=== PATIENT | male | born 1950 | race Caucasian/White ===

== ENCOUNTER 2020-02-01 11:32 | Outpatient (REF) | payer MEDICARE, MEDICAID, SELFPAY | END 2020-02-01 11:33 | disposition home or self-care (01) | LOC: HO.LAB 11:32 | PROVIDERS: PCP Internal Medicine; Visit Provider Internal Medicine | DX: Z20.828 Contact with and (suspected) exposure to other viral communicable diseases (principal) | CPT/HCPCS: C9803; U0003 ==

== ENCOUNTER 2020-02-27 11:07 | Outpatient (REF) | payer MEDICARE, MEDICAID, SELFPAY ==
--- NOTE | 2020-02-27 | XR_ITS ---
EXAMINATION: XR CERVICAL SPINE CLINICAL INFORMATION: Cervical pain. No known injury. COMPARISON: None TECHNIQUE: 3 views of the cervical spine were obtained. FINDINGS: There is normal cervical lordosis. Mild rightward tilting spine is present on the AP view. The odontoid appears intact. The vertebral bodies are normal in height. There is no vertebral compression, destructive process, or prevertebral soft tissue swelling. There are degenerative disc changes with disc narrowing, mild endplate sclerosis, and vertebral spurring at C3-C4 and C5-C6. There is multilevel mild facet degeneration. Borderline retrolisthesis is present at C3-C4 and at C4-C5. XR/XR cervical spine 3V IMPRESSION: 1. Degenerative disc changes C3-C4 and C5-C6. Mild multilevel facet degeneration. 2. Borderline retrolisthesis C3-C4 and at C4-C5.
== END 2020-02-27 11:08 | disposition home or self-care (01) ==
LOC: HO.HMGCX 11:07
PROVIDERS: PCP Internal Medicine; Visit Provider Internal Medicine
DX: M54.2 Cervicalgia (principal)
CPT/HCPCS: 72040

== ENCOUNTER 2020-05-05 12:08 | Outpatient (REF) | payer MEDICARE, MEDICAID, SELFPAY ==
--- NOTE | ~2020-05-05 | XR_ITS ---
EXAMINATION: XR BILATERAL KNEE CLINICAL INFORMATION: Bilateral knee pain. COMPARISON: None. TECHNIQUE: 4 views each knee. FINDINGS: RIGHT KNEE: There are mild degenerative changes medial and patellofemoral compartment with intercondylar eminence spurring. No loose bodies, joint effusion or bony erosive changes seen. The soft tissues unremarkable. LEFT KNEE: There are mild degenerative changes medial and patellofemoral compartment left knee with intercondylar and superior patellar spurring. The soft tissues are normal. XR/XR knee RT 4V IMPRESSION: Mild degenerative changes medial and lateral compartments both knees with spurring but no loose bodies or fracture seen. No abnormal joint effusion noted.
--- NOTE | ~2020-05-05 | XR_ITS ---
EXAMINATION: XR BILATERAL KNEE CLINICAL INFORMATION: Bilateral knee pain. COMPARISON: None. TECHNIQUE: 4 views each knee. FINDINGS: RIGHT KNEE: There are mild degenerative changes medial and patellofemoral compartment with intercondylar eminence spurring. No loose bodies, joint effusion or bony erosive changes seen. The soft tissues unremarkable. LEFT KNEE: There are mild degenerative changes medial and patellofemoral compartment left knee with intercondylar and superior patellar spurring. The soft tissues are normal. XR/XR knee LT 4V IMPRESSION: Mild degenerative changes medial and lateral compartments both knees with spurring but no loose bodies or fracture seen. No abnormal joint effusion noted.
== END 2020-05-05 12:09 | disposition home or self-care (01) ==
LOC: HO.HMGCX 12:08
PROVIDERS: PCP Internal Medicine; Visit Provider Internal Medicine
DX: M25.561 Pain in right knee (principal); M25.562 Pain in left knee
CPT/HCPCS: 73564

== ENCOUNTER 2020-09-14 19:40 | Emergency (ER) | payer MEDICARE, MEDICAID, SELFPAY ==
--- NOTE | ~2020-09-14 | CT_ITS ---
EXAMINATION: CT HEAD WITHOUT CONTRAST CT FACIAL BONES WITHOUT CONTRAST CT CERVICAL SPINE WITHOUT CONTRAST CLINICAL INFORMATION: Trauma. Fall. COMPARISON: None. TECHNIQUE: Imaging was performed from the skull base to vertex without intravenous administration of contrast. In addition, helical noncontrast CT imaging was acquired through the cervical spine and facial bones and source images were reviewed along with axial reconstructions and sagittal and coronal MPRs. [This CT examination was performed using dose optimization techniques as appropriate, variously including the following: *Automated exposure control *Adjustment of mA and/or kV according to patient size (this includes techniques or standardized protocols for targeted exams where dose is matched to indication/reason for exam; i.e. extremities or head) *Use of iterative reconstruction technique] DLP: 4 mGy-cm FINDINGS: HEAD: No intracranial mass, hemorrhage, or midline shift is visualized. There is generalized global volume loss. There is moderate prominence of the ventricles and the sulci . There is mild hypodensity of the periventricular white matter due to chronic small vessel ischemic disease. There are vascular calcifications of the internal carotid arteries bilaterally. No extra-axial collections are identified. FACIAL BONES: There is no evidence of an acute facial bone fracture. The paranasal sinuses are well aerated. The orbits are unremarkable in appearance. CERVICAL SPINE: There is no evidence of acute cervical spine fracture. Vertebral bodies remain normal in height, intervertebral disc spaces are preserved, and alignment is anatomic. Vascular calcification of the carotid arteries bilaterally.. Emphysematous change of the lung apices. CT/CT cervical spine wo con IMPRESSION: 1. No acute intracranial process or discrete facial bone fracture. 2. No acute cervical spine fracture or traumatic subluxation.
--- NOTE | 2020-09-14 19:48 | ECG_ITS ---
Test Reason : FALL Blood Pressure : / mmHG Vent. Rate : 055 BPM Atrial Rate : 055 BPM P-R Int : 178 ms QRS Dur : 098 ms QT Int : 420 ms P-R-T Axes : 043 030 047 degrees QTc Int : 401 ms Sinus bradycardia Otherwise normal ECG When compared with ECG of 31-AUG-2014 09:59, Premature atrial complexes are no longer Present Referred By: Indira Armendariz Electronically Signed By:Ramsey Aponte
[2020-09-14 19:57] VITALS: BP 111/76; PULSE 64; RESP 18; TEMP 36.6; O2SAT 98; BMI 29.4
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
[2020-09-14] MEDS: Diphth,Pertus(ACell),Tet Adult 0.5 ML SYRINGE IM (20:57)
[2020-09-14 20:58] LABS: MANUAL DIFF FLAG NO
[2020-09-14] MEDS: Lidocaine HCl 2 % MPF 5 ML VIAL INFILTRATI (21:01)
[2020-09-14 21:03] LABS: Basophils Absolute Auto 0.1 X10*3/uL (0.0-0.2); Basophils Percent Auto 0.5 % (0-2); Eosinophils Absolute Auto 0.5 X10*3/uL (0.0-0.4); Eosinophils Percent Auto 4.1 % (0-4); Hematocrit 43.8 % (42-52); Hemoglobin 14.8 g/dl (14.0-18.0); Imm Gran Abs Auto 0.04 X10*3/uL (0.00-0.03); Imm Gran Pct Auto 0.4 % (0.0-0.4); Lymphocytes Percent Auto 18.3 % (20-40); Mean Corpuscular HGB Conc 33.8 g/dl (31.0-36.0); Mean Corpuscular Hemoglobin 32.4 pg (27.0-33.0); Mean Corpuscular Volume 95.8 fL (80-98); Mean Platelet Volume 8.7 fL (9.4-12.4); Monocytes Absolute Auto 0.8 X10*3/uL (0.1-1.2); Monocytes Percent Auto 7.1 % (2-11); Neutrophils Absolute Auto 7.7 X10*3/uL (2.0-8.3); Neutrophils Percent Auto 69.6 % (45-73); Platelet Count 277 X10*3/uL (160-400); Red Blood Count 4.57 X10*6/uL (4.60-5.80); Red Cell Distribution Width 12.4 % (11.0-16.0)
[2020-09-14 21:24] LABS: Alanine Aminotransferase 49 U/L (0-40); Albumin Level 4.1 g/dL (3.5-5.0); Alkaline Phosphatase 71 U/L (39-117); Anion Gap 18 (12-20); Aspartate Amino Transferase 46 U/L (5-37); Bilirubin Direct 0.3 mg/dL (0.0-0.5); Bilirubin Total 0.6 mg/dL (0.0-1.0); Blood Urea Nitrogen 11 mg/dL (9-16); Carbon Dioxide 20 mmol/L (22-29); Chloride 100 mmol/L (96-108); Creatinine Clr Calc Pharmacy 88.7; Estimated Glomerular Filt Rate > 60; Glucose Random 133 mg/dL (60-115); Magnesium 2.3 mg/dL (1.6-2.6); Potassium 4.1 mmol/L (3.3-5.1); Sodium 134 mmol/L (135-145); Total Protein 6.7 g/dL (6.5-8.0)
--- NOTE | 2020-09-14 21:34 | PC.NURSE ---
Labs drawn and sent for analysis. EKG obtained and reviewed by provider. Face & arms cleansed with normal saline without issue. Abrasions noted to bilateral forearms, no active bleeding from these sites. Laceration to left side of forehead, sutures to be placed by DYLAN Armendariz. Pt continues to answer questions appropriately, speaking in clear full sentences. Vitals stable. Friend at bedside will provide sober ride home when discharge is ready. Imaging unremarkable.
== END 2020-09-14 22:33 | disposition home or self-care (01) ==
PROVIDERS: Physician Assistant; Emergency Provider Emergency Medicine; PCP Internal Medicine
DX: S01.112A Laceration without foreign body of left eyelid and periocular area, initial encounter (principal); F10.920 Alcohol use, unspecified with intoxication, uncomplicated; E11.9 Type 2 diabetes mellitus without complications; I10 Essential (primary) hypertension; G89.29 Other chronic pain; W01.0XXA Fall on same level from slipping, tripping and stumbling without subsequent striking against object, initial encounter; Y93.01 Activity, walking, marching and hiking; Y92.480 Sidewalk as the place of occurrence of the external cause; Y99.9 Unspecified external cause status; Z79.82 Long term (current) use of aspirin; Z79.891 Long term (current) use of opiate analgesic
CPT/HCPCS: 12013; 36415; 70450; 70486; 72125; 80048; 80076; 83735; 85025; 90471; 90715; 93005; 99284

== ENCOUNTER 2020-10-09 13:33 | Outpatient (REF) | payer MEDICARE, MEDICAID, SELFPAY ==
--- NOTE | ~2020-10-09 | XR_ITS ---
EXAMINATION: XR CHEST CLINICAL INFORMATION: Cough with hemoptysis. COMPARISON: Multiple priors, most recent CT chest dated 05/31/2018. TECHNIQUE: 2 views of the chest were obtained. FINDINGS: The lungs are clear. The cardiomediastinal silhouette is normal in size. There is no pleural effusion or pneumothorax. No acute osseous abnormality. XR/XR chest 2V IMPRESSION: No acute cardiopulmonary findings.
== END 2020-10-09 13:34 | disposition home or self-care (01) ==
LOC: HO.HMGCX 13:33
PROVIDERS: PCP Internal Medicine; Visit Provider Internal Medicine
DX: R04.2 Hemoptysis (principal)
CPT/HCPCS: 71046

== ENCOUNTER 2020-12-17 10:45 | Outpatient (REF) | payer MEDICARE, MEDICAID, SELFPAY ==
--- NOTE | ~2020-12-17 | XR_ITS ---
EXAMINATION: XR CERVICAL SPINE CLINICAL INFORMATION: Neck pain. COMPARISON: None TECHNIQUE: 3 views of the cervical spine were obtained. FINDINGS: There is maintained cervical lordosis. There is loss of the C5-C6 disc height with moderate ventral and mild posterior spondylosis. Minimal loss of C3-C4 disc height with ventral spondylosis noted. The rest of the disc heights are normal. The vertebral heights and alignment are maintained normal. The craniovertebral junction and the C1-C2 alignment is normal. Mild bilateral narrowing at the C3-C4 and C5-C6 neural foramina slightly worse on the left at C5-C6 and on the right at C3-C4 disc levels is noted secondary to uncovertebral hypertrophic changes. There is moderate bilateral slightly greater on the right C2-C3, C4-C5 facet joint arthropathy and hypertrophy. The prevertebral soft tissues are normal. XR/XR cervical spine 4V IMPRESSION: Degenerative disc changes and facet joint arthropathy, as described above. There is bilateral narrowing of the neural foramina. No acute fracture or dislocation seen.
== END 2020-12-17 10:46 | disposition home or self-care (01) ==
LOC: HO.HMGCX 10:45
PROVIDERS: PCP Internal Medicine; Visit Provider Physical Medicine & Rehabilitation
DX: Z13.89 Encounter for screening for other disorder (principal)
CPT/HCPCS: 72050

== ENCOUNTER → 2020-12-18 10:35 | Outpatient (REF) | payer MEDICARE, MEDICAID, SELFPAY ==
--- NOTE | 2020-12-18 10:30 | CA_ITS ---
Transthoracic Echocardiogram Patient (Last, First, Middle): Chas Jack S Gender: Male Date of : 1950 Age: 70 Procedure Date: 12/18/2020 Procedure Type: Transthoracic Echocardiogram Location: OP Height: 180.34 cm Weight: 90.72 kg BSA: 2.11 m2 Heart Rate: bpm BP: 135 / 70 mmHg Merchandise Clerk: YR/FAREED Referring MD: Doug Hummel MD Printing Worker Supervisor: Dany Morfin MD Symptoms: [place] AORTIC AREA, R/O Study Quality: Good ECG Rhythm: Sinus Conclusions: - 1. Normal LV systolic function with impaired relaxation filling pattern 2. Mildly dilated left atrium 3. Fibrocalcific aortic valve changes noted with increased gradient which may suggest early aortic stenosis. Valve area within normal limits 4. Normal RV systolic pressure 5. No pericardial effusion Findings Left Ventricle Normal left ventricular size, thickness, and systolic function. The visually estimated ejection fraction is between 55-60%. Spectral Doppler is indicative of an impaired relaxation filling pattern. E/E prime ratio is between 8 and 15 consistent with indeterminate filling pressures. Right Ventricle Normal right ventricular cavity size and systolic function. Atria The left atrium is mildly dilated. There is no evidence of interatrial shunt. The right atrium is normal in size. Aortic Valve There is mild calcification of the aortic valve. The mean gradient is 12 mmHg. There is no aortic valve regurgitation. Mitral Valve There is mild anterior and posterior mitral leaflet thickening. There is mild mitral annular calcification. There is mild mitral valve regurgitation. There is no mitral valve stenosis. Pulmonic Valve The pulmonic valve was not well visualized. Tricuspid Valve Likely normal tricuspid valve structure and function. There is mild tricuspid valve regurgitation. The right ventricular systolic pressure is normal. The right ventricular systolic pressure is 30 mmHg. Normal right atrial pressure. There is no evidence of pulmonary hypertension. Great Vessels All visible segments of the aorta are normal in size. The pulmonary artery was not well visualized. Venous The inferior vena cava is normal in size and collapses greater than 50% with inspiration. Pericardium/Pleural There is no evidence of pericardial effusion. Prior Study Comparison Changes noted compared to prior study dated: 07/06/2017. Mildly increased gradient across aortic valve, suggestive of possible early aortic stenosis Measurements 2D Linear Measurements IVSd: 1.18 0.6-0.9/0.6-1.0 cm LVIDd: 5.27 3.9-5.3/4.2-5.9 cm LVIDd Index: 2.50 2.4-3.2/2.2-3.1 cm/m2 LVIDs: 3.70 2.0-3.6 cm LVPWd: 1.05 0.7-1.1 cm Ao Root: 3.70 2.1-3.5 cm LA Diam: 4.00 2.7-3.8/3.0-4.0 cm LAIDs Index: 1.90 1.5-2.3 cm/m2 LV Mass: 286.53 67-162/88-224 g LV Mass Index: 135.80 43-95/49-115 g/m2 LVOT Diam: 2.20 3.0+(-)1.3 cm 2D Systolic Function EF 4C: 56.40 >55% EF 2C: 60.00 >55% EF BiP: 57.50 >55% Mitral Valve MV Pk E: 0.96 MV PK A: 1.07 MV Decel Time: 247.00 E/A: 0.90 E'Lateral: 10.10 E'Medial: 6.85 E/E' Med: 14.00 E/E' Lat: 9.50 PHT: 72.00 MVA PHT: 3.06 Decel [place]: 3.89 Aortic Valve AoV Pk Isaak: 2.36 AoV Mn Isaak: 1.64 AoV VTI: 0.52 AoV Pk Grad: 22.00 Aov Mn Grad: 12.00 VERNON Cont.VTI: 3.09 LVOT LVOT Pk Isaak: 2.02 LVOT Mn Isaak: 1.28 LVOT VTI: 0.43 LVOT Pk Grad: 16.00 LVOT Mn Grad: 8.00 LVOT Diam: 2.20 LVOT Area: 3.80 Diastolic Function MV Pk E: 0.96 MV Pk A: 1.07 E/A: 0.90 E'Medial: 6.85 E/E' Med: 14.00 E' Laterial: 10.10 E/E' Lat: 9.50 Right Ventricle TAPSE (mm): 3.15 TVS' Isaak: 17.60 Tricuspid Valve TR Pk Isaak: 2.62 TR Pk Grad: 27.00 RA Press: 3.00 RVSP: 30.00 Great Vessels Aorta Ao Root-2D: 3.70 2.0-3.7 cm Ao Asc: 3.70 2.1-3.4 cm Updated in Other Vendor System with Status of Final Dany Morfin MD electronically signed on 12/18/2020 1:17:02 PM with status of Final
== END ==
LOC: HO.CARD 10:35
PROVIDERS: Visit Provider Internal Medicine
DX: R00.1 Bradycardia, unspecified (principal)
CPT/HCPCS: 93306

== ENCOUNTER → 2021-03-04 15:29 | Outpatient (BNVA) | payer MEDICARE, MEDICAID, SELFPAY | PROVIDERS: PCP Internal Medicine; Referring Provider Internal Medicine; Visit Provider Internal Medicine Cardiovascular Disease | DX: I48.91 Unspecified atrial fibrillation (principal); I10 Essential (primary) hypertension | CPT/HCPCS: 93005; 99202 ==

== ENCOUNTER 2021-03-25 09:45 | Day surgery (SDC) | payer MEDICARE, MEDICAID, SELFPAY ==
--- NOTE | 2021-03-25 | ECG_ITS ---
Test Reason : post cardioversion Blood Pressure : / mmHG Vent. Rate : 065 BPM Atrial Rate : 065 BPM P-R Int : 190 ms QRS Dur : 088 ms QT Int : 400 ms P-R-T Axes : 034 005 021 degrees QTc Int : 416 ms Normal sinus rhythm Normal ECG When compared with ECG of 14-SEP-2020 21:13, No significant change was found Referred By: Ramsey Aponte Electronically Signed By:Ramsey Aponte
--- NOTE | 2021-03-25 10:00 | MHC.SHP ---
Pre-Procedural Eval Section A Date of Service: 03/25/21 The patient is an INPATIENT: No The History & Physical has been completed within 30 days and I have reviewed it.: Yes Section B Chief Complaint: Persistent A-fib Allergies: Allergies Allergy/AdvReac Type Severity Reaction Status Date / Time sulfamethoxazole Allergy Intermediate RASH,N/V Verified 03/04/21 15:44 [From BACTRIM] trimethoprim [From BACTRIM] Allergy Intermediate RASH,N/V Verified 03/04/21 15:44 Sulfa (Sulfonamide Allergy Unknown Unknown Verified 03/04/21 15:44 Antibiotics) fentanyl [From Duragesic] AdvReac Mild TOPICAL Verified 03/04/21 15:44 RASH FROM ADHESIVE methadone [Methadone] AdvReac Mild NAUSEA & Verified 03/04/21 15:44 VOMITING Plan Diagnosis/Plan: Unchanged I have reviewed the history and physical and performed a pertinent physical examination on my patient. No changes have occurred unless specified.
[2021-03-25 10:26] VITALS: BMI 29.7
[2021-03-25 10:28] VITALS: BP 155/93; PULSE 113; RESP 16; TEMP 37.2; O2SAT 95
[2021-03-25 10:43] LABS: Glucose, Whole Blood 205 mg/dL (60-115)
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
[2021-03-25] MEDS: Lactated Ringers 500 ML 20 ML IVCONT (12:00)
--- NOTE | 2021-03-25 12:10 | HO.CARDIVERS ---
Cardioversion Procedure Note Cardioversion Date of Procedure: 03/25/21 Ordering Provider: Dany Morfin Performing Provider: Ramsey Aponte Indication for Procedure: Afib Pre-Op Diagnosis: Afib Performed with Transesophageal Echo: No Consent: Verbal and Written consent was obtained from the patient before starting. The patient was made aware of the risk of stroke, aspiration and failure. Procedure: After consent obtained, defib pads were attached and the patient was sedated by the anesthesia team. Once adequate sedation achieved, we tried cardioversion with 200 J shock but it was unsuccessful. He was given a 2nd shock of 200 J which converted him to sinus rhythm. He was left with anesthesia for recovery. Recommendations: c/w Apixaban and Multaq as before. f/u with Dr Morfin
[2021-03-25 12:16] VITALS: BP 131/71; PULSE 66; RESP 14; TEMP 36.8; O2SAT 95
[2021-03-25 12:21] VITALS: BP 138/65; PULSE 70; RESP 19; O2SAT 94
[2021-03-25 12:26] VITALS: BP 130/65; PULSE 71; RESP 17; O2SAT 95
[2021-03-25 12:31] VITALS: BP 133/76; PULSE 69; RESP 18; O2SAT 94
[2021-03-25 12:46] VITALS: BP 139/75; PULSE 70; RESP 17; TEMP 36.8; O2SAT 96
== END 2021-03-25 13:20 | disposition home or self-care (01) ==
PROVIDERS: PCP Internal Medicine; Visit Provider Internal Medicine Cardiovascular Disease
PROC: 5A2204Z Restoration of Cardiac Rhythm, Single (ICD-10-PCS; principal; 2021-03-25 11:20)
DX: I48.19 Other persistent atrial fibrillation (principal); J44.9 Chronic obstructive pulmonary disease, unspecified; I10 Essential (primary) hypertension; E11.9 Type 2 diabetes mellitus without complications; Z79.01 Long term (current) use of anticoagulants; Z79.51 Long term (current) use of inhaled steroids; Z79.899 Other long term (current) drug therapy; Z88.2 Allergy status to sulfonamides; Z88.8 Allergy status to other drugs, medicaments and biological substances; Z87.891 Personal history of nicotine dependence
CPT/HCPCS: 82947; 92960; 93005

== ENCOUNTER → 2021-04-08 13:10 | Outpatient (REF) | payer MEDICARE, MEDICAID, SELFPAY ==
--- NOTE | 2021-04-08 13:14 | HM_ITS ---
Conclusion: 1. Patient was monitored for total period of 3 days and 13 hours 2. Baseline rhythm is atrial fibrillation with average heart of 81 beats per minute, rate appears to be adequately controlled 3. No significant pauses noted 4. Total of 3248 PVCs accounting for 0.79% of total burden, occasional PVCs 5. No patient reported events MTDD
== END ==
LOC: HO.CARD 13:10
PROVIDERS: PCP Internal Medicine; Visit Provider Internal Medicine Cardiovascular Disease
DX: I48.91 Unspecified atrial fibrillation (principal)
CPT/HCPCS: 93242

== ENCOUNTER → 2021-05-05 09:14 | Outpatient (BNVA) | payer MEDICARE, MEDICAID, SELFPAY | PROVIDERS: PCP Internal Medicine; Referring Provider Internal Medicine; Visit Provider Internal Medicine Cardiovascular Disease | DX: I48.19 Other persistent atrial fibrillation (principal); I10 Essential (primary) hypertension; Z79.01 Long term (current) use of anticoagulants; Z79.899 Other long term (current) drug therapy | CPT/HCPCS: 93005; 99212 ==

== ENCOUNTER 2021-05-12 10:34 | Outpatient (REF) | payer MEDICARE, MEDICAID, SELFPAY ==
--- NOTE | ~2021-05-12 | XR_ITS ---
EXAMINATION: XR CHEST CLINICAL INFORMATION: Cough. Rule out pneumonia. COMPARISON: Previous chest x-ray September 2020 TECHNIQUE: 2 views of the chest were obtained. FINDINGS: The cardiac and mediastinal contours are stable. There is subsegmental atelectasis at the lung bases, right greater than left. No pneumonia is seen. There is no pleural effusion or pneumothorax. There are degenerative changes of the spine. XR/XR chest 2V IMPRESSION: Subsegmental atelectasis at the lung bases. No evidence of pneumonia.
== END 2021-05-12 10:35 | disposition home or self-care (01) ==
LOC: HO.HMGCLDS 10:34
PROVIDERS: Visit Provider Internal Medicine
DX: J18.9 Pneumonia, unspecified organism (principal)
CPT/HCPCS: 71046

== ENCOUNTER → 2021-06-12 11:07 | Outpatient (REF) | payer MEDICARE, MEDICAID, SELFPAY ==
--- NOTE | 2021-06-12 11:10 | HM_ITS ---
* Total monitoring time 3 days. * Underlying rhythm is atrial fibrillation. Average 98/Min. Range 61 to 154/Min. About 21% of the time, rate >100/min. * Rare ventricular ectopy. Minimal burden. 2 morphologies and 21 couplets. Longest run 4 beats. Aberrant conduction not excluded. * No patient events. * Overall, atrial fibrillation with inadequate rate control. MTDD
== END ==
LOC: HO.CARD 11:07
PROVIDERS: PCP Internal Medicine; Visit Provider Internal Medicine Cardiovascular Disease
DX: I48.91 Unspecified atrial fibrillation (principal)
CPT/HCPCS: 93242

== ENCOUNTER → 2021-07-01 10:44 | Outpatient (BNVA) | payer MEDICARE, MEDICAID, SELFPAY | PROVIDERS: PCP Internal Medicine; Visit Provider Internal Medicine Pulmonary Disease | DX: J84.9 Interstitial pulmonary disease, unspecified (principal); J44.9 Chronic obstructive pulmonary disease, unspecified | CPT/HCPCS: 99202 ==

== ENCOUNTER 2021-07-15 07:33 | Outpatient (REF) | payer MEDICARE, MEDICAID, SELFPAY ==
--- NOTE | ~2021-07-15 | CT_ITS ---
EXAMINATION: CT CHEST WITHOUT CONTRAST CLINICAL INFORMATION: Interstitial lung disease, unspecified. COMPARISON: CT of the chest done on 05/31/2018. TECHNIQUE: Multidetector volumetric CT imaging of the chest was done. Axial MIP volume rendering provided. Sagittal and coronal reformatted images were obtained. This CT examination was performed using dose optimization techniques as appropriate, variously including the following: *Automated exposure control *Adjustment of mA and/or kV according to patient size (this includes techniques or standardized protocols for targeted exams where dose is matched to indication/reason for exam; i.e. 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 LUNGS: Linear pleuroparenchymal opacities are noted at right middle lobe and lingular segment of the left upper lobe, consistent with pleuroparenchymal scar, atelectasis and less likely to be infiltrate. Remainder of the lung gallardo are clear. The tracheobronchial tree is patent. Specifically, no evidence of any reticular, nodular or high or low-attenuation interstitial lung parenchymal abnormalities identified. MEDIASTINUM: There are no pathologically enlarged mediastinal lymphadenopathy present. Hilar evaluation is technically limited due to lack of intravenous contrast however, grossly appear unremarkable, unchanged. The heart size is within normal limits. There is no evidence of any aortic aneurysm present. Atherosclerotic disease of the arch of the aorta and extensive atherosclerotic coronary arterial calcifications are present, similar to prior study. PLEURA: There is no pleural effusion. No pleural mass or thickening. AXILLA: No lymphadenopathy. UPPER ABDOMEN: Remarkable for diffuse hepatic hypodensity consistent with hepatic steatosis. There is no adrenal mass present. OSSEOUS STRUCTURES: Moderate diffuse osteopenia and multilevel moderate degenerative spondylosis related changes are present. CT/CT chest wo con IMPRESSION: 1. No CT evidence of any interstitial lung disease identified, unchanged since prior study dated 05/31/2018. 2. Interval development of linear pleuroparenchymal opacities are however present at right middle lobe and lingular segment of the left upper lobe, consistent with pleural parenchymal scar, atelectasis and less likely to be infiltrate. 3. Persistent stable extensive atherosclerotic coronary arterial disease. 4. Persistent stable diffuse hepatic steatosis. Fleischner guidelines were followed.
== END 2021-07-15 07:34 | disposition home or self-care (01) ==
LOC: HO.CT 07:33
PROVIDERS: Visit Provider Internal Medicine Pulmonary Disease
DX: J84.9 Interstitial pulmonary disease, unspecified (principal)
CPT/HCPCS: 71250

== ENCOUNTER → 2021-07-30 09:04 | Outpatient (BNVA) | payer MEDICARE, MEDICAID, SELFPAY | PROVIDERS: PCP Internal Medicine; Referring Provider Internal Medicine; Visit Provider Internal Medicine Cardiovascular Disease | DX: I48.19 Other persistent atrial fibrillation (principal); R07.89 Other chest pain | CPT/HCPCS: 99212 ==

== ENCOUNTER 2021-08-03 09:58 | Outpatient (REF) | payer MEDICARE, MEDICAID, SELFPAY ==
--- NOTE | 2021-08-03 15:32 | PFT_ITS ---
Forced vital capacity 80%, FEV1 74%, FEV1/FVC ratio is 68, FEF 25-75 57%, and MVV 58%. Post bronchodilator therapy, there is no significant change. Total lung capacity 96%. Residual volume 124%. Diffusion capacity 76%. CONCLUSION: Mild obstructive airway disorder. No response to bronchodilator therapy. Clinical correlation recommended. MD KALEB Oliveros/LILLIAN / [phone]
== END 2021-08-03 09:59 | disposition home or self-care (01) ==
LOC: HO.RESP 09:58
PROVIDERS: PCP Internal Medicine; Visit Provider Internal Medicine Pulmonary Disease
DX: J84.9 Interstitial pulmonary disease, unspecified (principal); R06.00 Dyspnea, unspecified
CPT/HCPCS: 94060; 94727; 94729

== ENCOUNTER → 2021-08-06 08:16 | Outpatient (REF) | payer MEDICARE, MEDICAID, SELFPAY ==
--- NOTE | ~2021-08-06 | NM_ITS ---
Myocardial perfusion study Indication: Atrial fibrillation and shortness of breath evaluate for myocardial ischemia Technique: The patient was brought in for a Lexiscan perfusion study on 08/06/2021. Patient performed low-level exercise and was injected 0.4 mg of Lexiscan intravenously. Within a minute of injection, 35 mCi of sestamibi was given intravenously. Images were obtained using the SPECT gamma camera interlaced with the gating device. Images were obtained in supine position. Resting perfusion study was performed on 08/07/2021. Patient was administered 35 mCi of sestamibi intravenously at rest. Images were then obtained in supine position. Images obtained with and without CT attenuation. Total DLP 99 mGy-cm. Images were processed with the software and compared side to side in short axis, horizontal long axis and vertical long axis views. Findings: The stress perfusion study showed non attenuated images show mildly reduced uptake in the basal septum as well as inferior wall of the LV myocardium. Remainder of the LV myocardium normally perfused. Attenuation corrected images show normal uptake of radiotracer in all segments of LV myocardium.. The gated study shows normal LV systolic function with calculated LVEF of 41%. LV cavity is mildly dilated size. The gated study shows diffusely reduced wall thickening and contraction of segments. Resting study shows no change in perfusion pattern compared to stress perfusion study. Gating at rest reveals diffusely reduced wall motion with ejection fraction at 41%. The findings are consistent with no evidence of ischemia. Normal myocardial perfusion. NM/NM lanie perf SPECT rest & str Impression: 1. Myocardial perfusion imaging study shows normal myocardial perfusion 2. Gated LVEF is 41% 3. Transient ischemic dilatation not present but LV cavity is dilated EKG is nondiagnostic for ischemia
--- NOTE | 2021-08-06 08:42 | HM_ITS ---
Conclusion: 1. Patient was monitor for total period of 22 hours and 36 minutes 2. Baseline with atrial fibrillation with average heart rate of 94 beats per minute, 20% of time heart rate greater than 100 beats per minute 3. No significant pauses or bradycardia noted 4. Two episodes of wide complex runs consistent with nonsustained VT, longest 4 beats 5. Occasional PVCs 6. No patient reported symptoms MTDD
--- NOTE | 2021-08-06 08:42 | CA_ITS ---
Acquisition Time: 2021-08-06 09:44:30 Total Exercise Time: 00:02:00 Test Indications: Dyspnea Medications: ALBUTEROL ELIQUIS FLONASE TRELOGY ELLIPTA GABAPENTIN METFORMIN METOPROL Protocol: LEXISCAN Max HR: 136 BPM 90% of Pred: 150 BPM Max BP: 170/092 mmHG Max Work Load: 1.0 METS Pharmacological stress test with Lexiscan injection, while sitting, without anginal symptoms, with isolated PVC, with normotensive response to injection, with nondiagnostic EKG for ischemia. In recovery he was treated with Aminophylline 75mg IVP to reverse Lexiscan. Nuclear images pending. Test reviewed with Dr Morfin Referred By: Dany Morfin Overread By: ZOLTAN LEMA
[2021-08-06 09:12] LABS: Digoxin < 0.3 ng/mL (0.8-2.0)
== END ==
LOC: HO.CARD 08:16
PROVIDERS: PCP Internal Medicine; Visit Provider Internal Medicine Cardiovascular Disease
DX: I10 Essential (primary) hypertension (principal); I48.19 Other persistent atrial fibrillation; R07.89 Other chest pain
CPT/HCPCS: 36415; 78452; 80162; 93017; 93242; A9500; J0280; J2785

== ENCOUNTER 2021-08-07 | Outpatient (REF) | payer MEDICARE, MEDICAID, SELFPAY | END 2021-08-07 00:01 | LOC: CF | PROVIDERS: PCP Internal Medicine; Visit Provider Internal Medicine Pulmonary Disease | DX: J44.9 Chronic obstructive pulmonary disease, unspecified (principal); R91.8 Other nonspecific abnormal finding of lung field; I48.19 Other persistent atrial fibrillation; I10 Essential (primary) hypertension; E11.9 Type 2 diabetes mellitus without complications; Z87.891 Personal history of nicotine dependence | CPT/HCPCS: 99212 ==

== ENCOUNTER → 2021-09-07 14:29 | Outpatient (BNVA) | payer MEDICARE, MEDICAID, SELFPAY | PROVIDERS: PCP Internal Medicine; Referring Provider Internal Medicine; Visit Provider Internal Medicine Cardiovascular Disease | DX: R07.89 Other chest pain (principal); I48.19 Other persistent atrial fibrillation; Z79.01 Long term (current) use of anticoagulants; Z79.899 Other long term (current) drug therapy | CPT/HCPCS: 99212 ==

== ENCOUNTER → 2021-10-06 08:27 | Outpatient (REF) | payer MEDICARE, MEDICAID, SELFPAY ==
--- NOTE | 2021-10-06 08:30 | CA_ITS ---
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 The visually estimated ejection fraction is between 55-60%. Diastolic function is indeterminate on the basis of available data. Pericardium/Pleural There is no evidence of pericardial effusion. Prior Study Comparison No significant change compared to prior study dated: 12/18/2020. Measurements 2D Linear Measurements IVSd: 1.12 0.6-0.9/0.6-1.0 cm LVIDd: 5.12 3.9-5.3/4.2-5.9 cm LVIDd Index: 2.43 2.4-3.2/2.2-3.1 cm/m2 LVIDs: 3.56 2.0-3.6 cm LVPWd: 1.15 0.7-1.1 cm LA Diam: 4.90 2.7-3.8/3.0-4.0 cm LAIDs Index: 2.32 1.5-2.3 cm/m2 LV Mass: 280.14 67-162/88-224 g LV Mass Index: 132.77 43-95/49-115 g/m2 Mitral Valve MV Pk E: 0.89 MV Decel Time: 200.00 E'Lateral: 8.49 E'Medial: 5.44 E/E' Med: 16.40 E/E' Lat: 10.50 PHT: 59.00 MVA PHT: 3.73 Decel Ross: 4.46 Diastolic Function MV Pk E: 0.89 E'Medial: 5.44 E/E' Med: 16.40 E' Laterial: 8.49 E/E' Lat: 10.50 Tricuspid Valve TR Pk Isaak: 2.48 TR Pk Grad: 25.00 RA Press: 3.00 RVSP: 28.00 Updated in Other Vendor System with Status of Final Dany Morfin MD electronically signed on 10/07/2021 1:23:59 PM with status of Final
== END ==
LOC: HO.CARD 08:27
PROVIDERS: Visit Provider Internal Medicine Cardiovascular Disease
DX: I48.19 Other persistent atrial fibrillation (principal)
CPT/HCPCS: 93308

== ENCOUNTER 2021-10-23 12:20 | Outpatient (REF) | payer MEDICARE, MEDICAID, SELFPAY ==
--- NOTE | ~2021-10-23 | XR_ITS ---
EXAMINATION: XR ANKLE, LEFT CLINICAL INFORMATION: Left ankle pain. COMPARISON: No similar priors. TECHNIQUE: AP, lateral, and mortise views of the left ankle. FINDINGS: No acute fracture or malalignment. Ankle mortise is maintained. Nonspecific superficial soft tissue calcifications along the anterior aspect of the distal calf. Small dorsal calcaneus spurs. Nonspecific soft tissue swelling, more notable along the medial compartment and plantar surface of the heel. Scattered vascular calcifications. XR/XR ankle LT min 3V IMPRESSION: No acute fracture or malalignment. Small calcaneus spurs. Nonspecific soft tissue swelling.
== END 2021-10-23 12:21 | disposition home or self-care (01) ==
LOC: HO.HMGCX 12:20
PROVIDERS: PCP Internal Medicine; Visit Provider Internal Medicine
DX: M25.572 Pain in left ankle and joints of left foot (principal)
CPT/HCPCS: 73610

== ENCOUNTER → 2021-11-26 09:16 | Outpatient (BNVA) | payer MEDICARE, MEDICAID, SELFPAY | PROVIDERS: PCP Internal Medicine; Visit Provider Internal Medicine Pulmonary Disease | DX: J44.9 Chronic obstructive pulmonary disease, unspecified (principal); J84.9 Interstitial pulmonary disease, unspecified; R91.8 Other nonspecific abnormal finding of lung field; Z79.899 Other long term (current) drug therapy; Z87.891 Personal history of nicotine dependence | CPT/HCPCS: 99212 ==

== ENCOUNTER → 2022-03-09 11:38 | Outpatient (BNVA) | payer MEDICARE, MEDICAID, SELFPAY | PROVIDERS: PCP Internal Medicine; Referring Provider Internal Medicine; Visit Provider Internal Medicine Cardiovascular Disease | DX: R07.89 Other chest pain (principal); I48.19 Other persistent atrial fibrillation | CPT/HCPCS: 93005; 99212 ==

== ENCOUNTER 2022-03-18 10:15 | Outpatient (REF) | payer MEDICARE, MEDICAID, SELFPAY ==
[2022-03-18 11:32] LABS: Anion Gap 12 (12-20); Blood Urea Nitrogen 15 mg/dL (9-16); Calcium 9.8 mg/dL (8.4-10.2); Carbon Dioxide 31 mmol/L (22-29); Chloride 98 mmol/L (96-108); Estimated Glomerular Filt Rate 50; Glucose Random 217 mg/dL (60-115); Potassium 5.7 mmol/L (3.3-5.1); Sodium 135 mmol/L (135-145)
== END 2022-03-18 10:16 | disposition home or self-care (01) ==
LOC: HO.LAB 10:15
PROVIDERS: PCP Internal Medicine; Visit Provider Internal Medicine Cardiovascular Disease
DX: I10 Essential (primary) hypertension (principal); I48.19 Other persistent atrial fibrillation
CPT/HCPCS: 36415; 80048

== ENCOUNTER → 2022-04-02 09:06 | Outpatient (BNVA) | payer MEDICARE, MEDICAID, SELFPAY | PROVIDERS: PCP Internal Medicine; Visit Provider Internal Medicine Pulmonary Disease | DX: J44.9 Chronic obstructive pulmonary disease, unspecified (principal); R91.8 Other nonspecific abnormal finding of lung field | CPT/HCPCS: 99212 ==

== ENCOUNTER 2022-04-28 11:44 | Outpatient (REF) | payer MEDICARE, MEDICAID, SELFPAY ==
--- NOTE | ~2022-04-28 | XR_ITS ---
EXAMINATION: XR LUMBAR SPINE XR PELVIS CLINICAL INFORMATION: Leg pain. COMPARISON: None. TECHNIQUE: 3 views lumbar spine, 1 view pelvis. FINDINGS: There is normal lumbar lordosis. The vertebral heights and alignment is normal. There are disc prosthesis at L5-S1 and L4-L5 disc level stabilized with bilateral pedicular screws at L4 and S1 vertebra with interconnecting rods. There is loss of L1-L2 and L2-L3 disc heights with moderate ventral spondylosis and bridging osteophytes.. No aggressive lytic or sclerotic process seen. The SI joints are symmetrical and normal. The paravertebral soft tissues are normal. XR/XR pelvis 1-2V IMPRESSION: 1. Disc prosthesis at L4-L5 and L5-S1 disc levels stabilized with bilateral pedicular screws and interconnecting rods. 2. There are degenerative disc changes L1-L2 and L2-L3 disc levels with moderate ventral spondylosis.
--- NOTE | ~2022-04-28 | XR_ITS ---
EXAMINATION: XR LUMBAR SPINE XR PELVIS CLINICAL INFORMATION: Leg pain. COMPARISON: None. TECHNIQUE: 3 views lumbar spine, 1 view pelvis. FINDINGS: There is normal lumbar lordosis. The vertebral heights and alignment is normal. There are disc prosthesis at L5-S1 and L4-L5 disc level stabilized with bilateral pedicular screws at L4 and S1 vertebra with interconnecting rods. There is loss of L1-L2 and L2-L3 disc heights with moderate ventral spondylosis and bridging osteophytes.. No aggressive lytic or sclerotic process seen. The SI joints are symmetrical and normal. The paravertebral soft tissues are normal. XR/XR lumbar spine 2-3V IMPRESSION: 1. Disc prosthesis at L4-L5 and L5-S1 disc levels stabilized with bilateral pedicular screws and interconnecting rods. 2. There are degenerative disc changes L1-L2 and L2-L3 disc levels with moderate ventral spondylosis.
== END 2022-04-28 11:45 | disposition home or self-care (01) ==
LOC: HO.HMGCX 11:44
PROVIDERS: PCP Internal Medicine; Visit Provider Internal Medicine
DX: R10.30 Lower abdominal pain, unspecified (principal); M54.9 Dorsalgia, unspecified; M79.606 Pain in leg, unspecified
CPT/HCPCS: 72100; 72170

== ENCOUNTER 2022-05-25 14:12 | Outpatient (REF) | payer MEDICARE, BC, MEDICAID, SELFPAY ==
--- NOTE | ~2022-05-25 | XR_ITS ---
EXAMINATION: XR HIP, LEFT CLINICAL INFORMATION: Left hip pain. COMPARISON: None TECHNIQUE: Two views of the left hip. FINDINGS: There is a left hip nail and plate stabilizing old healed femoral neck fracture. There is mild reduction of left hip joint space especially along the superolateral aspect of periarticular spurring. No acute fracture or lytic process seen. XR/XR hip LT min 2V IMPRESSION: 1. 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 2. There is a left hip nail and plate stabilizing old healed femoral neck fracture. The fracture has resolved and not visualized. There is mild hypertrophic spurring along the greater trochanter.
== END 2022-05-25 14:13 | disposition home or self-care (01) ==
LOC: HO.XRAY 14:12
PROVIDERS: PCP Internal Medicine; Visit Provider Internal Medicine
DX: M25.552 Pain in left hip (principal)
CPT/HCPCS: 73502

== ENCOUNTER 2022-06-05 13:57 | Inpatient (IN) | payer MEDICARE, SELFPAY ==
[2022-06-05] VITALS (10 sets, daily range): BP systolic 151–193; BP diastolic 77–107; PULSE 98–124; RESP 16–25; TEMP 36.4–37.8; O2SAT 93–98; BMI 27.8
--- NOTE | ~2022-06-05 | MR_ITS ---
EXAMINATION: MR CERVICAL SPINE WITHOUT AND WITH CONTRAST CLINICAL INFORMATION: Rule out cord lesion. COMPARISON: None available. TECHNIQUE: MRI of the cervical spine was performed with routine sequences without and with intravenous contrast. A total of 10 ml of Gadavist was intravenously administered. FINDINGS: The cervical vertebral bodies maintain normal heights. There is mild retrolisthesis of C4 on C5. There is severe disc height loss at C5-C6. Mild endplate edema is noted at the inferior aspect of C3. No definite cord signal abnormality is seen along for motion artifact. There is no abnormal enhancement within the cervical spinal canal. The extraspinal soft tissues are within normal limits. No intracranial abnormality is seen. SPINAL LEVELS: C2-C3: Severe right facet arthropathy with uncovertebral hypertrophy resulting in severe right neural foraminal stenosis. No spinal canal stenosis. C3-C4: Disc osteophyte complex with uncovertebral hypertrophy and moderate to severe right facet arthropathy resulting in severe bilateral right more than left neural foraminal stenosis and mild spinal canal stenosis. C4-C5: Mild disc bulging and right uncovertebral hypertrophy. No spinal canal stenosis. Moderate right neural foraminal stenosis. C5-C6: Disc osteophyte complex with uncovertebral hypertrophy resulting in moderate to severe spinal canal stenosis with ventral cord flattening and severe left more than right neural foraminal stenosis. C6-C7: Mild disc bulging with uncovertebral hypertrophy resulting in moderate to severe right and moderate left neural foraminal stenosis but no spinal canal stenosis. C7-T1: No posterior disc abnormality. Moderate left facet arthropathy. No spinal canal or neural foraminal stenosis. MR/MR cervical spine wo/w con IMPRESSION: No definite cord signal abnormality is seen along for motion artifact. No abnormal enhancement within the cervical spinal canal. Multilevel degenerative spondylosis most advanced at C5-C6 where there is moderate to severe spinal canal stenosis with ventral cord flattening and severe left more than right neural foraminal stenosis. Neural foraminal stenosis appears severe on the right at C2-C3, severe bilaterally at C3-C4, moderate on the right at C4-C5, and moderate to severe on the right and moderate on the left at C6-C7.
--- NOTE | ~2022-06-05 | CT_ITS ---
EXAMINATION: CT BRAIN, CT CERVICAL SPINE WITHOUT CONTRAST. CHEST X-RAY. CLINICAL INFORMATION: SOB and weakness. COMPARISON: CT brain 09/14/2020 TECHNIQUE: 5 mm thin axial and reformatted 2 mm thin sagittal coronal images of brain were obtained. Subsequently axial 3 mm thin and reformatted 2 mm thin sagittal and coronal images of cervical spine were obtained. DLP [id number]. This CT examination was performed using dose optimization technique as appropriate, variously including the following: Automated exposure control Adjustment of MA and/or KV according to patient size(this includes techniques or standardized protocols for targeted exams where dose is matched to indication/reason for exam; extremities or head. Use of iterative reconstruction techniques. Chest x-ray 2 views. FINDINGS: Brain: There is no acute intra-axial, extra-axial bleed, masses or midline shift. There is no acute infarction in evolution. There is no edema. [place] to white matter differentiation is maintained normal. The lateral ventricles are symmetrical in size and configuration with mild enlargement. Bone windows reveal no calvarial abnormality. Bilateral paranasal sinuses and mastoid air cells are well-aerated. No scalp soft tissue abnormality seen. Cervical spine: There is mild straightening of cervical lordosis. And the vertebral heights are normal. There is grade 1 anterolisthesis C3 over C4. Rest of the alignment is normal. There is loss of C3-C4, C5-C6 disc heights with ventral spondylosis. The craniovertebral junction and the C1-C2 alignment is normal. No visible acute fracture, dislocation or subluxation seen. There is moderate right C2-C3, mild C3-C4 facet joint arthropathy. No visible acute fracture, dislocation or subluxation seen. The lung apices are clear. The paravertebral soft tissues are normal. Chest x-ray: The lungs are hyperinflated but clear. The heart size and pulmonary vascularity is normal. No gross bony abnormality seen. CT/CT cervical spine wo IV con IMPRESSION: No acute intracranial process process seen. Straightening of cervical lordosis with degenerative disc changes and grade 1 anterolisthesis C3 over C4. No visible acute fracture or dislocation seen. Unremarkable chest exam.
--- NOTE | ~2022-06-05 | CT_ITS ---
EXAMINATION: CT ABDOMEN AND PELVIS WITHOUT CONTRAST CLINICAL INFORMATION: Multiple falls COMPARISON: CT chest dated 07/15/2021 TECHNIQUE: Multidetector volumetric imaging was performed from the superior aspect of the liver through the pubic symphysis. Sagittal and coronal reformatted images were obtained on the technologist's workstation. This CT examination was performed using dose optimization techniques as appropriate, variously including the following: *Automated exposure control *Adjustment of mA and/or kV according to patient size (this includes techniques or standardized protocols for targeted exams where dose is matched to indication/reason for exam; i.e. extremities or head) *Use of iterative reconstruction technique DLP: 771 mGy-cm FINDINGS: LUNG BASES: Pleural parenchymal scarring in the middle lobe and lingula, similar in appearance to the prior. Coronary calcifications. LIVER, GALLBLADDER, AND BILIARY TREE: Liver is normal in size, contour and morphology. Diffuse hepatic steatosis. No focal liver lesions. No intra or extrahepatic biliary dilatation. Gallbladder unremarkable. PANCREAS: Fatty atrophy. No pancreatic mass or inflammation. SPLEEN: Unremarkable. ADRENAL GLANDS: Unremarkable. KIDNEYS AND URETERS: The kidneys are normal in size, shape, and attenuation. No hydronephrosis, hydroureter, or calculi seen. No perinephric stranding. BLADDER: Unremarkable. GASTROINTESTINAL TRACT: Sigmoid colonic diverticulosis. No evidence of diverticulitis. Normal appendix. Stomach and small bowel unremarkable. ABDOMINAL WALL: No significant hernia is appreciated. LYMPH NODES: Normal. VASCULAR: Aorta is atherosclerotic but normal caliber. PELVIC VISCERA: Mild prostatomegaly. Seminal vesicles unremarkable. OSSEOUS STRUCTURES: No fractures. Posterior spinal fusion from L4-S1 with interbody cages at L4-L5 and L5-S1, and bilateral transpedicular screws at S1. CT/CT abdomen pelvis wo IV con IMPRESSION: * No acute findings within the abdomen or pelvis. * Hepatic steatosis. * Sigmoid colonic diverticulosis without evidence of diverticulitis.
--- NOTE | 2022-06-05 14:00 | ED.GENADULT ---
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 (6.5-8.0) g/dL Albumin (3.5-5.0) g/dL Urine Color Yellow Urine Appearance Clear Urine pH 6.5 (5.0-9.0) Ur Specific [place] 1.015 (1.005-1.025) Urine Protein Negative (Neg-Trace) mg/dL Urine Glucose (UA) Negative (Negative) mg/dL Urine Ketones 15 (Negative) mg/dL Urine Blood Negative (Negative) Urine Nitrite Negative (Negative) Ur Leukocyte Esterase Negative (Negative) Digoxin (0.8-2.0) ng/mL Urine Opiates Screen POSITIVE H (Not Detect) Urine Fentanyl Screen Not Detected (Not Detect) Ur Barbiturates Screen Not Detected (Not Detect) Ur Phencyclidine Scrn Not Detected (Not Detect) Ur Amphetamines Screen Not Detected (Not Detect) U Benzodiazepines Scrn Not Detected (Not Detect) Urine Cocaine Screen Not Detected (Not Detect) U Marijuana (THC) Screen Not Detected (Not Detect) Ethyl Alcohol mg/dL Influenza Type A (PCR) (Negative) Influenza Type B (PCR) (Negative) RSV RNA Qual (PCR) (Negative) SARS-CoV-2 RNA (RT-PCR) (Negative) <DYLAN Marino - Last Filed: 06/05/22 17:59> Independent Interpretation I performed an independent interpretation of an: EKG and CT Scan <YDLAN Marino - Last Filed: 06/05/22 17:59> Interpretation: EKG with atrial fibrillation with rapid ventricular response, ventricular rate 1 did 18 beats per minute, there is ST depression in V4 and V5. No ST segment elevations. CXR reviewed - no PNA or infiltrate, agree with radiologist read CT head reviewed - no ICH, agree w/ radiologist read <DYLAN Marino - Last Filed: 06/05/22 17:59> Radiology Impression Discussion of test interpretation with radiology: I have reviewed the radiologist's reading. <DYLAN Marino - Last Filed: 06/05/22 17:59> Radiologist Impression: EXAMINATION: CT BRAIN, CT CERVICAL SPINE WITHOUT CONTRAST. CHEST X-RAY. CLINICAL INFORMATION: SOB and weakness.? COMPARISON: CT brain 09/14/2020? TECHNIQUE: 5 mm thin axial and reformatted 2 mm thin sagittal coronal images of brain were obtained. Subsequently axial 3 mm thin and reformatted 2 mm thin sagittal and coronal images of cervical spine were obtained. DLP [id number]. This CT examination was performed using dose optimization technique as appropriate, variously including the following: Automated exposure control Adjustment of MA and/or KV according to patient size(this includes techniques or standardized protocols for targeted exams where dose is matched to indication/reason for exam;? extremities or head. Use of iterative reconstruction techniques. Chest x-ray 2 views. FINDINGS: Brain: There is no acute intra-axial, extra-axial bleed, masses or midline shift. There is no acute infarction in evolution. There is no edema. [place] to white matter differentiation is maintained normal. The lateral ventricles are symmetrical in size and configuration with mild enlargement. Bone windows reveal no calvarial abnormality. Bilateral paranasal sinuses and mastoid air cells are well-aerated. No scalp soft tissue abnormality seen. Cervical spine: There is mild straightening of cervical lordosis. And the vertebral heights are normal. There is grade 1 anterolisthesis C3 over C4. Rest of the alignment is normal. There is loss of C3-C4, C5-C6 disc heights with ventral spondylosis. The craniovertebral junction and the C1-C2 alignment is normal. No visible acute fracture, dislocation or subluxation seen. There is moderate right C2-C3, mild C3-C4 facet joint arthropathy. No visible acute fracture, dislocation or subluxation seen. The lung apices are clear. The paravertebral soft tissues are normal. Chest x-ray: The lungs are hyperinflated but clear. The heart size and pulmonary vascularity is normal. No gross bony abnormality seen. CT/CT cervical spine wo IV con IMPRESSION: No acute intracranial process process seen. ? Straightening of cervical lordosis with degenerative disc changes and grade 1 anterolisthesis C3 over C4. No visible acute fracture or dislocation seen. ? Unremarkable chest exam. <DYLAN Marino - Last Filed: 06/05/22 17:59> Independent Historian Clinical information obtained from an independent historian. History obtained from or confirmed by: Spouse <DYLAN Marino - Last Filed: 06/05/22 17:59> External Record Review External record reviewed: Outpatient record, Prior outpatient labs and Prior outpatient radiology <DYLAN Marino - Last Filed: 06/05/22 17:59> Prescription Management I considered prescription management with: Pain Medication and Other ( Rate-controlling medications ) <DYLAN Marino - Last Filed: 06/05/22 17:59> Chronic Conditions Patient?s care impacted by: Other ( COPD and AFib) <DYLAN Marino - Last Filed: 06/05/22 17:59> Critical Care Time Critical Care Time Critical Care Time: Yes <DYLAN Marino - Last Filed: 06/05/22 17:59> Total Critical Care Time: 48 <DYLAN Marino - Last Filed: 06/05/22 17:59> Attestation: I have personally provided critical care time exclusive of time spent on separately billable procedures. Time includes review of lab data, radiology results, discussion with consultants, and monitoring for potential decompensation. Intervention performed as documented. <DYLAN Marino - Last Filed: 06/05/22 17:59> Discharge Plan Discharge Clinical Impression: Atrial fibrillation with RVR, Weakness, Recurrent falls, Chest pain, Elevated troponin <DYLAN Cruz - Last Filed: 06/05/22 14:01> Patient Disposition: Admitted As Inpatient <DYLAN Cruz - Last Filed: 06/05/22 14:01>
--- NOTE | 2022-06-05 14:01 | ECG_ITS ---
Test Reason : CP/FALL Blood Pressure : / mmHG Vent. Rate : 118 BPM Atrial Rate : 000 BPM P-R Int : 000 ms QRS Dur : 078 ms QT Int : 320 ms P-R-T Axes : 000 -03 -27 degrees QTc Int : 448 ms Atrial fibrillation with rapid ventricular response Nonspecific ST abnormality Abnormal ECG When compared with ECG of 25-MAR-2021 12:29, Atrial fibrillation has replaced Sinus rhythm Vent. rate has increased BY [address] now depressed in Anterolateral leads Referred By: Rylie Bartlett Electronically Signed By:ERIN COOL
[2022-06-05 15:08] LABS: MANUAL DIFF FLAG NO
[2022-06-05 15:10] LABS: Basophils Percent Auto 0.3 % (0-2); Eosinophils Percent Auto 0.1 % (0-4); Hemoglobin 14.2 g/dl (14.0-18.0); Imm Gran Abs Auto 0.07 X10*3/uL (0.00-0.03); Imm Gran Pct Auto 0.5 % (0.0-0.4); Lymphocytes Absolute Auto 1.4 X10*3/uL (1.2-4.9); Lymphocytes Percent Auto 10.2 % (20-40); Mean Corpuscular Volume 96.8 fL (80.0-98.0); Mean Platelet Volume 8.4 fL (9.4-12.4); Monocytes Absolute Auto 1.1 X10*3/uL (0.1-1.2); Neutrophils Absolute Auto 11.2 x10*3/uL (2.0-8.3); Neutrophils Percent Auto 80.9 % (45-73); Platelet Count 563 X10*3/uL (160-400); Red Blood Count 4.44 X10*6/uL (4.60-5.80); White Blood Count 13.9 X10*3/uL (4.8-10.8)
--- NOTE | 2022-06-05 15:11 | PC.NURSE ---
Spoke with lab digoxin anf CPK can be added. Patient AOx 4 weakness noted all 4 ext. No facial droop no slurring of words PRIETO with purpose no word finding issues. LS clear patietn is in afib on the monitor touching 150 HR provider aware IV access obtained labs collected and sent will CTM
--- NOTE | 2022-06-05 15:14 | PC.NURSE ---
Patient to x ray
[2022-06-05] MEDS: Metoprolol Tartrate 5 MG/5 ML VIAL IVPUSH ×3 (15:31→20:06)
[2022-06-05 15:39] LABS: Alanine Aminotransferase 32 U/L (0-40); Albumin Level 3.6 g/dL (3.5-5.0); Alkaline Phosphatase 58 U/L (39-117); Anion Gap 17 (12-20); Aspartate Amino Transferase 29 U/L (5-37); Bilirubin Total 0.6 mg/dL (0.0-1.0); Blood Urea Nitrogen 11 mg/dL (9-16); C Reactive Protein 8.12 mg/dL (< or = 0.50); Calcium 9.3 mg/dL (8.4-10.2); Carbon Dioxide 25 mmol/L (22-29); Chloride 101 mmol/L (96-108); Creatinine Clr Calc Pharmacy 88.7; Estimated Glomerular Filt Rate > 60; Ethanol < 10 mg/dL; Glucose Random 175 mg/dL (60-115); Magnesium 1.4 mg/dL (1.6-2.6); Potassium 3.9 mmol/L (3.3-5.1); Sodium 139 mmol/L (135-145); Total Protein 6.4 g/dL (6.5-8.0)
[2022-06-05 15:44] LABS: Digoxin 0.3 ng/mL (0.8-2.0)
[2022-06-05 15:50] LABS: Erythrocyte Sedimentation Rate 44 MM/HR (0-15)
[2022-06-05 15:54] LABS: Troponin-I High Sensitivity 179.8 ng/L (<3.5-35.0)
--- NOTE | 2022-06-05 15:54 | PC.NURSE ---
Verified with provider will admin magnesium over shorter period of time than 2 hours will CTM
[2022-06-05 16:03] LABS: Influenza A PCR NEGATIVE (Negative); Influenza B PCR NEGATIVE (Negative); Resp Syncy Virus RNA Qual PCR NEGATIVE (Negative); SARS COV2 PCR INHOUSE NEGATIVE (Negative)
[2022-06-05] MEDS: Magnesium Sulfate/H2O 2 GM/50 ML PIGGYBACK IV (16:33)
[2022-06-05] MEDS: Digoxin 0.5 MG/2 ML AMPUL 0.25 MG IVPUSH (16:33)
--- NOTE | 2022-06-05 17:19 | PC.NURSE ---
Patient complaint of left arm pain provider aware awaiting orders
[2022-06-05 17:30] LABS: Appearance Urine Clear; Color Urine Yellow; Glucose Urine UA Negative (Negative); Leukocyte Esterase Urine Negative (Negative); Nitrite Urine Negative (Negative); PH 6.5 (5.0-9.0); Specific Gravity - Urine 1.015 (1.005-1.025); Urine Blood Negative (Negative); Urine Ketones 15 mg/dL (Negative); Urine Protein Negative (Neg-Trace)
[2022-06-05 17:40] LABS: Amphetamine Screen Urine Not Detected (Not Detect); Barbiturates, Urine Not Detected (Not Detect); Benzodiazepines Screen Urine Not Detected (Not Detect); Cannabinoid Screen Urine Not Detected (Not Detect); Cocaine Screen Urine Not Detected (Not Detect); Fentanyl, urine Not Detected (Not Detect); Opiate Screen Urine POSITIVE (Not Detect); Phencyclidine Screen Urine Not Detected (Not Detect)
[2022-06-05] MEDS: oxyCODONE HCl Immed Release 5 MG TABLET PO (17:40)
[2022-06-05 17:49] LABS: Troponin-I High Sensitivity 182.6 ng/L (<3.5-35.0)
--- NOTE | 2022-06-05 17:59 | PC.NURSE ---
Patient sitting on edge of bed needs some redirection for safety will CTM
--- NOTE | 2022-06-05 18:45 | PHA.MEDREC ---
Pharmacy Consult ? Medication Reconciliation Pharmacy has completed the medication reconciliation Spoke to patient with spouse at bedside to confirm meds. Patient states they take morning meds at midnight and night time meds at noon time.
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
[2022-06-05 19:32] LABS: Glucose, Whole Blood 187 mg/dL (60-115)
--- NOTE | 2022-06-05 20:08 | PC.NURSE ---
this rn made courtney villalta aware on bp 194/109, dr jacobson also made aware. orders placed. this rn reassessed VS bp 151/97 courtney villalta at bedside instructed this rn to hold labetalol at this time. iv push lopressor given as HR 124 per order from pawan
[2022-06-05] MEDS: Gabapentin 100 MG CAPSULE PO (21:01)
[2022-06-05] MEDS: oxyCODONE HCl Immed Release 15 MG TABLET 30 MG PO (21:01)
[2022-06-05] MEDS: Morphine Sulfate ER 30 MG TABLET.ER 60 MG PO (21:01)
--- NOTE | 2022-06-05 22:19 | PC.NURSE ---
nurse to nurse report called to floor nurse marge rn, pt brought to ct, reshma bazzi to bring pt up to floor
[2022-06-05 23:09] LABS: Magnesium 1.6 mg/dL (1.6-2.6)
[2022-06-05 23:38] LABS: Folate 13.7 ng/mL (> or = 4.0); TSH reflex Free T4 (Prenatal) 0.85 uIU/mL; Vitamin B12 675 pg/mL (200-900); Vitamin D 25-OH Total 17.4 ng/mL (>30)
[2022-06-06] MEDS: Losartan Potassium 50 MG TABLET PO (01:27)
[2022-06-06] MEDS: Isosorbide Mononitrate 30 MG TAB.ER.24H PO (01:27)
[2022-06-06] MEDS: Losartan Potassium 25 MG TABLET PO (01:27)
[2022-06-06] MEDS: Metoprolol Succinate ER 100 MG TAB.ER.24H PO ×2 (01:27→11:22)
[2022-06-06] MEDS: Apixaban 5 MG TABLET PO ×2 (01:27→11:22)
[2022-06-06] MEDS: Digoxin 0.125 MG TABLET PO (01:28)
[2022-06-06] MEDS: Lactated Ringers 1,000 ML 50 ML IVCONT ×2 (01:34→18:09)
[2022-06-06 01:57] VITALS: BP 146/86; PULSE 106; RESP 20; TEMP 37.7; O2SAT 93
[2022-06-06 08:00] VITALS: BP 122/75; PULSE 95; RESP 14; TEMP 37.6; O2SAT 94
[2022-06-06 08:06] LABS: Hematocrit 38.3 % (42.0-52.0); Hemoglobin 12.7 g/dl (14.0-18.0); Mean Corpuscular HGB Conc 33.2 g/dl (31.0-36.0); Mean Corpuscular Hemoglobin 31.9 pg (27.0-33.0); Mean Corpuscular Volume 96.2 fL (80.0-98.0); Mean Platelet Volume 8.4 fL (9.4-12.4); Platelet Count 507 X10*3/uL (160-400); Red Blood Count 3.98 X10*6/uL (4.60-5.80); White Blood Count 17.8 X10*3/uL (4.8-10.8)
[2022-06-06 08:40] LABS: Glucose, Whole Blood 195 mg/dL (60-115)
[2022-06-06] MEDS: Gabapentin 100 MG CAPSULE PO ×3 (09:07→21:23)
[2022-06-06] MEDS: Multivitamin TABLET 1 TAB PO (09:07)
[2022-06-06] MEDS: oxyCODONE HCl Immed Release 15 MG TABLET 30 MG PO ×3 (09:12→21:22)
[2022-06-06] MEDS: Morphine Sulfate ER 30 MG TABLET.ER 60 MG PO ×3 (09:12→21:23)
--- NOTE | 2022-06-06 09:15 | MHC.CM.PN ---
IMM DELIVERED PT LIVES IN A H WITH S/O. USES [facility] FOR MOST MOBILITY BUT HAS A WALKER AND W/C IN HOME. NO PRIOR SERVICES. + COVID VAX X5 + HCP AT HOME (COPY REQUESTED) PCP DR. REY. DP: HOME, NO SERVICES ANTICIPATED. FAMILY WILL TRANSPORT. CM WILL CONTINUE TO FOLLOW.
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
[2022-06-06 11:14] VITALS: BP 121/68; PULSE 88; RESP 14; TEMP 37.6; O2SAT 94
[2022-06-06] MEDS: metFORMIN HCl 1,000 MG TABLET 1000 MG PO ×2 (11:21→21:23)
[2022-06-06] MEDS: glipiZIDE XL 2.5 MG TAB.ER.24 PO ×2 (11:21→21:22)
[2022-06-06] MEDS: dilTIAZem HCL CD 240 MG CAP.ER.DEG PO (11:22)
[2022-06-06 11:36] LABS: Glucose, Whole Blood 156 mg/dL (60-115)
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
[2022-06-06 13:34] LABS: Procalcitonin 0.22 ng/mL
[2022-06-06 15:07] LABS: Adenovirus PCR Not Detected (Not Detect.); Bordetella parapertussis PCR Not Detected (Not Detect.); Bordetella pertussis PCR Not Detected (Not Detect.); Chlamydia pneumoniae PCR Not Detected (Not Detect.); Coronavirus 229E PCR Not Detected (Not Detect.); Coronavirus HKU1 PCR Not Detected (Not Detect.); Coronavirus NL63 PCR Not Detected (Not Detect.); Coronavirus OC43 PCR Not Detected (Not Detect.); Human metapneumovirus PCR Not Detected (Not Detect.); Influenza A PCR Not Detected (Not Detect.); Influenza B PCR Not Detected (Not Detect.); Mycoplasma pneumoniae PCR Not Detected (Not Detect.); Parainfluenza 1 PCR Not Detected (Not Detect.); Parainfluenza 2 PCR Not Detected (Not Detect.); Parainfluenza 3 PCR Not Detected (Not Detect.); Parainfluenza 4 PCR Not Detected (Not Detect.); RSV PCR Not Detected (Not Detect.); Rhino/Enterovirus PCR Not Detected (Not Detect.); SARS-CoV-2 PCR Not Detected (Not Detect.)
[2022-06-06 15:11] VITALS: BP 119/58; PULSE 66; RESP 20; TEMP 37.3; O2SAT 96
[2022-06-06 16:28] LABS: Glucose, Whole Blood 146 mg/dL (60-115)
[2022-06-06 19:49] VITALS: BP 115/62; PULSE 86; RESP 20; TEMP 36.8; O2SAT 95
[2022-06-06 19:49] LABS: Glucose, Whole Blood 139 mg/dL (60-115)
[2022-06-06 23:21] VITALS: BP 112/59; PULSE 73; RESP 18; TEMP 37.4; O2SAT 94
[2022-06-07] VITALS (7 sets, daily range): BP systolic 111–136; BP diastolic 60–78; PULSE 66–91; RESP 16–18; TEMP 36.6–37.4; O2SAT 91–95
[2022-06-07] MEDS: Isosorbide Mononitrate 30 MG TAB.ER.24H PO (00:30)
[2022-06-07] MEDS: Metoprolol Succinate ER 100 MG TAB.ER.24H PO ×2 (00:30→11:45)
[2022-06-07] MEDS: Apixaban 5 MG TABLET PO ×2 (00:30→11:45)
[2022-06-07] MEDS: Digoxin 0.125 MG TABLET PO (00:30)
[2022-06-07 04:37] LABS: Syphilis Screen Reactive (Nonreactive)
[2022-06-07] MEDS: traMADoL HCL 50 MG TABLET 25 MG PO (05:29)
[2022-06-07 06:13] LABS: Mean Corpuscular HGB Conc 32.4 g/dl (31.0-36.0); Mean Corpuscular Hemoglobin 31.9 pg (27.0-33.0); Mean Corpuscular Volume 98.4 fL (80.0-98.0); Platelet Count 467 X10*3/uL (160-400); Red Blood Count 3.76 X10*6/uL (4.60-5.80); Red Cell Distribution Width 12.1 % (11.0-16.0); White Blood Count 14.5 X10*3/uL (4.8-10.8)
[2022-06-07 06:44] LABS: Anion Gap 12 (12-20); Blood Urea Nitrogen 11 mg/dL (9-16); Calcium 8.3 mg/dL (8.4-10.2); Carbon Dioxide 27 mmol/L (22-29); Chloride 103 mmol/L (96-108); Creatinine Clr Calc Pharmacy 113.1; Estimated Glomerular Filt Rate > 60; Glucose Random 113 mg/dL (60-115); Magnesium 1.7 mg/dL (1.6-2.6); Potassium 4.2 mmol/L (3.3-5.1); Sodium 138 mmol/L (135-145)
[2022-06-07 06:50] LABS: HIV AB/AG Nonreactive (Nonreactive); HIV Num 1 0.05 S/CO (0.00-0.99)
[2022-06-07 08:05] LABS: Glucose, Whole Blood 116 mg/dL (60-115)
[2022-06-07] MEDS: Gabapentin 100 MG CAPSULE PO ×3 (08:22→20:38)
[2022-06-07] MEDS: metFORMIN HCl 1,000 MG TABLET 1000 MG PO ×2 (08:22→20:38)
[2022-06-07] MEDS: Morphine Sulfate ER 30 MG TABLET.ER 60 MG PO ×3 (08:22→18:29)
[2022-06-07] MEDS: oxyCODONE HCl Immed Release 15 MG TABLET 30 MG PO ×3 (08:23→20:38)
[2022-06-07] MEDS: glipiZIDE XL 2.5 MG TAB.ER.24 PO ×2 (08:24→20:38)
[2022-06-07] MEDS: dilTIAZem HCL CD 240 MG CAP.ER.DEG PO (08:24)
[2022-06-07] MEDS: Multivitamin TABLET 1 TAB PO (08:24)
[2022-06-07 08:41] LABS: TSH reflex Free T4 0.75 uIU/mL (0.32-4.0)
--- NOTE | 2022-06-07 09:15 | PM.NEUROPN ---
Subjective Subjective Date of Service: 06/07/22 Interval History: AF, HR 90s-100s c/o weakness, diffuse myalgias chronic chest pain, Critical Care Time (minutes): 0 Physical Exam Vital Signs: Vital Signs: Last Vital Signs Temp 98.9 F 06/07/22 07:43 Pulse 91 06/07/22 07:43 Resp 18 06/07/22 07:43 BP 124/66 06/07/22 07:43 Pulse Ox 95 06/07/22 07:43 O2 Del Method 06/07/22 07:43 BMI result Body Mass Index 27.8 Const: General: comfortable and no acute distress Orientation/consciousness: patient oriented x3 HEENT: Other: Unremarkable Head: Yes normal to inspection Neck: Neck: Yes normal visual inspection Chest: Chest palpation & inspection: normal inspection of the chest Resp: Auscultation: clear to auscultation bilaterally Cardio: Palpation: normal PMI Heart sounds: S1 normal heart sound present, S2 normal heart sound present, no gallops, no murmurs and no rubs GI: Palpation (GI): Soft to palpation Back/Spine/Pelvis: Other: unremarkable Skin: General skin exam: no rashes or lesions noted Neuro: Other: Strength is much better except left shoulder abduction weakness from rotator cuff problem. walking in hallway with cane. No weakness excepat as above. DTRs are 2-3 + and plantars are frlexor. General: patient oriented x3 Extrem: General: Yes normal to inspection Psych: Mental Status: mental status grossly normal Objective Data Labs 06/07/22 05:49 06/07/22 05:49 Labs: Laboratory Results - last 24 hr 06/05/22 06/06/22 06/06/22 22:36 07:49 11:13 WBC RBC Hgb Hct MCV MCH MCHC RDW Plt Count MPV Absolute Nucleated RBC Nucleated RBC % (auto) Sodium Potassium Chloride Carbon Dioxide Anion Gap BUN Creatinine Estim Creat Clear Calc Estimated GFR POC Glucose 156 H Random Glucose Calcium Magnesium Total Creatine Kinase Procalcitonin 0.22 TSH Respiratory Panel Alex T.pallidum Ab (EIA) Reactive A Adenovirus (Rapid PCR) B.pert (TEM-PCR) B.parapertussis DNA PCR C. pneumoniae DNA (PCR) Coronavirus OC43 (PCR) Coronavirus HKU1 (PCR) Coronavirus 229E (PCR) Coronavirus NL63 (PCR) HIV 1&2 Ab/P24 Ag 4thGn Human Metapneumovir PCR Influenza A (RT-PCR) Influenza B (RT-PCR) M. pneumoniae (PCR) Parainfluenza 1 (PCR) Parainfluenza 2 (PCR) Parainfluenza 3 (PCR) Parainfluenza 4 (PCR) RSV (PCR) Entero/Rhino (PCR) SARS-CoV-2 RNA (RT-PCR) 06/06/22 06/06/22 06/06/22 13:38 16:15 19:35 WBC RBC Hgb Hct MCV MCH MCHC RDW Plt Count MPV Absolute Nucleated RBC Nucleated RBC % (auto) Sodium Potassium Chloride Carbon Dioxide Anion Gap BUN Creatinine Estim Creat Clear Calc Estimated GFR POC Glucose 146 H 139 H Random Glucose Calcium Magnesium Total Creatine Kinase Procalcitonin TSH Respiratory Panel Alex See Note T.pallidum Ab (EIA) Adenovirus (Rapid PCR) Not Detected B.pert (TEM-PCR) Not Detected B.parapertussis DNA PCR Not Detected C. pneumoniae DNA (PCR) Not Detected Coronavirus OC43 (PCR) Not Detected Coronavirus HKU1 (PCR) Not Detected Coronavirus 229E (PCR) Not Detected Coronavirus NL63 (PCR) Not Detected HIV 1&2 Ab/P24 Ag 4thGn Human Metapneumovir PCR Not Detected Influenza A (RT-PCR) Not Detected Influenza B (RT-PCR) Not Detected M. pneumoniae (PCR) Not Detected Parainfluenza 1 (PCR) Not Detected Parainfluenza 2 (PCR) Not Detected Parainfluenza 3 (PCR) Not Detected Parainfluenza 4 (PCR) Not Detected RSV (PCR) Not Detected Entero/Rhino (PCR) Not Detected SARS-CoV-2 RNA (RT-PCR) Not Detected 06/07/22 06/07/22 06/07/22 05:49 05:49 05:49 WBC 14.5 H RBC 3.76 L Hgb 12.0 L Hct 37.0 L MCV 98.4 H MCH 31.9 MCHC 32.4 RDW 12.1 Plt Count 467 H MPV 9.0 L Absolute Nucleated RBC 0.000 Nucleated RBC % (auto) 0.0 Sodium 138 Potassium 4.2 Chloride 103 Carbon Dioxide 27 Anion Gap 12 BUN 11 Creatinine 0.69 Estim Creat Clear Calc 113.1 Estimated GFR > 60 POC Glucose Random Glucose 113 Calcium 8.3 L D Magnesium 1.7 Total Creatine Kinase 33 L Procalcitonin TSH 0.75 Respiratory Panel Alex T.pallidum Ab (EIA) Adenovirus (Rapid PCR) B.pert (TEM-PCR) B.parapertussis DNA PCR C. pneumoniae DNA (PCR) Coronavirus OC43 (PCR) Coronavirus HKU1 (PCR) Coronavirus 229E (PCR) Coronavirus NL63 (PCR) HIV 1&2 Ab/P24 Ag 4thGn Nonreactive Human Metapneumovir PCR Influenza A (RT-PCR) Influenza B (RT-PCR) M. pneumoniae (PCR) Parainfluenza 1 (PCR) Parainfluenza 2 (PCR) Parainfluenza 3 (PCR) Parainfluenza 4 (PCR) RSV (PCR) Entero/Rhino (PCR) SARS-CoV-2 RNA (RT-PCR) 06/07/22 07:41 WBC RBC Hgb Hct MCV MCH MCHC RDW Plt Count MPV Absolute Nucleated RBC Nucleated RBC % (auto) Sodium Potassium Chloride Carbon Dioxide Anion Gap BUN Creatinine Estim Creat Clear Calc Estimated GFR POC Glucose 116 H Random Glucose Calcium Magnesium Total Creatine Kinase Procalcitonin TSH Respiratory Panel Alex T.pallidum Ab (EIA) Adenovirus (Rapid PCR) B.pert (TEM-PCR) B.parapertussis DNA PCR C. pneumoniae DNA (PCR) Coronavirus OC43 (PCR) Coronavirus HKU1 (PCR) Coronavirus 229E (PCR) Coronavirus NL63 (PCR) HIV 1&2 Ab/P24 Ag 4thGn Human Metapneumovir PCR Influenza A (RT-PCR) Influenza B (RT-PCR) M. pneumoniae (PCR) Parainfluenza 1 (PCR) Parainfluenza 2 (PCR) Parainfluenza 3 (PCR) Parainfluenza 4 (PCR) RSV (PCR) Entero/Rhino (PCR) SARS-CoV-2 RNA (RT-PCR) Progress Note: A&P Assessment and plan (1) Weakness: Status: Acute Assessment and Plan: It appears to be jusr deconditioning. No sugnif weakness now and is walking the hallways. Needs home exercise program. Cancel MRI and EMG study (2) Atrial fibrillation with RVR: Status: Acute Time Spent With Patient Time: Total time managing care of this patient today ____ minutes. Procedures Date of Service Date of Service: 06/07/22 Quality Stroke Does the patient have a stroke diagnosis?: No VTE Prior VTE?: No VTE Risk Level:: Medical - moderate - high VTE Device Contraindication: Treatment Not Indicated VTE Drug Contraindication: N/A - Med Ordered
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
[2022-06-07] MEDS: guaiFENesin LA 600 MG TAB.ER.12H 1200 MG PO ×2 (11:45→20:38)
[2022-06-07] MEDS: LORazepam 1 MG TABLET PO (11:46)
[2022-06-07 11:52] LABS: Glucose, Whole Blood 145 mg/dL (60-115)
--- NOTE | 2022-06-07 14:22 | P.PNCA_ITS ---
Subjective Subjective Date of Service: 06/07/22 Interval history: Seen and examined at bedside. Saying he feels more energetic now. He has been experiencing atypical chest pains for long time. He had a coronary CTA in February 2022 heavy calcification in the coronary arteries with [id number]-ptblquff disease. Overall is feeling better today. Heart rates are better controlled too. Physical Exam Vital Signs: Last Vital Signs Temp 99.4 F 06/07/22 11:32 Pulse 76 06/07/22 11:32 Resp 18 06/07/22 11:32 BP 116/63 06/07/22 11:32 Pulse Ox 93 06/07/22 11:32 O2 Del Method 06/07/22 11:32 BMI result Body Mass Index 27.8 GENERAL APPEARANCE: in no acute distress, pleasant. NECK: no carotid bruit, no jugular venous distention. SKIN: no suspicious lesions, warm and dry. HEART: no murmurs, irregular rate and rhythm. LUNGS: clear to auscultation bilaterally. ABDOMEN: soft, nontender. EXTREMITIES: no edema. PERIPHERAL PULSES: equal. NEUROLOGIC: No gross deficits, AAO X 3 Objective Labs and Meds 06/07/22 05:49 06/07/22 05:49 Lab results: Laboratory Results - last 24 hr 06/05/22 06/06/22 06/06/22 22:36 13:38 16:15 WBC RBC Hgb Hct MCV MCH MCHC RDW Plt Count MPV Absolute Nucleated RBC Nucleated RBC % (auto) Sodium Potassium Chloride Carbon Dioxide Anion Gap BUN Creatinine Estim Creat Clear Calc Estimated GFR POC Glucose 146 H Random Glucose Calcium Magnesium Total Creatine Kinase TSH Respiratory Panel Alex See Note T.pallidum Ab (EIA) Reactive A Adenovirus (Rapid PCR) Not Detected B.pert (TEM-PCR) Not Detected B.parapertussis DNA PCR Not Detected C. pneumoniae DNA (PCR) Not Detected Coronavirus OC43 (PCR) Not Detected Coronavirus HKU1 (PCR) Not Detected Coronavirus 229E (PCR) Not Detected Coronavirus NL63 (PCR) Not Detected HIV 1&2 Ab/P24 Ag 4thGn Human Metapneumovir PCR Not Detected Influenza A (RT-PCR) Not Detected Influenza B (RT-PCR) Not Detected M. pneumoniae (PCR) Not Detected Parainfluenza 1 (PCR) Not Detected Parainfluenza 2 (PCR) Not Detected Parainfluenza 3 (PCR) Not Detected Parainfluenza 4 (PCR) Not Detected RSV (PCR) Not Detected Entero/Rhino (PCR) Not Detected SARS-CoV-2 RNA (RT-PCR) Not Detected 06/06/22 06/07/22 06/07/22 19:35 05:49 05:49 WBC 14.5 H RBC 3.76 L Hgb 12.0 L Hct 37.0 L MCV 98.4 H MCH 31.9 MCHC 32.4 RDW 12.1 Plt Count 467 H MPV 9.0 L Absolute Nucleated RBC 0.000 Nucleated RBC % (auto) 0.0 Sodium 138 Potassium 4.2 Chloride 103 Carbon Dioxide 27 Anion Gap 12 BUN 11 Creatinine 0.69 Estim Creat Clear Calc 113.1 Estimated GFR > 60 POC Glucose 139 H Random Glucose 113 Calcium 8.3 L D Magnesium 1.7 Total Creatine Kinase 33 L TSH 0.75 Respiratory Panel Alex T.pallidum Ab (EIA) Adenovirus (Rapid PCR) B.pert (TEM-PCR) B.parapertussis DNA PCR C. pneumoniae DNA (PCR) Coronavirus OC43 (PCR) Coronavirus HKU1 (PCR) Coronavirus 229E (PCR) Coronavirus NL63 (PCR) HIV 1&2 Ab/P24 Ag 4thGn Human Metapneumovir PCR Influenza A (RT-PCR) Influenza B (RT-PCR) M. pneumoniae (PCR) Parainfluenza 1 (PCR) Parainfluenza 2 (PCR) Parainfluenza 3 (PCR) Parainfluenza 4 (PCR) RSV (PCR) Entero/Rhino (PCR) SARS-CoV-2 RNA (RT-PCR) 06/07/22 06/07/22 06/07/22 05:49 07:41 11:31 WBC RBC Hgb Hct MCV MCH MCHC RDW Plt Count MPV Absolute Nucleated RBC Nucleated RBC % (auto) Sodium Potassium Chloride Carbon Dioxide Anion Gap BUN Creatinine Estim Creat Clear Calc Estimated GFR POC Glucose 116 H 145 H Random Glucose Calcium Magnesium Total Creatine Kinase TSH Respiratory Panel Alex T.pallidum Ab (EIA) Adenovirus (Rapid PCR) B.pert (TEM-PCR) B.parapertussis DNA PCR C. pneumoniae DNA (PCR) Coronavirus OC43 (PCR) Coronavirus HKU1 (PCR) Coronavirus 229E (PCR) Coronavirus NL63 (PCR) HIV 1&2 Ab/P24 Ag 4thGn Nonreactive Human Metapneumovir PCR Influenza A (RT-PCR) Influenza B (RT-PCR) M. pneumoniae (PCR) Parainfluenza 1 (PCR) Parainfluenza 2 (PCR) Parainfluenza 3 (PCR) Parainfluenza 4 (PCR) RSV (PCR) Entero/Rhino (PCR) SARS-CoV-2 RNA (RT-PCR) Progress Note: A&P Assessment and plan (1) CAD (coronary artery disease): Status: Acute (2) Atrial fibrillation with RVR: Status: Acute (3) Weakness: Status: Acute Plan 72-year-old gentleman with chronic atrial fibrillation and atypical chest pains presenting with generalized weakness and AFib with RVR. He was started on Cardizem with improvement in heart rate. Overall feeling better. He has been experiencing atypical chest pains for long time. He had coronary CTA which showed ahiz-pf-muzyoqrt disease in the past. Heart rate is well controlled at this point. I think digoxin should be discontinued and should be treated only with metoprolol succinate and diltiazem. Signing off for now and can be discharged home and follow up with Dr. Morfin. Thank you for allowing me to participate in the care of your patient. Please fe el free to contact me if you have any questions. Time Spent With Patient Time: Total time managing care of this patient today ____ minutes. Progress Note: Quality Stroke Does the patient have a stroke diagnosis?: No Procedures Date of Service Date of Service: 06/07/22
[2022-06-07 16:52] LABS: Glucose, Whole Blood 151 mg/dL (60-115)
[2022-06-07 17:23] LABS: A. Phagocytphilium DNA,RT-PCR NOT DETECTED (NOT DETECTED); Babesia Microti DNA, RT-PCR NOT DETECTED (NOT DETECTED); Borrelia Miyamotoi,DNA RT-PCR NOT DETECTED (NOT DETECTED); E.Chaffeensis DNA RT-PCR NOT DETECTED (NOT DETECTED); Lyme(Borrelia ssp)DNA RT-PCR NOT DETECTED (NOT DETECTED)
[2022-06-07] MEDS: Lactated Ringers 1,000 ML 50 ML IVCONT (18:28)
[2022-06-07 20:45] LABS: Glucose, Whole Blood 124 mg/dL (60-115)
[2022-06-08] MEDS: Metoprolol Succinate ER 100 MG TAB.ER.24H PO ×2 (00:13→11:45)
[2022-06-08] MEDS: 0.9 % Sodium Chloride Flush 3 ML SYRINGE IVFLUSH ×2 (00:14→08:37)
[2022-06-08] MEDS: Isosorbide Mononitrate 30 MG TAB.ER.24H PO (00:14)
[2022-06-08] MEDS: Apixaban 5 MG TABLET PO ×2 (00:14→11:45)
[2022-06-08] MEDS: Morphine Sulfate ER 30 MG TABLET.ER 60 MG PO ×2 (03:07→11:45)
[2022-06-08 04:00] VITALS: BP 175/91; PULSE 80; RESP 17; TEMP 36.7; O2SAT 94
--- NOTE | 2022-06-08 07:00 | CA_ITS ---
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 There is moderately increased left ventricular wall thickness. The visually estimated ejection fraction is between 55-60%. - The basal inferior, mid inferoseptal, and mid anteroseptal segments are akinetic. - The left atrium is severely dilated. Interatrial shunt cannot be excluded by color Doppler. - Significantly elevated right atrial pressure. - There is mild dilatation of the ascending aorta measuring 3.50 cm. Findings Left Ventricle Normal left ventricular size and systolic function. There is moderately increased left ventricular wall thickness. The visually estimated ejection fraction is between 55-60%. There is evidence of regional wall motion abnormalities. Diastolic function is indeterminate on the basis of available data. Wall Motion Rest Echo Findings The basal inferior, mid inferoseptal, and mid anteroseptal segments are akinetic. Right Ventricle Normal right ventricular cavity size and systolic function. Atria The left atrium is severely dilated. Interatrial shunt cannot be excluded by color Doppler. Aortic Valve Normal aortic valve structure and function. There is no aortic valve stenosis. There is no aortic valve regurgitation. Mitral Valve Normal mitral valve structure and function. There is no mitral valve regurgitation. There is no mitral valve stenosis. Pulmonic Valve The pulmonic valve is likely normal. Tricuspid Valve Normal tricuspid valve structure and function. There is trace tricuspid valve regurgitation. Significantly elevated right atrial pressure. There is no evidence of pulmonary hypertension. Great Vessels There is mild dilatation of the ascending aorta measuring 3.50 cm. The visualized portions of the pulmonary artery and branches are normal. Venous The inferior vena cava is dilated and collapses less than 50% with inspiration. Pericardium/Pleural Prominent epicardial adipose tissue noted. There is no evidence of pericardial effusion. Prior Study Comparison Changes noted compared to prior study dated: 12/18/2020. RWMA during to underlying CAD. Measurements 2D Linear Measurements IVSd: 1.36 0.6-0.9/0.6-1.0 cm LVIDd: 5.29 3.9-5.3/4.2-5.9 cm LVIDd Index: 2.51 2.4-3.2/2.2-3.1 cm/m2 LVIDs: 3.07 2.0-3.6 cm LVPWd: 1.31 0.7-1.1 cm LA Diam: 4.60 2.7-3.8/3.0-4.0 cm LAIDs Index: 2.18 1.5-2.3 cm/m2 LV Mass: 370.58 67-162/88-224 g LV Mass Index: 175.63 43-95/49-115 g/m2 LVOT Diam: 2.10 3.0+(-)1.3 cm Mitral Valve MV Pk E: 1.06 MV Decel Time: 186.00 E'Lateral: 13.80 E'Medial: 9.03 E/E' Med: 11.70 E/E' Lat: 7.70 PHT: 54.00 MVA PHT: 4.07 Decel Garrard: 5.70 Aortic Valve AoV Pk Isaak: 1.75 AoV Mn Isaak: 1.19 AoV VTI: 0.30 AoV Pk Grad: 12.00 Aov Mn Grad: 6.00 VERNON Cont.VTI: 2.43 LVOT LVOT Pk Isaak: 1.26 LVOT Mn Isaak: 0.82 LVOT VTI: 0.21 LVOT Pk Grad: 6.00 LVOT Mn Grad: 3.00 LVOT Diam: 2.10 LVOT Area: 3.46 Diastolic Function MV Pk E: 1.06 E'Medial: 9.03 E/E' Med: 11.70 E' Laterial: 13.80 E/E' Lat: 7.70 Right Ventricle TAPSE (mm): 24.40 Tricuspid Valve TR Pk Isaak: 2.57 TR Pk Grad: 26.00 RA Press: 8.00 RVSP: 34.00 Great Vessels Aorta Sinus of Valsalva: 3.50 2.0-3.5 cm Ao Asc: 3.50 2.1-3.4 cm Pulmonary Valve PV Pk Isaak: 1.30 Peak PV Grad: 7.00 Updated in Other Vendor System with Status of Final Ramsey Aponte MD electronically signed on 06/08/2022 5:03:48 PM with status of Final
[2022-06-08 07:24] LABS: Glucose, Whole Blood 141 mg/dL (60-115)
[2022-06-08 07:33] VITALS: BP 132/79; PULSE 87; RESP 20; TEMP 37.2; O2SAT 92
[2022-06-08 08:34] VITALS: BP 132/79; PULSE 87; O2SAT 92
[2022-06-08] MEDS: oxyCODONE HCl Immed Release 15 MG TABLET 30 MG PO ×2 (08:36→14:11)
[2022-06-08] MEDS: metFORMIN HCl 1,000 MG TABLET 1000 MG PO (08:36)
[2022-06-08] MEDS: Gabapentin 100 MG CAPSULE PO ×2 (08:37→14:11)
[2022-06-08] MEDS: dilTIAZem HCL CD 240 MG CAP.ER.DEG PO (08:37)
[2022-06-08] MEDS: guaiFENesin LA 600 MG TAB.ER.12H 1200 MG PO (08:37)
[2022-06-08] MEDS: Multivitamin TABLET 1 TAB PO (08:37)
[2022-06-08] MEDS: glipiZIDE XL 2.5 MG TAB.ER.24 PO (08:37)
[2022-06-08 11:05] LABS: Glucose, Whole Blood 162 mg/dL (60-115)
--- NOTE | 2022-06-08 11:52 | MHC.CM.PN ---
Per ROUNDS discussion, Patient will be medically cleared for dc to home today, with services. A referral was made to [facility], who has been made aware of today's dc. Last IMM was addressed on 06/06/2022. Patient's will provide transport to home at 1PM.
--- NOTE | 2022-06-08 14:16 | W.MHC.F2F ---
Service Date Service Date: 06/08/22 Encounter Date of encounter: 06/08/22 Encounter: Gross Deconditioning, Impaired Gait Pattern, Impaired Joint ROM,Impaired Standing Balance,Muscle Weakness,Pain, Recurrent Falls Reasons for Services Signs and symptoms assessed: Gross Deconditioning, Impaired Gait Pattern, Impaired Joint ROM,Impaired Standing Balance,Muscle Weakness,Pain, Recurrent Falls Reason for senior care: medication management Reason for physical therapy: home safety and mobility, therapeutic exercises, restore joint function, gait/transfer training, assess need for DME, ADL training and energy conservation MD Overseeing Care: Doug Hummel Homebound: Leaving the home is medically contraindicated at this time without the asist of a device and/or another person due th the listed conditions above and below. Reason homebound: pain with ambulation and weakness related to hospital stay Homebound supporting statement: Transfer Training,Gait Training, Therapeutic Activities, Therapeutic Exercise, Patient Education, Safety,Balance Certification: Based on the above findings, I certify that this patient is confined to the home and needs intermittent senior care care, physical therapy and/or speech therapy, or continues to need occupational therapy. The patient is under my care, and I have initiated the establishment of the plan of care. The patient will be followed by a physician who will periodically review the plan of care. Time Spent With Patient Time: Total time managing care of this patient today ____ minutes.
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
[2022-06-11 06:38] LABS: Aldolase 4.6 U/L (<=8.1)
[2022-06-12 12:05] LABS: RPR Quantitative Non-Reactive (Nonreactive); T.Pallidum Particle Agg Test Reactive (Nonreactive)
== END 2022-06-08 14:45 | disposition home health service (06) | DRG 309 ==
LOC: HO.ED 17:46 → HO.EDOVER 20:38 → HO.IMC 20:55
PROVIDERS: Hospitalist; Physician Assistant; Physician Assistant Medical; Admitting Provider Student in an Organized Health Care Education/Training Program; Emergency Provider Emergency Medicine; PCP Internal Medicine; Visit Provider Family Medicine
DX: I48.21 Permanent atrial fibrillation (principal); I24.8 Other forms of acute ischemic heart disease; G89.21 Chronic pain due to trauma; E11.40 Type 2 diabetes mellitus with diabetic neuropathy, unspecified; I10 Essential (primary) hypertension; J44.9 Chronic obstructive pulmonary disease, unspecified; E83.42 Hypomagnesemia; R29.6 Repeated falls; I25.10 Atherosclerotic heart disease of native coronary artery without angina pectoris; Z91.81 History of falling; Z87.891 Personal history of nicotine dependence; Z88.2 Allergy status to sulfonamides; Z88.8 Allergy status to other drugs, medicaments and biological substances; Z79.01 Long term (current) use of anticoagulants; Z79.51 Long term (current) use of inhaled steroids; Z79.84 Long term (current) use of oral hypoglycemic drugs; Z79.891 Long term (current) use of opiate analgesic; Z79.899 Other long term (current) drug therapy
CPT/HCPCS: 0241U; 36415; 70450; 71046; 72125; 72156; 74176; 80048; 80053; 80162; 80307; 81003; 82077; 82085; 82306; 82550; 82607; 82746; 82947; 83735; 84145; 84443; 84484; 85025; 85027; 85652; 86140; 86592; 86780; 87040; 87389; 87633; 87798; 87801; 93005; 93306; 97110; 97116; 97161; 99285; A9585; J1160; J3475; Q9957

== ENCOUNTER 2022-06-23 15:05 | Outpatient (REF) | payer MEDICARE, SELFPAY ==
[2022-06-23 17:23] LABS: Anion Gap 15 (12-20); Blood Urea Nitrogen 34 mg/dL (9-16); Calcium 9.1 mg/dL (8.4-10.2); Carbon Dioxide 26 mmol/L (22-29); Chloride 97 mmol/L (96-108); Estimated Glomerular Filt Rate 29; Glucose Random 125 mg/dL (60-115); Potassium 5.4 mmol/L (3.3-5.1); Sodium 133 mmol/L (135-145)
== END 2022-06-23 15:06 | disposition home or self-care (01) ==
LOC: HO.HMGCLDS 15:05
PROVIDERS: Visit Provider Internal Medicine Cardiovascular Disease
DX: I10 Essential (primary) hypertension (principal); I48.19 Other persistent atrial fibrillation
CPT/HCPCS: 36415; 80048

== ENCOUNTER 2022-06-24 09:24 | Outpatient (REF) | payer MEDICARE, SELFPAY ==
[2022-06-24 11:12] LABS: MANUAL DIFF FLAG NO
[2022-06-24 11:20] LABS: Basophils Absolute Auto 0.1 X10*3/uL (0.0-0.2); Basophils Percent Auto 0.4 % (0-2); Eosinophils Absolute Auto 0.4 X10*3/uL (0.0-0.4); Eosinophils Percent Auto 2.4 % (0-4); Hematocrit 38.8 % (42.0-52.0); Hemoglobin 12.5 g/dl (14.0-18.0); Imm Gran Abs Auto 0.12 X10*3/uL (0.00-0.03); Imm Gran Pct Auto 0.8 % (0.0-0.4); Lymphocytes Absolute Auto 1.5 X10*3/uL (1.2-4.9); Mean Corpuscular HGB Conc 32.2 g/dl (31.0-36.0); Mean Corpuscular Hemoglobin 30.8 pg (27.0-33.0); Mean Corpuscular Volume 95.6 fL (80.0-98.0); Mean Platelet Volume 8.8 fL (9.4-12.4); Monocytes Absolute Auto 1.2 X10*3/uL (0.1-1.2); Monocytes Percent Auto 8.4 % (2-11); Neutrophils Absolute Auto 11.3 x10*3/uL (2.0-8.3); Platelet Count 626 X10*3/uL (160-400); Red Blood Count 4.06 X10*6/uL (4.60-5.80); Red Cell Distribution Width 13.2 % (11.0-16.0); White Blood Count 14.6 X10*3/uL (4.8-10.8)
== END 2022-06-24 09:25 | disposition home or self-care (01) ==
LOC: HO.HMGCLDS 09:24
PROVIDERS: PCP Internal Medicine; Visit Provider Internal Medicine
DX: R53.83 Other fatigue (principal)
CPT/HCPCS: 36415; 85025

== ENCOUNTER 2022-06-28 10:03 | Outpatient (REF) | payer MEDICARE, BC, SELFPAY ==
--- NOTE | ~2022-06-28 | XR_ITS ---
EXAMINATION: XR SHOULDER, RIGHT CLINICAL INFORMATION: Pain. COMPARISON: 12/21/2016. TECHNIQUE: 3 views of the right shoulder. FINDINGS: There is no evidence of acute fracture or dislocation of the right shoulder. Calcific tendinitis is present. There is minor degenerative spurring of the glenohumeral joint without significant joint space narrowing. There is degenerative spurring involving the right acromioclavicular joint. No widening of the coracoclavicular space is seen. XR/XR shoulder RT min 2V IMPRESSION: Calcific tendinitis of the right shoulder.
--- NOTE | ~2022-06-28 | XR_ITS ---
EXAMINATION: XR SHOULDER, LEFT CLINICAL INFORMATION: Left shoulder pain. COMPARISON: None available. TECHNIQUE: Three views of the left shoulder. FINDINGS: There is no evidence of acute fracture or dislocation of the left shoulder. There is some degenerative spurring of the glenohumeral joint. There is some spurring about the acromioclavicular joint. No widening of the coracoclavicular space is seen. No definite calcific tendinitis identified. XR/XR shoulder LT min 2V IMPRESSION: Mild degenerative change of the glenohumeral joint and acromioclavicular joint of the left shoulder.
[2022-06-28 12:14] LABS: Anion Gap 14 (12-20); Blood Urea Nitrogen 11 mg/dL (9-16); Calcium 9.2 mg/dL (8.4-10.2); Carbon Dioxide 28 mmol/L (22-29); Chloride 99 mmol/L (96-108); Estimated Glomerular Filt Rate > 60; Glucose Random 194 mg/dL (60-115); Potassium 4.7 mmol/L (3.3-5.1); Sodium 136 mmol/L (135-145)
== END 2022-06-28 10:04 | disposition home or self-care (01) ==
LOC: HO.HOSX 10:03
PROVIDERS: Absent Provider Internal Medicine Cardiovascular Disease; PCP Internal Medicine; Visit Provider Physician Assistant
DX: M19.011 Primary osteoarthritis, right shoulder (principal); M19.012 Primary osteoarthritis, left shoulder; M75.102 Unspecified rotator cuff tear or rupture of left shoulder, not specified as traumatic; M75.101 Unspecified rotator cuff tear or rupture of right shoulder, not specified as traumatic; M54.2 Cervicalgia; I48.19 Other persistent atrial fibrillation; I10 Essential (primary) hypertension; I25.10 Atherosclerotic heart disease of native coronary artery without angina pectoris
CPT/HCPCS: 20610; 36415; 73030; 80048; 99212; J1020

== ENCOUNTER 2022-06-30 07:28 | Outpatient (REF) | payer MEDICARE, SELFPAY ==
[2022-06-30 07:43] LABS: MANUAL DIFF FLAG NO
[2022-06-30 08:32] LABS: Basophils Percent Auto 0.2 % (0-2); Eosinophils Absolute Auto 0.1 X10*3/uL (0.0-0.4); Eosinophils Percent Auto 0.3 % (0-4); Hematocrit 39.1 % (42.0-52.0); Hemoglobin 12.8 g/dl (14.0-18.0); Imm Gran Abs Auto 0.15 X10*3/uL (0.00-0.03); Imm Gran Pct Auto 0.9 % (0.0-0.4); Lymphocytes Absolute Auto 1.7 X10*3/uL (1.2-4.9); Lymphocytes Percent Auto 9.6 % (20-40); Mean Corpuscular HGB Conc 32.7 g/dl (31.0-36.0); Mean Corpuscular Hemoglobin 31.5 pg (27.0-33.0); Mean Corpuscular Volume 96.3 fL (80.0-98.0); Mean Platelet Volume 8.9 fL (9.4-12.4); Monocytes Absolute Auto 1.1 X10*3/uL (0.1-1.2); Monocytes Percent Auto 6.3 % (2-11); Neutrophils Absolute Auto 14.3 x10*3/uL (2.0-8.3); Neutrophils Percent Auto 82.7 % (45-73); Platelet Count 496 X10*3/uL (160-400); Red Blood Count 4.06 X10*6/uL (4.60-5.80); Red Cell Distribution Width 13.3 % (11.0-16.0); White Blood Count 17.3 X10*3/uL (4.8-10.8)
[2022-06-30 09:08] LABS: Anion Gap 16 (12-20); Blood Urea Nitrogen 12 mg/dL (9-16); C Reactive Protein 3.91 mg/dL (< or = 0.50); Calcium 8.6 mg/dL (8.4-10.2); Carbon Dioxide 26 mmol/L (22-29); Chloride 101 mmol/L (96-108); Estimated Glomerular Filt Rate > 60; Glucose Random 309 mg/dL (60-115); Potassium 4.3 mmol/L (3.3-5.1); Sodium 139 mmol/L (135-145)
[2022-06-30 09:22] LABS: Erythrocyte Sedimentation Rate 34 MM/HR (0-15)
== END 2022-06-30 07:29 | disposition home or self-care (01) ==
LOC: HO.LAB 07:28
PROVIDERS: PCP Internal Medicine; Visit Provider Internal Medicine
DX: N18.9 Chronic kidney disease, unspecified (principal); R53.83 Other fatigue
CPT/HCPCS: 36415; 80048; 85025; 85652; 86140

== ENCOUNTER → 2022-07-08 10:03 | Outpatient (BNVA) | payer MEDICARE, SELFPAY | PROVIDERS: PCP Internal Medicine; Visit Provider Physician Assistant | DX: M19.011 Primary osteoarthritis, right shoulder (principal); M19.012 Primary osteoarthritis, left shoulder; M75.101 Unspecified rotator cuff tear or rupture of right shoulder, not specified as traumatic; M75.102 Unspecified rotator cuff tear or rupture of left shoulder, not specified as traumatic; E11.9 Type 2 diabetes mellitus without complications | CPT/HCPCS: 20610; 99212; J1020 ==

== ENCOUNTER 2022-07-13 09:49 | Outpatient (REF) | payer MEDICARE, SELFPAY ==
--- NOTE | ~2022-07-13 | CT_ITS ---
EXAMINATION: CT CHEST WITHOUT CONTRAST CLINICAL INFORMATION: Other nonspecific abnormal finding of lung field. Interstitial lung disease. COMPARISON: Previous chest CT June 2021 and chest x-ray May 2022 TECHNIQUE: Multidetector volumetric CT imaging of the chest was done. Axial MIP volume rendering provided. Sagittal and coronal reformatted images were obtained. This CT examination was performed using dose optimization techniques as appropriate, variously including the following: *Automated exposure control *Adjustment of mA and/or kV according to patient size (this includes techniques or standardized protocols for targeted exams where dose is matched to indication/reason for exam; i.e. extremities or head) *Use of iterative reconstruction technique DLP: 187 mGy-cm FINDINGS: M[employer] DEPOSITOR: Unremarkable LUNGS: There is mild biapical pleural and parenchymal scarring. There is an irregularly-shaped parenchymal density, medial posterior basal segment of the right lower lobe. This is a new finding from June 2021. This is difficult to measure. This measures 2.7 x 1 cm in sagittal and AP dimension sagittal reconstructed image 72 and 1 cm in transverse dimension coronal reconstructed image 77 series 6. Scarring or chronic subsegmental atelectasis at the right middle lobe minimal similar changes in the inferior segment of the lingula. No evidence of interstitial lung disease. No evidence of emphysema or bronchiectasis. No endobronchial or endotracheal lesion. MEDIASTINUM: Upper normal heart size. No pericardial effusion. No enlarged hilar or mediastinal lymph nodes. Upper normal-size ascending thoracic aorta. CORONARY ARTERY CALCIFICATION: [id number] PLEURA: There is no pleural effusion. No pleural mass or thickening. AXILLA: Shotty bilateral axillary lymphadenopathy. No enlarged axillary lymph nodes or chest wall mass UPPER ABDOMEN: Unremarkable. OSSEOUS STRUCTURES: Degenerative changes of the spine. CT/CT chest wo IV con IMPRESSION: New abnormal parenchymal density in the medial posterior basal segment of the right lower lobe. Short-term chest CT follow-up recommended. No evidence of interstitial lung. Moderate to severe coronary artery calcification. Fleischner guidelines were followed.
== END 2022-07-13 09:50 | disposition home or self-care (01) ==
LOC: HO.CT 09:49
PROVIDERS: PCP Internal Medicine; Visit Provider Internal Medicine Pulmonary Disease
DX: R91.8 Other nonspecific abnormal finding of lung field (principal)
CPT/HCPCS: 71250

== ENCOUNTER → 2022-07-14 11:22 | Outpatient (BNVA) | payer MEDICARE, SELFPAY | PROVIDERS: PCP Internal Medicine; Visit Provider Internal Medicine | DX: D72.829 Elevated white blood cell count, unspecified (principal) | CPT/HCPCS: 99212 ==

== ENCOUNTER 2022-07-19 | Outpatient (REF) | payer MEDICARE, SELFPAY | END 2022-07-19 00:01 | LOC: CF | PROVIDERS: PCP Internal Medicine; Visit Provider Physician Assistant | DX: M16.12 Unilateral primary osteoarthritis, left hip (principal); Z97.8 Presence of other specified devices | CPT/HCPCS: 99212 ==

== ENCOUNTER → 2022-07-26 14:10 | Outpatient (BNVA) | payer MEDICARE, SELFPAY | PROVIDERS: PCP Internal Medicine; Referring Provider Internal Medicine; Visit Provider Internal Medicine Cardiovascular Disease | DX: I48.91 Unspecified atrial fibrillation (principal); I25.10 Atherosclerotic heart disease of native coronary artery without angina pectoris; I10 Essential (primary) hypertension; Z98.890 Other specified postprocedural states | CPT/HCPCS: 93005; 99212 ==

== ENCOUNTER 2022-07-27 15:22 | Outpatient (REF) | payer MEDICARE, SELFPAY ==
--- NOTE | ~2022-07-27 | XR_ITS ---
EXAMINATION: XR HAND WRIST, LEFT CLINICAL INFORMATION: Pain left hand and wrist. Tenderness. COMPARISON: Radiographs left hand 07/01/2016. TECHNIQUE: The left hand and wrist are imaged together in 3 large [id number] images for a total of 3 views. FINDINGS: There is no acute or healing fracture, dislocation, or destructive process. The ulnar variance is neutral. There is no periarticular demineralization. The pronator quadratus fat pad appears normal. The carpus shows mild narrowing first carpometacarpal joint and borderline narrowing triscaphe joint. No erosive change. Similar findings noted previously in 2017. The MCP and interphalangeal joints are unremarkable. No focal joint narrowing or erosive change. XR/XR hand wrist LT IMPRESSION: - No fracture, dislocation, destructive process. - Mild narrowing first carpometacarpal joint and borderline narrowing triscaphe joint. No erosive changes.
== END 2022-07-27 15:23 | disposition home or self-care (01) ==
LOC: HO.HMGCX 15:22
PROVIDERS: PCP Internal Medicine; Visit Provider Internal Medicine
DX: R60.0 Localized edema (principal); M79.642 Pain in left hand; M25.532 Pain in left wrist
CPT/HCPCS: 73110; 73130

== ENCOUNTER 2022-08-04 13:43 | Outpatient (REF) | payer MEDICARE, SELFPAY ==
--- NOTE | ~2022-08-04 | FL_ITS ---
PROCEDURE: XR ARTHROGRAM HIP, LEFT CLINICAL INFORMATION: Severe left hip pain from osteoarthritis. COMPARISON: None available. TECHNIQUE: Following explaining left hip steroid injection procedure, benefits and risk, a written consent was obtained. Patient was placed supine on fluoroscopy table and anterior aspect of left hip was cleaned and draped in usual sterile manner. 1% lidocaine was injected at puncture site. A 22-gauge needle was then inserted from the skin to the junction of femoral head and neck and 2 mL of nonionic contrast was injected. A single image was obtained. Subsequently a combination of 8 mL of 1% lidocaine and 80 mg of Depo-Medrol was injected and needle withdrawn. Complete hemostasis achieved at puncture site. Sterile Band-Aid applied postprocedure. Patient tolerate procedure extremely well. FINDINGS: There are no fractures or dislocations. No joint effusion is identified. There is left hip plate and screw for an old healed fracture. Steroid injection performed in left hip. FLUOROSCOPY TIME: 1.2 minutes DOSE AREA PRODUCT: 5.605 uGy-m2 (microgray-meter squared) FL/FL arthrogram hip LT IMPRESSION: Successful fluoroscopic-guided left hip steroid injection performed with steroid injection.
== END 2022-08-04 13:44 | disposition home or self-care (01) ==
LOC: HO.XRAY 13:43
PROVIDERS: PCP Internal Medicine; Visit Provider Physician Assistant
DX: M16.12 Unilateral primary osteoarthritis, left hip (principal); Z97.8 Presence of other specified devices
CPT/HCPCS: 27093; 73525

== ENCOUNTER → 2022-08-31 08:13 | Outpatient (BNVA) | payer MEDICARE, SELFPAY | PROVIDERS: PCP Internal Medicine; Visit Provider Physician Assistant | DX: M16.12 Unilateral primary osteoarthritis, left hip (principal); G56.02 Carpal tunnel syndrome, left upper limb; Z97.8 Presence of other specified devices | CPT/HCPCS: 99212 ==

== ENCOUNTER 2022-09-08 13:58 | Outpatient (REF) | payer MEDICARE, SELFPAY ==
[2022-09-08 14:12] LABS: MANUAL DIFF FLAG NO
[2022-09-08 14:53] LABS: Basophils Absolute Auto 0.1 X10*3/uL (0.0-0.2); Basophils Percent Auto 0.4 % (0-2); Eosinophils Absolute Auto 0.2 X10*3/uL (0.0-0.4); Eosinophils Percent Auto 1.2 % (0-4); Hematocrit 46.6 % (42.0-52.0); Hemoglobin 14.9 g/dl (14.0-18.0); Imm Gran Pct Auto 0.8 % (0.0-0.4); Lymphocytes Absolute Auto 1.6 X10*3/uL (1.2-4.9); Lymphocytes Percent Auto 12.9 % (20-40); Mean Corpuscular Hemoglobin 31.6 pg (27.0-33.0); Mean Corpuscular Volume 98.9 fL (80.0-98.0); Mean Platelet Volume 9.5 fL (9.4-12.4); Monocytes Absolute Auto 1.2 X10*3/uL (0.1-1.2); Monocytes Percent Auto 9.4 % (2-11); Neutrophils Absolute Auto 9.4 x10*3/uL (2.0-8.3); Neutrophils Percent Auto 75.3 % (45-73); Platelet Count 277 X10*3/uL (160-400); Red Blood Count 4.71 X10*6/uL (4.60-5.80); Red Cell Distribution Width 16.5 % (11.0-16.0); White Blood Count 12.5 X10*3/uL (4.8-10.8)
[2022-09-08 15:31] LABS: Anion Gap 11 (12-20); Blood Urea Nitrogen 11 mg/dL (9-16); Calcium 9.3 mg/dL (8.4-10.2); Carbon Dioxide 29 mmol/L (22-29); Chloride 101 mmol/L (96-108); Estimated Glomerular Filt Rate 53; Glucose Random 107 mg/dL (60-115); Potassium 4.2 mmol/L (3.3-5.1); Sodium 137 mmol/L (135-145)
== END 2022-09-08 13:59 | disposition home or self-care (01) ==
LOC: HO.LAB 13:58
PROVIDERS: Visit Provider Internal Medicine
DX: D72.829 Elevated white blood cell count, unspecified (principal)
CPT/HCPCS: 36415; 80048; 85025

== ENCOUNTER 2022-09-20 11:36 | Outpatient (REF) | payer MEDICARE, SELFPAY ==
[2022-09-20 12:13] LABS: Ammonia 29 umol/L (13-55)
[2022-09-20 13:29] LABS: Thyroid Stimulating Hormone 1.03 uIU/mL (0.32-4.0)
[2022-09-20 14:23] LABS: T4 Thyroxine 4.6 ug/dL (4.5-12.0)
[2022-09-22 02:19] LABS: Lyme Abs Screen <0.90 index
[2022-09-24 12:27] LABS: Aldolase 5.8 U/L (<=8.1)
== END 2022-09-20 11:37 | disposition home or self-care (01) ==
LOC: HO.LAB 11:36
PROVIDERS: PCP Internal Medicine; Visit Provider Psychiatry & Neurology Neurology
DX: R25.1 Tremor, unspecified (principal)
CPT/HCPCS: 36415; 82085; 82140; 82550; 84436; 84443; 86617; 86618

== ENCOUNTER 2022-09-21 10:56 | Outpatient (REF) | payer MEDICARE, SELFPAY ==
[2022-09-21 12:52] LABS: Digoxin 0.3 ng/mL (0.8-2.0)
== END 2022-09-21 10:57 | disposition home or self-care (01) ==
LOC: HO.LAB 10:56
PROVIDERS: PCP Internal Medicine; Visit Provider Internal Medicine Cardiovascular Disease
DX: Z51.81 Encounter for therapeutic drug level monitoring (principal); Z79.899 Other long term (current) drug therapy
CPT/HCPCS: 36415; 80162

== ENCOUNTER → 2022-09-22 13:25 | Outpatient (BNVA) | payer MEDICARE, SELFPAY | PROVIDERS: PCP Internal Medicine; Visit Provider Orthopaedic Surgery | DX: M79.89 Other specified soft tissue disorders (principal); M18.12 Unilateral primary osteoarthritis of first carpometacarpal joint, left hand; R20.0 Anesthesia of skin; R20.2 Paresthesia of skin | CPT/HCPCS: 99212 ==

== ENCOUNTER → 2022-10-13 14:07 | Outpatient (REF) | payer MEDICARE, SELFPAY ==
--- NOTE | 2022-10-13 14:10 | CA_ITS ---
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 Study Quality: Fair ECG Rhythm: Atrial Fibrillation Conclusions: - The left ventricular systolic function is normal. The calculated ejection fraction is 64% by biplane method. - The left atrium is moderately dilated. - There is mild calcification of the aortic valve. - There is mild mitral annular calcification. - Mild pulmonary hypertension is present. Findings Left Ventricle Normal left ventricular cavity size. There is mildly increased left ventricular wall thickness. The left ventricular systolic function is normal. The calculated ejection fraction is 64% by biplane method. There is no evidence of regional wall motion abnormalities. Diastolic function is indeterminate on the basis of available data. Right Ventricle Normal right ventricular cavity size and systolic function. Atria The left atrium is moderately dilated. The right atrium is mildly dilated. Aortic Valve There is a normal trileaflet aortic valve. There is mild calcification of the aortic valve. There is no aortic valve stenosis. There is no aortic valve regurgitation. Mitral Valve The mitral valve appears normal. There is mild mitral annular calcification. There is no mitral valve regurgitation. There is no mitral valve stenosis. Pulmonic Valve The pulmonic valve is likely normal. Tricuspid Valve Normal tricuspid valve structure. There is mild tricuspid valve regurgitation. Mild pulmonary hypertension is present. Great Vessels The asc aorta is normal in size. Venous The inferior vena cava is dilated and collapses less than 50% with inspiration. Pericardium/Pleural There is no evidence of pericardial effusion. Prior Study Comparison Changes noted compared to prior study dated: 06/08/2022. Wall motion abnormalities not identified. Measurements 2D Linear Measurements IVSd: 1.20 0.6-0.9/0.6-1.0 cm LVIDd: 5.20 3.9-5.3/4.2-5.9 cm LVIDd Index: 2.46 2.4-3.2/2.2-3.1 cm/m2 LVIDs: 3.30 2.0-3.6 cm LVPWd: 1.10 0.7-1.1 cm LA Diam: 4.50 2.7-3.8/3.0-4.0 cm LAIDs Index: 2.13 1.5-2.3 cm/m2 LV Mass: 292.52 67-162/88-224 g LV Mass Index: 138.63 43-95/49-115 g/m2 LVOT Diam: 2.00 3.0+(-)1.3 cm 2D Systolic Function EF 4C: 61.30 >55% EF 2C: 66.30 >55% EF BiP: 64.20 >55% Mitral Valve MV Pk E: 0.90 MV Decel Time: 214.00 E'Lateral: 8.81 E'Medial: 5.66 E/E' Med: 15.80 E/E' Lat: 10.20 PHT: 63.00 MVA PHT: 3.49 Decel [place]: 4.18 Aortic Valve AoV Pk Isaak: 1.80 AoV Pk Grad: 13.00 LVOT LVOT Pk Isaak: 1.42 LVOT Mn Isaak: 0.94 LVOT VTI: 0.27 LVOT Pk Grad: 8.00 LVOT Mn Grad: 4.00 LVOT Diam: 2.00 LVOT Area: 3.14 Diastolic Function MV Pk E: 0.90 E'Medial: 5.66 E/E' Med: 15.80 E' Laterial: 8.81 E/E' Lat: 10.20 Right Ventricle TAPSE (mm): 18.20 TVS' Isaak: 12.10 Tricuspid Valve TR Pk Isaak: 2.75 TR Pk Grad: 30.00 RA Press: 15.00 RVSP: 45.00 Great Vessels Aorta Sinus of Valsalva: 3.50 2.0-3.[address] [place]: 2.40 1.7-3.4 cm Ao Asc: 3.80 2.1-3.4 cm Updated in Other Vendor System with Status of Final Contreras Castle MD electronically signed on 10/14/2022 2:25:44 PM with status of Final
== END ==
LOC: HO.CARD 14:07
PROVIDERS: PCP Internal Medicine; Visit Provider Internal Medicine Cardiovascular Disease
DX: I25.10 Atherosclerotic heart disease of native coronary artery without angina pectoris (principal); I48.19 Other persistent atrial fibrillation; R06.02 Shortness of breath; R53.83 Other fatigue
CPT/HCPCS: 93306

== ENCOUNTER → 2022-10-13 14:10 | Outpatient (BNV) | payer MEDICARE, SELFPAY | PROVIDERS: PCP Internal Medicine; Visit Provider Internal Medicine | DX: I25.10 Atherosclerotic heart disease of native coronary artery without angina pectoris (principal); I36.1 Nonrheumatic tricuspid (valve) insufficiency | CPT/HCPCS: 93306 ==

== ENCOUNTER 2022-10-18 08:49 | Outpatient (REF) | payer MEDICARE, SELFPAY ==
[2022-10-18 09:58] LABS: Anion Gap 11 (12-20); Blood Urea Nitrogen 11 mg/dL (9-16); Calcium 9.4 mg/dL (8.4-10.2); Carbon Dioxide 31 mmol/L (22-29); Chloride 98 mmol/L (96-108); Estimated Glomerular Filt Rate > 60; Glucose Random 249 mg/dL (60-115); Potassium 4.4 mmol/L (3.3-5.1); Sodium 136 mmol/L (135-145)
[2022-10-18 09:59] LABS: B Type Natriuretic Peptide 204 pg/mL (<100)
== END 2022-10-18 08:50 | disposition home or self-care (01) ==
LOC: HO.LAB 08:49
PROVIDERS: PCP Internal Medicine; Visit Provider Internal Medicine Cardiovascular Disease
DX: I25.10 Atherosclerotic heart disease of native coronary artery without angina pectoris (principal); I48.19 Other persistent atrial fibrillation; M79.89 Other specified soft tissue disorders; R06.02 Shortness of breath; R53.83 Other fatigue
CPT/HCPCS: 36415; 80048; 83880

== ENCOUNTER 2022-10-25 14:17 | Outpatient (REF) | payer MEDICARE, SELFPAY ==
[2022-10-25 16:53] LABS: Anion Gap 18 (12-20); Blood Urea Nitrogen 12 mg/dL (9-16); Calcium 9.2 mg/dL (8.4-10.2); Carbon Dioxide 24 mmol/L (22-29); Chloride 100 mmol/L (96-108); Estimated Glomerular Filt Rate > 60; Glucose Random 283 mg/dL (60-115); Potassium 4.1 mmol/L (3.3-5.1); Sodium 138 mmol/L (135-145)
== END 2022-10-25 14:18 | disposition home or self-care (01) ==
LOC: HO.LAB 14:17
PROVIDERS: PCP Internal Medicine; Visit Provider Internal Medicine Cardiovascular Disease
DX: I25.10 Atherosclerotic heart disease of native coronary artery without angina pectoris (principal); I11.0 Hypertensive heart disease with heart failure; I50.9 Heart failure, unspecified; I48.19 Other persistent atrial fibrillation
CPT/HCPCS: 36415; 80048

== ENCOUNTER 2022-10-28 09:32 | Outpatient (AMB) | payer MEDICARE, SELFPAY ==
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
[2022-10-28 09:37] VITALS: BP 146/84; PULSE 84; BMI 28.9
== END 2022-10-28 10:33 | disposition home or self-care (01) ==
PROVIDERS: PCP Internal Medicine; Referring Provider Internal Medicine; Visit Provider Internal Medicine Cardiovascular Disease
DX: I50.30 Unspecified diastolic (congestive) heart failure (principal); I48.19 Other persistent atrial fibrillation
CPT/HCPCS: 99214

== ENCOUNTER 2022-10-28 09:32 | Outpatient (REF) | payer MEDICARE, SELFPAY ==
[2022-10-28 17:09] LABS: B Type Natriuretic Peptide 170 pg/mL (<100)
[2022-11-01 14:08] LABS: Prot Elec - Albumin 3.9 g/dL (3.8-4.8); Prot Elec - Alpha1 0.4 g/dL (0.2-0.3); Prot Elec - Alpha2 0.7 g/dL (0.5-0.9); Prot Elec - Beta 1 0.5 g/dL (0.4-0.6); Prot Elec - Beta 2 0.4 g/dL (0.2-0.5); Prot Elec - Gamma 0.8 g/dL (0.8-1.7); Prot Elec - Total Protein 6.7 g/dL (6.1-8.1)
[2022-11-01 15:39] LABS: Kappa, Serum 219 mg/dL (176-443); Kappa/Lambda Ratio, Serum 1.49 (1.29-2.55); Lambda, Serum 147 mg/dL (91-240)
[2022-11-05 11:29] LABS: PEU-Protein Creat Ratio Rand NOTE (0.025-0.148); PEU-Rand. Prot/Creat Ratio NOTE mg/g creat (25-148); PEU-Random Ur. Gamma Globulin 0 %; PEU-Random Urine A1 Globulin 0 %; PEU-Random Urine A2 Globulin 0 %; PEU-Random Urine Albumin 0 %; PEU-Random Urine Beta Globulin 0 %; PEU-Random Urine Creatinine 18 mg/dL (20-320); PEU-Random Urine Protein <4 mg/dL (5-25)
== END 2022-10-28 09:33 | disposition home or self-care (01) ==
LOC: HO.LAB 09:32
PROVIDERS: PCP Internal Medicine; Referring Provider Internal Medicine; Visit Provider Internal Medicine Cardiovascular Disease
DX: I50.30 Unspecified diastolic (congestive) heart failure (principal); I48.19 Other persistent atrial fibrillation; Z79.899 Other long term (current) drug therapy; Z79.891 Long term (current) use of opiate analgesic
CPT/HCPCS: 82570; 83880; 83883; 84156; 84165; 84166; 99212

== ENCOUNTER → 2022-11-01 10:03 | Outpatient (REF) | payer MEDICARE, SELFPAY | LOC: HO.NUCMED 10:03 | PROVIDERS: PCP Internal Medicine; Visit Provider Internal Medicine Cardiovascular Disease | DX: Z13.89 Encounter for screening for other disorder (principal) ==

== ENCOUNTER → 2022-11-05 10:25 | Outpatient (REF) | payer MEDICARE, SELFPAY ==
--- NOTE | ~2022-11-05 | NM_ITS ---
EXAMINATION: TC-PYP CARDIAC STUDY CLINICAL INFORMATION: Evaluation for cardiac amyloidosis. 72 years old Male with diastolic heart failure and persistent and persistent atrial fibrillation COMPARISON None available. TECHNIQUE: 25 mCi of Tc-99m pyrophosphate was injected intravenously. Planar images of the chest were obtained in the anterior and left lateral views at 3 [address] SPECT-CT images of the chest were also obtained. FINDINGS: 1. Image Quality: Adequate 2. Semi-quantitative visual scoring of the cardiac uptake is performed as follows: There appears to be focal uptake especially in the septal and the lateral wall of the LV myocardium, somewhat the uptake appears less intense than the bony uptake in some equal to the bony uptake 3. H-CL Ratio if Applicable: 4. Ancillary Finds: NM/NM TC PYP cardiac amyloidosis IMPRESSION: 1. 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 Further testing is indicated 2. Please note that the Tc-99m PYP is more sensitive in detecting transthyretin-related cardiac amyloidosis than that of light-chain cardiac amyloidosis.
== END ==
LOC: HO.NUCMED 10:25
PROVIDERS: PCP Internal Medicine; Visit Provider Internal Medicine Cardiovascular Disease
DX: I50.30 Unspecified diastolic (congestive) heart failure (principal)
CPT/HCPCS: 78803; A9538

== ENCOUNTER 2022-11-16 09:43 | Outpatient (AMB) | payer MEDICARE, SELFPAY ==
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
[2022-11-16 09:45] VITALS: BP 146/80; PULSE 96; O2SAT 68; BMI 29.4
== END 2022-11-16 10:05 | disposition home or self-care (01) ==
PROVIDERS: PCP Internal Medicine; Visit Provider Internal Medicine Pulmonary Disease
DX: J44.9 Chronic obstructive pulmonary disease, unspecified (principal); R91.8 Other nonspecific abnormal finding of lung field
CPT/HCPCS: 99214

== ENCOUNTER → 2022-11-16 09:43 | Outpatient (BNVA) | payer MEDICARE, SELFPAY | PROVIDERS: PCP Internal Medicine; Visit Provider Internal Medicine Pulmonary Disease | DX: J44.9 Chronic obstructive pulmonary disease, unspecified (principal); R91.8 Other nonspecific abnormal finding of lung field | CPT/HCPCS: 99212 ==

== ENCOUNTER 2022-12-21 15:07 | Outpatient (REF) | payer MEDICARE, SELFPAY ==
[2022-12-21 15:45] LABS: Estimated Average Glucose 189 mg/dL; Hemoglobin A1c % 8.2 % (<6.0)
[2022-12-21 16:14] LABS: Anion Gap 12 (12-20); Blood Urea Nitrogen 14 mg/dL (9-16); Calcium 9.2 mg/dL (8.4-10.2); Carbon Dioxide 25 mmol/L (22-29); Chloride 105 mmol/L (96-108); Estimated Glomerular Filt Rate 59; Glucose Random 209 mg/dL (60-115); Potassium 3.9 mmol/L (3.3-5.1); Sodium 138 mmol/L (135-145)
== END 2022-12-21 15:08 | disposition home or self-care (01) ==
LOC: HO.LAB 15:07
PROVIDERS: Internal Medicine Cardiovascular Disease; PCP Internal Medicine; Visit Provider Internal Medicine
DX: E11.9 Type 2 diabetes mellitus without complications (principal); I50.30 Unspecified diastolic (congestive) heart failure
CPT/HCPCS: 36415; 80048; 83036

== ENCOUNTER 2023-01-04 10:26 | Outpatient (AMB) | payer MEDICARE, SELFPAY ==
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
[2023-01-04 11:16] VITALS: BMI 29.3
== END 2023-01-04 11:53 | disposition home or self-care (01) ==
PROVIDERS: PCP Internal Medicine; Visit Provider Orthopaedic Surgery
DX: M18.12 Unilateral primary osteoarthritis of first carpometacarpal joint, left hand (principal); M79.89 Other specified soft tissue disorders; G56.03 Carpal tunnel syndrome, bilateral upper limbs
CPT/HCPCS: 99214

== ENCOUNTER → 2023-01-04 10:26 | Outpatient (BNVA) | payer MEDICARE, SELFPAY | PROVIDERS: PCP Internal Medicine; Visit Provider Orthopaedic Surgery | DX: M18.12 Unilateral primary osteoarthritis of first carpometacarpal joint, left hand (principal); M79.89 Other specified soft tissue disorders; G56.03 Carpal tunnel syndrome, bilateral upper limbs; E11.9 Type 2 diabetes mellitus without complications; I25.10 Atherosclerotic heart disease of native coronary artery without angina pectoris | CPT/HCPCS: 99212 ==

== ENCOUNTER 2023-01-13 11:25 | Outpatient (REF) | payer MEDICARE, SELFPAY ==
[2023-01-13 14:20] LABS: B Type Natriuretic Peptide 234 pg/mL (<100)
[2023-01-13 14:47] LABS: Anion Gap 15 (12-20); Blood Urea Nitrogen 16 mg/dL (9-16); Calcium 10.5 mg/dL (8.4-10.2); Carbon Dioxide 29 mmol/L (22-29); Chloride 99 mmol/L (96-108); Estimated Glomerular Filt Rate > 60; Glucose Random 170 mg/dL (60-115); Potassium 3.7 mmol/L (3.3-5.1); Sodium 139 mmol/L (135-145)
== END 2023-01-13 11:26 | disposition home or self-care (01) ==
LOC: HO.LAB 11:25
PROVIDERS: PCP Internal Medicine; Visit Provider Internal Medicine Advanced Heart Failure and Transplant Cardiology
DX: I50.9 Heart failure, unspecified (principal)
CPT/HCPCS: 36415; 80048; 83880

== ENCOUNTER 2023-02-01 14:25 | Outpatient (AMB) | payer MEDICARE, SELFPAY ==
[2023-02-01 14:27] VITALS: BP 128/64; PULSE 72; O2SAT 98; BMI 29.2
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
== END 2023-02-01 14:43 | disposition home or self-care (01) ==
PROVIDERS: PCP Internal Medicine; Visit Provider Internal Medicine Pulmonary Disease
DX: J44.9 Chronic obstructive pulmonary disease, unspecified (principal); R91.8 Other nonspecific abnormal finding of lung field
CPT/HCPCS: 99214

== ENCOUNTER → 2023-02-01 14:25 | Outpatient (BNVA) | payer MEDICARE, SELFPAY | PROVIDERS: PCP Internal Medicine; Visit Provider Internal Medicine Pulmonary Disease | DX: J44.9 Chronic obstructive pulmonary disease, unspecified (principal); R91.8 Other nonspecific abnormal finding of lung field | CPT/HCPCS: 99212 ==

== ENCOUNTER 2023-02-03 13:36 | Outpatient (REF) | payer MEDICARE, SELFPAY ==
--- NOTE | ~2023-02-03 | CT_ITS ---
EXAMINATION: CT CHEST WITHOUT CONTRAST CLINICAL INFORMATION: Abnormal findings lung field COMPARISON: Previous CTs, most recent, 07/14/2022. TECHNIQUE: Multidetector volumetric CT imaging of the chest was done. Axial MIP volume rendering provided. Sagittal and coronal reformatted images were obtained. This CT examination was performed using dose optimization techniques as appropriate, variously including the following: *Automated exposure control *Adjustment of mA and/or kV according to patient size (this includes techniques or standardized protocols for targeted exams where dose is matched to indication/reason for exam; i.e. extremities or head) *Use of iterative reconstruction technique DLP: 106 mGy-cm FINDINGS: THERAPIST OCCUPATIONAL: Elevated right hemidiaphragm with atelectasis. LUNGS: Trachea and bronchi are patent. Hyperinflation with mild centrilobular emphysema. Medial basal segment right lower lobe subpleural irregular parenchymal density/atelectasis has progressed in craniocaudad dimension now measuring 3.7 cm, coronal 77/102. Previous bulbous appearance inferiorly has decreased in size. Increasing lingular, right upper, right middle and left lower lobe atelectasis. Right lower lobe dependent atelectasis. No consolidations or groundglass opacities. No pulmonary nodules. MEDIASTINUM: Unremarkable thyroid. No pathologic distention lymphadenopathy. Nonenlarged heart. No pericardial effusion. Nonaneurysmal aorta with mild atherosclerotic calcifications. Nonenlarged pulmonary arteries. CORONARY ARTERY CALCIFICATION: Moderate. PLEURA: Mild biapical pleural thickening. There is no pleural effusion. No pleural mass or thickening. AXILLA: No lymphadenopathy. UPPER ABDOMEN: Enlarged hypodense liver OSSEOUS STRUCTURES: Degenerative type changes. No suspicious osseous lesions. CT/CT chest wo IV con IMPRESSION: Hyperinflation, centrilobular emphysema and increasing atelectasis. No consolidations or suspicious pulmonary nodules. Enlarged fatty liver. Fleischner guidelines were followed.
== END 2023-02-03 13:37 | disposition home or self-care (01) ==
LOC: HO.CT 13:36
PROVIDERS: PCP Internal Medicine; Visit Provider Internal Medicine Pulmonary Disease
DX: R91.8 Other nonspecific abnormal finding of lung field (principal)
CPT/HCPCS: 71250

== ENCOUNTER 2023-02-07 09:13 | Outpatient (AMB) | payer MEDICARE, SELFPAY ==
[2023-02-07 09:18] VITALS: BP 118/70; PULSE 66; BMI 29.5
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
== END 2023-02-07 09:44 | disposition home or self-care (01) ==
PROVIDERS: PCP Internal Medicine; Visit Provider Internal Medicine Cardiovascular Disease
DX: I50.30 Unspecified diastolic (congestive) heart failure (principal); I25.10 Atherosclerotic heart disease of native coronary artery without angina pectoris; I48.19 Other persistent atrial fibrillation
CPT/HCPCS: 99214

== ENCOUNTER → 2023-02-07 09:13 | Outpatient (BNVA) | payer MEDICARE, SELFPAY | PROVIDERS: PCP Internal Medicine; Visit Provider Internal Medicine Cardiovascular Disease | DX: I48.19 Other persistent atrial fibrillation (principal); I11.0 Hypertensive heart disease with heart failure; I50.30 Unspecified diastolic (congestive) heart failure; I25.10 Atherosclerotic heart disease of native coronary artery without angina pectoris | CPT/HCPCS: 99212 ==

== ENCOUNTER 2023-02-25 11:02 | Outpatient (REF) | payer MEDICARE, SELFPAY ==
[2023-02-25 12:06] LABS: B Type Natriuretic Peptide 242 pg/mL (<100)
[2023-02-25 12:21] LABS: Digoxin 0.6 ng/mL (0.8-2.0)
[2023-02-25 12:23] LABS: Anion Gap 12 (12-20); Blood Urea Nitrogen 21 mg/dL (9-16); Carbon Dioxide 32 mmol/L (22-29); Chloride 100 mmol/L (96-108); Estimated Glomerular Filt Rate > 60; Glucose Random 204 mg/dL (60-115); Potassium 4.4 mmol/L (3.3-5.1); Sodium 140 mmol/L (135-145)
== END 2023-02-25 11:03 | disposition home or self-care (01) ==
LOC: HO.LAB 11:02
PROVIDERS: PCP Internal Medicine; Visit Provider Internal Medicine Cardiovascular Disease
DX: I50.30 Unspecified diastolic (congestive) heart failure (principal); I48.20 Chronic atrial fibrillation, unspecified; Z79.899 Other long term (current) drug therapy
CPT/HCPCS: 36415; 80048; 80162; 83880

== ENCOUNTER 2023-05-10 13:40 | Emergency (ER) | payer MEDICARE, SELFPAY ==
--- NOTE | ~2023-05-10 | CT_ITS ---
EXAMINATION: CT head/brain wo IV con CLINICAL INFORMATION: Reason for Exam resolved numbness of left side, on eliquis COMPARISON: CT head without contrast 06/05/2022 TECHNIQUE: Contiguous axial imaging was performed from the skull base to vertex without intravenous contrast. Sagittal and coronal reformatted images were obtained. This CT examination was performed using dose optimization techniques as appropriate, variously including the following: * Automated exposure control * Adjustment of mA and/or kV according to patient size (this includes techniques or standardized protocols for targeted exams where dose is matched to indication/reason for exam; i.e. extremities or head) Use of iterative reconstruction technique DLP: 763 mGy-cm FINDINGS: No acute osseous or soft tissue abnormality. The mastoid air cells and visualized portions of the paranasal sinuses are well aerated. There is no evidence of acute intracranial hemorrhage or territorial infarction. No abnormal mass effect or midline shift is seen. Musa to white matter differentiation is well preserved. No extra-axial fluid collections are identified. No hydrocephalus. No significant volume loss. Patchy periventricular and deep white matter hypoattenuation is consistent with mild small vessel ischemic changes. CT/CT head/brain wo IV con IMPRESSION: No acute intracranial abnormality including hemorrhage, mass effect, hydrocephalus, or acute territorial edematous infarction.
[2023-05-10 13:42] VITALS: BP 137/71; PULSE 70; RESP 20; TEMP 37.2; O2SAT 93; BMI 30.8
--- NOTE | 2023-05-10 13:45 | ECG_ITS ---
Test Reason : cp Blood Pressure : / mmHG Vent. Rate : 064 BPM Atrial Rate : 000 BPM P-R Int : 000 ms QRS Dur : 092 ms QT Int : 410 ms P-R-T Axes : 000 010 013 degrees QTc Int : 422 ms Atrial fibrillation Abnormal ECG When compared with ECG of 05-JUN-2022 14:47, Vent. rate has decreased BY 54 BPM Referred By: Doug Villegas Electronically Signed By:Ramsey Aponte
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
[2023-05-10 14:03] LABS: MANUAL DIFF FLAG NO
[2023-05-10 14:19] LABS: Anion Gap 16 (12-20); Basophils Percent Auto 0.2 % (0-2); Blood Urea Nitrogen 15 mg/dL (9-16); Calcium 9.3 mg/dL (8.4-10.2); Carbon Dioxide 25 mmol/L (22-29); Chloride 102 mmol/L (96-108); Creatinine Clr Calc Pharmacy 72.3; Eosinophils Absolute Auto 0.1 X10*3/uL (0.0-0.4); Eosinophils Percent Auto 0.4 % (0-4); Estimated Glomerular Filt Rate > 60; Glucose Random 286 mg/dL (60-115); Hematocrit 50.4 % (42.0-52.0); Hemoglobin 16.7 g/dl (14.0-18.0); Imm Gran Abs Auto 0.07 X10*3/uL (0.00-0.03); Imm Gran Pct Auto 0.5 % (0.0-0.4); Lymphocytes Absolute Auto 0.9 X10*3/uL (1.2-4.9); Lymphocytes Percent Auto 6.1 % (20-40); Mean Corpuscular HGB Conc 33.1 g/dl (31.0-36.0); Mean Corpuscular Volume 93.5 fL (80.0-98.0); Monocytes Absolute Auto 0.7 X10*3/uL (0.1-1.2); Monocytes Percent Auto 5.1 % (2-11); Neutrophils Absolute Auto 12.2 x10*3/uL (2.0-8.3); Neutrophils Percent Auto 87.7 % (45-73); Platelet Count 295 X10*3/uL (160-400); Potassium 4.4 mmol/L (3.3-5.1); Red Blood Count 5.39 X10*6/uL (4.60-5.80); Red Cell Distribution Width 13.3 % (11.0-16.0); Sodium 139 mmol/L (135-145); White Blood Count 13.9 X10*3/uL (4.8-10.8)
[2023-05-10 14:27] LABS: Troponin-I High Sensitivity 5.3 ng/L (<3.5-35.0)
[2023-05-10 18:31] VITALS: BP 168/86; PULSE 67; RESP 20; TEMP 36.7; O2SAT 93
--- NOTE | 2023-05-10 19:17 | MHC.EDTECH ---
Patient trop drawn and sent to lab .
[2023-05-10 19:41] LABS: Troponin-I High Sensitivity 4.2 ng/L (<3.5-35.0)
[2023-05-10 21:13] VITALS: BP 120/103; PULSE 66; RESP 18; TEMP 36.6; O2SAT 97
== END 2023-05-11 00:32 | disposition home or self-care (01) ==
PROVIDERS: Physician Assistant Medical; Emergency Provider Student in an Organized Health Care Education/Training Program; PCP Internal Medicine
DX: R07.89 Other chest pain (principal); R06.02 Shortness of breath; R20.0 Anesthesia of skin; R29.700 NIHSS score 0; Z79.899 Other long term (current) drug therapy; Z79.01 Long term (current) use of anticoagulants; Z87.891 Personal history of nicotine dependence
CPT/HCPCS: 36415; 70450; 80048; 84484; 85025; 93005; 99284

== ENCOUNTER → 2023-05-10 13:45 | Outpatient (BNV) | payer MEDICARE, SELFPAY | PROVIDERS: PCP Internal Medicine; Visit Provider Internal Medicine Cardiovascular Disease | DX: I48.91 Unspecified atrial fibrillation (principal); R94.31 Abnormal electrocardiogram [ECG] [EKG] | CPT/HCPCS: 93010 ==

== ENCOUNTER 2023-05-16 12:49 | Outpatient (REF) | payer MEDICARE, SELFPAY ==
--- NOTE | ~2023-05-16 | XR_ITS ---
EXAMINATION: XR CHEST CLINICAL INFORMATION: Cough, rule out pneumonia. COMPARISON: Chest CT 02/03/2023, chest radiograph 06/05/2022. TECHNIQUE: 2 views of the chest were obtained. FINDINGS: There is no gross pneumothorax. Cardiac silhouette borderline enlarged. Bibasilar opacities may represent atelectasis and/or pneumonia. Degenerative changes in the thoracic spine. No gross pleural effusion. XR/XR chest 2V IMPRESSION: Bibasilar opacities may represent atelectasis and/or pneumonia. Recommend follow-up imaging in 4-6 weeks to confirm resolution and exclude underlying pathology. This study was presented 05/17/2023 for interpretation. PSA staff will provide results to referring provider at this time.
== END 2023-05-16 12:50 | disposition home or self-care (01) ==
LOC: HO.XRAY 12:49
PROVIDERS: PCP Internal Medicine; Visit Provider Internal Medicine
DX: R05.9 Cough, unspecified (principal); J18.9 Pneumonia, unspecified organism
CPT/HCPCS: 71046

== ENCOUNTER 2023-05-20 10:21 | Outpatient (AMB) | payer MEDICARE, SELFPAY ==
[2023-05-20 10:22] VITALS: BP 148/77; PULSE 72; O2SAT 96; BMI 30.6
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
== END 2023-05-20 10:47 | disposition home or self-care (01) ==
PROVIDERS: PCP Internal Medicine; Visit Provider Internal Medicine Pulmonary Disease
DX: J44.9 Chronic obstructive pulmonary disease, unspecified (principal); R91.8 Other nonspecific abnormal finding of lung field
CPT/HCPCS: 99214

== ENCOUNTER → 2023-05-20 10:21 | Outpatient (BNVA) | payer MEDICARE, SELFPAY | PROVIDERS: PCP Internal Medicine; Visit Provider Internal Medicine Pulmonary Disease | DX: J44.9 Chronic obstructive pulmonary disease, unspecified (principal); R91.8 Other nonspecific abnormal finding of lung field | CPT/HCPCS: 99212 ==

== ENCOUNTER 2023-07-27 08:33 | Outpatient (AMB) | payer MEDICARE, SELFPAY ==
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
[2023-07-27 08:57] VITALS: BMI 30.6
== END 2023-07-27 09:47 | disposition home or self-care (01) ==
PROVIDERS: PCP Internal Medicine; Visit Provider Orthopaedic Surgery
DX: G56.03 Carpal tunnel syndrome, bilateral upper limbs (principal); M18.12 Unilateral primary osteoarthritis of first carpometacarpal joint, left hand; E11.9 Type 2 diabetes mellitus without complications; I25.10 Atherosclerotic heart disease of native coronary artery without angina pectoris
CPT/HCPCS: 20526; 99213

== ENCOUNTER → 2023-07-27 08:33 | Outpatient (BNVA) | payer MEDICARE, SELFPAY | PROVIDERS: PCP Internal Medicine; Visit Provider Orthopaedic Surgery | DX: G56.03 Carpal tunnel syndrome, bilateral upper limbs (principal); M18.12 Unilateral primary osteoarthritis of first carpometacarpal joint, left hand; E11.9 Type 2 diabetes mellitus without complications; I25.10 Atherosclerotic heart disease of native coronary artery without angina pectoris; I10 Essential (primary) hypertension | CPT/HCPCS: 20526; 99212; J1100 ==

== ENCOUNTER 2023-07-29 10:29 | Outpatient (AMB) | payer MEDICARE, SELFPAY ==
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
[2023-07-29 10:40] VITALS: BP 132/77; PULSE 72; O2SAT 93; BMI 28.7
== END 2023-07-29 11:06 | disposition home or self-care (01) ==
PROVIDERS: PCP Internal Medicine; Visit Provider Internal Medicine Pulmonary Disease
DX: J44.9 Chronic obstructive pulmonary disease, unspecified (principal); R91.8 Other nonspecific abnormal finding of lung field
CPT/HCPCS: 99214

== ENCOUNTER → 2023-07-29 10:29 | Outpatient (BNVA) | payer MEDICARE, SELFPAY | PROVIDERS: PCP Internal Medicine; Visit Provider Internal Medicine Pulmonary Disease | DX: J44.9 Chronic obstructive pulmonary disease, unspecified (principal); R91.8 Other nonspecific abnormal finding of lung field; Z79.899 Other long term (current) drug therapy | CPT/HCPCS: 99212 ==

== ENCOUNTER 2023-08-02 08:27 | Outpatient (AMB) | payer MEDICARE, SELFPAY ==
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
[2023-08-02 08:29] VITALS: BP 134/82; PULSE 82; BMI 28.8
== END 2023-08-02 08:58 | disposition home or self-care (01) ==
PROVIDERS: Visit Provider Internal Medicine Cardiovascular Disease
DX: I50.30 Unspecified diastolic (congestive) heart failure (principal); I25.10 Atherosclerotic heart disease of native coronary artery without angina pectoris; I48.19 Other persistent atrial fibrillation
CPT/HCPCS: 99214

== ENCOUNTER → 2023-08-02 08:27 | Outpatient (BNVA) | payer MEDICARE, SELFPAY | PROVIDERS: Visit Provider Internal Medicine Cardiovascular Disease | DX: I50.30 Unspecified diastolic (congestive) heart failure (principal); I25.10 Atherosclerotic heart disease of native coronary artery without angina pectoris; I48.19 Other persistent atrial fibrillation; Z79.01 Long term (current) use of anticoagulants; Z79.899 Other long term (current) drug therapy | CPT/HCPCS: 99212 ==

== ENCOUNTER 2023-08-03 11:59 | Outpatient (REF) | payer MEDICARE, SELFPAY ==
[2023-08-03 12:51] LABS: Digoxin 0.7 ng/mL (0.8-2.0)
[2023-08-03 13:02] LABS: Anion Gap 16 (12-20); Blood Urea Nitrogen 17 mg/dL (9-16); Calcium 9.9 mg/dL (8.4-10.2); Carbon Dioxide 29 mmol/L (22-29); Chloride 100 mmol/L (96-108); Estimated Glomerular Filt Rate > 60; Glucose Random 173 mg/dL (60-115); Potassium 3.9 mmol/L (3.3-5.1); Sodium 141 mmol/L (135-145)
== END 2023-08-03 12:00 | disposition home or self-care (01) ==
LOC: HO.LAB 11:59
PROVIDERS: PCP Internal Medicine; Visit Provider Internal Medicine Cardiovascular Disease
DX: I48.20 Chronic atrial fibrillation, unspecified (principal); I50.30 Unspecified diastolic (congestive) heart failure; Z79.899 Other long term (current) drug therapy
CPT/HCPCS: 36415; 80048; 80162

== ENCOUNTER 2023-09-22 10:54 | Day surgery (SDC) | payer MEDICARE, SELFPAY ==
[2023-09-22 11:06] VITALS: BMI 28.7
--- NOTE | 2023-09-22 13:16 | P.OP_ITS ---
Operative Note Operative Note Date of Service: 09/22/23 Narrative: Preop diagnosis: 1. Left Carpal tunnel syndrome Postop diagnosis: same Procedure: 1. Left Carpal tunnel release Surgeon: Isa Peters MD Physical Damage Appraiser: Ayan Cole Anesthesia: local block using 1% lidocaine with epinephrine Findings: Thickened transverse carpal ligament. EBL: Less than 5 mL Specimens: None Complications: None Disposition: Brought to recovery room in stable condition Plan: Follow-up for 10-14 days for wound check and suture removal Indications: The patient is 73 years old, with left carpal tunnel syndrome that has been unresponsive to nonoperative management. The risks and benefits of operative treatment including but not limited to risk of damage to blood vessels, nerves, tendons, infection, persistent pain, persistent symptoms, or possible need for additional surgery were discussed with the patient and the patient wishes to proceed with surgery. Procedure: Once consent was obtained a local block was performed using a combination of 1% lidocaine with epinephrine. The patient was then brought back to the operating suite and placed on the operative table in supine position. The left upper extremity was prepped and draped in a standard surgical fashion. Once assured that we had a good block, a 2.0 cm longitudinal incision was made centered over the carpal tunnel. The incision was made through the skin to the subcutaneous tissues using a #15 blade. Dissection was made down to the level of the transverse carpal ligament with care being taken to protect the palmar cutaneous nerve. Once the transverse carpal ligament was clearly visualized, a longitudinal incision was made in the transverse carpal ligament 1st using a #15 blade, then using tenotomy scissors under direct visualization. Care was taken to look for and protect the motor branch of the median nerve when seen in this area. Once satisfied with our carpal tunnel release the wound was copiously irrigated with normal saline and hemostasis was obtained with a brief period of local pressure. The skin edges were reapproximated with some 5.0 nylon suture material and a sterile dressing was applied. The patient appears to have tolerated the procedure well and with no co mplications. All digits were well vascularized at the conclusion of the case.
--- NOTE | 2023-09-22 13:42 | PC.NURSE ---
2 cans regular small austen yudith given.
--- NOTE | 2023-09-22 14:10 | P.HPSUR_ITS ---
Pre-Procedural Eval Section A - 24 Hr Update-Section A only Date of Service: 09/22/23 The patient is an INPATIENT: No Changes since office visit: No Cold of Flu in the past 2 weeks, No New Medical Problems, No Changes in Medication and No Patient answered all questions The patient has been examined within 24 hours of the surgical procedure. The History & Physical has been completed within 30 days and I have reviewed it.: Yes Section B - Complete if H&P > 30 days Chief Complaint: Carpal tunnel syndrome, left upper limb Allergies: Allergies Allergy/AdvReac Type Severity Reaction Status Date / Time sulfamethoxazole Allergy Intermediate RASH,N/V Verified 07/29/23 10:42 [From BACTRIM] trimethoprim [From BACTRIM] Allergy Intermediate RASH,N/V Verified 07/29/23 10:42 Sulfa (Sulfonamide Allergy Unknown Unknown Verified 07/29/23 10:42 Antibiotics) fentanyl [From Duragesic] AdvReac Mild TOPICAL Verified 07/29/23 10:42 RASH FROM ADHESIVE methadone [Methadone] AdvReac Mild NAUSEA & Verified 07/29/23 10:42 VOMITING losartan AdvReac hyperkalemi Verified 07/29/23 10:42 c Exam Exam Comment: Carpal tunnel syndrome Plan Diagnosis/Plan: Unchanged I have reviewed the history and physical and performed a pertinent physical examination on my patient. No changes have occurred unless specified. The risks and benefits of operative treatment were discussed with the patient and the patient wishes to proceed with surgery. These risks include, but are not limited to risk of damage to blood vessels, nerves, tendons, infection, recurrence, incomplete relief of preoperative symptoms, persistent pain, possible need for further surgery and the risks associated with regional blocks and anesthesia. The plan is to take the patient to the operating room today for the following procedures: 1. Left carpal tunnel release 2. [ ] All of the preoperative paperwork including the consent was filled out today. All the patient's questions were answered. The patient understands that they will be contacted by our efficiency engineer soon to schedule this procedure His new hemoglobin A1c was below 8.0 Time Spent With Patient Time: Total time managing care of this patient today ____ minutes.
[2023-09-22 14:14] LABS: Glucose, Whole Blood 119 mg/dL (60-115)
--- NOTE | 2023-09-22 14:15 | PC.NURSE ---
checked patients blood sugar per his request. asymptomatic. within normal limits.
[2023-09-22 14:58] VITALS: BP 131/83; PULSE 71; RESP 18; O2SAT 92
== END 2023-09-22 15:00 | disposition home or self-care (01) ==
PROVIDERS: PCP Internal Medicine; Visit Provider Orthopaedic Surgery
PROC: (CPT 64721; principal; 2023-09-22 12:10)
DX: G56.02 Carpal tunnel syndrome, left upper limb (principal); R20.0 Anesthesia of skin; M18.12 Unilateral primary osteoarthritis of first carpometacarpal joint, left hand; I48.19 Other persistent atrial fibrillation; I25.10 Atherosclerotic heart disease of native coronary artery without angina pectoris; I11.0 Hypertensive heart disease with heart failure; I50.9 Heart failure, unspecified; E11.9 Type 2 diabetes mellitus without complications; J44.9 Chronic obstructive pulmonary disease, unspecified; D72.829 Elevated white blood cell count, unspecified; Z79.01 Long term (current) use of anticoagulants; Z79.899 Other long term (current) drug therapy; Z79.51 Long term (current) use of inhaled steroids; Z88.2 Allergy status to sulfonamides; Z88.8 Allergy status to other drugs, medicaments and biological substances; Z91.81 History of falling; Z87.891 Personal history of nicotine dependence; Z98.890 Other specified postprocedural states
CPT/HCPCS: 64721; 82947; J0171

== ENCOUNTER → 2023-09-22 10:54 | Outpatient (BNV) | payer MEDICARE, SELFPAY | PROVIDERS: PCP Internal Medicine; Visit Provider Orthopaedic Surgery | DX: G56.02 Carpal tunnel syndrome, left upper limb (principal) | CPT/HCPCS: 64721 ==

== ENCOUNTER 2023-10-05 12:23 | Outpatient (AMB) | payer MEDICARE, SELFPAY ==
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
[2023-10-05 12:33] VITALS: BMI 28.7
== END 2023-10-05 15:30 | disposition home or self-care (01) ==
PROVIDERS: PCP Internal Medicine; Visit Provider Orthopaedic Surgery
DX: G56.03 Carpal tunnel syndrome, bilateral upper limbs (principal); M18.12 Unilateral primary osteoarthritis of first carpometacarpal joint, left hand; E11.9 Type 2 diabetes mellitus without complications; I25.10 Atherosclerotic heart disease of native coronary artery without angina pectoris
CPT/HCPCS: 99024

== ENCOUNTER → 2023-10-05 12:23 | Outpatient (BNVA) | payer MEDICARE, SELFPAY | PROVIDERS: PCP Internal Medicine; Visit Provider Orthopaedic Surgery ==

== ENCOUNTER 2023-10-05 12:49 | Outpatient (REF) | payer MEDICARE, SELFPAY ==
[2023-10-05 14:40] LABS: Anion Gap 15 (12-20); Blood Urea Nitrogen 15 mg/dL (9-16); Calcium 9.7 mg/dL (8.4-10.2); Carbon Dioxide 28 mmol/L (22-29); Chloride 102 mmol/L (96-108); Estimated Glomerular Filt Rate 47; Glucose Random 154 mg/dL (60-115); Potassium 4.1 mmol/L (3.3-5.1); Sodium 141 mmol/L (135-145)
== END 2023-10-05 12:50 | disposition home or self-care (01) ==
LOC: HO.LAB 12:49
PROVIDERS: PCP Internal Medicine; Visit Provider Internal Medicine Cardiovascular Disease
DX: Z48.811 Encounter for surgical aftercare following surgery on the nervous system (principal); M18.12 Unilateral primary osteoarthritis of first carpometacarpal joint, left hand; E11.9 Type 2 diabetes mellitus without complications; G56.01 Carpal tunnel syndrome, right upper limb; I25.10 Atherosclerotic heart disease of native coronary artery without angina pectoris; I50.30 Unspecified diastolic (congestive) heart failure
CPT/HCPCS: 36415; 80048; 99212

== ENCOUNTER 2023-10-27 09:35 | Outpatient (AMB) | payer MEDICARE, SELFPAY ==
[2023-10-27 09:38] VITALS: BP 122/64; PULSE 75; BMI 28.5
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
== END 2023-10-27 09:59 | disposition home or self-care (01) ==
PROVIDERS: PCP Internal Medicine; Visit Provider Internal Medicine Cardiovascular Disease
DX: I25.10 Atherosclerotic heart disease of native coronary artery without angina pectoris (principal); I48.19 Other persistent atrial fibrillation; I50.30 Unspecified diastolic (congestive) heart failure
CPT/HCPCS: 99214

== ENCOUNTER → 2023-10-27 09:35 | Outpatient (BNVA) | payer MEDICARE, SELFPAY | PROVIDERS: PCP Internal Medicine; Visit Provider Internal Medicine Cardiovascular Disease | DX: I25.10 Atherosclerotic heart disease of native coronary artery without angina pectoris (principal); I48.19 Other persistent atrial fibrillation; I50.30 Unspecified diastolic (congestive) heart failure | CPT/HCPCS: 99212 ==

== ENCOUNTER 2023-10-31 08:13 | Outpatient (REF) | payer MEDICARE, SELFPAY ==
--- NOTE | ~2023-10-31 | CT_ITS ---
EXAMINATION: CT CHEST WITHOUT CONTRAST CLINICAL INFORMATION: Other nonspecific abnormal finding of lung field. COMPARISON: Prior chest CT examinations, most recently 02/03/2023. TECHNIQUE: Multidetector volumetric CT imaging of the chest was done. Axial MIP volume rendering provided. Sagittal and coronal reformatted images were obtained. This CT examination was performed using dose optimization techniques as appropriate, variously including the following: *Automated exposure control *Adjustment of mA and/or kV according to patient size (this includes techniques or standardized protocols for targeted exams where dose is matched to indication/reason for exam; i.e. 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 There is linear scar/subsegmental atelectasis at the lateral bases. LUNGS: Within the anterior segment of the right upper lobe (5:203 and 270), 4 mm and 3 mm noncalcified nodules are seen. Within the posterior segment of the right upper lobe (5:221 and 234), there are 2 mm and 3 mm noncalcified nodules. These nodules are new or increased from 02/03/2023. There is no mass, infiltrate or groundglass opacity. There is mild biapical pleural and parenchymal scarring. There are persistent foci of bibasilar linear scar/subsegmental atelectasis, most pronounced anteriorly, without associated focal airway obstruction. There is very mild increase in bibasilar peripheral interlobular septal markings, without honeycomb formation. No generalized small airway thickening is seen. The central airways appear patent. MEDIASTINUM: The thyroid is unremarkable. There is no thoracic aortic aneurysm. There are mild atherosclerotic calcifications of the great vessel origins and thoracic aorta. No mediastinal or hilar lymphadenopathy is seen. CORONARY ARTERY CALCIFICATION: Marked. PLEURA: There is no pleural effusion. No pleural mass or thickening. AXILLA: No lymphadenopathy. UPPER ABDOMEN: There is diffuse hepatic steatosis. The adrenal glands are unremarkable. OSSEOUS STRUCTURES: There is multi-level marked thoracic and upper lumbar spondylosis. No acute or aggressive osseous finding is noted. CT/CT chest wo IV con IMPRESSION: 1. There is increase in size and number of right upper lobe noncalcified, nonspecific nodules, the largest measuring 4 mm. According to the UPDATED 2017 Fleischner Society recommendations, the advised follow-up imaging for solid nodules < 6 mm is: LOW RISK PATIENT: No routine follow-up. HIGH RISK PATIENT: Optional CT at 12 months. 2. There is persistent bibasilar linear scar/subsegmental atelectasis, without associated focal airway obstruction. 3. No mass, infiltrate or groundglass opacity is seen. 4. There is mild bibasilar increase in peripheral interlobular septal markings, without honeycombing. The findings suggest possible early usual interstitial pneumonia (UIP). 5. No thoracic lymphadenopathy or pleural effusion is seen. 6. There are multi-level marked degenerative changes of the spine. 7. There is diffuse hepatic steatosis. Fleischner guidelines were followed. Electronically signed by: Wolf Clark MD 11/22/2023 12:08 PM EDT
== END 2023-10-31 08:14 | disposition home or self-care (01) ==
LOC: HO.CT 08:13
PROVIDERS: PCP Internal Medicine; Visit Provider Internal Medicine Pulmonary Disease
DX: R91.8 Other nonspecific abnormal finding of lung field (principal)
CPT/HCPCS: 71250

== ENCOUNTER 2023-11-25 14:18 | Outpatient (AMB) | payer MEDICARE, SELFPAY ==
[2023-11-25 14:27] VITALS: BP 124/82; PULSE 50; O2SAT 95; BMI 29.3
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
== END 2023-11-25 15:09 | disposition home or self-care (01) ==
PROVIDERS: PCP Internal Medicine; Visit Provider Internal Medicine Pulmonary Disease
DX: J44.9 Chronic obstructive pulmonary disease, unspecified (principal); R91.8 Other nonspecific abnormal finding of lung field
CPT/HCPCS: 99214

== ENCOUNTER → 2023-11-25 14:18 | Outpatient (BNVA) | payer MEDICARE, SELFPAY | PROVIDERS: PCP Internal Medicine; Visit Provider Internal Medicine Pulmonary Disease | DX: J44.9 Chronic obstructive pulmonary disease, unspecified (principal); R91.8 Other nonspecific abnormal finding of lung field; Z87.891 Personal history of nicotine dependence | CPT/HCPCS: 99212 ==

== ENCOUNTER 2023-12-06 15:00 | Outpatient (AMB) | payer MEDICARE, SELFPAY ==
[2023-12-06 15:16] VITALS: BMI 29.1
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
== END 2023-12-06 16:10 | disposition home or self-care (01) ==
PROVIDERS: PCP Internal Medicine; Visit Provider Orthopaedic Surgery
DX: G56.02 Carpal tunnel syndrome, left upper limb (principal); E11.9 Type 2 diabetes mellitus without complications; M79.89 Other specified soft tissue disorders; I50.30 Unspecified diastolic (congestive) heart failure
CPT/HCPCS: 99024

== ENCOUNTER → 2023-12-06 15:00 | Outpatient (BNVA) | payer MEDICARE, SELFPAY | PROVIDERS: PCP Internal Medicine; Visit Provider Orthopaedic Surgery | DX: G56.02 Carpal tunnel syndrome, left upper limb (principal); M25.642 Stiffness of left hand, not elsewhere classified; M79.89 Other specified soft tissue disorders; E11.9 Type 2 diabetes mellitus without complications; I11.0 Hypertensive heart disease with heart failure; I50.30 Unspecified diastolic (congestive) heart failure | CPT/HCPCS: 99212 ==

== ENCOUNTER 2024-02-06 08:59 | Outpatient (REF) | payer MEDICARE, SELFPAY ==
[2024-02-06 11:44] LABS: Anion Gap 13 (12-20); Blood Urea Nitrogen 15 mg/dL (9-16); Calcium 9.9 mg/dL (8.4-10.2); Carbon Dioxide 32 mmol/L (22-29); Chloride 99 mmol/L (96-108); Cholesterol 84 mg/dL (<200); Estimated Glomerular Filt Rate 60; Glucose Random 156 mg/dL (60-115); HDL Cholesterol 28 mg/dL (>40); LDL Cholesterol Calculated 35 mg/dL (<100); Potassium 4.4 mmol/L (3.3-5.1); Sodium 140 mmol/L (135-145); Triglycerides 107 mg/dL (<150)
[2024-02-06 12:04] LABS: Digoxin 0.5 ng/mL (0.8-2.0)
== END 2024-02-06 09:00 | disposition home or self-care (01) ==
LOC: HO.LAB 08:59
PROVIDERS: PCP Internal Medicine; Visit Provider Internal Medicine Cardiovascular Disease
DX: I50.30 Unspecified diastolic (congestive) heart failure (principal); I48.20 Chronic atrial fibrillation, unspecified; I25.10 Atherosclerotic heart disease of native coronary artery without angina pectoris
CPT/HCPCS: 36415; 80048; 80061; 80162; 93005; 99212

== ENCOUNTER 2024-02-06 08:59 | Outpatient (AMB) | payer MEDICARE, SELFPAY ==
[2024-02-06 09:00] VITALS: BP 120/64; PULSE 46; BMI 28.1
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
== END 2024-02-06 09:21 | disposition home or self-care (01) ==
PROVIDERS: PCP Internal Medicine; Visit Provider Internal Medicine Cardiovascular Disease
DX: I50.30 Unspecified diastolic (congestive) heart failure (principal); I48.19 Other persistent atrial fibrillation; I25.10 Atherosclerotic heart disease of native coronary artery without angina pectoris
CPT/HCPCS: 93010; 99214; G2211

== ENCOUNTER → 2024-02-22 10:43 | Outpatient (REF) | payer MEDICARE, SELFPAY ==
--- NOTE | 2024-02-22 10:46 | CA_ITS ---
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 The calculated ejection fraction is 65% by biplane method. - The mid inferoseptal segment is akinetic. - There is mild to moderate tricuspid valve regurgitation. - Mild pulmonary hypertension is present. Findings Left Ventricle Normal left ventricular cavity size. There is mildly increased left ventricular wall thickness. The left ventricular systolic function is normal. The calculated ejection fraction is 65% by biplane method. There is no evidence of regional wall motion abnormalities. Diastolic function is indeterminate on the basis of available data. Wall Motion Rest Echo Findings The mid inferoseptal segment is akinetic. Right Ventricle Mildly increased right ventricular cavity size. Atria The left atrium is moderately dilated. The right atrium is mildly dilated. Aortic Valve There is a normal trileaflet aortic valve. There is mild calcification of the aortic valve. There is no aortic valve stenosis. There is no aortic valve regurgitation. Mitral Valve The mitral valve appears normal. There is trace mitral valve regurgitation. There is no mitral valve stenosis. Pulmonic Valve The pulmonic valve is likely normal. Tricuspid Valve There is mild to moderate tricuspid valve regurgitation. Mild pulmonary hypertension is present. Great Vessels The asc aorta is normal in size. Venous The inferior vena cava was not well visualized. The inferior vena cava is mildly dilated. Pericardium/Pleural There is no evidence of pericardial effusion. Prior Study Comparison No significant change compared to prior study dated: 10/13/2022. (wall motion abnormalities previously reported and more obvious in some studies than others). Measurements 2D Linear Measurements IVSd: 1.10 0.6-0.9/0.6-1.0 cm LVIDd: 5.18 3.9-5.3/4.2-5.9 cm LVIDd Index: 2.51 2.4-3.2/2.2-3.1 cm/m2 LVIDs: 3.39 2.0-3.6 cm LVPWd: 1.15 0.7-1.1 cm Ao Root: 3.50 2.1-3.5 cm LA Diam: 4.60 2.7-3.8/3.0-4.0 cm LAIDs Index: 2.23 1.5-2.3 cm/m2 LV Mass: 282.03 67-162/88-224 g LV Mass Index: 136.91 43-95/49-115 g/m2 LVOT Diam: 2.00 3.0+(-)1.3 cm 2D Systolic Function EF 4C: 64.10 >55% EF 2C: 63.10 >55% EF BiP: 64.70 >55% Aortic Valve AoV Pk Isaak: 2.12 AoV Mn Isaak: 1.53 AoV VTI: 0.46 AoV Pk Grad: 18.00 Aov Mn Grad: 10.00 VERNON Cont.VTI: 2.01 LVOT LVOT Pk Isaak: 1.40 LVOT Mn Isaak: 0.96 LVOT VTI: 0.30 LVOT Pk Grad: 8.00 LVOT Mn Grad: 4.00 LVOT Diam: 2.00 LVOT Area: 3.14 Right Ventricle TAPSE (mm): 18.00 TVS' Isaak: 12.00 Tricuspid Valve TR Pk Isaak: 3.22 TR Pk Grad: 41.00 RA Press: 8.00 RVSP: 49.00 Great Vessels Aorta Ao Root-2D: 3.50 2.0-3.7 cm Ao Asc: 3.80 2.1-3.4 cm Updated in Other Vendor System with Status of Final Contreras Castle MD electronically signed on 02/24/2024 1:04:04 PM with status of Final
== END ==
LOC: HO.CARD 10:43
PROVIDERS: PCP Internal Medicine; Visit Provider Internal Medicine Cardiovascular Disease
DX: I50.30 Unspecified diastolic (congestive) heart failure (principal)
CPT/HCPCS: 93306

== ENCOUNTER → 2024-02-22 10:46 | Outpatient (BNV) | payer MEDICARE, SELFPAY | PROVIDERS: PCP Internal Medicine; Visit Provider Internal Medicine | DX: I35.8 Other nonrheumatic aortic valve disorders (principal); I36.1 Nonrheumatic tricuspid (valve) insufficiency; I27.20 Pulmonary hypertension, unspecified | CPT/HCPCS: 93306 ==

== ENCOUNTER 2024-04-04 10:13 | Outpatient (REF) | payer MEDICARE, SELFPAY ==
--- NOTE | ~2024-04-04 | MR_ITS ---
EXAMINATION: MR CERVICAL SPINE WITHOUT IV CONTRAST History: CERVICAL RADICULOPATHY @C6 Technique: Sagittal T1, T2 and STIR, and axial T2 weighted and gradient echo images of the cervical spine were obtained per departmental protocol. Comparison: Comparison is made with the prior examination dated 06/07/2022. Findings: The vertebral bodies maintain normal height and alignment. There is moderate degenerative disc disease at the C5-6 level with disc desiccation, loss of disc height, osteophyte formation, and endplate changes. Milder findings are noted at the remaining levels. At C2-3, there is right neural foraminal narrowing secondary to facet osteoarthritis and uncovertebral joint hypertrophy. The left neural foramen is patent. There is no disc herniation or central spinal stenosis. At C3-4, there is a posterior disc/osteophyte complex which is asymmetric to the right. Associated uncovertebral joint hypertrophy causes right neural foraminal stenosis. There is mild narrowing of the left neural foramen. There is no central spinal stenosis. At C4-5, there is a mild disc bulge. There is facet and ligamentum flavum hypertrophy causing right neural foraminal stenosis. The left neural foramen is patent. There is no central spinal stenosis. At C5-6, there is a posterior disc/osteophyte complex causing moderate to severe central spinal stenosis, similar to the prior study. There is bilateral neural foraminal stenosis secondary to facet and ligamentum flavum hypertrophy. At C6-7, there is a diffuse disc bulge. This results in moderate central spinal stenosis. This is new from the prior study. Facet and ligamentum flavum hypertrophy causes bilateral neural foraminal stenosis. At C7-T1, there is no evidence of disc herniation, central spinal stenosis, or neural foraminal narrowing. The spinal cord demonstrates normal signal intensity. The visualized paraspinal soft tissues MR/MR cervical spine wo con Impression: Degenerative changes of the cervical spine causing moderate to severe central spinal stenosis at C5-6, similar to the prior study. There is moderate central spinal stenosis at C6-7 which is new. There is multilevel bilateral neural foraminal stenosis as discussed above. Electronically signed by: Reece Mccarthy MD 04/09/2024 07:55 AM EST
== END 2024-04-04 10:14 | disposition home or self-care (01) ==
LOC: HO.MRI 10:13
PROVIDERS: PCP Internal Medicine; Visit Provider Psychiatry & Neurology Neurology
DX: M54.12 Radiculopathy, cervical region (principal)
CPT/HCPCS: 72141

== ENCOUNTER → 2024-04-04 10:40 | Outpatient (BNV) | payer MEDICARE, SELFPAY | PROVIDERS: PCP Internal Medicine; Visit Provider Radiology Diagnostic Radiology | DX: M54.12 Radiculopathy, cervical region (principal) | CPT/HCPCS: 72141 ==

== ENCOUNTER 2024-05-24 10:57 | Outpatient (AMB) | payer MEDICARE, SELFPAY ==
[2024-05-24 11:01] VITALS: BP 138/82; PULSE 51; O2SAT 96; BMI 26.5
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
--- OUTSIDE RECORDS SUMMARY | 2024-05-24 13:03 | XMS_ITS | Encounter Summary ---
Author Organization [facility] Address [address] [place] [address] Care Team Providers Care Survey Interviewer Name Role Phone Doug Hummel MD Primary Care Provider Encounter Details Date Type Department Care Team (Late st Contact Info) Description 05/09/[address] [facility] Lab [address] [facility] [place] [address] Loco Andres, DYL[address] [place] [id number] Testicular hypofunction Social History Tobacco Use Types Packs/Day Years Used Date Smoking Tobacco: Never Assessed Sex and Gender Information Value Date Recorded Sex Assigned at Not on file Legal Sex Male 8:31 AM EST Gender Identity Not on file Sexual Orientation Not on file documented as of this encounter Plan of Treatment Not on file documented as of this encounter Procedures Procedure Name Priority Date/Time Associated Diagnosis Comments COMPLETE BLOOD COUNT Routine 05/09/2024 10:17 AM EST Testicular hypofunction documented in this encounter Results * (ABNORMAL) Complete blood count (05/09/2024 10:17 AM EST) WBC 11.6(H) 4.8 - 10.8 K/mcL LAB HEMETOLOGY METHOD 05/09/2024 1:10 PM EST [facility] RBC 5.50 4.50 - 5.50 M/mcL LAB HEMETOLOGY METHOD 05/09/2024 1:10 PM EST [facility] Hemoglobin 17.2 13.5 - 17.5 g/dL LAB HEMETOLOGY METHOD 05/09/2024 1:10 PM EST [facility] Hematocrit 53.2 42.0 - 54.0 % LAB HEMETOLOGY METHOD 05/09/2024 1:10 PM EST [facility] MCV 97.4 79.0 - 98.0 FL LAB HEMETOLOGY METHOD 05/09/2024 1:10 PM EST [facility] MCH 31.5 27.0 - 32.0 pcg LAB HEMETOLOGY METHOD 05/09/2024 1:10 PM EST [facility] MCHC 32.3 32.0 - 37.0 g/dL LAB HEMETOLOGY METHOD 05/09/2024 1:10 PM EST [facility] RDW 12.8 11.0 - 15.0 % LAB HEMETOLOGY METHOD 05/09/2024 1:10 PM [facility] LAB Platelets 357 130 - 400 K/mcL LAB HEMETOLOGY METHOD 05/09/2024 1:10 PM EST [facility] MPV 9.6 7.0 - 11.0 FL LAB HEMETOLOGY METHOD 05/09/2024 1:10 PM EST [facility] NRBC 0.0 <1.0 % LAB HEMETOLOGY METHOD 05/09/2024 1:10 PM EST [facility] NRBC Absolute 0.00 <0.10 K/mcL LAB HEMETOLOGY METHOD 05/09/2024 1:10 PM EST [facility] Blood Venous blood specimen / Unknown 05/09/2024 10:17 AM EST 05/09/2024 12:43 PM EST us Loco RICHARDSON LAB BLOOD ORDERABLES Final Res ult [facility] [address] [place] [address], documented in this encounter Visit Diagnoses Diagnosis Testicular hypofunction Other testicular hypofunction documented in this encounter Care Teams Survey Interviewer Relationship Specialty Start Date End Date Doug Hummel MD [address] [place] PCP - General Internal Medicine 11/18/16 documented as of this encounter
--- OUTSIDE RECORDS SUMMARY | 2024-05-24 13:03 | XMS_ITS | Clinical Summary ---
Author Organization [address] [facility] Address [address] [place] [address] Phone Care Team Providers Care Osteology Teacher Name Role Phone Doug Hummel MD Primary Care Provider [phone] Allergies Active Allergy Reactions Criticality Noted Date Comments Losartan 03/20/2024 Methadone 03/20/2024 Other Reaction(s): vomiting and sweating Sulfamethoxazole-Trimethopr im 03/20/2024 Medications Eliquis 5 mg tablet Take 1 tablet (5 mg total) by mouth 2 (two) times a day. Active atorvastatin (LIPITOR) 40 mg tablet Take 1 tablet (40 mg total) by mouth 1 (one) time each day. 4 Active digoxin (LANOXIN) 125 mcg (0.125 mg) tablet TAKE 1 TABLET BY MOUTH DAILY AT 12 AM 4 Active dilTIAZem CD (CARDIZEM CD) 240 mg 24 hr capsule Take 1 capsule (240 mg total) by mouth 1 (one) time each day. 4 Active Jardiance 10 mg tablet Take 1 tablet (10 mg total) by mouth 1 (one) time each day. 4 Active fluticasone propionate (FLONASE) 50 mcg/actuation nasal spray 4 Active Trelegy Ellipta 200-62.5-25 mcg inhaler Inhale 1 puff (200 mcg total) by mouth 1 (one) time each day. 4 Active furosemide (LASIX) 20 mg tablet Take 1 tablet (20 mg total) by mouth 1 (one) time each day. 4 Active gabapentin (NEURONTIN) 400 mg capsule 1 capsule (400 mg total). 4 Active gabapentin (NEURONTIN) 100 mg capsule 1 capsule (100 mg total). Active glipiZIDE (GLUCOTROL XL) 5 mg 24 hr tablet Take 1 tablet (5 mg total) by mouth 2 (two) times a day. 4 Active isosorbide mononitrate (IMDUR) 30 mg 24 hr tablet Take 1 tablet (30 mg total) by mouth 1 (one) time each day. Active ketoconazole (NIZORAL) 2 % cream APPLY EVERY THIN LAYER TO AFFECTED AND SURROUNDING SKIN EVERY DAY UNTIL RESOLVED 4 Active meloxicam (MOBIC) 15 mg tablet 1 tablet (15 mg total). 4 Active metFORMIN (GLUCOPHAGE) 1,000 mg tablet 0.5 tablets (500 mg total) 2 (two) times a day. 4 Active metoprolol succinate (TOPROL-XL) 100 mg 24 hr tablet Take 1 tablet (100 mg total) by mouth 2 (two) times a day. 4 Active metroNIDAZOLE (METROGEL) 1 % gel APPLY THIN LAYER TOPICALLY TO FACE TWICE DAILY 4 Active morphine (MS CONTIN) 60 mg 12 hr tablet Take 1 tablet (60 mg total) by mouth. 4 Active nitroglycerin (NITROSTAT) 0.4 mg SL tablet 1 tablet (0.4 mg total). 4 Active oxyCODONE (ROXICODONE) 30 mg immediate release tablet Take 1 tablet (30 mg total) by mouth. 4 Active predniSONE (DELTASONE) 5 mg tablet 1 tablet (5 mg total). 4 Active TestopeL 75 mg pellet subcutaneous implant pellet 4 Active Active Problems Problem Noted Date Diagnosed Date Carpal tunnel syndrome of left wrist 03/23/2024 Arthritis of carpometacarpal (CMC) joint of left thumb 03/23/2024 CHF (congestive heart failure) 03/20/2024 Diabetes mellitus, type 2 03/20/2024 Rhinitis 03/20/2024 Hyperlipidemia 03/20/2024 Chest pain 03/20/2024 COPD (chronic obstructive pulmonary disease) Encounters Date Type Department Care Team Description 05/09/2024 Lab Requisition [facility] Lab [address] [place] [address] Loco Andres PA Testicular hypofunction 03/20/2024 10:30 AM EST Consult Orthopedic Surgery - [place] [address] [facility] [address] [place] [address] Yumiko Jones MD Arthritis of carpometacarpal (CMC) joint of left thumb (Primary Dx); Carpal tunnel syndrome of left wrist from Last 3 Months Surgical History Surgery Date Site/Laterality Comments CARPAL TUNNEL RELEASE left done about year ago, right 5-10 yrs ago Social History Tobacco Use Types Packs/Day Years Used Date Smoking Tobacco: Never Assessed Sex and Gender Information Value Date Recorded Sex Assigned at Not on file Legal Sex Male 8:31 AM EST Gender Identity Not on file Sexual Orientation Not on file Obstetrics History Last Filed Vital Signs Vital Sign Reading Time Taken Comments Blood Pressure - - Pulse - - Temperature - - Respiratory Rate - - Oxygen Saturation - - Inhaled Oxygen Concentration - - Weight 88.5 kg (195 lb) 03/20/2024 10:44 AM EST Height 180.3 cm (5' 11 ) 03/20/2024 10:44 AM EST Body Mass Index 27.2 03/20/2024 10:44 AM EST Plan of Treatment Health Maintenance Due Date Last Done Comments Diabetes: Annual GFR (Glomerular Filtration Rate) 1951 Diabetes: Annual Foot Exam 1961 Diabetes: Annual Retina Eye Exam 1961 Zoster Vaccines (1 of 2) 2001 Pneumococcal Vaccine: 50+ Years (2 of 2 - PPSV23) 01/08/2015 11/13/2014 Abdominal Aortic Aneurysm (AAA) Screen 01/03/2024 Cholesterol Screening (Lipid Panel) 01/03/2024 Colorectal Cancer Screening: Colonoscopy 01/03/2024 Depression Screening 01/03/2024 Falls Risk Assessment 01/03/2024 Hepatitis C Screening 01/03/2024 Medicare Annual Wellness Visit 01/03/2024 Social Influencers of Health Screening 01/03/2024 Diabetes: Annual Urine Albumin-Creatinine Ratio (uACR) 03/20/2024 Diabetes: Blood Sugar Control Test (HGBA1C) 03/20/2024 Hypertension/CHF/CAD Annual BMP Blood Test 03/20/2024 DTaP,Tdap,and Td Vaccines (3 - Td or Tdap) 09/14/2030 09/14/2020, 09/03/2015 RSV Immunization Patients 60+ Years Old Completed 02/21/2023 Influenza Vaccine Completed 11/30/2023, , 12/04/2021, Additional history exists COVID-19 Vaccine Completed 12/01/2023, , 09/04/2021, Additional history exists HIB Vaccines Aged Out No longer eligi ble based on patient's age to complete this topic HPV Vaccines Aged Out No longer eligi ble based on patient's age to complete this topic Hepatitis A Vaccines Aged Out No long er eligible based on patient's age to complete this topic Hepatitis B Vaccines Aged Out No long er eligible based on patient's age to complete this topic IPV Vaccines Aged Out No longer eligi ble based on patient's age to complete this topic MMR Vaccines Aged Out No longer eligi ble based on patient's age to complete this topic Meningococcal ACWY Vaccine Aged Out N o longer eligible based on patient's age to complete this topic Meningococcal B Vacine Aged Out No lo nger eligible based on patient's age to complete this topic RSV Immunization Patients Under 20 months Aged Out No longer eligible based on patient's age to complete this topic Varicella Vaccines Aged Out No longer eligible based on patient's age to complete this topic Procedures Procedure Name Priority Date/Time Associated Diagnosis Comments COMPLETE BLOOD COUNT Routine 05/09/2024 10:17 AM EST Testicular hypofunction XR WRIST 3+ VIEWS BILAT Routine 03/20/2024 11:32 AM EST Pain from Last 3 Months Results * (ABNORMAL) Complete blood count (05/09/2024 10:17 AM EST) WBC 11.6(H) 4.8 - 10.8 K/mcL LAB HEMETOLOGY METHOD 05/09/2024 1:10 PM EST [facility] RBC 5.50 4.50 - 5.50 M/[facility] LAB HEMETOLOGY METHOD 05/09/2024 1:10 PM EST [facility] Hemoglobin 17.2 13.5 - 17.5 g/dL LAB HEMETOLOGY METHOD 05/09/2024 1:10 PM EST [facility] Hematocrit 53.2 42.0 - 54.0 % LAB HEMETOLOGY METHOD 05/09/2024 1:10 PM [facility] MCV 97.4 79.0 - 98.0 FL LAB HEMETOLOGY METHOD 05/09/2024 1:10 PM EST [facility] MCH 31.5 27.0 - 32.0 pcg LAB HEMETOLOGY METHOD 05/09/2024 1:10 PM EST [facility] MCHC 32.3 32.0 - 37.0 g/dL LAB HEMETOLOGY METHOD 05/09/2024 1:10 PM [facility] RDW 12.8 11.0 - 15.0 % LAB HEMETOLOGY METHOD 05/09/2024 1:10 PM EST [facility] Platelets 357 130 - 400 K/mcL LAB HEMETOLOGY METHOD 05/09/2024 1:10 PM [facility] MPV 9.6 7.0 - 11.0 FL LAB HEMETOLOGY METHOD 05/09/2024 1:10 PM [facility] NRBC 0.0 <1.0 % LAB HEMETOLOGY METHOD 05/09/2024 1:10 PM EST [facility] NRBC Absolute 0.00 <0.10 K/mcL LAB HEMETOLOGY METHOD 05/09/2024 1:10 PM [facility] Blood Venous blood specimen / Unknown 05/09/2024 10:17 AM EST 05/09/2024 12:43 PM EST us Locojuan RICHARDSON LAB BLOOD ORDERABLES Final Res ult [facility] [address] [place] [address], * XR Wrist 3+ Views bilat (03/20/2024 11:32 AM EST) Anatomical Region Laterality Modality Upper Extremities, Wrist Bilateral Compute d Radiography Narrative 03/23/2024 4:11 PM EST AP lateral oblique of both wrist were obtained on 03/20/2024. ??No prior images available for comparison. ??On the right wrist there is evidence of prior fracture. ??It looks like there was hardware placed in the distal radius. ??There is loss of joint space at the radiocarpal joint with sclerosis and narrowing. ??On the lateral view it looks like the radiocarpal alignment is in slight dorsal position. ??There is no compensatory collapse of the carpus. ??There is narrowing and sclerosis at the DRUJ and the patient is ulnar positive variance on the right. On the patient's left side there is narrowing sclerosis at both the basal joint as well as the STT joint. ??There is some squaring off at the STT joint. ??Radiocarpal joint is maintained. ??There is calcification of the radial artery. Impression: Posttraumatic changes of the right radiocarpal joint and pantrapezial arthritis of the left wrist. Yumiko Jones MD IMG XR PROCEDURES Final Resul t from Last 3 Months Insurance MEDICARE [facility] Care Teams Osteology Teacher Relationship Specialty Start Date End Date Doug Hummel MD [address] [employer] [place] PCP - General Internal Medicine 11/18/16
== END 2024-05-24 11:50 | disposition home or self-care (01) ==
PROVIDERS: PCP Internal Medicine; Visit Provider Internal Medicine Pulmonary Disease
DX: J44.9 Chronic obstructive pulmonary disease, unspecified (principal); R91.8 Other nonspecific abnormal finding of lung field
CPT/HCPCS: 99214

== ENCOUNTER → 2024-05-24 10:57 | Outpatient (BNVA) | payer MEDICARE, SELFPAY | PROVIDERS: PCP Internal Medicine; Visit Provider Internal Medicine Pulmonary Disease | DX: J44.9 Chronic obstructive pulmonary disease, unspecified (principal); R91.8 Other nonspecific abnormal finding of lung field | CPT/HCPCS: 99212 ==

== ENCOUNTER 2024-05-27 09:22 | Outpatient (REF) | payer MEDICARE, SELFPAY ==
--- NOTE | ~2024-05-27 | MR_ITS ---
EXAMINATION: MR LUMBAR SPINE WITHOUT CONTRAST CLINICAL INFORMATION: Pain, sciatica. COMPARISON: None available. TECHNIQUE: MRI of the lumbar spine was obtained using routine sequences without contrast. FINDINGS: Last rib-bearing vertebra labeled T12. Paramagnetic field distortion secondary to metallic hardware/stress pedicle screws at L4 and S1 and intervertebral disc spacer L4-5 and L5-S1. No bone marrow STIR signal abnormality. Grade 1 retrolisthesis L2-3. Marginal osteophyte formation and disc desiccation from T12-L1 to L2-3. Conus medullaris ends at pedicle of L1 with normal signal. T12-L1: No disc herniation. No neuroforamina stenosis. L1-2: Broad-based disc bulging. Facet joint hypertrophy. Reduced AP diameter of the thecal sac and neuroforamina without compressing the neural elements. L2-3: Broad-based disc bulging. Grade 1 retrolisthesis. Facet joint and ligamentum flavum hypertrophy. Reduced AP diameter of the thecal sac and the neural foramina likely encroaching the neural elements. L3-4: Broad-based disc bulging. Facet joint and ligamentum flavum hypertrophy. Reduced AP diameter of the thecal sac and the neural foramina likely encroaching the neural elements. L4-5: Postsurgical changes. No gross central spinal canal stenosis or neuroforamina stenosis. L5-S1: Postsurgical changes. No central spinal canal stenosis. Bilateral neuroforamina narrowing more conspicuous in the left side. No prevertebral compartment hematoma, mass or fluid collection. Slight asymmetric volume loss right psoas muscle. Fatty atrophy of the lower lumbar muscles at L5-S1. 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 Electronically signed by: Luis Alfredo Anand MD 05/28/2024 08:20 AM [facility]
== END 2024-05-27 09:23 | disposition home or self-care (01) ==
LOC: HO.MRI 09:22
PROVIDERS: PCP Internal Medicine; Visit Provider Internal Medicine
DX: M54.30 Sciatica, unspecified side (principal)
CPT/HCPCS: 72148

== ENCOUNTER → 2024-05-27 09:41 | Outpatient (BNV) | payer MEDICARE, SELFPAY | PROVIDERS: PCP Internal Medicine; Visit Provider Radiology Diagnostic Radiology | DX: M47.816 Spondylosis without myelopathy or radiculopathy, lumbar region (principal) | CPT/HCPCS: 72148 ==

== ENCOUNTER 2024-07-13 07:04 | Outpatient (REF) | payer MEDICARE, SELFPAY ==
--- OUTSIDE RECORDS SUMMARY | 2024-07-13 07:07 | XMS_ITS | Clinical Summary ---
Author Organization [facility] Address [address] [place] [address] Phone Care Team Providers Care Food And Beverage Checker Name Role Phone Doug Hummel MD Primary Care Provider [phone] Allergies Active Allergy Reactions Criticality Noted Date [...] TestopeL 75 mg pellet subcutaneous implant pellet Active testosterone cypionate (DEPO-TESTOTERON E) 200 mg/mL injection 5 Active Active Problems Problem Noted Date Diagnosed Date Chronic left shoulder pain 06/08/2024 Carpal tunnel syndrome of left wrist 03/23/2024 Arthritis of carpometacarpal (CMC) joint of left thumb 03/23/2024 CHF (congestive heart failure) (CMS/HCC V24, CMS /HCC V28) 03/20/2024 Diabetes mellitus, type 2 (CMS/HCC V24, CMS/HCC V28) 03/20/2024 Rhinitis 03/20/2024 Hyperlipidemia 03/20/2024 Chest pain 03/20/2024 COPD (chronic obstructive pu lmonary disease) ([facility] V24, [facility] V28) 03/20/2024 Encounters Date Type Department Care Team Description 06/26/2024 Telephone Orthopedic Surgery - [place] [facility] [address] [place] [phone] Yumiko Jones MD 06/08/2024 8:30 AM EDT Office Visit Orthopedic Surgery - [place] [facility] [address] [place] [phone] Yumiko Jones MD Carpal tunnel syndrome of left wrist (Primary Dx); Chronic left shoulder pain 05/09/2024 Lab Requisition [facility] - Main Lab [address] [facility] [place] [address] Loco Andres PA Testicular hypofunction from Last 3 Months Surgical History Surgery Date Site/Laterality Comments CARPAL TUNNEL RELEASE left done about year ago(2022?), right 5-10 yrs ago(2014?) Social History Tobacco Use Types Packs/Day Years [...] - Inhaled Oxygen Concentration - - Weight 81.6 kg (180 lb) 06/08/2024 8:32 AM EDT Height 180.3 cm (5' 11 ) 06/08/2024 8:32 AM EDT Body Mass Index 25.1 06/08/2024 8:32 AM EDT Plan of Treatment Upcoming Encounters Date Type Department Care Team (Late st Contact Info) Description 07/25/2024 10:30 AM EDT Consult Neurosurgery [facility] [address] [place] [phone] Chandler Reyes PA 175 [facility] [address] [place] [address] Health Maintenance Due Date Last Done Comments [...] 03/20/2024 Hypertension/CHF/CAD Annual BMP Blood Test 03/20/2024 COVID-19 Vaccine ( season) 2024 12/01/2023, 04/19/2023, 09/04/2021, Additional history exists DTaP,Tdap,and Td Vaccines (3 - Td or Tdap) 09/14/2030 09/14/2020, 09/03/2015 RSV Immunization Adult Patients Completed 02/21/2023 Influenza Vaccine Completed 11/30/2023, , 12/04/2021, Additional history exists HIB Vaccines Aged Out [...] age to complete this topic Meningococcal B Vaccine Aged Out No l onger eligible based on patient's age to complete this topic RSV Immunization Patients Under 20 months Aged Out No longer eligible based on patient's age to complete this topic Varicella Vaccines Aged Out No longer eligible based on patient's age to complete this topic Procedures Procedure Name Priority Date/Time Associated Diagnosis Comments XR CERVICAL SPINE 4-5 VIEWS Routine 06/08/2024 9:02 AM EDT Pain XR SHOULDER 2+ VIEWS LEFT Routine 06/08/2024 9:02 AM EDT Pain MD INJECTION CARPAL TUNNEL THERAPEUTIC Routine 06/08/2024 8:30 AM EDT Carpal tunnel syndrome of left wrist COMPLETE BLOOD COUNT Routine 05/09/2024 10:17 AM EST Testicular hypofunction from Last 3 Months Results * XR Cervical Spine 4-5 Views (06/08/2024 9:02 AM EDT) Anatomical Region Laterality Modality Spine, C-spine Computed Radiogr aphy Narrative 06/08/2024 4:32 PM EDT AP the, lateral, obliques of the cervical spine were obtained on 06/08/2024. ??No prior images available for comparison. ??Patient has notable uncovertebral arthropathy on the AP view. ??There are osteophyte formation and periarticular calcifications noted at multiple levels. ??On the lateral view patient has significant peaking of the anterior aspect of the vertebral bodies with some bridging syndesmophytes. ??This is evident particularly at C3-4, 4-5, and 5-6. ??There is loss of the normal lordotic C shape of the curve of the C-spine. ??There is disc space narrowing particularly at C3 and 4 and 5 and 6. ??On the obliques there is foraminal narrowing noted at 5 6. ??There is uncovertebral arthropathy noted at just about every level. There are no obvious fractures or lytic lesions noted. Yumkio Jones MD IMG XR PROCEDURES Final Resul t * XR Shoulder 2+ Views Left (06/08/2024 9:02 AM EDT) Anatomical Region Laterality Modality Upper Extremities, Shoulder Left Comp uted Radiography Narrative 06/08/2024 4:34 PM EDT AP, true AP, axillary, and Y view of the left shoulder was obtained on 06/08/2024. ??There are no prior images available for comparison. ??There is some generalized osteopenia. ??There is enlargement of the end of the clavicle at the AC joint consistent with some arthritis. ??Glenohumeral joint appears to be smooth and congruent. ??There is some slight irregularity on the inferior margin of the glenoid noted on the true AP. ?? The view does show evidence of a slight hook on the undersurface of the acromion. ??On the axillary view humeral head appears well centered upon the glenoid. ??There are no obvious fractures, lytic lesions, or unusual calcifications of concern noted. us Yumiko Jones MD IMG XR PROCEDURES Final Resul t * MD INJECTION CARPAL TUNNEL THERAPEUTIC (06/08/2024 8:30 AM EDT) Narrative Yumiko Jones MD - 06/08/2024 8:30 AM EDT Yumiko Jones MD ? 06/08/2024 ??4:40 PM Hand / UE Inj/Asp: L carpal tunnel for carpal tunnel syndrome Indications: pain Details: 25 G needle, volar approach Medications: 40 mg triamcinolone acetonide 40 mg/mL We went ahead and prepped out the skin with Betadine and alcohol over the volar aspect of the left wrist. ??A small wheal of 1% lidocaine with epinephrine was injected under the skin a centimeter and a half back from the primary flexion crease of the wrist and ulnar of the palmaris longus tendon. ??Once that had taken effect we prepped the area again and I injected the cortisone into the carpal canal. ??He tolerated the injection without any pain or paresthesias and I could feel the flexor tendons within the tip of the needle. ??Bandage was then applied. Informed Consent: ??Procedure/treatment, purpose, treatment alternatives, risks/potential complications and benefits explained: yes ?Patient questions answered: yes ?Patient agrees, verbalizes understanding, and wants to proceed: yes ?Consent given by: ??Patient ??Informed consent discussion completed by Physician/RASHAWN with patient: ?? Verbal ??Pre-procedure timeout performed: yes ?? Yumiko Jones MD IN CLINIC/BEDSIDE ORDERABLES Final Result * (ABNORMAL) Complete blood count (05/09/2024 10:17 AM EST) WBC 11.6(H) 4.8 - 10.8 K/mcL LAB HEMETOLOGY METHOD 05/09/2024 1:10 PM [facility] RBC 5.50 4.50 - 5.50 M/mcL LAB HEMETOLOGY METHOD 05/09/2024 1:10 PM [facility] Hemoglobin 17.2 13.5 - 17.5 g/dL LAB HEMETOLOGY METHOD 05/09/2024 1:10 PM [facility] Hematocrit 53.2 42.0 - 54.0 % LAB HEMETOLOGY METHOD 05/09/2024 1:10 PM [facility] MCV 97.4 79.0 - 98.0 FL LAB HEMETOLOGY METHOD 05/09/2024 1:10 PM [facility] MCH 31.5 27.0 - 32.0 pcg LAB HEMETOLOGY METHOD 05/09/2024 1:10 PM [facility] MCHC 32.3 32.0 - 37.0 g/dL LAB HEMETOLOGY METHOD 05/09/2024 1:10 PM [facility] RDW 12.8 11.0 - 15.0 % LAB HEMETOLOGY METHOD 05/09/2024 1:10 PM [facility] Platelets 357 130 - 400 K/mcL LAB HEMETOLOGY METHOD 05/09/2024 1:10 PM [facility] MPV 9.6 7.0 - 11.0 FL LAB HEMETOLOGY METHOD 05/09/2024 1:10 PM [facility] NRBC 0.0 <1.0 % LAB HEMETOLOGY METHOD 05/09/2024 1:10 PM EST [facility] NRBC Absolute 0.00 <0.10 K/mcL LAB HEMETOLOGY METHOD 05/09/2024 1:10 PM EST [facility] Blood Venous blood specimen / Unknown 05/09/2024 10:17 AM EST 05/09/2024 12:43 PM EST us Loco RICHARDSON LAB BLOOD ORDERABLES Final Res ult [facility] [address] [place] [address], [place] [phone] from Last 3 [place] [id number] [facility] Care Teams Food And Beverage Checker Relationship Specialty Start Date End Date Doug Hummel MD [address] [place] [address] PCP - General Internal Medicine 11/18/16
--- OUTSIDE RECORDS SUMMARY | 2024-07-13 07:07 | XMS_ITS | Encounter Summary ---
Author Organization [facility] Address [address] [place] [phone] Care Team Providers Care Supervisor Tubing Name Role Phone Doug Hummel MD Primary Care Provider [phone] Encounter Details Date Type Department Care Team (Late st Contact Info) Description 05/09/2024 Lab Requisition [facility] - Main Lab [address] [place] [phone] Loco Andres PA [address] [facility] [address] [place] [phone] Testicular hypofunction Social History Tobacco Use Types Packs/Day Years Used Date Smoking Tobacco: Never Assessed Sex and Gender Information Value Date Recorded Sex Assigned at Not on file Legal Sex Male 8:31 AM EST Gender Identity Not on file Sexual Orientation Not on file documented as of this encounter Plan of Treatment Upcoming Encounters Date Type Department Care Team (Late st Contact Info) Description 07/25/2024 10:30 AM EDT Consult Neurosurgery [facility] [address] [place] [phone] Chandler Reyes PA 175 [facility] [address] [place] [address] documented as of this encounter Procedures Procedure Name Priority Date/Time Associated Diagnosis Comments COMPLETE BLOOD COUNT Routine 05/09/2024 10:17 AM EST Testicular hypofunction documented in this encounter Results * (ABNORMAL) Complete blood count (05/09/2024 10:17 AM EST) WBC 11.6(H) 4.8 - 10.8 K/[facility] LAB HEMETOLOGY METHOD 05/09/2024 1:10 PM [facility] RBC 5.50 4.50 - 5.50 M/mcL LAB HEMETOLOGY METHOD 05/09/2024 1:10 PM [facility] LAB Hemoglobin 17.2 13.5 - 17.5 g/dL LAB HEMETOLOGY METHOD 05/09/2024 1:10 PM [facility] LAB Hematocrit 53.2 42.0 - 54.0 % LAB HEMETOLOGY METHOD 05/09/2024 1:10 PM [facility] LAB MCV 97.4 79.0 - 98.0 FL LAB HEMETOLOGY METHOD 05/09/2024 1:10 PM [facility] MCH 31.5 27.0 - 32.0 pcg LAB HEMETOLOGY METHOD 05/09/2024 1:10 PM [facility] MCHC 32.3 32.0 - 37.0 g/dL LAB HEMETOLOGY METHOD 05/09/2024 1:10 PM [facility] LAB RDW 12.8 11.0 - 15.0 % LAB HEMETOLOGY METHOD 05/09/2024 1:10 PM [facility] LAB Platelets 357 130 - 400 K/mcL LAB HEMETOLOGY METHOD 05/09/2024 1:10 PM [facility] MPV 9.6 7.0 - 11.0 FL LAB HEMETOLOGY METHOD 05/09/2024 1:10 PM [facility] NRBC 0.0 <1.0 % LAB HEMETOLOGY METHOD 05/09/2024 1:10 PM [facility] NRBC Absolute 0.00 <0.10 K/mcL LAB HEMETOLOGY METHOD 05/09/2024 1:10 PM [facility] Blood Venous blood specimen / Unknown 05/09/2024 10:17 AM EST 05/09/2024 12:43 PM EST us Loco R Dmitry RICHARDSON LAB BLOOD ORDERABLES Final Res ult [facility] [address] [place] [address], documented in this encounter Visit Diagnoses Diagnosis Testicular hypofunction Other testicular hypofunction documented in this encounter Care Teams Supervisor Tubing Relationship Specialty Start Date End Date Doug Hummel MD [address] [place] [address] PCP - General Internal Medicine 11/18/16 documented as of this encounter
[2024-07-13 07:17] LABS: MANUAL DIFF FLAG NO
[2024-07-13 07:42] LABS: Basophils Absolute Auto 0.1 X10*3/uL (0.0-0.2); Basophils Percent Auto 0.4 % (0-2); Eosinophils Absolute Auto 0.1 X10*3/uL (0.0-0.4); Eosinophils Percent Auto 0.5 % (0-4); Hemoglobin 18.4 g/dl (14.0-18.0); Imm Gran Abs Auto 0.07 X10*3/uL (0.00-0.03); Imm Gran Pct Auto 0.5 % (0.0-0.4); Lymphocytes Absolute Auto 1.4 X10*3/uL (1.2-4.9); Lymphocytes Percent Auto 10.5 % (20-40); Mean Corpuscular HGB Conc 34.1 g/dl (31.0-36.0); Mean Corpuscular Hemoglobin 32.8 pg (27.0-33.0); Mean Corpuscular Volume 96.3 fL (80.0-98.0); Mean Platelet Volume 8.7 fL (9.4-12.4); Monocytes Absolute Auto 0.8 X10*3/uL (0.1-1.2); Neutrophils Absolute Auto 10.9 x10*3/uL (2.0-8.3); Neutrophils Percent Auto 82.1 % (45-73); Platelet Count 296 X10*3/uL (160-400); Red Blood Count 5.61 X10*6/uL (4.60-5.80); Red Cell Distribution Width 13.1 % (11.0-16.0); White Blood Count 13.2 X10*3/uL (4.8-10.8)
[2024-07-13 07:54] LABS: Estimated Average Glucose 120 mg/dL; Hemoglobin A1C 190.5087 umol/L; Hemoglobin A1c % 5.8 % (<6.0); Total Hemoglobin (HGBA1C) 4778.6092 umol/L
[2024-07-13 08:08] LABS: Digoxin 0.6 ng/mL (0.8-2.0)
[2024-07-13 08:09] LABS: Alanine Aminotransferase 40 U/L (0-40); Albumin Level 4.2 g/dL (3.5-5.0); Anion Gap 12 (12-20); Aspartate Amino Transferase 41 U/L (5-37); Bilirubin Total 1.4 mg/dL (0.0-1.0); Blood Urea Nitrogen 16 mg/dL (9-16); Calcium 9.3 mg/dL (8.4-10.2); Carbon Dioxide 31 mmol/L (22-29); Chloride 103 mmol/L (96-108); Cholesterol 107 mg/dL (<200); Estimated Glomerular Filt Rate > 60; Glucose Fasting 92 mg/dL (60-99); HDL Cholesterol 55 mg/dL (>40); LDL Cholesterol Calculated 45 mg/dL (<100); Potassium 4.2 mmol/L (3.3-5.1); Sodium 142 mmol/L (135-145); Total Protein 7.3 g/dL (6.5-8.0); Triglycerides 35 mg/dL (<150)
[2024-07-13 08:14] LABS: Alkaline Phosphatase 90 U/L (39-117)
[2024-07-13 08:29] LABS: Erythrocyte Sedimentation Rate 2 MM/HR (0-15)
== END 2024-07-13 07:05 | disposition home or self-care (01) ==
LOC: HO.LAB 07:04
PROVIDERS: PCP Internal Medicine; Visit Provider Internal Medicine
DX: E11.9 Type 2 diabetes mellitus without complications (principal); E78.5 Hyperlipidemia, unspecified; I48.91 Unspecified atrial fibrillation
CPT/HCPCS: 36415; 80053; 80061; 80162; 83036; 85025; 85652

== ENCOUNTER 2024-07-16 11:49 | Emergency (ER) | payer MEDICARE, SELFPAY ==
--- NOTE | ~2024-07-16 | US_ITS ---
CLINICAL HISTORY: thigh pain and swelling Venous duplex ultrasound left lower extremity Comparison: None Findings: The visualized deep veins are fully compressible with normal Doppler color flow and spectral tracings. No popliteal cyst. Soft tissue edema of the thigh. IMPRESSION: 1. Negative for left lower extremity deep vein thrombosis. This document has been electronically signed by: Rahat Lee MD on 07/16/2024 13:20:39
--- NOTE | ~2024-07-16 | CT_ITS ---
CLINICAL HISTORY: question of quadriceps abscess CT left femur with contrast Comparison: US - US VENOUS DUPLEX LE LT - 07/16/24 12:32 EDT Findings: No fractures or dislocations. Prosthesis of the proximal femur. No aggressive osseous lesion. No significant arthritic change. No radiopaque foreign body. Soft tissue edema of the anterior thigh. Impression: Soft tissue edema of the anterior thigh. No evidence of drainable abscess or soft tissue gas. This document has been electronically signed by: Rahat Lee MD on 07/16/2024 15:51:23
[2024-07-16 12:00] VITALS: BP 128/62; PULSE 83; RESP 16; TEMP 36.7; O2SAT 97; BMI 24.0
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
[2024-07-16 13:06] LABS: MANUAL DIFF FLAG NO
[2024-07-16 13:07] LABS: Basophils Percent Auto 0.2 % (0-2); Eosinophils Percent Auto 0.1 % (0-4); Hematocrit 51.4 % (42.0-52.0); Hemoglobin 17.5 g/dl (14.0-18.0); Imm Gran Abs Auto 0.11 X10*3/uL (0.00-0.03); Imm Gran Pct Auto 0.5 % (0.0-0.4); Lymphocytes Absolute Auto 1.3 X10*3/uL (1.2-4.9); Lymphocytes Percent Auto 6.1 % (20-40); Mean Corpuscular Hemoglobin 32.8 pg (27.0-33.0); Mean Corpuscular Volume 96.4 fL (80.0-98.0); Mean Platelet Volume 8.6 fL (9.4-12.4); Monocytes Absolute Auto 1.3 X10*3/uL (0.1-1.2); Monocytes Percent Auto 6.3 % (2-11); Neutrophils Absolute Auto 17.8 x10*3/uL (2.0-8.3); Neutrophils Percent Auto 86.8 % (45-73); Platelet Count 293 X10*3/uL (160-400); Red Blood Count 5.33 X10*6/uL (4.60-5.80); Red Cell Distribution Width 12.9 % (11.0-16.0); White Blood Count 20.5 X10*3/uL (4.8-10.8)
--- OUTSIDE RECORDS SUMMARY | 2024-07-16 13:10 | XMS_ITS | Clinical Summary ---
Author Organization [facility] Address [address] [place] [address] Phone Care Team Providers Care Meat Pumper Name Role Phone Doug Hummel MD Primary Care Provider [phone] Allergies Active Allergy Reactions Criticality Noted Date [...] 03/20/2024 COPD (chronic obstructive pu lmonary disease) ([facility] V24, [facility] V28) 03/20/2024 Encounters Date Type Department Care Team Description 06/26/2024 Telephone Orthopedic Surgery - [place] [address] [facility] [address] [place] [phone] Yumiko Jones MD 06/08/2024 8:30 AM EDT Office Visit Orthopedic Surgery - [place] [address] [facility] [address] [place] [phone] Yumiko Jones MD Carpal tunnel syndrome of left wrist (Primary Dx); Chronic left shoulder pain 05/09/2024 Lab Requisition [facility] - Main Lab [address] [facility] [place] [address] Loco Andres PA Testicular hypofunction [...] Description 07/25/2024 10:30 AM EDT Consult Neurosurgery [place] [facility] [address] [facility] [address] [place] [phone] Chandler Reyes PA 175 [facility] [address] [place] [address] Health Maintenance Due Date Last Done Comments [...] LEFT Routine 06/08/2024 9:02 AM EDT Pain [place] INJECTION CARPAL TUNNEL THERAPEUTIC Routine 06/08/2024 8:30 [...] no obvious fractures or lytic lesions noted. Yumiko Jones MD IMG XR PROCEDURES Final [...] IMG XR PROCEDURES Final Resul t * [place] INJECTION CARPAL TUNNEL THERAPEUTIC (06/08/2024 8:30 AM [...] K/mcL LAB HEMETOLOGY METHOD 05/09/2024 1:10 PM [facility] RBC 5.50 4.50 - 5.50 M/mcL LAB HEMETOLOGY METHOD 05/09/2024 1:10 PM [facility] Hemoglobin 17.2 13.5 - 17.5 g/dL LAB HEMETOLOGY METHOD 05/09/2024 1:10 PM [facility] Hematocrit 53.2 42.0 - 54.0 % LAB HEMETOLOGY METHOD 05/09/2024 1:10 PM [facility] MCV 97.4 79.0 - 98.0 FL LAB HEMETOLOGY METHOD 05/09/2024 1:10 PM [facility] MCH 31.5 27.0 - 32.0 pcg LAB HEMETOLOGY METHOD 05/09/2024 1:10 PM [facility] MCHC 32.3 32.0 - 37.0 g/dL LAB HEMETOLOGY METHOD 05/09/2024 1:10 PM [facility] RDW 12.8 11.0 - 15.0 % LAB HEMETOLOGY METHOD 05/09/2024 1:10 PM [facility] Platelets 357 130 - 400 K/mcL LAB HEMETOLOGY METHOD 05/09/2024 1:10 PM [facility] MPV 9.6 7.0 - 11.0 FL LAB HEMETOLOGY METHOD 05/09/2024 1:10 PM [facility] NRBC 0.0 <1.0 % LAB HEMETOLOGY METHOD 05/09/2024 1:10 PM EST [facility] LAB NRBC Absolute 0.00 <0.10 K/mcL LAB HEMETOLOGY METHOD 05/09/2024 1:10 PM EST [facility] Blood Venous blood specimen / Unknown 05/09/2024 10:17 AM EST 05/09/2024 12:43 PM EST us Loco RICHARDSON LAB BLOOD ORDERABLES Final Res ult [facility] [address] [place] [address], [place] [phone] from Last 3 [place] [id number] [facility] Care Teams Meat Pumper Relationship Specialty Start Date End Date Doug Hummel MD [address] [place] [address] PCP - General Internal Medicine 11/18/16
--- OUTSIDE RECORDS SUMMARY | 2024-07-16 13:10 | XMS_ITS | Encounter Summary ---
Author Organization [facility] Address [id number] [place] [phone] Care Team Providers Care Floorman Name Role Phone Doug Hummel MD Primary Care Provider [phone] Encounter Details Date Type Department Care Team (Late st Contact Info) Description 05/09/2024 Lab Requisition [facility] - Main Lab [address] [place] [address] Loco Anrdes PA 100 [facility] [address] [place] [phone] Testicular hypofunction Social History Tobacco Use Types [...] Description 07/25/2024 10:30 AM EDT Consult Neurosurgery [facility] 175 [facility] [address] [place] [phone] Chandler Reyes PA 175 [facility] [address] [place] [address] documented as of this encounter Procedures Procedure Name Priority Date/Time Associated Diagnosis Comments COMPLETE BLOOD COUNT Routine 05/09/2024 10:17 AM EST Testicular hypofunction documented in this encounter Results * (ABNORMAL) Complete blood count (05/09/2024 10:17 AM EST) WBC 11.6(H) 4.8 - 10.8 K/[facility] LAB HEMETOLOGY METHOD 05/09/2024 1:10 PM [facility] LAB RBC 5.50 4.50 - 5.50 M/mcL LAB HEMETOLOGY METHOD 05/09/2024 1:10 PM [facility] LAB Hemoglobin 17.2 13.5 - 17.5 g/dL LAB HEMETOLOGY METHOD 05/09/2024 1:10 PM [facility] LAB Hematocrit 53.2 42.0 - 54.0 % LAB HEMETOLOGY METHOD 05/09/2024 1:10 PM [facility] LAB MCV 97.4 79.0 - 98.0 FL LAB HEMETOLOGY METHOD 05/09/2024 1:10 PM [facility] LAB MCH 31.5 27.0 - 32.0 pcg LAB HEMETOLOGY METHOD 05/09/2024 1:10 PM [facility] LAB MCHC 32.3 32.0 - 37.0 g/dL LAB HEMETOLOGY METHOD 05/09/2024 1:10 PM [facility] LAB RDW 12.8 11.0 - 15.0 % LAB HEMETOLOGY METHOD 05/09/2024 1:10 PM [facility] LAB Platelets 357 130 - 400 K/mcL LAB HEMETOLOGY METHOD 05/09/2024 1:10 PM [facility] LAB MPV 9.6 7.0 - 11.0 FL LAB HEMETOLOGY METHOD 05/09/2024 1:10 PM [facility] LAB NRBC 0.0 <1.0 % LAB HEMETOLOGY METHOD 05/09/2024 1:10 PM [facility] LAB NRBC Absolute 0.00 <0.10 K/mcL LAB HEMETOLOGY METHOD 05/09/2024 1:10 PM [facility] LAB Blood Venous blood specimen / Unknown 05/09/2024 10:17 AM EST 05/09/2024 12:43 PM EST us Loco R Dmitry RICHARDSON LAB BLOOD ORDERABLES Final Res ult [facility]) [facility] [address] [place] [address], documented in this encounter Visit Diagnoses Diagnosis Testicular hypofunction Other testicular hypofunction documented in this encounter Care Teams Floorman Relationship Specialty Start Date End Date Doug Hummel MD [address] [place] [address] PCP - General Internal Medicine 11/18/16 documented as of this encounter
[2024-07-16 13:13] LABS: INTERNATIONAL NORM RATIO 1.5 (0.9-1.1); Prothrombin Time 17.8 SEC (10.9-12.4)
[2024-07-16 13:25] LABS: Alanine Aminotransferase 28 U/L (0-40); Albumin Level 3.8 g/dL (3.5-5.0); Alkaline Phosphatase 69 U/L (39-117); Anion Gap 16 (12-20); Aspartate Amino Transferase 39 U/L (5-37); Bilirubin Total 1.6 mg/dL (0.0-1.0); Blood Urea Nitrogen 16 mg/dL (9-16); Calcium 9.1 mg/dL (8.4-10.2); Carbon Dioxide 27 mmol/L (22-29); Chloride 98 mmol/L (96-108); Creatinine Clr Calc Pharmacy 80.8; Estimated Glomerular Filt Rate > 60; Glucose Random 156 mg/dL (60-115); Potassium 3.3 mmol/L (3.3-5.1); Sodium 138 mmol/L (135-145); Total Protein 6.8 g/dL (6.5-8.0)
[2024-07-16 13:53] LABS: C Reactive Protein 9.28 mg/dL (< or = 0.50)
[2024-07-16] MEDS: 0.9 % Sodium Chloride 1,000 ML 999 ML IV (14:06)
[2024-07-16 14:27] LABS: Lactic Acid 1.4 mmol/L (0.5-2.0)
[2024-07-16] MEDS: cefEPime HCl/D5W 2 GM/50 ML PIGGYBACK IV (14:34)
[2024-07-16 15:05] VITALS: BP 125/73; PULSE 56; RESP 16; O2SAT 93
[2024-07-16] MEDS: vancomycin/NS 2,000 MG/500 ML PLAST..BAG 250 MG IV (15:06)
[2024-07-16] MEDS: iohexoL 350 MG/ML 100 ML INFUS..BTL IV (15:07)
[2024-07-16 16:06] LABS: Glucose, Whole Blood 81 mg/dL (60-115)
[2024-07-16] MEDS: Doxycycline Hyclate 100 MG in 0.9 % Sodium Chloride 250 ML 166.67 MG IV (16:28)
[2024-07-16 18:09] VITALS: BP 125/73; PULSE 56; RESP 16; TEMP -17.7; TEMP 0; O2SAT 93
== END 2024-07-16 18:12 | disposition home or self-care (01) ==
PROVIDERS: Registered Nurse Emergency; Emergency Provider Emergency Medicine; PCP Internal Medicine
DX: L03.116 Cellulitis of left lower limb (principal); R10.2 Pelvic and perineal pain; R60.0 Localized edema; Z79.899 Other long term (current) drug therapy
CPT/HCPCS: 36415; 73701; 80053; 82550; 82947; 83605; 85025; 85610; 86140; 87040; 93971; 96361; 96374; 96375; 99284; J0692; J1271; J3370; Q9967

== ENCOUNTER → 2024-07-16 12:23 | Outpatient (BNV) | payer MEDICARE, SELFPAY | PROVIDERS: Emergency Provider Emergency Medicine; PCP Internal Medicine; Visit Provider Nuclear Medicine | DX: M79.652 Pain in left thigh (principal); R22.42 Localized swelling, mass and lump, left lower limb | CPT/HCPCS: 73701; 93971 ==

== ENCOUNTER 2024-07-23 10:53 | Outpatient (AMB) | payer MEDICARE, SELFPAY ==
[2024-07-23 10:59] VITALS: BP 120/72; PULSE 51; BMI 25.6
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
--- OUTSIDE RECORDS SUMMARY | 2024-07-23 13:04 | XMS_ITS | Clinical Summary ---
Author Organization 175 [facility] Address 175 [place] [address] Phone Care Team Providers Care Gravel Roofer Name Role Phone Doug Hummel MD Primary Care Provider [phone] Allergies Active Allergy Reactions Criticality Noted Date [...] 03/20/2024 COPD (chronic obstructive pu lmonary disease) ([facility] V24, [facility] V28) 03/20/2024 Encounters Date Type Department Care Team Description 06/26/2024 Telephone Orthopedic Surgery - [place] 175 [facility] [address] [place] [phone] Yumiko Jones MD 06/08/2024 8:30 AM EDT Office Visit Orthopedic Surgery - [place] 175 [facility] [address] [place] [phone] Yumiko Jones MD Carpal tunnel syndrome of left wrist (Primary Dx); Chronic left shoulder pain 05/09/2024 Lab Requisition [facility] - Main Lab 299 [facility] [place] [address] Loco Andres PA Testicular hypofunction [...] Description 07/25/2024 10:30 AM EDT Consult Neurosurgery [facility] 175 [facility] [address] [place] [phone] Chandler Reyes PA 175 [facility] 300 [place] [address] Health Maintenance Due Date Last Done Comments [...] LEFT Routine 06/08/2024 9:02 AM EDT Pain DE INJECTION CARPAL TUNNEL THERAPEUTIC Routine 06/08/2024 8:30 [...] IMG XR PROCEDURES Final Resul t * DE INJECTION CARPAL TUNNEL THERAPEUTIC (06/08/2024 8:30 AM [...] K/mcL LAB HEMETOLOGY METHOD 05/09/2024 1:[address] [facility] RBC 5.50 4.50 - 5.50 M/mcL LAB HEMETOLOGY METHOD 05/09/2024 1:[address] [facility] Hemoglobin 17.2 13.5 - 17.5 g/dL LAB HEMETOLOGY METHOD 05/09/2024 1:[address] [facility] Hematocrit 53.2 42.0 - 54.0 % LAB HEMETOLOGY METHOD 05/09/2024 1:[address] [facility] MCV 97.4 79.0 - 98.0 FL LAB HEMETOLOGY METHOD 05/09/2024 1:[address] [facility] MCH 31.5 27.0 - 32.0 pcg LAB HEMETOLOGY METHOD 05/09/2024 1:[address] [facility] MCHC 32.3 32.0 - 37.0 g/dL LAB HEMETOLOGY METHOD 05/09/2024 1:[address] [facility] RDW 12.8 11.0 - 15.0 % LAB HEMETOLOGY METHOD 05/09/2024 1:[address] [facility] Platelets 357 130 - 400 K/mcL LAB HEMETOLOGY METHOD 05/09/2024 1:[address] [facility] MPV 9.6 7.0 - 11.0 FL LAB HEMETOLOGY METHOD 05/09/2024 1:[address] [facility] NRBC 0.0 <1.0 % LAB HEMETOLOGY METHOD 05/09/2024 1:10 PM EST [facility] NRBC Absolute 0.00 <0.10 K/mcL LAB HEMETOLOGY METHOD 05/09/2024 1:10 PM EST [facility] Blood Venous blood specimen / Unknown 05/09/2024 10:17 AM EST 05/09/2024 12:43 PM EST us Loco RICHARDSON LAB BLOOD ORDERABLES Final Res ult [facility] ([facility]) [facility] [address] [place] [address], [place] [phone] from Last 3 [place] [id number] [facility] Care Teams Gravel Roofer Relationship Specialty Start Date End Date Doug Hummel MD [address] [place] [address] PCP - General Internal Medicine 11/18/16
--- OUTSIDE RECORDS SUMMARY | 2024-07-23 13:04 | XMS_ITS | Encounter Summary ---
Author Organization [facility] Address [id number] [place] [phone] Care Team Providers Care Functional Support Analyst Name Role Phone Doug Hummel MD Primary Care Provider Encounter Details Date Type Department Care Team (Late st Contact Info) Description 05/09/2024 Lab Requisition [facility] - Main Lab [address] [place] [address] Loco Andres PA 100 [facility] [address] [place] [phone] Testicular hypofunction Social History Tobacco Use Types [...] Description 07/25/2024 10:30 AM EDT Consult Neurosurgery [facility] 175 [facility] [address] [place] [phone] Chandler Reyes PA 175 [facility] [address] [place] [address] documented as of this encounter Procedures Procedure Name Priority Date/Time Associated Diagnosis Comments COMPLETE BLOOD COUNT Routine 05/09/2024 10:17 AM EST Testicular hypofunction documented in this encounter Results * (ABNORMAL) Complete blood count (05/09/2024 10:17 AM EST) WBC 11.6(H) 4.8 - 10.8 K/[facility] LAB HEMETOLOGY METHOD 05/09/2024 1:[address] [facility] RBC 5.50 4.50 - 5.50 M/mcL LAB HEMETOLOGY METHOD 05/09/2024 1:[address] [facility] Hemoglobin 17.2 13.5 - 17.5 g/dL LAB HEMETOLOGY METHOD 05/09/2024 1:[address] [facility] Hematocrit 53.2 42.0 - 54.0 % LAB HEMETOLOGY METHOD 05/09/2024 1:[address] [facility] MCV 97.4 79.0 - 98.0 FL LAB HEMETOLOGY METHOD 05/09/2024 1:[address] [facility] MCH 31.5 27.0 - 32.0 pcg LAB HEMETOLOGY METHOD 05/09/2024 1:[address] [facility] MCHC 32.3 32.0 - 37.0 g/dL LAB HEMETOLOGY METHOD 05/09/2024 1:[address] [facility] RDW 12.8 11.0 - 15.0 % LAB HEMETOLOGY METHOD 05/09/2024 1:[address] [facility] Platelets 357 130 - 400 K/mcL LAB HEMETOLOGY METHOD 05/09/2024 1:[address] [facility] MPV 9.6 7.0 - 11.0 FL LAB HEMETOLOGY METHOD 05/09/2024 1:[address] [facility] NRBC 0.0 <1.0 % LAB HEMETOLOGY METHOD 05/09/2024 1:[address] [facility] NRBC Absolute 0.00 <0.10 K/mcL LAB HEMETOLOGY METHOD 05/09/2024 1:[address] [facility] Blood Venous blood specimen / Unknown 05/09/2024 10:17 AM EST 05/09/2024 12:43 PM EST us Loco R Dmitry RICHARDSON LAB BLOOD ORDERABLES Final Res ult [facility] [address] [place] [address], documented in this encounter Visit Diagnoses Diagnosis Testicular hypofunction Other testicular hypofunction documented in this encounter Care Teams Functional Support Analyst Relationship Specialty Start Date End Date Doug Hummel MD [address] [place] [address] PCP - General Internal Medicine 11/18/16 documented as of this encounter
== END 2024-07-23 11:20 | disposition home or self-care (01) ==
LOC: HO.HCS 10:54
PROVIDERS: PCP Internal Medicine; Visit Provider Internal Medicine Cardiovascular Disease
DX: I50.30 Unspecified diastolic (congestive) heart failure (principal); I48.19 Other persistent atrial fibrillation; I25.10 Atherosclerotic heart disease of native coronary artery without angina pectoris
CPT/HCPCS: 99214; G2211

== ENCOUNTER → 2024-07-23 10:53 | Outpatient (BNVA) | payer MEDICARE, SELFPAY | PROVIDERS: PCP Internal Medicine; Visit Provider Internal Medicine Cardiovascular Disease | DX: J44.9 Chronic obstructive pulmonary disease, unspecified (principal); R91.8 Other nonspecific abnormal finding of lung field; J30.9 Allergic rhinitis, unspecified; I50.30 Unspecified diastolic (congestive) heart failure; I48.19 Other persistent atrial fibrillation; I25.10 Atherosclerotic heart disease of native coronary artery without angina pectoris | CPT/HCPCS: 99212 ==

== ENCOUNTER 2024-07-23 14:44 | Outpatient (AMB) | payer MEDICARE, SELFPAY ==
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
[2024-07-23 14:46] VITALS: BP 102/60; PULSE 58; O2SAT 97; BMI 25.5
--- OUTSIDE RECORDS SUMMARY | 2024-07-23 17:34 | XMS_ITS | Encounter Summary ---
Author Organization [facility] Address [address] [place] [phone] Care Team Providers Care Hybrid Corn Breeder Name Role Phone Doug Hummel MD Primary Care Provider [phone] Encounter Details Date Type Department Care Team (Late st Contact Info) Description 05/09/2024 Lab Requisition [facility] - Main Lab [address] [place] [address] Loco Andres PA 100 [facility] 120 [place] [phone] Testicular hypofunction Social History Tobacco Use Types [...] Description 07/25/2024 10:30 AM EDT Consult Neurosurgery [facility] 175 [facility] 300 [place] [phone] Chandler Reyes PA 175 [facility] 300 [place] [address] documented as of this encounter Procedures Procedure Name Priority Date/Time Associated Diagnosis Comments COMPLETE BLOOD COUNT Routine 05/09/2024 10:17 AM EST Testicular hypofunction documented in this encounter Results * (ABNORMAL) Complete blood count (05/09/2024 10:17 AM EST) WBC 11.6(H) 4.8 - 10.8 K/[facility] LAB HEMETOLOGY METHOD 05/09/2024 1:[address] [...] 1:[address] [facility] NRBC Absolute 0.00 <0.10 K/mcL LAB HEMETOLOGY METHOD 05/09/2024 1:[address] [facility] Blood Venous blood specimen / Unknown 05/09/2024 10:17 AM EST 05/09/2024 12:43 PM EST us Loco R Dmitry RICHARDSON LAB BLOOD ORDERABLES Final Res ult [facility] [address] [place] [address], documented in this encounter Visit Diagnoses Diagnosis Testicular hypofunction Other testicular hypofunction documented in this encounter Care Teams Hybrid Corn Breeder Relationship Specialty Start Date End Date Doug Hummel MD [address] [place] [address] PCP - General Internal Medicine 11/18/16 documented as of this encounter
--- OUTSIDE RECORDS SUMMARY | 2024-07-23 17:34 | XMS_ITS | Clinical Summary ---
Author Organization 175 [facility] Address 175 [place] [address] Phone Care Team Providers Care Disbursing Agent Name Role Phone Doug Hummel MD Primary Care Provider [phone] Allergies Active Allergy Reactions Criticality Noted Date [...] 03/20/2024 COPD (chronic obstructive pu lmonary disease) ([facility] V24, [facility] V28) 03/20/2024 Encounters Date Type Department Care Team Description 06/26/2024 Telephone Orthopedic Surgery - [place] 175 [facility] 140 [place] [phone] Yumiko Jones MD 06/08/2024 8:30 AM EDT Office Visit Orthopedic Surgery - [place] 175 [facility] 140 [place] [phone] Yumiko Jones MD Carpal tunnel syndrome of left wrist (Primary Dx); Chronic left shoulder pain 05/09/2024 Lab Requisition [facility] - Main Lab 299 [facility] [place] [address] Loco Andres PA Testicular hypofunction [...] Description 07/25/2024 10:30 AM EDT Consult Neurosurgery [facility] 175 [facility] 300 [place] [phone] Chandler Reyes PA 175 [facility] 300 [place] [address] Health Maintenance Due Date Last Done Comments [...] LEFT Routine 06/08/2024 9:02 AM EDT Pain [place] INJECTION CARPAL TUNNEL THERAPEUTIC Routine 06/08/2024 8:30 [...] IMG XR PROCEDURES Final Resul t * [place] INJECTION CARPAL TUNNEL THERAPEUTIC (06/08/2024 8:30 AM [...] K/mcL LAB HEMETOLOGY METHOD 05/09/2024 1:10 PM [facility] RBC 5.50 4.50 - 5.50 M/mcL LAB HEMETOLOGY METHOD 05/09/2024 1:10 PM [facility] Hemoglobin 17.2 13.5 - 17.5 g/dL LAB HEMETOLOGY METHOD 05/09/2024 1:10 PM [facility] Hematocrit 53.2 42.0 - 54.0 % LAB HEMETOLOGY METHOD 05/09/2024 1:10 PM [facility] MCV 97.4 79.0 - 98.0 FL LAB HEMETOLOGY METHOD 05/09/2024 1:10 PM [facility] MCH 31.5 27.0 - 32.0 pcg LAB HEMETOLOGY METHOD 05/09/2024 1:10 PM [facility] MCHC 32.3 32.0 - 37.0 g/dL LAB HEMETOLOGY METHOD 05/09/2024 1:10 PM [facility] RDW 12.8 11.0 - 15.0 % LAB HEMETOLOGY METHOD 05/09/2024 1:10 PM [facility] Platelets 357 130 - 400 K/mcL LAB HEMETOLOGY METHOD 05/09/2024 1:10 PM [facility] MPV 9.6 7.0 - 11.0 FL LAB HEMETOLOGY METHOD 05/09/2024 1:10 PM [facility] NRBC 0.0 <1.0 % LAB HEMETOLOGY METHOD 05/09/2024 1:10 PM EST [facility] NRBC Absolute 0.00 <0.10 K/mcL LAB HEMETOLOGY METHOD 05/09/2024 1:10 PM EST [facility] Blood Venous blood specimen / Unknown 05/09/2024 10:17 AM EST 05/09/2024 12:43 PM EST us Loco RICHARDSON LAB BLOOD ORDERABLES Final Res ult [facility] ([facility] [address] [place] [address], [place] [phone] from Last 3 [place] [id number] [facility] Care Teams Disbursing Agent Relationship Specialty Start Date End Date Doug Hummel MD [address] [place] [address] PCP - General Internal Medicine 11/18/16
== END 2024-07-23 15:06 | disposition home or self-care (01) ==
LOC: HO.HPS 14:45
PROVIDERS: PCP Internal Medicine; Visit Provider Internal Medicine Pulmonary Disease
DX: J44.9 Chronic obstructive pulmonary disease, unspecified (principal); R91.8 Other nonspecific abnormal finding of lung field; J30.9 Allergic rhinitis, unspecified
CPT/HCPCS: 99214

== ENCOUNTER 2024-08-29 10:25 | Emergency (ER) | payer MEDICARE, SELFPAY ==
--- NOTE | ~2024-08-29 | XR_ITS ---
EXAMINATION: XR HAND, LEFT CLINICAL INFORMATION: pain, injury COMPARISON: None available. TECHNIQUE: PA, lateral, and oblique views of the left hand. FINDINGS: There is soft tissue laceration and small incomplete cortical fracture distal phalanx second digit. There is moderate soft tissue swelling. No additional fractures seen. There is loss of PIP and DIP joints likely early degenerative arthritis. XR/XR hand LT min 3V IMPRESSION: Soft tissue laceration and partial incomplete fracture distal phalanx second digit. No radiopaque foreign body seen. Electronically signed by: Adrien Bah MD 08/29/2024 11:02 AM EDT
[2024-08-29 10:35] VITALS: BP 144/60; PULSE 55; RESP 16; TEMP 37.1; O2SAT 96; BMI 25.6
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
[2024-08-29] MEDS: Lidocaine HCl 1 % MPF 5 ML VIAL 10 ML SUBCUT (10:57)
[2024-08-29 11:11] VITALS: BP 131/72; PULSE 54; RESP 16; TEMP 37.1; O2SAT 92
[2024-08-29 11:23] LABS: Basophils Percent Auto 0.4 % (0-2); Eosinophils Absolute Auto 0.2 X10*3/uL (0.0-0.4); Eosinophils Percent Auto 2.1 % (0-4); Hematocrit 47.7 % (42.0-52.0); Hemoglobin 16.2 g/dl (14.0-18.0); Imm Gran Abs Auto 0.04 X10*3/uL (0.00-0.03); Imm Gran Pct Auto 0.4 % (0.0-0.4); Lymphocytes Absolute Auto 1.7 X10*3/uL (1.2-4.9); Lymphocytes Percent Auto 16.4 % (20-40); MANUAL DIFF FLAG NO; Mean Corpuscular Hemoglobin 32.1 pg (27.0-33.0); Mean Corpuscular Volume 94.6 fL (80.0-98.0); Mean Platelet Volume 8.5 fL (9.4-12.4); Monocytes Absolute Auto 0.8 X10*3/uL (0.1-1.2); Monocytes Percent Auto 7.5 % (2-11); Neutrophils Absolute Auto 7.5 x10*3/uL (2.0-8.3); Neutrophils Percent Auto 73.2 % (45-73); Platelet Count 288 X10*3/uL (160-400); Red Blood Count 5.04 X10*6/uL (4.60-5.80); Red Cell Distribution Width 12.5 % (11.0-16.0); White Blood Count 10.2 X10*3/uL (4.8-10.8)
[2024-08-29] MEDS: ceFAZolin Sodium 1 GM VIAL IVPUSH (11:24)
--- OUTSIDE RECORDS SUMMARY | 2024-08-29 11:45 | XMS_ITS | Patient Health Record ---
Author Organization [facility] Address [address] [place] [address] Care Team Providers Care Black Top Paver Operator Name Role Phone Doug Hummel MD Primary Care Provider Reece Tripp Unavailable [phone] Allergies Allergen (clinical drug ingredient) Drug/Non Drug Allergy documented on EMR Reaction Allergy Type Onset Date Status methadone Methadone HCl Unknown Drug Allergy Act margo fentanyl Fentanyl Unknown Drug Allergy Active Reason For Referral No Information Medications Medication SIG (Take, Route, Frequency, Duration) Notes Start Date End Date Status oxyCODONE HCl 15 MG 1 tablet as needed O rally every 6 hrs/prn Active metFORMIN HCl 1000 MG 1 tablet with a me al Orally twice a day Active Morphine Sulfate 30 MG 2 tablet as neede d Orally TID Active Dulcolax (colon prep) 5 MG take at 3:00 p.m and 7:00p.m. Orally two tablets twice a day for one day for 1 day 09/07/2018 Active MiraLax (colon prep) 8.3 ounce ((238) grams mixed with Gatorade or Crystal Light orally begin at 5:00 p.m. the day before the procedure for 1 day 09/07/2018 Active Advair Diskus 100-50 MCG/DOSE 1 puff Inhalation Twice a day Active Aspir-81 81 MG 1 tablet Orally Once a day Active Ibuprofen 800 MG 1 tablet with food o r milk as needed Orally Three times a day Active amLODIPine Besylate 10 MG 1 tablet Orall y Once a day Active Fluticasone Furoate 200 MCG/ACT 2 puffs Nasally Once a day Active Testopel 75 MG as directed Implant every three months Active Losartan Potassium 25 MG 1 tablet Orally Once a day Active Immunizations Vaccine Route Administration Date Status Comme nts Influenza Unknown 12/14/2017 Administered Social History Tobacco Use: Social History Observation Description Date Details (start date - stop date) Former Smoker NA - NA Tobacco Use/Smoking Question Answer Notes Patient is a former smoker How long has it been since you last smoked? > 10 years Section Notes: Nonsmoker x 7 yrs; 2-3 beers , 2-3 times/week Nonsmoker x 8 yrs; 4-5 beers at least a few times a week Nonsmoker x since 2002; 4-5 beers QD Problems Problem Type SNOMED Code ICD Code Onset Dates Problem Status W/U Status Risk Notes Problem 006435036 Encounter for screening for malignant neoplasm of colon (Z12.11) Active confirmed Problem 599133980 History of adenomatous polyp of colon (Z86.010) Active confirmed Problem 107078956 Long-term use of aspirin therapy (Z79.82) Active confirmed Plan Of Treatment Future Test Test Name Order Date COLONOSCOPY 08/31/2012 COLONOSCOPY 09/07/2018 Next Appt Details Provider Name:Reece Garzon , 10/19/2024 02:00:00 PM, [address] [place] [address], [address], [place], [address], Insurance Providers Payer Name Payer Address Payer Phone Subscriber Number Group Number Insured Name Patient Relationship to Insured Coverage Start Date Coverage End Date MEDICARE OF [place] [address] [place] [address] [id number] ABEBA TORRES Self - patient is the insured MEDICAID OF [facility] [address] [place] [address] [id number] ABEBA TORRES Self - patient is the insured Medical (General) History Medical History History ICD Code Colonoscopy 02/16/2008- 1.5cm and 8mm tu bular adenomas removed Denies [place],CVA,renal disease Asthma Back pain HTN NIDDM Sinus and respiratory problems--seeing Macey العلي and Dr. García Denies [place],CVA,or renal disease Sores/? infections on face a nd arms--seeing a cord maker and an ID specialist he had a normal MRCP in August--He had been having abdominal pain and he had had a previous CAT scan of the abdomen suggesting a dilated common bile duct, but LFTs and pancreatic enzymes were normal as well. He also had a normal upper GI series in 2009. Neg. F/U screening colonoscopy in 10/2012 Surgical History Surgery Date(Month/Year) Three back operations Surgery for left hip fracture Right Wrist surgery Right Carpal tunnel release
[2024-08-29 11:53] LABS: Alanine Aminotransferase 74 U/L (0-40); Albumin Level 4.1 g/dL (3.5-5.0); Anion Gap 15 (12-20); Aspartate Amino Transferase 80 U/L (5-37); Bilirubin Total 0.7 mg/dL (0.0-1.0); Blood Urea Nitrogen 19 mg/dL (9-16); Calcium 9.1 mg/dL (8.4-10.2); Carbon Dioxide 29 mmol/L (22-29); Chloride 102 mmol/L (96-108); Estimated Glomerular Filt Rate > 60; Glucose Random 196 mg/dL (60-115); Potassium 3.9 mmol/L (3.3-5.1); Sodium 142 mmol/L (135-145); Total Protein 6.9 g/dL (6.5-8.0)
[2024-08-29 12:58] LABS: Alkaline Phosphatase 117 U/L (39-117)
[2024-08-29 12:59] VITALS: BP 131/72; PULSE 54; RESP 16; TEMP 37.1; O2SAT 92
== END 2024-08-29 12:59 | disposition home or self-care (01) ==
PROVIDERS: Physician Assistant Medical; Emergency Provider Emergency Medicine; PCP Internal Medicine
DX: S61.211A Laceration without foreign body of left index finger without damage to nail, initial encounter (principal); W27.8XXA Contact with other nonpowered hand tool, initial encounter; Y93.9 Activity, unspecified; Y92.9 Unspecified place or not applicable; Y99.9 Unspecified external cause status; I48.91 Unspecified atrial fibrillation; E11.9 Type 2 diabetes mellitus without complications; I11.0 Hypertensive heart disease with heart failure; I50.30 Unspecified diastolic (congestive) heart failure; Z79.01 Long term (current) use of anticoagulants
CPT/HCPCS: 12001; 36415; 73130; 80053; 85025; 99284; J0690; J2003

== ENCOUNTER → 2024-08-29 10:38 | Outpatient (BNV) | payer MEDICARE, SELFPAY | PROVIDERS: PCP Internal Medicine; Visit Provider Radiology Diagnostic Radiology | DX: S62.611A Displaced fracture of proximal phalanx of left index finger, initial encounter for closed fracture (principal) | CPT/HCPCS: 73130 ==

== ENCOUNTER 2024-10-02 15:27 | Outpatient (AMB) | payer MEDICARE, SELFPAY ==
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
[2024-10-02 15:31] VITALS: BP 132/80; PULSE 68; RESP 16; TEMP 36.8; O2SAT 96; BMI 26.1
--- OUTSIDE RECORDS SUMMARY | 2024-10-02 15:55 | XMS_ITS | Patient Health Record ---
Author Organization [facility] Address [address] [place] [address] Care Team Providers Care Orthopedic Designer Name Role Phone Doug Hummel MD Primary Care Provider Reece Tripp Unavailable [phone] Allergies Allergen (clinical drug ingredient) Drug/Non Drug [...] Problem Status W/U Status Risk Notes Problem [id number] Encounter for screening for malignant neoplasm of colon (Z12.11) Active confirmed Problem 542249075 History of adenomatous polyp of colon (Z86.010) Active confirmed Problem 880602430 Long-term use of aspirin therapy (Z79.82) Active confirmed Plan Of Treatment Future Test Test Name Order Date COLONOSCOPY 08/31/2012 COLONOSCOPY 09/07/2018 Next Appt Details Provider Name:Reece Garzon , 10/19/2024 02:00:00 PM, [address] [place] [address], [address], [place], [address], Insurance Providers Payer Name Payer Address Payer Phone Subscriber Number Group Number Insured Name Patient Relationship to Insured Coverage Start Date Coverage End Date [place] [address] [place] [address] [id number] TORRES Self - patient is the insured Medical (General) History Medical History History ICD Code Colonoscopy 02/16/2008- 1.5cm and 8mm tu bular adenomas removed Denies RI,CVA,renal disease Asthma Back pain HTN NIDDM Sinus and respiratory problems--seeing Macey العلي and Dr. García Denies RI,CVA,or renal disease Sores/? infections on face a nd arms--seeing a materials scheduler and an ID specialist he had a [...]
--- OUTSIDE RECORDS SUMMARY | 2024-10-02 15:55 | XMS_ITS | Patient Health Record ---
[facility] Address [address] [place] [address] Care Team Providers Care Instruction Dean Name Role Phone Doug Hummel MD Primary Care Provider Unavailab Dianne Guzmán Unavailable [phone] Allergies Allergen (clinical drug ingredient) Drug/Non Drug Allergy documented on EMR Reaction Allergy Type Onset Date Status methadone Methadone Unknown Drug Allergy Active Penicillin Unknown Drug Allergy Active Substance with sulfonamide structure and antibacterial mechanism of action (substance) Sulfa Antibiotics Unknown Drug Allergy Active Results Component Value Reference Range Notes HEMOGLOBIN A1C (GLYCOHEMOGLO BIN) Reviewed date:08/09/2024 12:58:38 PM Interpretation: Performing Lab: Notes/Report: HEMOGLOBIN A1C % (HH) 6.5 Reason For Referral No Information Medications Medication SIG (Take, Route, Frequency, Duration) Notes Start Date End Date Status Morphine Sulfate Act margo oxyCODONE HCl 30 MG as directed Orally Active Digoxin Active Furosemide 20 MG 1 tablet Orally Once a day Active Diltiazem CD Active Isosorbide Mononitrate ER 30 MG 1 tablet in the morning Orally Once a day Active Fluticasone Furoate 50 MCG/ACT 1 puff Inhalation Once a day Active Jardiance 10 MG 1 tablet Orally Once a day Active FreeStyle Lite Test Active Trelegy Ellipta 200-62.5-25 MCG/ACT 1 puff Inhalation Once a day Active Eliquis 5 MG as directed Orally Active Gabapentin 400 MG 1 capsule Orally Onc e a day Active Gabapentin 100 MG 1 capsule at bedtime Orally Once a day Active glipiZIDE ER 5 MG 1 tablet with food O rally Once a day Active Extra Depth Orthopedic Shoes (1 Pair) with Customized Heat Molded Multidensity Innersoles (3 Pair) as directed Dx: NIDDM/Polyneuropathy (E11.42), Hammertoe Foot Deformity (M20.41,M20.42), Preulcerative Skin Lesion(s) (L85.1 08/09/2024 Active metFORMIN HCl 1000 MG 1 tablet with a me al Orally Once a day Active Metoprolol-HCTZ ER A ctive Atorvastatin Calcium 40 MG 1 tablet Orally Once a day Active Social History Tobacco Use: Social History Observation Description Date Details (start date - stop date) Never Smoker NA - NA Tobacco use other than smoking: Question Answer Notes Are you an other tobacco user? No Tobacco Control (Standard) Question Answer Notes Tobacco use: Nonsmoker Additional Findings: Tobacco non-user Current no nsmoker AUDIT-C (Standard) Question Answer Notes Did you have a drink contain ing alcohol in the past year? Yes How often did you have a dri nk containing alcohol in the past year? Monthly or less (1 point) How many drinks did you have on a typical day when you were drinking in the past year? 1 or 2 drinks (0 point) How often did you have six o r more drinks on one occasion in the past year? Never (0 point) Points 1 Interpretation Negative Problems Problem Type SNOMED Code ICD Code Onset Dates Problem Status W/U Status Risk Notes Problem Other hammer toe(s) (acquired), right foot (M20.41) Active confirmed Problem Acquired hammer toe of left foot (5902957556279262 ) Other hammer toe(s) (acquired), left foot (M20.42) Active confirmed Problem Polyneuropathy due to type 2 diabetes mellitus (957561997) Type 2 diabetes mellitus with diabetic polyneuropathy (E11.42) Active confirmed Vital Signs Blood pressure diastolic 80 mm Hg 08/09/2024 Height [id number] in 08/09/2024 Blood pressure systolic 130 mm Hg 08/09/2024 Weight 180 lbs 08/09/2024 BMI 25.1 kg/m2 08/09/2024 Procedures Procedure Date Ordered Date Performed Result Body Sit e [id number] NAIL, 6 OR MORE 08/09/2024 N/A [id number] SKIN LESIONS, 2 TO 4 08/09/2024 N/A Encounters Encounter Location Date Provider Diagnosis [facility] [address] [place] [address] 08/09/2024 Dianne Hazel Other hammer toe(s) (acquired), right foot M20.41 ; Other hammer toe(s) (acquired), left foot M20.42 ; Type 2 diabetes mellitus with diabetic polyneuropathy E11.42 and Tinea unguium B35.1 Assessments Encounter Date Diagnosis (ICD Code) Assessment Notes Treatment Notes Treatment Clinical Notes Section Notes 08/09/2024 Other hammer toe(s) (acquired), right foot (ICD-10 - M20.41) Patient Educated with: DIABETIC FOOT CARE INSTRUCTIONS. pdf (DIABETIC FOOT CARE INSTRUCTIONS. pdf) 08/09/2024 Other hammer toe(s) (acquired), left foot (ICD-10 - M20.42) 08/09/2024 Type 2 diabetes mellitus with diabetic polyneuropathy (ICD-10 - E11.42) 08/09/2024 Tinea unguium (ICD-10 - B35.1) Plan Of Treatment Pending Test Test Name Order Date [id number] NAIL, 6 OR MORE 08/09/2024 41549-FCAT SKIN LESIONS, 2 TO 4 08/10/19 Next Appt Details Provider Name:Dianne rosa, 11/21/2024 10:00:00 AM, [address] [facility], [place], [address], Insurance Providers Payer Name Payer Address Payer Phone Subscriber Number Group Number Insured Name Patient Relationship to Insured Coverage Start Date Coverage End Date Medicare National [employer] [address] [facility] [place] [address] [id number] DiegoChas hernandez Self - patient is the insured [facility] [address] [place] [address] [id number] Chas Jack Self - patient is the insured Medical (General) History Medical History History ICD Code Angina Arthritis Back,Hip,and Knee pain Broken bones covid-19 Diabetic Headaches/Migraines Heart disease High Blood Pressure Lung disease Numbness Poor circulation Sciatica Measles Mumps Chicken pox Joint implants/screws Surgical History Surgery Date(Month/Year) back surgery hip surgery Hospitalization History Reason Date(Month/Year) ER- infection 06/2024
--- OUTSIDE RECORDS SUMMARY | 2024-10-02 15:55 | XMS_ITS | Encounter Summary ---
Author Organization [facility] Address [address] [place] [address] Care Team Providers Care Maintenance Technician 3Rd Shift Name Role Phone Doug Hummel MD Primary Care Provider [phone] Encounter Details Date Type Department Care Team (Late Contact Info) Description 05/09/2024 Lab Requisition [facility] - Main Lab [address] [facility] [place] [id number] Loco Andres PA [address] [facility] [address] [place] [address] Testicular hypofunction Social History Tobacco Use Types Packs/Day Years Used Date Smoking Tobacco: Never Assessed Sex and Gender Information Value Date Recorded Sex Assigned at Not on file Legal Sex Male 8:31 AM EST Gender Identity Not on file Sexual Orientation Not on file documented as of this encounter Plan of Treatment Upcoming Encounters Date Type Department Care Team (Late Contact Info) Description 10/05/2024 10:15 AM EDT Office Visit Orthopedic Surgery - [place] [address] [facility] [address] [place] [address] Yumiko Jones MD [address] [facility] [address] [place] [address] 11/19/2024 10:30 AM EDT Evaluation [facility] [address] [facility] [address] [place] [address] Mitul Jacobs, PT [address] [place], [place] [id number] documented as of this encounter Procedures Procedure [...] [facility] BLOOD ORDERABLES Final Res ult [facility] [address] [place] [address], documented in this encounter Visit Diagnoses Diagnosis Testicular hypofunction Other testicular hypofunction documented in this encounter Care Teams Maintenance Technician 3Rd Shift Relationship Specialty Start Date End Date Doug Hummel MD [address] [place] [address] PCP - General Internal Medicine 11/18/16 documented as of this encounter
== END 2024-10-02 16:18 | disposition home or self-care (01) ==
LOC: HO.HMCSH 15:27
PROVIDERS: PCP Internal Medicine; Visit Provider Internal Medicine
DX: G89.4 Chronic pain syndrome (principal)

== ENCOUNTER → 2024-10-02 15:27 | Outpatient (BNVA) | payer MEDICARE, SELFPAY | PROVIDERS: PCP Internal Medicine; Visit Provider Internal Medicine | DX: G89.4 Chronic pain syndrome (principal) | CPT/HCPCS: 99202 ==

== ENCOUNTER 2024-10-09 13:06 | Outpatient (AMB) | payer MEDICARE, SELFPAY ==
[2024-10-09 13:08] VITALS: BP 132/74; PULSE 57; RESP 20; TEMP 36.8; O2SAT 94; BMI 26.1
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
--- OUTSIDE RECORDS SUMMARY | 2024-10-09 14:23 | XMS_ITS | Patient Health Record ---
Author Organization [facility] Address [address] [place] [address] Care Team Providers Care Clinical Project Assistant Name Role Phone Doug Hummel MD Primary Care Provider Unavailab Dianne Guzmán Unavailable [phone] Allergies Allergen (clinical drug ingredient) Drug/Non Drug [...] Problem Status W/U Status Risk Notes Problem Acquired hammer toe of right foot (0023417086087973 ) Other hammer toe(s) (acquired), right foot (M20.41) Active confirmed Problem Acquired hammer toe of left foot (9575208077216444 ) Other hammer toe(s) (acquired), left foot (M20.42) Active confirmed Problem Polyneuropathy due to type 2 diabetes mellitus (345462540) Type 2 diabetes mellitus with diabetic polyneuropathy (E11.42) Active confirmed Vital Signs Blood pressure diastolic 80 mm Hg 08/09/2024 Height 8em97cf in 08/09/2024 Blood pressure systolic 130 mm Hg 08/09/2024 Weight 180 lbs 08/09/2024 BMI 25.1 kg/m2 08/09/2024 Procedures Procedure Date Ordered Date Performed Result Body Sit e 74319-EGFN SKIN LESIONS, 2 TO 4 08/09/2024 N/A 21818-HJEFWGO NAIL, 6 OR MORE 08/09/2024 N/A Encounters Encounter Location Date Provider Diagnosis [facility] [address] [place] [address] 08/09/2024 Dianne Hazel Other hammer toe(s) (acquired), [...] Treatment Pending Test Test Name Order Date [id number] NAIL, 6 OR MORE 08/09/2024 51155-GSRO SKIN LESIONS, 2 TO 4 08/10/19 25 Next Appt Details Provider Name:Dianne rosa, 11/21/2024 10:00:00 AM, [address] [place] [address], [place], [address], Insurance Providers Payer Name Payer Address Payer Phone Subscriber Number Group Number Insured Name Patient Relationship to Insured Coverage Start Date Coverage End Date Medicare National Govt Svcs Inc [address] [place] [address] [id number] Shadiaaayush Chas Self - [facility] the [facility] [address] [place] [address] [id number] Shadiaaayush Chas Self - patient is the insured Medical (General) History Medical History History ICD Code Angina Arthritis Back,Hip,and Knee pain Broken bones covid-19 Diabetic Headaches/Migraines Heart disease High Blood Pressure Lung disease Numbness Poor circulation Sciatica Measles Mumps Chicken pox Joint implants/screws Surgical History Surgery Date(Month/Year) back surgery hip surgery Hospitalization History Reason Date(Month/Year) ER- infection 06/2024
--- OUTSIDE RECORDS SUMMARY | 2024-10-09 14:23 | XMS_ITS | Encounter Summary ---
Author Organization [facility] Address [address] [place] [address] Care Team Providers Care Employer Relations Representative Name Role Phone Doug Hummel MD Primary Care Provider [phone] Encounter Details Date Type Department Care Team (Late Contact Info) Description 05/09/2024 Lab Requisition [facility] - Main Lab [address] [facility] [place] [phone] Loco Andres PA 100 [facility] [address] [place] [phone] Testicular hypofunction Social History Tobacco Use Types Packs/Day Years Used Date Smoking Tobacco: Never Assessed Sex and Gender Information Value Date Recorded Sex Assigned at Not on file Legal Sex Male 8:31 AM EST Gender Identity Not on file Sexual Orientation Not on file documented as of this encounter Plan of Treatment Upcoming Encounters Date Type Department Care Team (Late Contact Info) Description 11/19/2024 10:[address] [facility] 175 [facility] [address] [place] [address] Mitul Jacobs, PT [address] [place] [address] documented as of this encounter Procedures Procedure Name Priority Date/Time Associated Diagnosis Comments COMPLETE BLOOD COUNT Routine 05/09/2024 10:17 AM EST Testicular hypofunction documented in this encounter Results * (ABNORMAL) Complete blood count (05/09/2024 10:17 AM EST) WBC 11.6(H) 4.8 - 10.8 K/mcL LAB HEMETOLOGY METHOD 05/09/2024 1:10 PM [facility] RBC 5.50 4.50 - 5.50 M/mcL LAB HEMETOLOGY METHOD 05/09/2024 1:10 PM [facility] Hemoglobin 17.2 13.5 - 17.5 g/dL LAB HEMETOLOGY METHOD 05/09/2024 1:10 PM [facility] Hematocrit 53.2 42.0 - 54.0 % LAB HEMETOLOGY METHOD 05/09/2024 1:10 PM [facility] MCV 97.4 79.0 - 98.0 FL LAB HEMETOLOGY METHOD 05/09/2024 1:10 PM [facility] MCH 31.5 27.0 - 32.0 pcg LAB HEMETOLOGY METHOD 05/09/2024 1:10 PM [facility] MCHC 32.3 32.0 - 37.0 g/dL LAB HEMETOLOGY METHOD 05/09/2024 1:10 PM [facility] RDW 12.8 11.0 - 15.0 % LAB HEMETOLOGY METHOD 05/09/2024 1:10 PM [facility] Platelets 357 130 - 400 K/mcL LAB HEMETOLOGY METHOD 05/09/2024 1:10 PM [facility] MPV 9.6 7.0 - 11.0 FL LAB HEMETOLOGY METHOD 05/09/2024 1:10 PM [facility] NRBC 0.0 <1.0 % LAB HEMETOLOGY METHOD 05/09/2024 1:10 PM [facility] NRBC Absolute 0.00 <0.10 K/mcL LAB HEMETOLOGY METHOD 05/09/2024 1:10 PM [facility] Blood Venous blood specimen / Unknown 05/09/2024 10:17 AM EST 05/09/2024 12:43 PM EST us Loco R Dmitry [facility] LAB BLOOD ORDERABLES Final Res ult Performing Organization Address City/State/[facility] Co de Phone Number [facility] ([facility] [address] [place] [address], documented in this encounter Visit Diagnoses Diagnosis Testicular hypofunction Other testicular hypofunction documented in this encounter Care Teams Employer Relations Representative Relationship Specialty Start Date End Date Doug Hummel MD [address] [place] [address] PCP - General Internal Medicine 11/18/16 documented as of this encounter
--- OUTSIDE RECORDS SUMMARY | 2024-10-09 14:23 | XMS_ITS | Patient Health Record ---
Author Organization [facility] Address [address] [place] [address] Care Team Providers Care Marine Fireman Name Role Phone Estephanie (RETIRED) Doug ERIC Primary Care Provider Unavailable Reece Garzon Unavailable [phone] Allergies Allergen (clinical drug ingredient) Drug/Non Drug [...] Problem Status W/U Status Risk Notes Problem [id number] Encounter for screening for malignant neoplasm of colon (Z12.11) Active confirmed Problem 079856279 History of adenomatous polyp of colon (Z86.010) Active confirmed Problem 027641010 Long-term use of aspirin therapy (Z79.82) Active confirmed Plan Of Treatment Future Test Test Name Order Date COLONOSCOPY 08/31/2012 COLONOSCOPY 09/07/2018 Next Appt Details Provider Name:Reece Garzon , 10/19/2024 02:00:00 PM, [address] [place] [address], [address], [place], [address], Insurance Providers Payer Name Payer Address Payer Phone Subscriber Number Group Number Insured Name Patient Relationship to Insured Coverage Start Date Coverage End Date [facility]IC[facility] [address] [place], [place] [id number] [id number] TORRES Self - patient is the insured Medical (General) History Medical History History ICD Code Colonoscopy 02/16/2008- 1.5cm and 8mm tu bular adenomas removed Denies NC,CVA,renal disease Asthma Back pain HTN NIDDM Sinus and respiratory problems--seeing Macey العلي and Dr. García Denies NC,CVA,or renal disease Sores/? infections on face a nd arms--seeing a tour guide and an ID specialist he had a [...]
== END 2024-10-09 13:54 | disposition home or self-care (01) ==
LOC: HO.HMCSH 13:06
PROVIDERS: PCP Internal Medicine; Visit Provider Internal Medicine
DX: M79.2 Neuralgia and neuritis, unspecified (principal); I10 Essential (primary) hypertension

== ENCOUNTER → 2024-10-09 13:06 | Outpatient (BNVA) | payer MEDICARE, SELFPAY | PROVIDERS: PCP Internal Medicine; Visit Provider Internal Medicine | DX: M79.2 Neuralgia and neuritis, unspecified (principal); I10 Essential (primary) hypertension; Z87.891 Personal history of nicotine dependence | CPT/HCPCS: 99212 ==

== ENCOUNTER 2024-10-15 08:29 | Outpatient (REF) | payer MEDICARE, SELFPAY ==
--- OUTSIDE RECORDS SUMMARY | 2024-10-15 08:39 | XMS_ITS | Encounter Summary ---
Author Organization [facility] Address [address] [place] [address] Care Team Providers Care Fabrics And Material Cutter Name Role Phone Doug Hummel MD Primary Care Provider [phone] Encounter Details Date Type Department Care Team (Late Contact Info) Description 05/09/2024 Lab Requisition [facility] - Main Lab 299 [facility] [place] [phone] Loco Andres PA 100 [facility] [address] [place] [phone] Testicular hypofunction Social History Tobacco Use Types [...] Info) Description 11/19/2024 10:30 AM EDT Evaluation [facility] 175 [facility] [address] [place] [address] Mitul Jacobs, PT [address] [place] [address] documented as of this encounter Procedures Procedure [...] ORDERABLES Final Res ult Performing Organization Address City/State/[facility] Co de Phone Number [facility] ([facility]) [facility] [address] [place] [address], documented in this encounter Visit Diagnoses Diagnosis Testicular hypofunction Other testicular hypofunction documented in this encounter Care Teams Fabrics And Material Cutter Relationship Specialty Start Date End Date Doug Hummel MD [address] [place] [address] PCP - General Internal Medicine 11/18/16 documented as of this encounter
--- OUTSIDE RECORDS SUMMARY | 2024-10-15 08:39 | XMS_ITS | Patient Health Record ---
Author Organization [facility] Address [address] [place] [address] Care Team Providers Care Data Center Project Manager Name Role Phone Estephanie (RETIRED) Doug ERIC Primary Care Provider Unavailable Reece Garzon Unavailable [phone] Allergies Allergen (clinical drug ingredient) Drug/Non Drug [...] Problem Status W/U Status Risk Notes Problem [id number] Encounter for screening for malignant neoplasm of colon (Z12.11) Active confirmed Problem 090613095 History of adenomatous polyp of colon (Z86.010) Active confirmed Problem 591263720 Long-term use of aspirin therapy (Z79.82) Active confirmed Plan Of Treatment Future Test Test Name Order Date COLONOSCOPY 08/31/2012 COLONOSCOPY 09/07/2018 Next Appt Details Provider Name:Reece Garzon , 10/19/2024 02:00:00 PM, [address] [place] [address], [address], [place], [address], Insurance Providers Payer Name Payer Address Payer Phone Subscriber Number Group Number Insured Name Patient Relationship to Insured Coverage Start Date Coverage End Date MEDICARE OF [facility] [address] [place], [place] [id number] [id number] TORRES Self - patient is the insured Medical (General) History Medical History History ICD Code Colonoscopy 02/16/2008- 1.5cm and 8mm tu bular adenomas removed Denies ID,CVA,renal disease Asthma Back pain HTN NIDDM Sinus and respiratory problems--seeing Macey العلي and Dr. García Denies ID,CVA,or renal disease Sores/? infections on face a nd arms--seeing a leaf sorter and an ID specialist he had a [...]
--- OUTSIDE RECORDS SUMMARY | 2024-10-15 08:40 | XMS_ITS | Patient Health Record ---
Author Organization [facility] Address [address] [place] [address] Care Team Providers Care Qa Developer Name Role Phone Doug Hummel MD Primary Care Provider Unavailab Dianne Guzmán Unavailable [phone] Allergies Allergen (clinical drug ingredient) Drug/Non Drug [...] Problem Acquired hammer toe of right foot ([id number] ) Other hammer toe(s) (acquired), right foot (M20.41) Active confirmed Problem Acquired hammer toe of left foot (1333174011629288 ) Other hammer toe(s) (acquired), left foot (M20.42) Active confirmed Problem Polyneuropathy due to type 2 diabetes mellitus (320517500) Type 2 diabetes mellitus with diabetic polyneuropathy (E11.42) Active confirmed Vital Signs Blood pressure diastolic 80 mm Hg 08/09/2024 Height 2wo03wp in 08/09/2024 Blood pressure systolic 130 mm Hg 08/09/2024 Weight 180 lbs 08/09/2024 BMI 25.1 kg/m2 08/09/2024 Procedures Procedure Date Ordered Date Performed Result Body Sit e 29085-KTHHZZT NAIL, 6 OR MORE 08/09/2024 N/A 43146-GSIQ SKIN LESIONS, 2 TO 4 08/09/2024 N/A Encounters Encounter Location Date Provider Diagnosis [facility] [address] [place] [address] 08/09/2024 Dianne Hazel Other hammer toe(s) (acquired), [...] Treatment Pending Test Test Name Order Date 05701-HZSQSAR NAIL, 6 OR MORE 08/09/2024 71698-BEGT SKIN LESIONS, 2 TO 4 08/10/19 25 Next Appt Details Provider Name:Dianne rosa, 11/21/2024 10:00:00 AM, [address] [place] [address], [place], [address], Insurance Providers Payer Name Payer Address Payer Phone Subscriber Number Group Number Insured Name Patient Relationship to Insured Coverage Start Date Coverage End Date Medicare National Govt Svcs Inc [address] [place] [address] [id number] Shadiaaayush Chas Self - patient [facility] the [facility] [address] [place] [address] [phone] [id number] Shadiaaayush Chas Self - patient is the [...]
[2024-10-15 09:10] LABS: Hematocrit 49.0 % (42.0-52.0); Hemoglobin 16.6 g/dl (14.0-18.0); Mean Corpuscular HGB Conc 33.9 g/dl (31.0-36.0); Mean Corpuscular Hemoglobin 32.4 pg (27.0-33.0); Mean Corpuscular Volume 95.5 fL (80.0-98.0); NRBC Abs Auto 0.000 X10*3/uL (0.0-0.012); NRBC Pct Auto 0.0 /100WBC (0.0-0.2); Platelet Count 319 X10*3/uL (160-400); Red Blood Count 5.13 X10*6/uL (4.60-5.80); White Blood Count 10.7 X10*3/uL (4.8-10.8)
[2024-10-15 09:17] LABS: Hemoglobin A1C 196.2739 umol/L; Total Hemoglobin (HGBA1C) 4281.9905 umol/L
[2024-10-15 09:54] LABS: Alanine Aminotransferase 51 U/L (0-40); Albumin Level 4.7 g/dL (3.5-5.0); Alkaline Phosphatase 93 U/L (39-117); Anion Gap 14 (12-20); Aspartate Amino Transferase 39 U/L (5-37); Blood Urea Nitrogen 15 mg/dL (9-16); Calcium 9.5 mg/dL (8.4-10.2); Carbon Dioxide 31 mmol/L (22-29); Chloride 102 mmol/L (96-108); Cholesterol 122 mg/dL (<200); Estimated Glomerular Filt Rate > 60; HDL Cholesterol 53 mg/dL (>40); Potassium 3.8 mmol/L (3.3-5.1); Sodium 143 mmol/L (135-145); Total Protein 7.7 g/dL (6.5-8.0); Triglycerides 97 mg/dL (<150)
[2024-10-15 10:12] LABS: Thyroid Stimulating Hormone 1.39 uIU/mL (0.32-4.0)
[2024-10-15 10:16] LABS: Appearance Urine Clear; Glucose Urine UA >=1000 mg/dL (Negative); PH 7.5 (5.0-9.0); Specific Gravity - Urine 1.010 (1.005-1.025); UMIC TRIGGER UA YES
== END 2024-10-15 08:30 | disposition home or self-care (01) ==
LOC: HO.LAB 08:29
PROVIDERS: PCP Internal Medicine; Visit Provider Internal Medicine
DX: I10 Essential (primary) hypertension (principal)
CPT/HCPCS: 36415; 80048; 80061; 80076; 81001; 81003; 83036; 84443; 85027

== ENCOUNTER 2024-10-30 15:09 | Outpatient (AMB) | payer MEDICARE, SELFPAY ==
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
[2024-10-30 15:15] VITALS: BP 116/59; PULSE 70; RESP 16; TEMP 36.7; O2SAT 98; BMI 25.3
--- OUTSIDE RECORDS SUMMARY | 2024-10-30 15:41 | XMS_ITS | Patient Health Record ---
Author Organization [facility] Address [address] [place] [address] Care Team Providers Care Broadband Technician Name Role Phone RICO HILLMAN Primary Care Provider Reece Garner Unavailable [phone] Allergies Allergen (clinical drug ingredient) Drug/Non Drug Allergy documented on EMR Reaction Allergy Type Onset Date Status losartan Losartan Unknown Drug Allergy Active sulfamethoxazole Sulfamethoxazole Unknown Drug Allergy Active Substance with sulfonamide structure and antibacterial mechanism of action (substance) Sulfa Antibiotics Unknown Drug Allergy Active methadone Methadone HCl Unknown Drug Allergy Act margo fentanyl Fentanyl Unknown Drug Allergy Active trimethoprim Trimethoprim Unknown Drug Allergy A ctive Reason For Referral No Information Medications Medication SIG (Take, Route, Frequency, Duration) Notes Start Date End Date Status oxyCODONE HCl 15 MG TAKE 2 TABLETS BY MOUTH THREE TIMES DAILY Oral for 30 Days Active Fluticasone Propionate 50 MCG/ACT Nasal for 30 Days Active Aspir-81 81 MG 1 tablet Orally Once a day Active Jardiance 10 MG Oral for 90 Days Active Advair Diskus 100-50 MCG/DOSE 1 puff Inhalation Twice a day Not-Taking Digoxin 125 MCG TAKE 1 TABLET BY MOUTH DAILY AT 12 AM Oral for 90 Days Active predniSONE 5 MG Oral for 30 Days Not-Taking Ketoconazole 2 % APPLY EVERY THIN LAYER TO AFFECTED AND SURROUNDING SKIN EVERY DAY UNTIL RESOLVED External for 30 Days Active oxyCODONE HCl 15 MG 1 tablet as needed Orally every 6 hrs/prn Active Ipratropium Plain 0.06 % USE 2 SPRAYS IN EACH NOSTRIL 3 TO 4 TIMES A DAY NEEDED FOR RHINITIS Nasal for 10 Days Active Morphine Sulfate 30 MG 2 tablet as needed Orally TID Active Gabapentin 100 MG TAKE 1 CAPSULE BY MOUTH THREE TIMES DAILY WITH 400 MG TO EQUAL 500 MG THREE TIMES DAILY Oral for 30 Days Active metFORMIN HCl 1000 MG 1 tablet with a meal Orally twice a day Caused diarrhea Not-Taking Metoprolol Succinate ER 100 MG TAKE 1 TABLET BY MOUTH TWICE DAILY Oral for 90 Days Active Fluticasone Furoate 200 MCG/ACT 2 puffs Nasally Once a day Active Morphine Sulfate ER 60 MG TAKE 1 TABLET BY MOUTH THREE TIMES DAILY Oral for 30 Days Active amLODIPine Besylate 10 MG 1 tablet Orally Once a day Active dilTIAZem HCl ER Coated Beads 240 MG TAKE 1 CAPSULE BY MOUTH DAILY Oral for 90 Days Active Losartan Potassium 25 MG 1 tablet Orally Once a day Active Testopel 75 MG as directed Implant every three months Not-Taking Atorvastatin Calcium 40 MG Oral for 90 Days Active Ipratropium Plain 0.06 % Nasal for 30 Days Active Meloxicam 15 MG Oral for 30 Days Active Ibuprofen 800 MG 1 tablet with food or milk as needed Orally Three times a day PRN Not-Taking Furosemide 20 MG TAKE 1 TABLET BY MOUTH DAILY Oral for 90 Days Active MiraLax (colon prep) 8.3 ounce ((238) grams mixed with Gatorade or Crystal Light orally begin at 5:00 p.m. the day before the procedure for 1 day 09/07/2018 Not-Taking Testosterone Cypionate 200 MG/ML INJECT 2 ML EVERY 3 WEEKS Intramuscular for 21 Days Active Dulcolax (colon prep) 5 MG take at 3:00 p.m and 7:00p.m. Orally two tablets twice a day for one day for 1 day 09/07/2018 Not-Taking Atorvastatin Calcium 40 MG TAKE 1 TABLET BY MOUTH DAILY Oral for 90 Days Active glipiZIDE ER 5 MG Oral for 90 Days Active Gabapentin 100 MG Oral for 90 Days Active Nitroglycerin 0.4 MG Sublingual for 30 Days Active Trelegy Ellipta 200-62.5-25 MCG/ACT Inhalation for 30 Days Active Eliquis 5 MG Oral for 90 Days Active Immunizations Vaccine Route Administration Date Status Comme nts Influenza Unknown 12/14/2017 Administered Influenza Unknown 01/17/2024 Administered Social History Tobacco Use: Social History Observation Description Date Details (start date - stop date) Former Smoker NA - NA Tobacco Use/Smoking Question Answer Notes Patient is a former smoker How long has it been since you last smoked? > 10 years AUDIT-C (Standard) Question Answer Notes Did you have a drink contain ing alcohol in the past year? Yes How often did you have a dri nk containing alcohol in the past year? 2 to 4 times a month (2 points) How many drinks did you have on a typical day when you were drinking in the past year? 1 or 2 drinks (0 point) How often did you have six o r more drinks on one occasion in the past year? Never (0 point) Points 2 Interpretation Negative Section Notes: Nonsmoker x 7 yrs; 2-3 beers , 2-3 times/week Nonsmoker x 8 yrs; 4-5 beers at least a few times a week Nonsmoker x since 2002; 4-5 beers QD Nonsmoker x since 2002; a c ouple of beers once a week Problems Problem Type SNOMED Code ICD Code Onset Dates Problem Status W/U Status Risk Notes Problem 842690879 Encounter for screening for malignant neoplasm of colon (Z12.11) Active confirmed Problem 202256956 History of adenomatous polyp of colon (Z86.010) Active confirmed Problem 188222386 Long-term use of aspirin therapy (Z79.82) Active confirmed Vital Signs Temperature 98.4 degrees Fahrenheit 10/19/2024 Blood pressure diastolic 01 mm Hg 10/19/2024 Height 70 in 10/19/2024 Blood pressure systolic 001 mm Hg 10/19/2024 Weight 175 lbs 10/19/2024 BMI 25.11 kg/m2 10/19/2024 Encounters Encounter Location Date Provider Diagnosis [facility] [address] [place] [address] 10/19/2024 Reece Garzon Colon cancer screeni ng Z12.11 ; Diarrhea R19.7 and Preprocedural examination Z01.818 Assessments Encounter Date Diagnosis (ICD Code) Assessment Notes Treatment Notes Treatment Clinical Notes Section Notes 10/19/2024 Colon cancer screening (ICD-10 - Z12.11) Obtain a Cologuard test from Dr. Hillman and let me know the results. If it is positive we would then need to do a colonoscopy Overall, Chas is not having any new or worrisome GI complaints. We did review his previous history of diarrhea seems to have certainly been related to the metformin, and has now resolved completely and remained stable since the metformin was stopped. Based on that I do not think any particular workup is required in regard to the previous diarrhea. I did advise him to certainly let me know if that recurs and becomes problematic again. In regard to potential screening for colorectal cancer we did discuss colonoscopy as being the gold standard in regard to screening and prevention of colorectal cancer. He is familiar with the colonoscopy as he has had 2 in the past. However, at this point he is hesitant to schedule that as he feels that the procedure, particularly the night before with the bowel prep and frequent trips to the bathroom, may be difficult for him due to his ongoing issues with back pain and trouble with his balance. He does have his other comorbidities including COPD, atrial fibrillation, and reported CHF. Therefore, he would like to hold off on the colonoscopy. I did advise him that I think that is not unreasonable but did advise him that I would like him to obtain a Cologuard test through your office. Since he has not had a colonoscopy since 2012 I think would be important that he do that for at least some type of screening procedure. I did advise him to let me know the results either way, but certainly if it is positive he would then need a colonoscopy on that basis. If the Cologuard test is negative I advised him that he could then just see me on a prn basis. However, I did advise him that he should call me in the future if he ever develops any particular change in bowel habits or signs of bleeding. Angel was comfortable with this plan. Thank you again for allowing me to participate in Chas's care. I shall continue to keep you advised of his progress. 10/19/2024 Diarrhea (ICD-10 - R19.7) Overall, Chas is not having any new or worrisome GI complaints. We did review his previous history of diarrhea seems to have certainly been related to the metformin, and has now resolved completely and remained stable since the metformin was stopped. Based on that I do not think any particular workup is required in regard to the previous diarrhea. I did advise him to certainly let me know if that recurs and becomes problematic again. In regard to potential screening for colorectal cancer we did discuss colonoscopy as being the gold standard in regard to screening and prevention of colorectal cancer. He is familiar with the colonoscopy as he has had 2 in the past. However, at this point he is hesitant to schedule that as he feels that the procedure, particularly the night before with the bowel prep and frequent trips to the bathroom, may be difficult for him due to his ongoing issues with back pain and trouble with his balance. He does have his other comorbidities including COPD, atrial fibrillation, and reported CHF. Therefore, he would like to hold off on the colonoscopy. I did advise him that I think that is not unreasonable but did advise him that I would like him to obtain a Cologuard test through your office. Since he has not had a colonoscopy since 2012 I think would be important that he do that for at least some type of screening procedure. I did advise him to let me know the results either way, but certainly if it is positive he would then need a colonoscopy on that basis. If the Cologuard test is negative I advised him that he could then just see me on a prn basis. However, I did advise him that he should call me in the future if he ever develops any particular change in bowel habits or signs of bleeding. Angel was comfortable with this plan. Thank you again for allowing me to participate in Chas's care. I shall continue to keep you advised of his progress. 10/19/2024 Preprocedural examination (ICD-10 - Z01.818) Overall, Chas is not having any new or worrisome GI complaints. We did review his previous history of diarrhea seems to have certainly been related to the metformin, and has now resolved completely and remained stable since the metformin was stopped. Based on that I do not think any particular workup is required in regard to the previous diarrhea. I did advise him to certainly let me know if that recurs and becomes problematic again. In regard to potential screening for colorectal cancer we did discuss colonoscopy as being the gold standard in regard to screening and prevention of colorectal cancer. He is familiar with the colonoscopy as he has had 2 in the past. However, at this point he is hesitant to schedule that as he feels that the procedure, particularly the night before with the bowel prep and frequent trips to the bathroom, may be difficult for him due to his ongoing issues with back pain and trouble with his balance. He does have his other comorbidities including COPD, atrial fibrillation, and reported CHF. Therefore, he would like to hold off on the colonoscopy. I did advise him that I think that is not unreasonable but did advise him that I would like him to obtain a Cologuard test through your office. Since he has not had a colonoscopy since 2012 I think would be important that he do that for at least some type of screening procedure. I did advise him to let me know the results either way, but certainly if it is positive he would then need a colonoscopy on that basis. If the Cologuard test is negative I advised him that he could then just see me on a prn basis. However, I did advise him that he should call me in the future if he ever develops any particular change in bowel habits or signs of bleeding. Angel was comfortable with this plan. Thank you again for allowing me to participate in Chas's care. I shall continue to keep you advised of his progress. Plan Of Treatment Future Test Test Name Order Date COLONOSCOPY 08/31/2012 COLONOSCOPY 09/07/2018 Insurance Providers Payer Name Payer Address Payer Phone Subscriber Number Group Number Insured Name Patient Relationship to Insured Coverage Start Date Coverage End Date MEDICARE OF [place] [address] [place] [address] [id number] CHAS TORRES Self - patient is the insured [employer] CLAIMS [address] [place] [address] [id number] CHAS TORRES Self - patient is the insured Medical (General) History Medical History History ICD Code Colonoscopy 02/16/2008- 1.5cm and 8mm tu bular adenomas removed Denies [place],CVA,renal disease Asthma/COPD- Dr. Escobar Back pain- disc disease HTN NIDDM Sinus and respiratory problems- Denies [place],CVA,or renal disease Normal MRCP in August,- H e had been having abdominal pain and he had had a previous CAT scan of the abdomen suggesting a dilated common bile duct, but LFTs and pancreatic enzymes were normal as well. He also had a normal upper GI series in 2009. Neg. F/U screening colonoscopy in 10/2012 NIDDM Atrial fibrillation- Dr. Morfin CHF Surgical History Surgery Date(Month/Year) Right Carpal tunnel release Right Wrist surgery Surgery for left hip fracture Three back operations
--- OUTSIDE RECORDS SUMMARY | 2024-10-30 15:41 | XMS_ITS | Encounter Summary ---
Author Organization [facility] Address [address] [place] [address] Care Team Providers Care Dumping Machine Operator Name Role Phone Doug Hummel MD Primary Care Provider [phone] Encounter Details Date Type Department Care Team (Late Contact Info) Description 05/09/2024 Lab Requisition [facility] - Main Lab [address] [place] [id number] Loco Andres PA [address] [facility] [address] [place] [phone] Testicular hypofunction Social History Tobacco Use Types [...] Info) Description 11/19/2024 10:30 AM EDT Evaluation [facility] [address] [facility] [address] [place] [address] Mitul Jacobs, PT [address] [place] [address] documented as of this encounter Procedures Procedure [...] 1:10 PM [facility] NRBC Absolute 0.00 <0.10 K/mcL LAB HEMETOLOGY METHOD 05/09/2024 1:10 PM [facility] Blood Venous blood specimen / Unknown 05/09/2024 10:17 AM EST 05/09/2024 12:43 PM EST us Loco R Dmitry [facility] BLOOD ORDERABLES Final Res ult Performing Organization Address City/State/[facility] Co de Phone Number [facility] [address] [place] [address], documented in this encounter Visit Diagnoses Diagnosis Testicular hypofunction Other testicular hypofunction documented in this encounter Care Teams Dumping Machine Operator Relationship Specialty Start Date End Date Doug Hummel MD [address] [place] [address] PCP - General Internal Medicine 11/18/16 documented as of this encounter
--- OUTSIDE RECORDS SUMMARY | 2024-10-30 15:42 | XMS_ITS | Patient Health Record ---
[facility] Address [address] [place] [address] Care Team Providers Care Personal Computer Network Engineer Name Role Phone Doug Hummel MD Primary Care Provider Unavailab Dianne Guzmán Unavailable [phone] Allergies Allergen (clinical drug ingredient) Drug/Non Drug [...] Problem Acquired hammer toe of right foot (1197026709321461 ) Other hammer toe(s) (acquired), right foot (M20.41) Active confirmed Problem Acquired hammer toe of left foot (4201081754352538 ) Other hammer toe(s) (acquired), left foot (M20.42) Active confirmed Problem Polyneuropathy due to type 2 diabetes mellitus (092594783) Type 2 diabetes mellitus with diabetic polyneuropathy (E11.42) Active confirmed Vital Signs Blood pressure diastolic 80 mm Hg 08/09/2024 Height 2es21iu in 08/09/2024 Blood pressure systolic 130 mm Hg 08/09/2024 Weight 180 lbs 08/09/2024 BMI 25.1 kg/m2 08/09/2024 Procedures Procedure Date Ordered Date Performed Result Body Sit e [id number] NAIL, 6 OR MORE 08/09/2024 N/A [id number] SKIN LESIONS, 2 TO 4 08/09/2024 N/A Encounters Encounter Location Date Provider Diagnosis [facility] [place] [address] [place] [address] 08/09/2024 Dianne Hazel Other hammer toe(s) (acquired), [...] Treatment Pending Test Test Name Order Date [id number] NAIL, 6 OR MORE 08/09/2024 [id number] SKIN LESIONS, 2 TO 4 08/10/19 25 Next Appt Details Provider Name:Dianne rosa, 11/21/2024 10:00:00 AM, [address] [place] [address], [place], [address], Insurance Providers Payer Name Payer Address Payer Phone Subscriber Number Group Number Insured Name Patient Relationship to Insured Coverage Start Date Coverage End Date Medicare National [employer] [address] [place] [address] [id number] Shadiaaayush Chas Self - patient is the [facility] [address] [place] [address] [id number] Shadiaaayush Chas Self - patient is the [...]
== END 2024-10-30 16:15 | disposition home or self-care (01) ==
LOC: HO.HMCSH 15:09
PROVIDERS: PCP Internal Medicine; Visit Provider Internal Medicine
DX: G89.4 Chronic pain syndrome (principal)

== ENCOUNTER → 2024-10-30 15:09 | Outpatient (BNVA) | payer MEDICARE, SELFPAY | PROVIDERS: PCP Internal Medicine; Visit Provider Internal Medicine | DX: G89.4 Chronic pain syndrome (principal) | CPT/HCPCS: 99212 ==

== ENCOUNTER 2024-10-31 09:22 | Outpatient (REF) | payer MEDICARE, SELFPAY ==
--- OUTSIDE RECORDS SUMMARY | 2024-10-31 09:45 | XMS_ITS | Patient Health Record ---
Author Organization [facility] Address [address] [place] [address] Care Team Providers Care Radio Board Operator Announcer Name Role Phone RICO HILLMAN Primary Care Provider Reece Garner Unavailable [phone] Allergies Allergen (clinical drug ingredient) Drug/Non Drug Allergy documented on EMR Reaction Allergy Type Onset Date Status trimethoprim Trimethoprim Unknown Drug Allergy A ctive losartan Losartan Unknown Drug Allergy Active sulfamethoxazole [...] needed Orally every 6 hrs/prn Active Ipratropium Wilcox 0.06 % USE 2 SPRAYS IN EACH [...] MG Oral for 90 Days Active Ipratropium Wilcox 0.06 % Nasal for 30 Days Active [...] Problem Status W/U Status Risk Notes Problem [id number] Encounter for screening for malignant neoplasm of colon (Z12.11) Active confirmed Problem 282885284 History of adenomatous polyp of colon (Z86.010) Active confirmed Problem 520367970 Long-term use of aspirin therapy (Z79.82) Active confirmed Vital Signs Temperature 98.4 degrees Fahrenheit 10/19/2024 Blood pressure diastolic 01 mm Hg 10/19/2024 Height 70 in 10/19/2024 Blood pressure systolic 001 mm Hg 10/19/2024 Weight 175 lbs 10/19/2024 BMI 25.11 kg/m2 10/19/2024 Encounters Encounter Location Date Provider Diagnosis [facility] [address] [place] [address] 10/19/2024 Reece Garzon Colon cancer screeni ng [...] Date MEDICARE OF [place] [address] [place] [address] [id number] CHAS TORRES Self - patient is the insured [employer] CLAIM[employer] [address] [place] [address] [id number] CHAS TORRES Self - patient is the insured Medical (General) History Medical History History ICD Code Colonoscopy 02/16/2008- 1.5cm and 8mm tu bular adenomas removed Denies OK,CVA,renal disease Asthma/COPD- Dr. Escobar Back pain- disc disease HTN NIDDM Sinus and respiratory problems- Denies [place],CVA,or renal disease Normal MRCP in August,- H [...]
--- OUTSIDE RECORDS SUMMARY | 2024-10-31 09:45 | XMS_ITS | Encounter Summary ---
Author Organization [facility] Address [address] [place] [address] Care Team Providers Care Quarter Inspector Name Role Phone Doug Hummel MD Primary Care Provider [phone] Encounter Details Date Type Department Care Team (Late Contact Info) Description 05/09/2024 Lab Requisition [facility] [address] [place] [phone] Loco Andres PA 100 [facility] [address] [place] [phone] Testicular hypofunction Social History Tobacco Use Types [...] Info) Description 11/19/2024 10:30 AM EDT Evaluation [facility] 175 [facility] [address] [place] [address] Mitul Jacobs, PT [address] [place] [address] documented as of this encounter Procedures Procedure Name Priority Date/Time Associated Diagnosis Comments COMPLETE BLOOD COUNT Routine 05/09/2024 10:17 AM EST Testicular hypofunction documented in this encounter Results * (ABNORMAL) Complete blood count (05/09/2024 10:17 AM EST) WBC 11.6(H) 4.8 - 10.8 K/mcL LAB HEMETOLOGY METHOD 05/09/2024 1:10 PM [facility] RBC 5.50 4.50 - 5.50 M/mcL LAB HEMETOLOGY METHOD 05/09/2024 1:10 PM [facility] Hemoglobin 17.2 13.5 - 17.5 g/dL LAB HEMETOLOGY METHOD 05/09/2024 1:10 PM [facility] Hematocrit 53.2 42.0 - 54.0 % LAB HEMETOLOGY METHOD 05/09/2024 1:10 PM [facility] MCV 97.4 79.0 - 98.0 FL LAB HEMETOLOGY METHOD 05/09/2024 1:10 PM [facility] MCH 31.5 27.0 - 32.0 pcg LAB HEMETOLOGY METHOD 05/09/2024 1:10 PM [facility] MCHC 32.3 32.0 - 37.0 g/dL LAB HEMETOLOGY METHOD 05/09/2024 1:10 PM [facility] RDW 12.8 11.0 - 15.0 % LAB HEMETOLOGY METHOD 05/09/2024 1:10 PM [facility] Platelets 357 130 - 400 K/mcL LAB HEMETOLOGY METHOD 05/09/2024 1:10 PM [facility] MPV 9.6 7.0 - 11.0 FL LAB HEMETOLOGY METHOD 05/09/2024 1:10 PM [facility] NRBC 0.0 <1.0 % LAB HEMETOLOGY METHOD 05/09/2024 1:10 PM [facility] NRBC Absolute 0.00 <0.10 K/mcL LAB HEMETOLOGY METHOD 05/09/2024 1:10 PM [facility] Blood Venous blood specimen / Unknown 05/09/2024 10:17 AM EST 05/09/2024 12:43 PM EST us Loco R Dmitry R[facility] LAB BLOOD ORDERABLES Final Res ult Performing Organization Address City/State/[facility] Co de Phone Number [facility] [address] [place] [address], documented in this encounter Visit Diagnoses Diagnosis Testicular hypofunction Other testicular hypofunction documented in this encounter Care Teams Quarter Inspector Relationship Specialty Start Date End Date Doug Hummel MD [address] [place] [address] PCP - General Internal Medicine 11/18/16 documented as of this encounter
--- OUTSIDE RECORDS SUMMARY | 2024-10-31 09:45 | XMS_ITS | Patient Health Record ---
Author Organization [facility] Address [address] [place] [address] Care Team Providers Care Director Operations Name Role Phone Doug Hummel MD Primary Care Provider Unavailab Dianne Guzmán Unavailable [phone] Allergies Allergen (clinical drug ingredient) Drug/Non Drug [...] Problem Acquired hammer toe of right foot (626855631452 9105) Other hammer toe(s) (acquired), right foot (M20.41) Active confirmed Problem Acquired hammer toe of left foot (610767748067 9103) Other hammer toe(s) (acquired), left foot (M20.42) Active confirmed Problem Type 2 diabetes mellitus with diabetic polyneuropathy (E11.42) Active confirmed Vital Signs Blood pressure diastolic 80 mm Hg 08/09/2024 Height [id number] in 08/09/2024 Blood pressure systolic 130 mm Hg 08/09/2024 Weight 180 lbs 08/09/2024 BMI 25.1 kg/m2 08/09/2024 Procedures Procedure Date Ordered Date Performed Result Body Sit e 33115-KASOSSW NAIL, 6 OR MORE 08/09/2024 N/A 56670-ARKN SKIN LESIONS, 2 TO 4 08/09/2024 N/A Encounters Encounter Location Date Provider Diagnosis [facility] [address] [place] [address] 08/09/2024 Dianne Hazel Other hammer toe(s) (acquired), [...] Treatment Pending Test Test Name Order Date 66788-ZMDLWXH NAIL, 6 OR MORE 08/09/2024 98570-ALHL SKIN LESIONS, 2 TO 4 08/10/19 Next Appt Details Provider Name:Dianne rosa, 11/21/2024 10:00:00 AM, [address] [facility], [place], [address], Insurance Providers Payer Name Payer Address Payer Phone Subscriber Number Group Number Insured Name Patient Relationship to Insured Coverage Start Date Coverage End Date Medicare National [employer] [address] [place] [address] [id number] Chas Jack Self - patient is the insured [employer] [facility] [address] [place] [address] [id number] Chas Jack Self - patient is the [...]
[2024-10-31 11:06] LABS: Appearance Urine Clear; Glucose Urine UA >=1000 mg/dL (Negative); PH 6.0 (5.0-9.0); Specific Gravity - Urine 1.020 (1.005-1.025); UMIC TRIGGER UA YES
[2024-11-01 10:42] LABS: Cannabinoid Screen Urine Not Detected (Not Detect)
== END 2024-10-31 09:23 | disposition home or self-care (01) ==
LOC: HO.LAB 09:22
PROVIDERS: PCP Internal Medicine; Visit Provider Internal Medicine
DX: I10 Essential (primary) hypertension (principal)
CPT/HCPCS: 80307; 81001; 81003

== ENCOUNTER 2024-11-27 09:50 | Outpatient (REF) | payer MEDICARE, SELFPAY ==
--- NOTE | ~2024-11-27 | CT_ITS ---
CLINICAL HISTORY: R91.8 - Other nonspecific abnormal finding of lung field CT chest without contrast Comparison: CT/REG/AZ/SR - CT CHEST WITHOUT IV CONTRAST - 10/31/23 08:31 EDT Findings: The heart is normal size. The visualized thyroid and mediastinum are unremarkable. Scattered calcified and noncalcified micro nodules, consistent with prior granulomatous disease. No suspicious lung nodules. Minimal bibasilar atelectatic/dependent changes. The upper abdomen is unremarkable. No acute fractures. Mild multilevel spondylosis. IMPRESSION: 1. No acute disease within the chest. 2. Scattered calcified/noncalcified micro nodules consistent with prior granulomatous disease. No suspicious lung nodules or lesions. 3. Minimal bibasilar atelectatic/dependent changes. No definite evidence of chronic interstitial lung disease. This document has been electronically signed by: Gia Brown MD on 11/27/2024 19:43:45
--- OUTSIDE RECORDS SUMMARY | 2024-11-27 11:02 | XMS_ITS | Patient Health Record ---
Author Organization [facility] Address [address] [place] [address] Care Team Providers Care Test Case Developer Name Role Phone Dianne Hazel Unavailable [phone] Allergies Allergen (clinical drug ingredient) Drug/Non Drug [...] Duration) Notes Start Date End Date Status Isosorbide Mononitrate ER 30 MG 1 tablet in the morning Orally Once a day Active Fluticasone Furoate 50 MCG/ACT 1 puff Inhalation Once a day Active Furosemide 20 MG 1 tablet Orally Once a day Active Diltiazem CD Active Trelegy Ellipta 200-62.5-25 MCG/ACT 1 puff Inhalation Once a day Active Eliquis 5 MG as directed Orally Active Jardiance 10 MG 1 tablet Orally Once a day Active FreeStyle Lite Test Active oxyCODONE HCl 30 MG as directed Orally Active Morphine Sulfate Act margo Atorvastatin Calcium 40 MG 1 tablet Orally Once a day Active Metoprolol-HCTZ ER A ctive Extra Depth Orthopedic Shoes (1 Pair) with Customized Heat Molded Multidensity Innersoles (3 Pair) as directed Dx: NIDDM/Polyneuropathy (E11.42), Hammertoe Foot Deformity (M20.41,M20.42), Preulcerative Skin Lesion(s) (L85.1 08/09/2024 Active Digoxin Active Gabapentin 100 MG 1 capsule at bedtime Orally Once a day Active Gabapentin 400 MG 1 capsule Orally Onc e a day Active metFORMIN HCl 1000 MG 1 tablet with a me al Orally Once a day Active glipiZIDE ER 5 MG 1 tablet with food O rally Once a day Active Immunizations Vaccine Route Administration Date Status Comme nts Influenza Unknown 12/28/2023 Administered Social History Tobacco Use: Social History [...] Problem Acquired hammer toe of right foot (657603616571 9105) Other hammer toe(s) (acquired), right foot (M20.41) Active confirmed Problem Acquired hammer toe of left foot (115086040982 9103) Other hammer toe(s) (acquired), left foot (M20.42) Active confirmed Problem Type 2 diabetes mellitus with diabetic polyneuropathy (E11.42) Active confirmed Vital Signs Blood pressure diastolic 65 mm Hg 11/21/2024 Height 9ab23to in 11/21/2024 Blood pressure systolic 128 mm Hg 11/21/2024 Weight 180 lbs 11/21/2024 BMI 25.1 kg/m2 11/21/2024 Procedures Procedure Date Ordered Date Performed Result Body Sit e 12784-DJYBUUR NAIL, 6 OR MORE 08/09/2024 N/A 21573-EEBR SKIN LESIONS, 2 TO 4 08/09/2024 N/A Encounters Encounter Location Date Provider Diagnosis [facility] [address] [place] [address] 08/09/2024 Dianne Hazel Other hammer toe(s) (acquired), right foot M20.41 ; Other hammer toe(s) (acquired), left foot M20.42 ; Type 2 diabetes mellitus with diabetic polyneuropathy E11.42 and Tinea unguium B35.1 [facility] [address] [address] 11/21/2024 Dianne Hazel Type 2 diabetes mellitus with diabetic polyneuropathy E11.42 and Tinea unguium B35.1 Assessments Encounter Date Diagnosis (ICD Code) Assessment Notes Treatment Notes Treatment Clinical Notes Section Notes 08/09/2024 Other hammer toe(s) (acquired), right foot (ICD-10 - M20.41) Patient Educated with: DIABETIC FOOT CARE INSTRUCTIONS. pdf (DIABETIC FOOT CARE INSTRUCTIONS. pdf) 08/09/2024 Other hammer toe(s) (acquired), left foot (ICD-10 - M20.42) 11/21/2024 Type 2 diabetes mellitus with diabetic polyneuropathy (ICD-10 - E11.42) 11/21/2024 Tinea unguium (ICD-10 - B35.1) 08/09/2024 Type 2 diabetes mellitus with diabetic polyneuropathy (ICD-10 - E11.42) 08/09/2024 Tinea unguium (ICD-10 - B35.1) Plan Of Treatment Pending Test Test Name Order Date [id number] NAIL, 6 OR MORE 08/09/2024 73597-WDLR SKIN LESIONS, 2 TO 4 08/10/19 25 Next Appt Details Provider Name:Dianne rosa, 02/27/2025 09:30:00 AM, [address] [place] [address], [phone], Insurance Providers Payer Name Payer Address Payer Phone Subscriber Number Group Number Insured Name Patient Relationship to Insured Coverage Start Date Coverage End Date Medicare [facility] [address] [place] [address] [id number] Chas Jack Self - patient is the insured [facility] [address] [place] [address] [id number] Chas Jack Self - patient is the [...]
--- OUTSIDE RECORDS SUMMARY | 2024-11-27 11:02 | XMS_ITS | Encounter Summary ---
Author Organization [facility] Address [address] [place] [address] Care Team Providers Care Piping Blocker Name Role Phone Doug Hummel MD Primary Care Provider [phone] Encounter Details Date Type Department Care Team (Late st Contact Info) Description 05/09/2024 Lab Requisition [facility] Lab [address] [place] [address] Loco Andres, DYLAN [address] [facility] [address] [place] [phone] Testicular hypofunction Social History Tobacco Use Types [...] AM EST) WBC 11.6(H) 4.8 - 10.8 K/[facility] LAB HEMETOLOGY METHOD 05/09/2024 1:10 PM EST [facility] RBC 5.50 4.50 - 5.50 M/[facility] LAB HEMETOLOGY METHOD 05/09/2024 1:10 PM EST [facility] Hemoglobin 17.2 13.5 - 17.5 g/dL LAB HEMETOLOGY METHOD 05/09/2024 1:10 PM EST [facility] Hematocrit 53.2 42.0 - 54.0 % LAB HEMETOLOGY METHOD 05/09/2024 1:10 PM [facility] MCV 97.4 79.0 - 98.0 FL LAB HEMETOLOGY METHOD 05/09/2024 1:10 PM EST [facility] MCH 31.5 27.0 - 32.0 pcg LAB HEMETOLOGY METHOD 05/09/2024 1:10 PM EST [facility] MCHC 32.3 32.0 - 37.0 g/dL LAB HEMETOLOGY METHOD 05/09/2024 1:10 PM [facility] RDW 12.8 11.0 - 15.0 % LAB HEMETOLOGY METHOD 05/09/2024 1:10 PM EST [facility] Platelets 357 130 - 400 K/mcL LAB HEMETOLOGY METHOD 05/09/2024 1:10 PM EST [facility] MPV 9.6 7.0 - 11.0 FL LAB HEMETOLOGY METHOD 05/09/2024 1:10 PM [facility] NRBC 0.0 <1.0 % LAB HEMETOLOGY METHOD 05/09/2024 1:10 PM EST [facility] NRBC Absolute 0.00 <0.10 K/mcL LAB HEMETOLOGY METHOD 05/09/2024 1:10 PM [facility] Blood Venous blood specimen / Unknown 05/09/2024 10:17 AM EST 05/09/2024 12:43 PM EST us Loco RICHARDSON LAB BLOOD ORDERABLES Final Res ult [facility] [address] [place] [address], documented in this encounter Visit Diagnoses Diagnosis Testicular hypofunction Other testicular hypofunction documented in this encounter Care Teams Piping Blocker Relationship Specialty Start Date End Date Doug Hummel MD [address] [place] PCP - General Internal Medicine 11/18/16 documented as of this encounter
--- OUTSIDE RECORDS SUMMARY | 2024-11-27 11:02 | XMS_ITS | Clinical Summary ---
Author Organization [facility] Address [address] [place] [address] Phone Care Team Providers Care Antisqueak Worker Name Role Phone Doug Hummel MD Primary Care Provider [phone] Allergies Active Allergy Reactions Criticality Noted Date [...] mg pellet subcutaneous implant pellet 4 Active testosterone cypionate (DEPO-TESTOTERON E) 200 mg/mL injection 5 Active blood sugar diagnostic (FreeStyle Lite Strips) test strip DIRECTED TEST BLOOD SUGAR ONCE DAY 5 Active cephalexin (KEFLEX) 500 mg capsule take 1 capsule by mouth four times daily for 10 days 5 Active doxycycline (ADOXA) 100 mg tablet Take 1 tablet (100 mg total) by mouth 2 (two) times a day. 5 Active ipratropium (ATROVENT) 42 mcg (0.06 %) nasal spray 5 Active Hypodermic Dexter 23 gauge x 1 needle USE TO INJECT TESTOSTERONE DIRECTED 5 Active BD Luer-Denis Syringe 3 mL 18 x 1 1/2 syringe USE TO DRAW UP TESTOSTERONE DIRECTED 5 Active Active Problems Problem Noted Date Diagnosed Date Open nondisplaced fracture o f distal phalanx of left index finger 08/30/2024 Finger pain, left 08/30/2024 Cervical spondylosis with radiculopathy 07/26/19 25 Assessment & Plan (07/26/2024 3:51 PM EDT): Mr. Torres x 20 years of neck pain with radiation to the left posterior shoulder, triceps into the forearm and whole hand. MRI of the cervical spine from [facility] obtained on April 04, 2024 did reveal degenerative changes resulting in moderate to severe central spinal stenosis at C5-6 and moderate central spinal stenosis at C6-7. He has not had any conservative measures in several years. He is willing to try physical therapy. We talked about acupuncture and yoga as other reasonable conservative modalities. He says he would not consider any kind of surgery. I gave him a prescription for physical therapy with cervical traction. He is welcome to follow-up with us in the future on an as-needed basis. Chronic midline low back pain with left-sided sc iatica 07/25/2024 Assessment & Plan (07/25/2024 11:05 AM EDT): Mr. Torres describes low back pain with radiation down the left leg since 2000. In 2004 he had a combined anterior and posterior L4-S1 fusion with Dr. Bundy and Dr. Connors. He says that it helped his back pain and his walking, but he was never out of pain. He is neurologically intact. His MRI of the lumbar spine from [facility] does show what appears to be a good fusion construct from L4-S1 with interbody fusion and pedicle screw fixation. At L3-4 there are degenerative changes in the disc with some bulging causing lateral recess stenosis. I explained to Mr. Tougas that there was nothing that fan to the level of needing surgery and he agreed saying that he would not want to have more surgery. We discussed physical therapy, acupuncture, chiropractic treatment, and an inversion table all as reasonable conservative modalities. He did accept a prescription for physical therapy and is welcome to follow-up with us in the future on an as-needed basis. Chronic left shoulder pain 06/08/2024 Carpal tunnel syndrome of left wrist 03/23/2024 Arthritis of carpometacarpal (CMC) joint of left thumb 03/23/2024 CHF (congestive heart failure) ([facility] V24, [facility] V28) 03/20/2024 Diabetes mellitus, type 2 ([facility] V24, [facility] V28) 03/20/2024 Rhinitis 03/20/2024 Hyperlipidemia 03/20/2024 Chest pain 03/20/2024 COPD (chronic obstructive pu lmonary disease) ([facility] V24, [facility] V28) 03/20/2024 Encounters Date Type Department Care Team Description 11/19/2024 10:30 AM EDT Evaluation [address] [address] Mitul Jacobs, PT Cervical spondylosis with radiculopathy; Chronic midline low back pain with left-sided sciatica 11/06/2024 Lab Requisition [facility] - Main Lab [address] [facility] [place] [phone] Loco Andres PA Testicular hypofunction 10/05/2024 10:15 AM EDT Office Visit Orthopedic Surgery [address] [phone] Yumiko Jones MD Open nondisplaced fracture of distal phalanx of left index finger with routine healing, subsequent encounter (Primary Dx) 09/11/2024 10:45 AM EDT Office Visit Orthopedic Surgery [address] [phone] Yumiko Jones MD Open nondisplaced fracture of distal phalanx of left index finger with routine healing, subsequent encounter (Primary Dx) 08/30/2024 1:45 PM EDT Consult Orthopedic Surgery - [place] [address] [facility] [address] [place] [address] Yumiko Jones MD Open nondisplaced fracture of distal phalanx of left index finger, initial encounter (Primary Dx); Finger pain, left 08/30/2024 Telephone Orthopedic Surgery [facility] [address] [facility] [address] [place] [address] Carmen Ferris from Last 3 Months Immunizations Name Administration Dates Next Due Influenza Quadravalent, MDCK , 0.5ml, with preservative (Flucelvax) 6mo and older 12/06/2019,12/11/2018 Influenza Quadrivalent, 0.5m l, preservative free (Fluarix; FluLaval; Fluzone) ages 6mo and older (Afluria) 3yo and older 10/26/2016 Influenza Quadrivalent, with preservative (Fluzone; Afluria) 6mo and older 12/20/2022,12/04/2021,12/30/2020,2017 Influenza trivalent, 0.5mL, preservative free (Fluarix; FluLaval; Fluzone) ages 6mo and older (Afluria) 3 years and older 10/31/2015 Influenza trivalent, MDCK, 0 .5mL, preservative free (Flucelvax) 6mo and older 11/13/2014 Influenza trivalent, with preservative (Fluzone; Afluria) 6mo and older 11/30/2023 Pneumococcal conjugate 13 va lent (Prevnar 13, PCV13) 2mo and older 11/13/2014 RSV, bivalent, protein subun it RSVpreF, 0.5mL, Preservative Free (ABRYSVO) 60yo and older or 32 through 36 wks of 02/21/2023 Tdap Tetanus diptheria acell ular pertussis (Boostrix; Adacel) 7yo and older 09/14/2020,09/03/2015 Surgical History Surgery Date Site/Laterality Comments CARPAL TUNNEL RELEASE left done about year ago(2022?), right 5-10 yrs ago(2014?) Medical History Medical History Date Comments Hypertension Diabetes ([facility] V24, [facility] V28) Social History Tobacco Use Types Packs/Day Years Used Date Smoking Tobacco: Never Smokeless Tobacco: Never Tobacco Cessation:Counseling Given: Not Answered Sex and Gender Information Value Date Recorded [...] - Inhaled Oxygen Concentration - - Weight 79.4 kg (175 lb) 10/05/2024 10:26 AM EDT Height 179.1 cm (5' 10.5 ) 10/05/2024 10:26 AM E DT Body Mass Index 24.75 10/05/2024 10:26 AM EDT Plan of Treatment Health Maintenance Due Date Last Done Comments Diabetes: Annual GFR (Glomerular Filtration Rate) 1951 Diabetes: Annual Foot Exam 1961 Diabetes: Annual Retina Eye Exam 1961 Zoster Vaccines (1 of 2) 2001 Pneumococcal Vaccine: 50+ Years (2 of 2 - PPSV23) 01/08/2015 11/13/2014 Cholesterol Screening (Lipid Panel) 01/03/2024 Colorectal Cancer Screening: Colonoscopy 01/03/2024 Falls Risk Assessment 01/03/2024 Hepatitis C Screening 01/03/2024 Medicare Annual Wellness Visit 01/03/2024 Social Influencers of Health Screening 01/03/2024 Diabetes: Annual Urine Albumin-Creatinine Ratio (uACR) 03/20/2024 Diabetes: Blood Sugar Control Test (HGBA1C) 03/20/2024 Hypertension/CHF/CAD Annual BMP Blood Test 03/20/2024 Depression Screening 03/28/2024 COVID-19 Vaccine ( season) 2024 12/01/2023, 04/19/2023, 09/04/2021, Additional history exists Influenza Vaccine (#1) 2024 , 12/20/2022, 12/04/2021, Additional history exists DTaP,Tdap,and Td Vaccines (3 - Td or Tdap) 09/14/2030 09/14/2020, 09/03/2015 RSV Immunization Adult Patients Completed 02/21/2023 HIB Vaccines Aged Out No longer eligi [...] Associated Diagnosis Comments COMPLETE BLOOD COUNT Routine 11/06/2024 9:27 AM EDT Testicular hypofunction HEPATIC FUNCTION PANEL Routine 11/06/2024 9:27 AM EDT Testicular hypofunction XR FINGERS 2+ VIEWS LEFT Routine 08/30/2024 2:17 PM EDT Finger pain, left from Last 3 Months Results * (ABNORMAL) Complete blood count (11/06/2024 9:27 AM EDT) WBC 9.4 4.8 - 10.8 K/mcL LAB HEMETOLOGY METHOD 11/06/2024 12:45 PM EDT [facility] RBC 4.80 4.50 - 5.50 M/mcL LAB HEMETOLOGY METHOD 11/06/2024 12:45 PM EDT [facility] Hemoglobin 15.3 13.5 - 17.5 g/dL LAB HEMETOLOGY METHOD 11/06/2024 12:45 PM EDT [facility] Hematocrit 47.4 42.0 - 54.0 % LAB HEMETOLOGY METHOD 11/06/2024 12:45 PM EDT [facility] MCV 98.5(H) 79.0 - 98.0 FL LAB HEMETOLOGY METHOD 11/06/2024 12:45 PM EDT [facility] MCH 31.8 27.0 - 32.0 pcg LAB HEMETOLOGY METHOD 11/06/2024 12:45 PM EDT [facility] MCHC 32.3 32.0 - 37.0 g/dL LAB HEMETOLOGY METHOD 11/06/2024 12:45 PM EDT [facility] RDW 13.2 11.0 - 15.0 % LAB HEMETOLOGY METHOD 11/06/2024 12:45 PM EDT [facility] Platelets 323 130 - 400 K/mcL LAB HEMETOLOGY METHOD 11/06/2024 12:45 PM EDT [facility] MPV 9.0 7.0 - 11.0 FL LAB HEMETOLOGY METHOD 11/06/2024 12:45 PM EDT [facility] NRBC 0.0 <1.0 % LAB HEMETOLOGY METHOD 11/06/2024 12:45 PM EDT [facility] NRBC Absolute 0.00 <0.10 K/mcL LAB HEMETOLOGY METHOD 11/06/2024 12:45 PM EDT [facility] Blood Venous blood specimen / Unknown 11/06/2024 9:27 AM EDT 11/06/2024 12:18 PM EDT us Loco RICHARDSON LAB BLOOD ORDERABLES Final Res ult [facility] [address] [place] [address], * (ABNORMAL) Hepatic function panel (11/06/2024 9:27 AM EDT) Total Protein 7.2 6.0 - 8.0 g/dL LAB CHEMISTRY METHOD 11/06/2024 1:36 PM EDT [facility] Albumin 3.9 3.2 - 5.0 g/dL LAB CHEMISTRY METHOD 11/06/2024 1:36 PM EDT [facility] Total Bilirubin 0.6 0.0 - 1.4 mg/dL LAB CHEMISTRY METHOD 11/06/2024 1:36 PM EDT [facility] Bilirubin, Direct 0.2 0.0 - 0.3 mg/dL LAB CHEMISTRY METHOD 11/06/2024 1:36 PM EDT [facility] Bilirubin, Indirect 0.4 0.0 - 1.1 mg/dL LAB CHEMISTRY METHOD 11/06/2024 1:36 PM EDT [facility] ALT (SGPT) 48 10 - 60 unit/L LAB CHEMISTRY METHOD 11/06/2024 1:36 PM EDT [facility] AST (SGOT) 26 10 - 42 unit/L LAB CHEMISTRY METHOD 11/06/2024 1:36 PM EDT [facility] Alkaline Phosphatase 127(H) 42 - 121 unit/L LAB CHEMISTRY METHOD 11/06/2024 1:36 PM EDT [facility] Blood Venous blood specimen / Unknown 11/06/2024 9:27 AM EDT 11/06/2024 12:18 PM EDT us Loco RICHARDSON LAB BLOOD ORDERABLES Final Res ult [facility] [address] [place] [address], * XR Fingers 2+ Views Left (08/30/2024 2:17 PM EDT) Anatomical Region Laterality Modality Upper Extremities, Fingers Left Compu rohan Radiography Narrative 08/30/2024 2:29 PM EDT AP, lateral, oblique of the left index finger was obtained on 08/30/2024. There is evidence of a distal phalanx fracture. There is a triangular shaped fracture fragment of the distal phalanx. The joint is intact. No angulation on the AP or lateral. There is some irregularity along the radial side of the soft tissue envelope likely indicating site of injury. Yumiko Jones MD IMG XR PROCEDURES Final Resul t from Last 3 Months Insurance MEDICARE [facility] Care Teams Antisqueak Worker Relationship Specialty Start Date End Date Doug Hummel MD [address] [place] [address] PCP - General Internal Medicine 11/18/16
--- OUTSIDE RECORDS SUMMARY | 2024-11-27 11:02 | XMS_ITS | Patient Health Record ---
Author Organization [facility] Address [address] [place] [address] Care Team Providers Care Lodging Facilities Manager Name Role Phone RICO HILLMAN Primary Care Provider Reece Garner Unavailable [phone] Allergies Allergen (clinical drug ingredient) Drug/Non Drug [...] needed Orally every 6 hrs/prn Active Ipratropium [place] 0.06 % USE 2 SPRAYS IN EACH [...] MG Oral for 90 Days Active Ipratropium [place] 0.06 % Nasal for 30 Days Active [...] Problem Status W/U Status Risk Notes Problem [id number] Encounter for screening for malignant neoplasm of colon (Z12.11) Active confirmed Problem 431110757 History of adenomatous polyp of colon (Z86.010) Active confirmed Problem 708879382 Long-term use of aspirin therapy (Z79.82) Active confirmed Vital Signs Temperature 98.4 degrees Fahrenheit 10/19/2024 Blood pressure diastolic 01 mm Hg 10/19/2024 Height 70 in 10/19/2024 Blood pressure systolic 001 mm Hg 10/19/2024 Weight 175 lbs 10/19/2024 BMI 25.11 kg/m2 10/19/2024 Encounters Encounter Location Date Provider Diagnosis [facility] [address] [place] [address] 10/19/2024 Reece Garzon Colon cancer screeni ng [...] Date MEDICARE OF [place] [address] [place] [address] [id number] CHAS TORRES Self - patient is the insured [employer] CLAIM[employer] [address] [place] [address] [id number] CHAS TORRES Self - patient is the insured Medical (General) History Medical History History ICD Code Colonoscopy 02/16/2008- 1.5cm and 8mm tu bular adenomas removed Denies HI,CVA,renal disease Asthma/COPD- Dr. Escobar Back pain- disc disease HTN NIDDM Sinus and respiratory problems- Denies HI,CVA,or renal disease Normal MRCP in August,- H [...]
--- OUTSIDE RECORDS SUMMARY | 2024-11-27 11:02 | XMS_ITS | Encounter Summary ---
Author Organization [facility] Address [address] [place] [address] Care Team Providers Care Derrick Builder Name Role Phone Doug Hummel MD Primary Care Provider [phone] Encounter Details Date Type Department Care Team (Late st Contact Info) Description 11/06/2024 Lab Requisition [facility] - Main Lab [address] [facility] [employer] [address] Loco Andres, DYLAN [address] [facility] [address] [place] [phone] Testicular hypofunction Social History Tobacco Use Types Packs/Day Years Used Date Smoking Tobacco: Never Smokeless Tobacco: Never Sex and Gender Information Value Date Recorded [...] Routine 11/06/2024 9:27 AM EDT Testicular hypofunction documented in this encounter Results * (ABNORMAL) Complete blood count (11/06/2024 9:27 AM EDT) WBC 9.4 4.8 - 10.8 [facility] LAB HEMETOLOGY METHOD 11/06/2024 12:45 PM EDT [facility] RBC 4.80 4.50 - 5.50 M/mcL LAB HEMETOLOGY METHOD 11/06/2024 12:45 PM EDT [facility] Hemoglobin 15.3 13.5 - 17.5 g/dL LAB HEMETOLOGY METHOD 11/06/2024 12:45 PM [facility] Hematocrit 47.4 42.0 - 54.0 % LAB HEMETOLOGY METHOD 11/06/2024 12:45 PM [facility] MCV 98.5(H) 79.0 - 98.0 FL LAB HEMETOLOGY METHOD 11/06/2024 12:45 PM [facility] MCH 31.8 27.0 - 32.0 pcg LAB HEMETOLOGY METHOD 11/06/2024 12:45 PM [facility] MCHC 32.3 32.0 - 37.0 g/dL LAB HEMETOLOGY METHOD 11/06/2024 12:45 PM [facility] RDW 13.2 11.0 - 15.0 % LAB HEMETOLOGY METHOD 11/06/2024 12:45 PM [facility] Platelets 323 130 - 400 K/mcL LAB HEMETOLOGY METHOD 11/06/2024 12:45 PM [facility] MPV 9.0 7.0 - 11.0 FL LAB HEMETOLOGY METHOD 11/06/2024 12:45 PM [facility] NRBC 0.0 <1.0 % LAB HEMETOLOGY METHOD 11/06/2024 12:45 PM [facility] NRBC Absolute 0.00 <0.10 K/mcL LAB HEMETOLOGY METHOD 11/06/2024 12:45 PM [facility] Blood Venous blood specimen / Unknown 11/06/2024 9:27 AM EDT 11/06/2024 12:18 PM EDT us Loco RICHARDSON LAB BLOOD ORDERABLES Final Res ult Performing Organization Address City/[facility]/ZIP Co de Phone Number [facility] [address] [place] [address], [place] [phone] * (ABNORMAL) Hepatic function panel (11/06/2024 9:27 AM EDT) Total Protein 7.2 6.0 - 8.0 g/dL LAB CHEMISTRY METHOD 11/06/2024 1:36 PM EDT [facility] Albumin 3.9 3.2 - 5.0 g/dL LAB CHEMISTRY METHOD 11/06/2024 1:36 PM EDT [facility] Total Bilirubin 0.6 0.0 - 1.4 mg/dL LAB CHEMISTRY METHOD 11/06/2024 1:36 PM EDT [facility] Bilirubin, Direct 0.2 0.0 - 0.3 mg/dL LAB CHEMISTRY METHOD 11/06/2024 1:36 PM EDT [facility] Bilirubin, Indirect 0.4 0.0 - 1.1 mg/dL LAB CHEMISTRY METHOD 11/06/2024 1:36 PM EDT [facility] ALT (SGPT) 48 10 - 60 unit/L LAB CHEMISTRY METHOD 11/06/2024 1:36 PM EDT [facility] AST (SGOT) 26 10 - 42 unit/L LAB CHEMISTRY METHOD 11/06/2024 1:36 PM EDT [facility] Alkaline Phosphatase 127(H) 42 - 121 unit/L LAB CHEMISTRY METHOD 11/06/2024 1:36 PM EDT [facility] Blood Venous blood specimen / Unknown 11/06/2024 9:27 AM EDT 11/06/2024 12:18 PM EDT us Loco RICHARDSON LAB BLOOD ORDERABLES Final Res ult [facility] [address] [place] [address], documented in this encounter Visit Diagnoses Diagnosis Testicular hypofunction Other testicular hypofunction documented in this encounter Care Teams Derrick Builder Relationship Specialty Start Date End Date Doug Hummel MD [address] [place] [address] PCP - General Internal Medicine 11/18/16 documented as of this encounter
== END 2024-11-27 09:51 | disposition home or self-care (01) ==
LOC: HO.CT 09:50
PROVIDERS: PCP Internal Medicine; Visit Provider Internal Medicine Pulmonary Disease
DX: R91.8 Other nonspecific abnormal finding of lung field (principal)
CPT/HCPCS: 71250

== ENCOUNTER → 2024-11-27 09:51 | Outpatient (BNV) | payer MEDICARE, SELFPAY | PROVIDERS: PCP Internal Medicine; Visit Provider Student in an Organized Health Care Education/Training Program | DX: R91.8 Other nonspecific abnormal finding of lung field (principal) | CPT/HCPCS: 71250 ==

== ENCOUNTER 2024-12-03 14:09 | Outpatient (AMB) | payer MEDICARE, SELFPAY ==
[2024-12-03 14:23] VITALS: BP 130/70; PULSE 46; O2SAT 98
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
--- OUTSIDE RECORDS SUMMARY | 2024-12-03 16:30 | XMS_ITS | Patient Health Record ---
[facility] [place] Address [address] [place] [address] Care Team Providers Care Human Resources Talent Manager Name Role Phone Dianne Hazel Unavailable [phone] Allergies Allergen (clinical drug ingredient) Drug/Non Drug [...] Problem Acquired hammer toe of right foot (1818302157934838 ) Other hammer toe(s) (acquired), right foot (M20.41) Active confirmed Problem Acquired hammer toe of left foot (2176912742414507 ) Other hammer toe(s) (acquired), left foot (M20.42) Active confirmed Problem Polyneuropathy due to type 2 diabetes mellitus (104264854) Type 2 diabetes mellitus with diabetic polyneuropathy (E11.42) Active confirmed Vital Signs Blood pressure diastolic 65 mm Hg 11/21/2024 Height 5wp91bp in 11/21/2024 Blood pressure systolic 128 mm Hg 11/21/2024 Weight 180 lbs 11/21/2024 BMI 25.1 kg/m2 11/21/2024 Procedures Procedure Date Ordered Date Performed Result Body Sit e 80662-VDPZYIK NAIL, 6 OR MORE 08/09/2024 N/A 47114-QUII SKIN LESIONS, 2 TO 4 08/09/2024 N/A Encounters Encounter [facility] Date [facility] [address] 08/09/2024 Dianne Hazel Other hammer toe(s) (acquired), right foot M20.41 ; Other hammer toe(s) (acquired), left foot M20.42 ; Type 2 diabetes mellitus with diabetic polyneuropathy E11.42 and Tinea unguium B35.[address] [address] 11/21/2024 Dianne Hazel Type 2 diabetes mellitus [...] Treatment Pending Test Test Name Order Date [id number]-[id number] NAIL, 6 OR MORE 08/09/2024 54053-ZFHZ SKIN LESIONS, 2 TO 4 08/10/19 25 Next Appt Details Provider Name:Dianne rosa, 02/27/2025 09:30:00 AM, [address] [place] [address], [phone], Insurance Providers Payer Name Payer Address Payer Phone Subscriber Number Group Number Insured Name Patient Relationship to Insured Coverage Start Date Coverage End Date Medicare National Govt Sv[employer] [address] [place] [address] [id number] Chas Jack Self - patient is the insured [employer] [address] [place] [address] [id number] Chas Jack Self - patient is the [...]
--- OUTSIDE RECORDS SUMMARY | 2024-12-03 16:30 | XMS_ITS | Encounter Summary ---
Author Organization [facility] Address [address] [place] [address] Care Team Providers Care Demolition Crane Operator Name Role Phone Doug Hummel MD Primary Care Provider [phone] Encounter Details Date Type Department Care Team (Late st Contact Info) Description 05/09/2024 Lab Requisition [facility] - Main Lab [address] [place] [address] Loco Andres, DYLAN [address] [facility] [address] [place] [phone] Testicular hypofunction Social History Tobacco Use Types [...] AM EST) WBC 11.6(H) 4.8 - 10.8 K/[facility] LAB HEMETOLOGY METHOD 05/09/2024 1:10 PM EST [facility] RBC 5.50 4.50 - 5.50 M/[facility] LAB HEMETOLOGY METHOD 05/09/2024 1:10 PM EST [facility] Hemoglobin 17.2 13.5 - 17.5 g/dL LAB HEMETOLOGY METHOD 05/09/2024 1:10 PM EST [facility] LAB Hematocrit 53.2 42.0 - 54.0 % LAB HEMETOLOGY METHOD 05/09/2024 1:10 PM [facility] MCV 97.4 79.0 - 98.0 FL LAB HEMETOLOGY METHOD 05/09/2024 1:10 PM EST [facility] LAB MCH 31.5 27.0 - 32.0 pcg LAB HEMETOLOGY METHOD 05/09/2024 1:10 PM EST [facility] LAB MCHC 32.3 32.0 - 37.0 g/dL LAB HEMETOLOGY METHOD 05/09/2024 1:10 PM [facility] LAB RDW 12.8 11.0 - 15.0 % LAB HEMETOLOGY METHOD 05/09/2024 1:10 PM EST [facility] Platelets 357 130 - 400 K/mcL LAB HEMETOLOGY METHOD 05/09/2024 1:10 PM EST [facility] LAB MPV 9.6 7.0 - 11.0 FL LAB HEMETOLOGY METHOD 05/09/2024 1:10 PM [facility] NRBC 0.0 <1.0 % LAB HEMETOLOGY METHOD 05/09/2024 1:10 PM EST [facility] NRBC Absolute 0.00 <0.10 K/mcL LAB HEMETOLOGY METHOD 05/09/2024 1:10 PM [facility] Blood Venous blood specimen / Unknown 05/09/2024 10:17 AM EST 05/09/2024 12:43 PM EST us Loco RICHARDSON LAB BLOOD ORDERABLES Final Res ult [facility] [address] [place] [address], documented in this encounter Visit Diagnoses Diagnosis Testicular hypofunction Other testicular hypofunction documented in this encounter Care Teams Demolition Crane Operator Relationship Specialty Start Date End Date Doug Hummel MD [address] [place] PCP - General Internal Medicine 11/18/16 documented as of this encounter
--- OUTSIDE RECORDS SUMMARY | 2024-12-03 16:30 | XMS_ITS | Patient Health Record ---
Author Organization [facility] Address [address] [place] [address] Care Team Providers Care Customer Solutions Representative Name Role Phone RICO HILLMAN Primary Care Provider Reece Garner Unavailable [phone] Allergies Allergen (clinical drug ingredient) Drug/Non Drug [...] needed Orally every 6 hrs/prn Active Ipratropium [place] 0.06 % USE 2 SPRAYS IN EACH [...] MG Oral for 90 Days Active Ipratropium [place] 0.06 % Nasal for 30 Days Active [...] Problem Status W/U Status Risk Notes Problem [id number] Encounter for screening for malignant neoplasm of colon (Z12.11) Active confirmed Problem 000011318 History of adenomatous polyp of colon (Z86.010) Active confirmed Problem 156136080 Long-term use of aspirin therapy (Z79.82) Active confirmed Vital Signs Temperature 98.4 degrees Fahrenheit 10/19/2024 Blood pressure diastolic 01 mm Hg 10/19/2024 Height 70 in 10/19/2024 Blood pressure systolic 001 mm Hg 10/19/2024 Weight 175 lbs 10/19/2024 BMI 25.11 kg/m2 10/19/2024 Encounters Encounter Location Date Provider Diagnosis [facility] [address] [place] [address] 10/19/2024 Reece Garzon Colon cancer screeni ng [...] Date MEDICARE OF [place] [address] [place] [address] [id number] CHAS TORRES Self - patient is the insured [employer] CLAIMS [address] [place] [address] [id number] CHAS TORRES Self - patient is the insured Medical (General) History Medical History History ICD Code Colonoscopy 02/16/2008- 1.5cm and 8mm tu bular adenomas removed Denies [place],CVA,renal disease Asthma/COPD- Dr. Escobar Back pain- disc disease HTN NIDDM Sinus and respiratory problems- Denies [place],CVA,or renal disease Normal MRCP in August,- H [...]
--- OUTSIDE RECORDS SUMMARY | 2024-12-03 16:30 | XMS_ITS | Clinical Summary ---
Author Organization [facility] Address [address] [place] [address] Phone Care Team Providers Care Retail Greeter Name Role Phone Doug Hummel MD Primary Care Provider [phone] Allergies Active Allergy Reactions Criticality Noted Date [...] (0.06 %) nasal spray 5 Active Hypodermic Lorraine 23 gauge x 1 needle USE TO [...] hand. MRI of the cervical spine from [facility] obtained on April 04, 2024 did [...] His MRI of the lumbar spine from [facility] does show what appears to be [...] left thumb 03/23/2024 CHF (congestive heart failure) ([facility] V24, [facility] V28) 03/20/2024 Diabetes mellitus, type 2 ([facility] V24, [facility] V28) 03/20/2024 Rhinitis 03/20/2024 Hyperlipidemia 03/20/2024 Chest pain 03/20/2024 COPD (chronic obstructive pu lmonary disease) ([facility] V24, [facility] V28) 03/20/2024 Encounters Date Type Department Care Team Description 11/19/2024 10:30 AM EDT Evaluation [address] [place] [address] [phone] Mitul Jacobs, PT Cervical spondylosis with radiculopathy; Chronic midline low back pain with left-sided sciatica 11/06/2024 Lab Requisition [facility] - Main Lab [address] [facility] [place] [phone] Loco Andres PA Testicular hypofunction 10/05/2024 10:15 AM EDT Office Visit Orthopedic Surgery [address] [phone] Yumiko Jones MD Open nondisplaced fracture of distal phalanx of left index finger with routine healing, subsequent encounter (Primary Dx) 09/11/2024 10:45 AM EDT Office Visit Orthopedic Surgery [address] [phone] Yumiko Jones MD Open nondisplaced fracture of distal phalanx of left index finger with routine healing, subsequent encounter (Primary Dx) from Last 3 Months Immunizations Name Administration [...] History Medical History Date Comments Hypertension Diabetes ([facility] V24, [facility] V28) Social History Tobacco Use Types Packs/Day [...] Routine 11/06/2024 9:27 AM EDT Testicular hypofunction from Last 3 Months Results * (ABNORMAL) Complete blood count (11/06/2024 9:27 AM EDT) WBC 9.4 4.8 - 10.8 K/mcL LAB HEMETOLOGY METHOD [facility] RBC 4.80 4.50 - 5.50 M/mcL LAB HEMETOLOGY METHOD 11/06[facility]24 [facility] Hemoglobin 15.3 13.5 - 17.5 g/dL LAB HEMETOLOGY METHOD 11/06/2024 12:45 PM [facility] LAB Hematocrit 47.4 42.0 - 54.0 % LAB HEMETOLOGY METHOD 11/06/2024 12:45 PM [facility] LAB MCV 98.5(H) 79.0 - 98.0 FL LAB HEMETOLOGY METHOD 11/06/2024 12:45 PM [facility] LAB MCH 31.8 27.0 - 32.0 pcg LAB HEMETOLOGY METHOD 11/06/2024 12:45 PM [facility] LAB MCHC 32.3 32.0 - 37.0 g/dL LAB HEMETOLOGY METHOD 11/06/2024 12:45 PM [facility] LAB RDW 13.2 11.0 - 15.0 % LAB HEMETOLOGY METHOD 11/06/2024 12:45 PM EDT [facility] LAB Platelets 323 130 - 400 K/mcL LAB HEMETOLOGY METHOD 11/06/2024 12:45 PM EDT [facility] LAB MPV 9.0 7.0 - 11.0 FL LAB HEMETOLOGY METHOD 11/06/2024 12:45 PM EDT [facility] NRBC 0.0 <1.0 % LAB HEMETOLOGY METHOD 11/06/2024 12:45 PM EDT [facility] NRBC Absolute 0.00 <0.10 K/mcL LAB HEMETOLOGY METHOD 11/06/2024 12:45 PM EDT [facility] Blood Venous blood specimen / Unknown 11/06/2024 9:27 AM EDT 11/06/2024 12:18 PM EDT us Loco Andres PA LAB BLOOD ORDERABLES Final Res ult [facility] [address] [place] [address], * (ABNORMAL) Hepatic function panel (11/06/2024 9:27 AM EDT) Total Protein 7.2 6.0 - 8.0 g/dL LAB CHEMISTRY METHOD 11/06/2024 1:36 PM EDT [facility] Albumin 3.9 3.2 - 5.0 g/dL LAB CHEMISTRY METHOD 11/06/2024 1:36 PM EDT [facility] Total Bilirubin 0.6 0.0 - 1.4 mg/dL LAB CHEMISTRY METHOD 11/06/2024 1:36 PM EDT [facility] Bilirubin, Direct 0.2 0.0 - 0.3 mg/dL LAB CHEMISTRY METHOD 11/06/2024 1:36 PM EDT [facility] Bilirubin, Indirect 0.4 0.0 - 1.1 mg/dL LAB CHEMISTRY METHOD 11/06/2024 1:36 PM EDT [facility] ALT (SGPT) 48 10 - 60 unit/L LAB CHEMISTRY METHOD 11/06/2024 1:36 PM EDT [facility] AST (SGOT) 26 10 - 42 unit/L LAB CHEMISTRY METHOD 11/06/2024 1:36 PM EDT [facility] Alkaline Phosphatase 127(H) 42 - 121 unit/L LAB CHEMISTRY METHOD 11/06/2024 1:36 PM EDT [facility] Blood Venous blood specimen / Unknown 11/06/2024 9:27 AM EDT 11/06/2024 12:18 PM EDT us Loco RICHARDSON LAB BLOOD ORDERABLES Final Res ult [facility] [address] [place] [address], [place] [phone] from Last 3 Months Insurance MEDICARE [facility] Care Teams Retail Greeter Relationship Specialty Start Date End Date Doug Hummel MD [address] [place] PCP - General Internal Medicine 11/18/16
--- OUTSIDE RECORDS SUMMARY | 2024-12-03 16:30 | XMS_ITS | Encounter Summary ---
Author Organization [facility] Address [address] [place] [address] Care Team Providers Care Lean Manufacturing Leader Name Role Phone Doug Hummel MD Primary Care Provider [phone] Encounter Details Date Type Department Care Team (Late st Contact Info) Description 11/06/[address] [facility] - Main Lab [address] [facility] [place] [address] Loco Andres, DYLAN [address] [facility] [address] [place] [phone] Testicular hypofunction Social History Tobacco Use Types [...] AM EDT) WBC 9.4 4.8 - 10.8 K/[facility] LAB HEMETOLOGY METHOD 11/06/2024 12:45 PM EDT [facility] RBC 4.80 4.50 - 5.50 M/mcL LAB HEMETOLOGY METHOD 11/06/2024 12:45 PM EDT [facility] Hemoglobin 15.3 13.5 - 17.5 g/dL LAB HEMETOLOGY METHOD 11/06/2024 12:45 PM [facility] Hematocrit 47.4 42.0 - 54.0 % LAB HEMETOLOGY METHOD 11/06/2024 12:45 PM [facility] LAB MCV 98.5(H) 79.0 - 98.0 FL LAB HEMETOLOGY METHOD 11/06/2024 12:45 PM [facility] LAB MCH 31.8 27.0 - 32.0 pcg LAB HEMETOLOGY METHOD 11/06/2024 12:45 PM [facility] LAB MCHC 32.3 32.0 - 37.0 g/dL LAB HEMETOLOGY METHOD 11/06/2024 12:45 PM [facility] LAB RDW 13.2 11.0 - 15.0 % LAB HEMETOLOGY METHOD 11/06/2024 12:45 PM [facility] LAB Platelets 323 130 - 400 K/mcL LAB HEMETOLOGY METHOD 11/06/2024 12:45 PM [facility] LAB MPV 9.0 7.0 - 11.0 FL LAB HEMETOLOGY METHOD 11/06/2024 12:45 PM [facility] LAB NRBC 0.0 <1.0 % LAB HEMETOLOGY METHOD 11/06/2024 12:45 PM [facility] LAB NRBC Absolute 0.00 <0.10 K/mcL LAB HEMETOLOGY METHOD 11/06/2024 12:45 PM [facility] LAB Blood Venous blood specimen / Unknown 11/06/2024 9:27 AM EDT 11/06/2024 12:18 PM EDT us Loco RICHARDSON LAB BLOOD ORDERABLES Final Res ult Performing Organization Address City/[facility]/ZIP Co de Phone Number [facility] [address] [place] [address], [place] [phone] * (ABNORMAL) Hepatic function panel (11/06/2024 9:27 AM EDT) Total Protein 7.2 6.0 - 8.0 g/dL LAB CHEMISTRY METHOD 11/06/2024 1:36 PM EDT [facility] Albumin 3.9 3.2 - 5.0 g/dL LAB CHEMISTRY METHOD 11/06/2024 1:36 PM EDT [facility] Total Bilirubin 0.6 0.0 - 1.4 mg/dL LAB CHEMISTRY METHOD 11/06/2024 1:36 PM EDT [facility] Bilirubin, Direct 0.2 0.0 - 0.3 mg/dL LAB CHEMISTRY METHOD 11/06/2024 1:36 PM EDT [facility] Bilirubin, Indirect 0.4 0.0 - 1.1 mg/dL LAB CHEMISTRY METHOD 11/06/2024 1:36 PM EDT [facility] ALT (SGPT) 48 10 - 60 unit/L LAB CHEMISTRY METHOD 11/06/2024 1:36 PM EDT [facility] AST (SGOT) 26 10 - 42 unit/L LAB CHEMISTRY METHOD 11/06/2024 1:36 PM EDT [facility] Alkaline Phosphatase 127(H) 42 - 121 unit/L LAB CHEMISTRY METHOD 11/06/2024 1:36 PM EDT [facility] Blood Venous blood specimen / Unknown 11/06/2024 9:27 AM EDT 11/06/2024 12:18 PM EDT us Loco RICHARDSON LAB BLOOD ORDERABLES Final Res ult [facility] [address] [place] [address], documented in this encounter Visit Diagnoses Diagnosis Testicular hypofunction Other testicular hypofunction documented in this encounter Care Teams Lean Manufacturing Leader Relationship Specialty Start Date End Date Doug Hummel MD [address] [place] [address] PCP - General Internal Medicine 11/18/16 documented as of this encounter
== END 2024-12-03 15:01 | disposition home or self-care (01) ==
LOC: HO.HCC 14:09
PROVIDERS: PCP Internal Medicine; Visit Provider Internal Medicine
DX: F11.90 Opioid use, unspecified, uncomplicated (principal)
CPT/HCPCS: 99214

== ENCOUNTER → 2024-12-03 14:09 | Outpatient (BNVA) | payer MEDICARE, SELFPAY | PROVIDERS: PCP Internal Medicine; Visit Provider Internal Medicine | DX: F11.90 Opioid use, unspecified, uncomplicated (principal) | CPT/HCPCS: 99212 ==

== ENCOUNTER 2024-12-05 09:03 | Outpatient (AMB) | payer MEDICARE, SELFPAY ==
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
[2024-12-05 09:07] VITALS: BP 157/84; PULSE 82; RESP 16; O2SAT 95; BMI 25.2
--- OUTSIDE RECORDS SUMMARY | 2024-12-05 10:42 | XMS_ITS | Clinical Summary ---
Author Organization [address] [facility] Address [address] [place] [address] Phone Care Team Providers Care Chain Tender Name Role Phone Doug Hummel MD Primary Care Provider [phone] Allergies Active Allergy Reactions Criticality Noted Date [...] (0.06 %) nasal spray 5 Active Hypodermic [place] 23 gauge x 1 needle USE TO [...] hand. MRI of the cervical spine from [facility] obtained on April 04, 2024 did [...] His MRI of the lumbar spine from [facility] does show what appears to be [...] left thumb 03/23/2024 [place]estive [place] [place] [facility] [place] 03/20/2024 Diabetes mellitus, type 2 [place] [place] [facility] V28) 03/20/2024 Rhinitis 03/20/2024 Hyperlipidemia 03/20/2024 Chest pain 03/20/2024 COPD (chronic obstructive pu lmonary disease) [place] [place] [facility] [place] 03/20/2024 Encounters Date Type Department Care Team Description 11/19/2024 10:30 AM EDT Evaluation [address] [phone] Mitul Jacobs, PT Cervical spondylosis with radiculopathy; Chronic midline low back pain with left-sided sciatica 11/06/2024 Lab Requisition [facility] - Main Lab [address] [facility] [place] [phone] Loco Andres PA Testicular hypofunction 10/05/2024 10:15 AM EDT Office Visit Orthopedic Surgery [address] [phone] Yumiko Jones MD Open nondisplaced fracture of distal phalanx of left index finger with routine healing, subsequent encounter (Primary Dx) 09/11/2024 10:45 AM EDT Office Visit Orthopedic Surgery [address] [phone] Yumiko Jones MD Open nondisplaced fracture of [...] History Medical History Date Comments Hypertension Diabetes ([facility] V24, [facility] V28) Social History Tobacco Use Types [...] K/mcL LAB HEM[facility]OLOGY [facility] RBC 4.80 4.50 - 5.50 M/mcL LAB HEMETOLOGY METHOD 11/[facility]24 [facility] Hemoglobin 15.3 13.5 - 17.5 g/dL LAB HEMETOLOGY METHOD 11/06/2024 12:45 PM [facility] Hematocrit 47.4 42.0 - 54.0 % LAB HEMETOLOGY METHOD 11/06/2024 12:45 PM [facility] MCV 98.5(H) 79.0 - 98.0 FL LAB HEMETOLOGY METHOD 11/06/2024 12:45 PM [facility] MCH 31.8 27.0 - 32.0 pcg LAB HEMETOLOGY METHOD 11/06/2024 12:45 PM [facility] MCHC 32.3 32.0 - 37.0 g/dL LAB HEMETOLOGY METHOD 11/06/2024 12:45 PM [facility] RDW 13.2 11.0 - 15.0 % LAB HEMETOLOGY METHOD 11/06/2024 12:45 PM EDT [facility] Platelets 323 130 - 400 K/mcL LAB HEMETOLOGY METHOD 11/06/2024 12:45 PM EDT [facility] MPV 9.0 7.0 - 11.0 FL LAB HEMETOLOGY METHOD 11/06/2024 12:45 PM EDT [facility] NRBC 0.0 <1.0 % LAB HEMETOLOGY METHOD 11/06/2024 12:45 PM EDT [facility] NRBC Absolute 0.00 <0.10 K/mcL LAB HEMETOLOGY METHOD 11/06/2024 12:45 PM EDT [facility] Blood Venous blood specimen / Unknown 11/06/2024 9:27 AM EDT 11/06/2024 12:18 PM EDT us Loco Andres PA LAB BLOOD ORDERABLES Final Res ult [facility] [address] [place] [address], * (ABNORMAL) Hepatic function panel (11/06/2024 9:27 AM EDT) Total Protein 7.2 6.0 - 8.0 g/dL LAB CHEMISTRY METHOD 11/06/2024 1:36 PM EDT [facility] Albumin 3.9 3.2 - 5.0 g/dL LAB CHEMISTRY METHOD 11/06/2024 1:36 PM EDT [facility] Total Bilirubin 0.6 0.0 - 1.4 mg/dL LAB CHEMISTRY METHOD 11/06/2024 1:36 PM EDT [facility] Bilirubin, Direct 0.2 0.0 - 0.3 mg/dL LAB CHEMISTRY METHOD 11/06/2024 1:36 PM EDT [facility] Bilirubin, Indirect 0.4 0.0 - 1.1 mg/dL LAB CHEMISTRY METHOD 11/06/2024 1:36 PM EDT [facility] ALT (SGPT) 48 10 - 60 unit/L LAB CHEMISTRY METHOD 11/06/2024 1:36 PM EDT [facility] AST (SGOT) 26 10 - 42 unit/L LAB CHEMISTRY METHOD 11/06/2024 1:36 PM EDT [facility] Alkaline Phosphatase 127(H) 42 - 121 unit/L LAB CHEMISTRY METHOD 11/06/2024 1:36 PM EDT [facility] Blood Venous blood specimen / Unknown 11/06/2024 9:27 AM EDT 11/06/2024 12:18 PM EDT us Loco RICHARDSON LAB BLOOD ORDERABLES Final Res ult [facility] [address] [place] [address], [place] [phone] from Last 3 Months Insurance MEDICARE [facility] Care Teams Chain Tender Relationship Specialty Start Date End Date Doug Hummel MD [address] [place] PCP - General Internal Medicine 11/18/16
--- OUTSIDE RECORDS SUMMARY | 2024-12-05 10:42 | XMS_ITS | Encounter Summary ---
Author Organization [facility] Address [address] [place] [phone] Care Team Providers Care Senior Application Software Engineer Name Role Phone Doug Hummel MD Primary Care Provider [phone] Encounter Details Date Type Department Care Team (Late st Contact Info) Description 05/09/2024 Lab Requisition [facility] - Main Lab [address] [place] [address] Loco Andres, DYLAN [address] [facility] [address] [place] [phone] Testicular hypofunction Social History Tobacco Use Types [...] AM EST) WBC 11.6(H) 4.8 - 10.8 K/[facility] LAB HEMETOLOGY METHOD 05/09/2024 1:10 PM EST [facility] RBC 5.50 4.50 - 5.50 M/[facility] LAB HEMETOLOGY METHOD 05/09/2024 1:10 PM EST [facility] LAB Hemoglobin 17.2 13.5 - 17.5 g/dL LAB HEMETOLOGY METHOD 05/09/2024 1:10 PM EST [facility] LAB Hematocrit 53.2 42.0 - 54.0 % LAB HEMETOLOGY METHOD 05/09/2024 1:10 PM [facility] LAB MCV 97.4 79.0 - 98.0 FL LAB HEMETOLOGY METHOD 05/09/2024 1:10 PM EST [facility] LAB MCH 31.5 27.0 - 32.0 pcg LAB HEMETOLOGY METHOD 05/09/2024 1:10 PM EST [facility] LAB MCHC 32.3 32.0 - 37.0 g/dL LAB HEMETOLOGY METHOD 05/09/2024 1:10 PM [facility] RDW 12.8 11.0 - 15.0 % LAB HEMETOLOGY METHOD 05/09/2024 1:10 PM EST [facility] LAB Platelets 357 130 - 400 K/mcL LAB HEMETOLOGY METHOD 05/09/2024 1:10 PM EST [facility] LAB MPV 9.6 7.0 - 11.0 FL LAB HEMETOLOGY METHOD 05/09/2024 1:10 PM [facility] NRBC 0.0 <1.0 % LAB HEMETOLOGY METHOD 05/09/2024 1:10 PM EST [facility] LAB NRBC Absolute 0.00 <0.10 K/mcL LAB HEMETOLOGY METHOD 05/09/2024 1:10 PM [facility] Blood Venous blood specimen / Unknown 05/09/2024 10:17 AM EST 05/09/2024 12:43 PM EST us Loco RICHARDSON LAB BLOOD ORDERABLES Final Res ult [facility] [address] [place] [address], documented in this encounter Visit Diagnoses Diagnosis Testicular hypofunction Other testicular hypofunction documented in this encounter Care Teams Senior Application Software Engineer Relationship Specialty Start Date End Date Doug Hummel MD [address] [place] PCP - General Internal Medicine 11/18/16 documented as of this encounter
--- OUTSIDE RECORDS SUMMARY | 2024-12-05 10:43 | XMS_ITS | Patient Health Record ---
Author Organization [facility] Address [address] [place] [address] Care Team Providers Care Informatics Physician Name Role Phone RICO HILLMAN Primary Care Provider Reece Garner Unavailable [phone] Allergies Allergen (clinical drug ingredient) Drug/Non Drug [...] needed Orally every 6 hrs/prn Active Ipratropium Sunol 0.06 % USE 2 SPRAYS IN EACH [...] MG Oral for 90 Days Active Ipratropium Sunol 0.06 % Nasal for 30 Days Active [...] Problem Status W/U Status Risk Notes Problem [id number] Encounter for screening for malignant neoplasm of colon (Z12.11) Active confirmed Problem [id number] History of adenomatous polyp of colon (Z86.010) Active confirmed Problem 062236238 Long-term use of aspirin therapy (Z79.82) Active confirmed Vital Signs Temperature 98.4 degrees Fahrenheit 10/19/2024 Blood pressure diastolic 01 mm Hg 10/19/2024 Height 70 in 10/19/2024 Blood pressure systolic 001 mm Hg 10/19/2024 Weight 175 lbs 10/19/2024 BMI 25.11 kg/m2 10/19/2024 Encounters Encounter Location Date Provider Diagnosis [facility] [address] [place] [address] 10/19/2024 Reece Garzon Colon cancer screeni ng [...] Date MEDICARE OF [place] [address] [place] [address] [id number] CHAS TORRES Self - patient is the insured [employer] CLAIM[employer] [address] [place] [address] [id number] CHAS TORRES Self - patient is the insured Medical (General) History Medical History History ICD Code Colonoscopy 02/16/2008- 1.5cm and 8mm tu bular adenomas removed Denies [place],CVA,renal disease Asthma/COPD- Dr. Escobar Back pain- disc disease HTN NIDDM Sinus and respiratory problems- Denies [place],CVA,or renal disease Normal MRCP in August,- H [...]
--- OUTSIDE RECORDS SUMMARY | 2024-12-05 10:43 | XMS_ITS | Patient Health Record ---
[facility] Address [address] [place] [address] Care Team Providers Care Chest Painting And Sealing Supervisor Name Role Phone Dianne Hazel Unavailable [phone] Allergies Allergen (clinical drug ingredient) Drug/Non Drug [...] Problem Acquired hammer toe of right foot (5872827695782313 ) Other hammer toe(s) (acquired), right foot (M20.41) Active confirmed Problem Acquired hammer toe of left foot (9774901142406744 ) Other hammer toe(s) (acquired), left foot (M20.42) Active confirmed Problem Polyneuropathy due to type 2 diabetes mellitus (357682876) Type 2 diabetes mellitus with diabetic polyneuropathy (E11.42) Active confirmed Vital Signs Blood pressure diastolic 65 mm Hg 11/21/2024 Height 1sg03qq in 11/21/2024 Blood pressure systolic 128 mm Hg 11/21/2024 Weight 180 lbs 11/21/2024 BMI 25.1 kg/m2 11/21/2024 Procedures Procedure Date Ordered Date Performed Result Body Sit e 01579-NVFQDSC NAIL, 6 OR MORE 08/09/2024 N/A 37994-FXYW SKIN LESIONS, 2 TO 4 08/09/2024 N/A Encounters Encounter [facility] Date [facility] [phone] 08/09/2024 Dianne Hazel Other hammer toe(s) (acquired), right foot M20.41 ; Other hammer toe(s) (acquired), left foot M20.42 ; Type 2 diabetes mellitus with diabetic polyneuropathy E11.42 and Tinea unguium B35.[address] [address] 11/21/2024 Dianne Hazel Type 2 diabetes mellitus [...] Treatment Pending Test Test Name Order Date 32310-MTRNAIZ NAIL, 6 OR MORE 08/09/2024 08440-PFSU SKIN LESIONS, 2 TO 4 08/10/19 25 Next Appt Details Provider Name:Dianne rosa, 02/27/2025 09:30:00 AM, [address] [place] [address], [phone], Insurance Providers Payer Name Payer Address Payer Phone Subscriber Number Group Number Insured Name Patient Relationship to Insured Coverage Start Date Coverage End Date Medicare National [employer] [address] [place] [address] [id number] Chas Jack Self - patient is the insured [employer] [address] [place] [address] Chas Jack Self - patient is the [...]
--- OUTSIDE RECORDS SUMMARY | 2024-12-05 10:43 | XMS_ITS | Encounter Summary ---
Author Organization [facility] Address [address] [place] [address] Care Team Providers Care Service Operations Manager Name Role Phone Doug Hummel MD Primary Care Provider [phone] Encounter Details Date Type Department Care Team (Late st Contact Info) Description 11/06/2024 Lab Requisition [facility] - Main Lab [address] [facility] [place] [address] Loco Andres, DYLAN [address] [facility] [address] [place] [phone] Testicular hypofunction Social History Tobacco Use Types [...] AM EDT) WBC 9.4 4.8 - 10.8 K/[facility] LAB HEMETOLOGY METHOD 11/06/2024 12:45 PM EDT [facility] RBC 4.80 4.50 - 5.50 M/mcL LAB HEMETOLOGY METHOD 11/06/2024 12:45 PM EDT [facility] Hemoglobin 15.3 13.5 - 17.5 g/dL LAB HEMETOLOGY METHOD 11/06/2024 12:45 PM [facility] LAB Hematocrit 47.4 42.0 - 54.0 % LAB HEMETOLOGY METHOD 11/06/2024 12:45 PM [facility] LAB MCV 98.5(H) 79.0 - 98.0 FL LAB HEMETOLOGY METHOD 11/06/2024 12:45 PM [facility] LAB MCH 31.8 27.0 - 32.0 pcg LAB HEMETOLOGY METHOD 11/06/2024 12:45 PM [facility] LAB MCHC 32.3 32.0 - 37.0 g/dL LAB HEMETOLOGY METHOD 11/06/2024 12:45 PM [facility] LAB RDW 13.2 11.0 - 15.0 % LAB HEMETOLOGY METHOD 11/06/2024 12:45 PM [facility] LAB Platelets 323 130 - 400 K/mcL LAB HEMETOLOGY METHOD 11/06/2024 12:45 PM [facility] LAB MPV 9.0 7.0 - 11.0 FL LAB HEMETOLOGY METHOD 11/06/2024 12:45 PM [facility] LAB NRBC 0.0 <1.0 % LAB HEMETOLOGY METHOD 11/06/2024 12:45 PM [facility] LAB NRBC Absolute 0.00 <0.10 K/mcL LAB HEMETOLOGY METHOD 11/06/2024 12:45 PM [facility] Blood Venous blood specimen / Unknown 11/06/2024 9:27 AM EDT 11/06/2024 12:18 PM EDT us Loco RICHARDSON LAB BLOOD ORDERABLES Final Res ult Performing Organization Address City/[facility]/ZIP Co de Phone Number [facility] [address] [place] [address], [place] [phone] * (ABNORMAL) Hepatic function panel (11/06/2024 9:27 AM EDT) Total Protein 7.2 6.0 - 8.0 g/dL LAB CHEMISTRY METHOD 11/06/2024 1:36 PM EDT [facility] Albumin 3.9 3.2 - 5.0 g/dL LAB CHEMISTRY METHOD 11/06/2024 1:36 PM EDT [facility] Total Bilirubin 0.6 0.0 - 1.4 mg/dL LAB CHEMISTRY METHOD 11/06/2024 1:36 PM EDT [facility] Bilirubin, Direct 0.2 0.0 - 0.3 mg/dL LAB CHEMISTRY METHOD 11/06/2024 1:36 PM EDT [facility] Bilirubin, Indirect 0.4 0.0 - 1.1 mg/dL LAB CHEMISTRY METHOD 11/06/2024 1:36 PM EDT [facility] ALT (SGPT) 48 10 - 60 unit/L LAB CHEMISTRY METHOD 11/06/2024 1:36 PM EDT [facility] AST (SGOT) 26 10 - 42 unit/L LAB CHEMISTRY METHOD 11/06/2024 1:36 PM EDT [facility] Alkaline Phosphatase 127(H) 42 - 121 unit/L LAB CHEMISTRY METHOD 11/06/2024 1:36 PM EDT [facility] Blood Venous blood specimen / Unknown 11/06/2024 9:27 AM EDT 11/06/2024 12:18 PM EDT us Loco RICHARDSON LAB BLOOD ORDERABLES Final Res ult [facility] [address] [place] [address], documented in this encounter Visit Diagnoses Diagnosis Testicular hypofunction Other testicular hypofunction documented in this encounter Care Teams Service Operations Manager Relationship Specialty Start Date End Date Doug Hummel MD [address] [place] [address] PCP - General Internal Medicine 11/18/16 documented as of this encounter
== END 2024-12-05 09:38 | disposition home or self-care (01) ==
LOC: HO.PMC 09:04
PROVIDERS: PCP Internal Medicine; Visit Provider Anesthesiology
DX: M96.1 Postlaminectomy syndrome, not elsewhere classified (principal); G89.4 Chronic pain syndrome; M47.812 Spondylosis without myelopathy or radiculopathy, cervical region; M50.30 Other cervical disc degeneration, unspecified cervical region
CPT/HCPCS: 99203

== ENCOUNTER → 2024-12-05 09:03 | Outpatient (BNVA) | payer MEDICARE, SELFPAY | PROVIDERS: PCP Internal Medicine; Visit Provider Anesthesiology | DX: M96.1 Postlaminectomy syndrome, not elsewhere classified (principal); G89.4 Chronic pain syndrome; M47.812 Spondylosis without myelopathy or radiculopathy, cervical region; M50.30 Other cervical disc degeneration, unspecified cervical region | CPT/HCPCS: 99202 ==

== ENCOUNTER 2024-12-18 09:14 | Outpatient (AMB) | payer MEDICARE, SELFPAY ==
[2024-12-18 09:15] VITALS: BP 152/82; PULSE 56; RESP 16; TEMP 36.5; O2SAT 98; BMI 26.1
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
--- OUTSIDE RECORDS SUMMARY | 2024-12-18 10:47 | XMS_ITS | Clinical Summary ---
Author Organization [address] [facility] Address [address] [place] [address] Phone Care Team Providers Care Vacuum Frame Operator Name Role Phone Doug Hummel MD Primary Care Provider [phone] Allergies Active Allergy Reactions Criticality Noted Date [...] (0.06 %) nasal spray 5 Active Hypodermic [place] 23 gauge x 1 needle USE TO [...] hand. MRI of the cervical spine from [facility] obtained on April 04, 2024 did reveal [...] His MRI of the lumbar spine from [facility] does show what appears to be a [...] left thumb 03/23/2024 CHF (congestive heart failure) ([facility] V24, [facility] V28) 03/20/2024 Diabetes mellitus, type 2 ([facility] V24, [facility] V28) 03/20/2024 Rhinitis 03/20/2024 Hyperlipidemia 03/20/2024 Chest pain 03/20/2024 COPD (chronic obstructive pu lmonary disease) ([facility] V24, [facility] V28) 03/20/2024 Encounters Date Type Department Care Team Description 11/19/2024 10:30 AM EDT Evaluation [facility] - [address] [place] [phone] Mitul Jaocbs, PT Cervical spondylosis with radiculopathy; Chronic midline low back pain with left-sided sciatica 11/06/2024 Lab Requisition [facility] - Main Lab [address] [facility] [place] [address] Loco Andres PA Testicular hypofunction 10/05/2024 10:15 AM EDT Office Visit Orthopedic Surgery - [address] [place] [phone] Yumiko Jones MD Open nondisplaced fracture of [...] History Medical History Date Comments Hypertension Diabetes ([facility] V24, [facility] V28) Social History Tobacco Use Types [...] LAB HEMETOLOGY METHOD 11/06/2024 12:45 PM EDT [facility] RBC 4.80 4.50 - 5.50 M/mcL LAB HEM[facility]OLOGY [facility] Hemoglobin 15.3 13.5 - 17.5 g/dL LAB HEMETOLOGY METHOD 11/06[facility]2024 [facility] Hematocrit 47.4 42.0 - 54.0 % LAB HEMETOLOGY METHOD 11/06/2024 12:[facility] MCV 98.5(H) 79.0 - 98.0 FL LAB HEMETOLOGY METHOD 11/06/2024 12:[facility] MCH 31.8 27.0 - 32.0 pcg LAB HEMETOLOGY METHOD 11/06/2024 12:45 [facility] MCHC 32.3 32.0 - 37.0 g/dL LAB HEMETOLOGY METHOD 11/06/2024 12:45 PM [facility] RDW 13.2 11.0 - 15.0 % LAB HEMETOLOGY METHOD 11/06/2024 12:45 PM [facility] Platelets 323 130 - 400 K/mcL LAB HEMETOLOGY METHOD 11/06/2024 12:45 [facility] MPV 9.0 7.0 - 11.0 FL LAB HEMETOLOGY METHOD 11/06/2024 12:45 PM EDT [facility] NRBC 0.0 <1.0 % LAB HEMETOLOGY METHOD 11/06/2024 12:45 PM EDT [facility] NRBC Absolute 0.00 <0.10 K/mcL LAB HEMETOLOGY METHOD 11/06/2024 12:45 PM EDT [facility] Blood Venous blood specimen / Unknown 11/06/2024 9:27 AM EDT 11/06/2024 12:18 PM EDT us Loco RICHARDSON LAB BLOOD ORDERABLES Final Res ult [facility] [address] [place] [address], * (ABNORMAL) Hepatic function panel (11/06/2024 9:27 AM EDT) Total Protein 7.2 6.0 - 8.0 g/dL LAB CHEMISTRY METHOD 11/06/2024 1:36 PM EDT [facility] Albumin 3.9 3.2 - 5.0 g/dL LAB CHEMISTRY METHOD 11/06/2024 1:36 PM EDT [facility] Total Bilirubin 0.6 0.0 - 1.4 mg/dL LAB CHEMISTRY METHOD 11/06/2024 1:36 PM EDT [facility] Bilirubin, Direct 0.2 0.0 - 0.3 mg/dL LAB CHEMISTRY METHOD 11/06/2024 1:36 PM EDT [facility] Bilirubin, Indirect 0.4 0.0 - 1.1 mg/dL LAB CHEMISTRY METHOD 11/06/2024 1:36 PM [facility] ALT (SGPT) 48 10 - 60 unit/L LAB CHEMISTRY METHOD 11/06/2024 1:36 PM EDT [facility] AST (SGOT) 26 10 - 42 unit/L LAB CHEMISTRY METHOD 11/06/2024 1:36 PM EDT [facility] Alkaline Phosphatase 127(H) 42 - 121 unit/L LAB CHEMISTRY METHOD 11/06/2024 1:36 PM EDT [facility] Blood Venous blood specimen / Unknown 11/06/2024 9:27 AM EDT 11/06/2024 12:18 PM EDT us Loco RICHARDSON LAB BLOOD ORDERABLES Final Res ult [facility] [address] [place] [address], [place] [phone] from Last 3 Months Insurance MEDICARE [facility] Care Teams Vacuum Frame Operator Relationship Specialty Start Date End Date Doug Hummel MD [address] [place] [address] PCP - General Internal Medicine 11/18/16
--- OUTSIDE RECORDS SUMMARY | 2024-12-18 10:47 | XMS_ITS | Encounter Summary ---
Author Organization [facility] Address [id number] [place] [phone] Care Team Providers Care Probate Clerk Name Role Phone Doug Hummel MD Primary Care Provider [phone] Encounter Details Date Type Department Care Team (Late st Contact Info) Description 05/09/2024 Lab Requisition [facility] - Main Lab [address] [place] [address] Loco Andres, DYLAN [address] [facility] [address] [place] [phone] Testicular hypofunction Social History Tobacco Use Types [...] AM EST) WBC 11.6(H) 4.8 - 10.8 K/[facility] LAB HEMETOLOGY METHOD 05/09/2024 1:10 PM EST [facility] RBC 5.50 4.50 - 5.50 M/[facility] LAB HEMETOLOGY METHOD 05/09/2024 1:10 PM EST [facility] Hemoglobin 17.2 13.5 - 17.5 g/dL LAB HEMETOLOGY METHOD 05/09/2024 1:10 PM EST [facility] Hematocrit 53.2 42.0 - 54.0 % LAB HEMETOLOGY METHOD 05/09/2024 1:10 PM [facility] MCV 97.4 79.0 - 98.0 FL LAB HEMETOLOGY METHOD 05/09/2024 1:10 PM EST [facility] MCH 31.5 27.0 - 32.0 pcg LAB HEMETOLOGY METHOD 05/09/2024 1:10 PM EST [facility] MCHC 32.3 32.0 - 37.0 g/dL LAB HEMETOLOGY METHOD 05/09/2024 1:10 PM [facility] RDW 12.8 11.0 - 15.0 % LAB HEMETOLOGY METHOD 05/09/2024 1:10 PM EST [facility] Platelets 357 130 - 400 K/mcL LAB HEMETOLOGY METHOD 05/09/2024 1:10 PM EST [facility] MPV 9.6 7.0 - 11.0 FL LAB HEMETOLOGY METHOD 05/09/2024 1:10 PM [facility] NRBC 0.0 <1.0 % LAB HEMETOLOGY METHOD 05/09/2024 1:10 PM EST [facility] NRBC Absolute 0.00 <0.10 K/mcL LAB HEMETOLOGY METHOD 05/09/2024 1:10 PM [facility] Blood Venous blood specimen / Unknown 05/09/2024 10:17 AM EST 05/09/2024 12:43 PM EST us Loco RICHARDSON LAB BLOOD ORDERABLES Final Res ult [facility] [address] [place] [address], documented in this encounter Visit Diagnoses Diagnosis Testicular hypofunction Other testicular hypofunction documented in this encounter Care Teams Probate Clerk Relationship Specialty Start Date End Date Doug Hummel MD [address] [place] PCP - General Internal Medicine 11/18/16 documented as of this encounter
== END 2024-12-18 10:32 | disposition home or self-care (01) ==
LOC: HO.HMCSH 09:14
PROVIDERS: PCP Internal Medicine; Visit Provider Internal Medicine
DX: F11.90 Opioid use, unspecified, uncomplicated (principal); Z23 Encounter for immunization

== ENCOUNTER → 2024-12-18 09:14 | Outpatient (BNVA) | payer MEDICARE, SELFPAY | PROVIDERS: PCP Internal Medicine; Visit Provider Internal Medicine | DX: M54.2 Cervicalgia (principal); M79.605 Pain in left leg; M79.604 Pain in right leg; F11.90 Opioid use, unspecified, uncomplicated; G89.29 Other chronic pain; Z23 Encounter for immunization | CPT/HCPCS: 90471; 90656; 96127; 99212 ==

== ENCOUNTER 2025-01-14 09:06 | Outpatient (AMB) | payer MEDICARE, SELFPAY ==
[2025-01-14 09:13] VITALS: TEMP 36.2; BMI 25.4
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
== END 2025-01-14 10:11 | disposition home or self-care (01) ==
LOC: HO.HMCSH 09:06
PROVIDERS: PCP Internal Medicine; Visit Provider Internal Medicine
DX: F11.90 Opioid use, unspecified, uncomplicated (principal)

== ENCOUNTER → 2025-01-14 09:06 | Outpatient (BNVA) | payer MEDICARE, SELFPAY | PROVIDERS: PCP Internal Medicine; Visit Provider Internal Medicine | DX: G89.29 Other chronic pain (principal); F11.90 Opioid use, unspecified, uncomplicated; R25.1 Tremor, unspecified; G47.00 Insomnia, unspecified; R63.0 Anorexia | CPT/HCPCS: 96127; 99212 ==

== ENCOUNTER 2025-01-22 10:35 | Outpatient (AMB) | payer MEDICARE, SELFPAY ==
[2025-01-22 10:38] VITALS: BP 142/77; PULSE 53; O2SAT 99; BMI 26.7
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
--- OUTSIDE RECORDS SUMMARY | 2025-01-22 13:18 | XMS_ITS | Encounter Summary ---
Author Organization [facility] Address [address] [place] [address] Care Team Providers Care Cnc Specialist Name Role Phone Doug Hummel MD Primary Care Provider [phone] Encounter Details Date Type Department Care Team (Late st Contact Info) Description 11/06/2024 Lab Requisition [facility] - Main Lab [address] [facility] [place] [address] Loco Andres, DYLAN [address] [facility] [address] [place] [phone] Testicular hypofunction Social History Tobacco Use Types [...] AM EDT) WBC 9.4 4.8 - 10.8 K/[facility] LAB HEMETOLOGY METHOD 11/06/2024 12:45 PM EDT [facility] RBC 4.80 4.50 - 5.50 M/mcL LAB HEMETOLOGY METHOD 11/06/2024 12:45 PM EDT [facility] Hemoglobin 15.3 13.5 - 17.5 [...] 11/06/2024 12:45 PM [facility] Platelets 323 130 - 400 K/mcL LAB HEMETOLOGY METHOD 11/06/2024 12:45 PM [facility] MPV 9.0 7.0 - 11.0 FL LAB HEMETOLOGY METHOD 11/06/2024 12:45 PM [facility] NRBC 0.0 <1.0 % LAB HEMETOLOGY METHOD 11/06/2024 12:45 PM [facility] NRBC Absolute 0.00 <0.10 K/mcL LAB HEMETOLOGY METHOD 11/06/2024 12:45 PM [facility] Blood Venous blood specimen / Unknown 11/06/2024 9:27 AM EDT 11/06/2024 12:18 PM EDT us Loco RICHARDSON LAB BLOOD ORDERABLES Final Res ult Performing Organization Address City/[facility]/ZIP Co de Phone Number [facility] [address] [place] [address], [place] [phone] * (ABNORMAL) Hepatic function panel (11/06/2024 9:27 AM EDT) Total Protein 7.2 6.0 - 8.0 g/dL LAB CHEMISTRY METHOD 11/06/2024 1:36 PM EDT [facility] Albumin 3.9 3.2 - 5.0 g/dL LAB CHEMISTRY METHOD 11/06/2024 1:36 PM EDT [facility] Total Bilirubin 0.6 0.0 - 1.4 mg/dL LAB CHEMISTRY METHOD 11/06/2024 1:36 PM EDT [facility] Bilirubin, Direct 0.2 0.0 - 0.3 mg/dL LAB CHEMISTRY METHOD 11/06/2024 1:36 PM EDT [facility] Bilirubin, Indirect 0.4 0.0 - 1.1 mg/dL LAB CHEMISTRY METHOD 11/06/2024 1:36 PM EDT [facility] ALT (SGPT) 48 10 - 60 unit/L LAB CHEMISTRY METHOD 11/06/2024 1:36 PM EDT [facility] AST (SGOT) 26 10 - 42 unit/L LAB CHEMISTRY METHOD 11/06/2024 1:36 PM EDT [facility] Alkaline Phosphatase 127(H) 42 - 121 unit/L LAB CHEMISTRY METHOD 11/06/2024 1:36 PM EDT [facility] Blood Venous blood specimen / Unknown 11/06/2024 9:27 AM EDT 11/06/2024 12:18 PM EDT us Loco RICHARDSON LAB BLOOD ORDERABLES Final Res ult [facility] [address] [place] [address], documented in this encounter Visit Diagnoses Diagnosis Testicular hypofunction Other testicular hypofunction documented in this encounter Care Teams Cnc Specialist Relationship Specialty Start Date End Date Doug Hummel MD [address] [place] [address] PCP - General Internal Medicine 11/18/16 documented as of this encounter
--- OUTSIDE RECORDS SUMMARY | 2025-01-22 13:18 | XMS_ITS | Patient Health Record ---
Author Organization [facility] Address [address] [place] [address] Care Team Providers Care Financial Quantitative Analyst Name Role Phone RICO HILLMAN Primary Care Provider Reece Garner [phone] Allergies Allergen (clinical drug ingredient) Drug/Non Drug Allergy documented on EMR Reaction Allergy Type Onset Date Status sulfamethoxazole Sulfamethoxazole Unknown Drug Allergy Active Substance with sulfonamide structure and antibacterial mechanism of action (substance) Sulfa Antibiotics Unknown Drug Allergy Active methadone Methadone HCl Unknown Drug Allergy Act margo fentanyl Fentanyl Unknown Drug Allergy Active trimethoprim Trimethoprim Unknown Drug Allergy A ctive losartan Losartan Unknown Drug Allergy Active Reason For Referral No Information Medications Medication SIG (Take, Route, Frequency, Duration) Notes Start Date End Date Status oxyCODONE HCl 15 MG TAKE 2 TABLETS BY MOUTH THREE TIMES DAILY Oral; Duration: 30 Days Active Fluticasone Propionate 50 MCG/ACT Nasal; Duration: 30 Days Active Aspir-81 81 MG 1 tablet Orally Once a day Active Jardiance 10 MG Oral; Duration: 90 Days Active Advair Diskus 100-50 MCG/DOSE 1 puff Inhalation Twice a day Not-Taking Digoxin 125 MCG TAKE 1 TABLET BY MOUTH DAILY AT 12 AM Oral; Duration: 90 Days Active predniSONE 5 MG Oral; Duration: 30 Days Not-Taking Ketoconazole 2 % APPLY EVERY THIN LAYER TO AFFECTED AND SURROUNDING SKIN EVERY DAY UNTIL RESOLVED External; Duration: 30 Days Active oxyCODONE HCl 15 MG 1 tablet as needed Orally every 6 hrs/prn Active Ipratropium [place] 0.06 % USE 2 SPRAYS IN EACH NOSTRIL 3 TO 4 TIMES A DAY NEEDED FOR RHINITIS Nasal; Duration: 10 Days Active Morphine Sulfate 30 MG 2 tablet as needed Orally TID Active Gabapentin 100 MG TAKE 1 CAPSULE BY MOUTH THREE TIMES DAILY WITH 400 MG TO EQUAL 500 MG THREE TIMES DAILY Oral; Duration: 30 Days Active metFORMIN HCl 1000 MG 1 tablet with a meal Orally twice a day Caused diarrhea Not-Taking Metoprolol Succinate ER 100 MG TAKE 1 TABLET BY MOUTH TWICE DAILY Oral; Duration: 90 Days Active Fluticasone Furoate 200 MCG/ACT 2 puffs Nasally Once a day Active Morphine Sulfate ER 60 MG TAKE 1 TABLET BY MOUTH THREE TIMES DAILY Oral; Duration: 30 Days Active amLODIPine Besylate 10 MG 1 tablet Orally Once a day Active dilTIAZem HCl ER Coated Beads 240 MG TAKE 1 CAPSULE BY MOUTH DAILY Oral; Duration: 90 Days Active Losartan Potassium 25 MG 1 tablet Orally Once a day Active Testopel 75 MG as directed Implant every three months Not-Taking Atorvastatin Calcium 40 MG Oral; Duration: 90 Days Active Ipratropium [place] 0.06 % Nasal; Duration: 30 Days Active Meloxicam 15 MG Oral; Duration: 30 Days Active Ibuprofen 800 MG 1 tablet with food or milk as needed Orally Three times a day PRN Not-Taking Furosemide 20 MG TAKE 1 TABLET BY MOUTH DAILY Oral; Duration: 90 Days Active MiraLax (colon prep) 8.3 ounce ((238) grams mixed with Gatorade or Crystal Light orally begin at 5:00 p.m. the day before the procedure; Duration: 1 day 09/07/2018 Not-Taking Testosterone Cypionate 200 MG/ML INJECT 2 ML EVERY 3 WEEKS Intramuscular; Duration: 21 Days Active Dulcolax (colon prep) 5 MG take at 3:00 p.m and 7:00p.m. Orally two tablets twice a day for one day; Duration: 1 day 09/07/2018 Not-Taking Atorvastatin Calcium 40 MG TAKE 1 TABLET BY MOUTH DAILY Oral; Duration: 90 Days Active glipiZIDE ER 5 MG Oral; Duration: 90 Days Active Gabapentin 100 MG Oral; Duration: 90 Days Active Nitroglycerin 0.4 MG Sublingual; Duration: 30 Days Active Trelegy Ellipta 200-62.5-25 MCG/ACT Inhalation; Duration: 30 Days Active Eliquis 5 MG Oral; Duration: 90 Days Active Immunizations Vaccine Route Administration [...] Problem Status W/U Status Risk Notes Problem Screening for malignant neoplasm of colon ([id number]) Encounter for screening for malignant neoplasm of colon (Z12.11) Active confirmed Problem History of adenomatous polyp of colon (665016685) History of adenomatous polyp of colon (Z86.010) Active confirmed Problem Long-term current use of antiplatelet drug ([id number] ) Long-term use of aspirin therapy (Z79.82) Active confirmed Vital Signs Temperature 98.4 degrees Fahrenheit 10/19/2024 Blood pressure diastolic 01 mm Hg 10/19/2024 Height 70 in 10/19/2024 Blood pressure systolic 001 mm Hg 10/19/2024 Weight 175 lbs 10/19/2024 BMI 25.11 kg/m2 10/19/2024 Encounters Encounter Location Date Provider Diagnosis [facility] [address] [place] [phone] 10/19/2024 Reece Garzon Colon cancer screeni ng Z12.11 ; Diarrhea R19.7 and Preprocedural examination Z01.818 [facility] [address] [place] [phone] 01/17/2025 Reece Garzon Assessments Encounter Date Diagnosis (ICD Code) Assessment [...] Date MEDICARE OF [place] [address] [place] [address] [id number] CHAS TORRES Self - patient is the insured [employer] ATT[employer] CLAIMS [address] [place] [address] [id number] CHAS TORRES Self - patient is the insured Medical (General) History Medical History History ICD Code Colonoscopy 02/16/2008- 1.5cm and 8mm tu bular adenomas removed Denies [place],CVA,renal disease Asthma/COPD- Dr. Escobar Back pain- disc disease HTN NIDDM Sinus and respiratory problems- Denies [place],CVA,or renal disease Normal MRCP in August,- H [...]
--- OUTSIDE RECORDS SUMMARY | 2025-01-22 13:18 | XMS_ITS | Encounter Summary ---
Author Organization [facility] Address [address] [place] [phone] Care Team Providers Care Retail Management Keyholder Name Role Phone Doug Hummel MD Primary Care Provider [phone] Encounter Details Date Type Department Care Team (Late st Contact Info) Description 05/09/2024 Lab Requisition [facility] - Main Lab [address] [place] [address] Loco Andres, DYLAN [address] [facility] [address] [place] [phone] Testicular hypofunction Social History Tobacco Use Types [...] AM EST) WBC 11.6(H) 4.8 - 10.8 K/[facility] LAB HEMETOLOGY METHOD 05/09/2024 1:10 PM EST [facility] RBC 5.50 4.50 - 5.50 M/[facility] LAB HEMETOLOGY METHOD 05/09/2024 1:10 PM EST [facility] Hemoglobin 17.2 13.5 - 17.5 g/dL LAB HEMETOLOGY METHOD 05/09/2024 1:10 PM EST [facility] Hematocrit 53.2 42.0 - 54.0 % LAB HEMETOLOGY METHOD 05/09/2024 1:10 PM [facility] MCV 97.4 79.0 - 98.0 FL LAB HEMETOLOGY METHOD 05/09/2024 1:10 PM EST [facility] MCH 31.5 27.0 - 32.0 pcg LAB HEMETOLOGY METHOD 05/09/2024 1:10 PM EST [facility] MCHC 32.3 32.0 - 37.0 g/dL LAB HEMETOLOGY METHOD 05/09/2024 1:10 PM [facility] RDW 12.8 11.0 - 15.0 % LAB HEMETOLOGY METHOD 05/09/2024 1:10 PM EST [facility] Platelets 357 130 - 400 K/mcL LAB HEMETOLOGY METHOD 05/09/2024 1:10 PM EST [facility] MPV 9.6 7.0 - 11.0 FL LAB HEMETOLOGY METHOD 05/09/2024 1:10 PM [facility] NRBC 0.0 <1.0 % LAB HEMETOLOGY METHOD 05/09/2024 1:10 PM EST [facility] NRBC Absolute 0.00 <0.10 K/mcL LAB HEMETOLOGY METHOD 05/09/2024 1:10 PM [facility] Blood Venous blood specimen / Unknown 05/09/2024 10:17 AM EST 05/09/2024 12:43 PM EST us Loco RICHARDSON LAB BLOOD ORDERABLES Final Res ult [facility] [address] [place] [address], documented in this encounter Visit Diagnoses Diagnosis Testicular hypofunction Other testicular hypofunction documented in this encounter Care Teams Retail Management Keyholder Relationship Specialty Start Date End Date Doug Hummel MD [address] [place] PCP - General Internal Medicine 11/18/16 documented as of this encounter
--- OUTSIDE RECORDS SUMMARY | 2025-01-22 13:18 | XMS_ITS | Clinical Summary ---
Author Organization [facility] Address [address] [place] [address] Phone Care Team Providers Care Strategic Marketing Leader Name Role Phone Doug Hummel MD Primary Care Provider [phone] Allergies Active Allergy Reactions Criticality Noted Date [...] (0.06 %) nasal spray 5 Active Hypodermic Vass 23 gauge x 1 needle USE TO [...] hand. MRI of the cervical spine from [facility] obtained on April 04, 2024 did [...] His MRI of the lumbar spine from [facility] does show what appears to be [...] left thumb 03/23/2024 CHF (congestive heart failure) [place] [place] [facility] V28) 03/20/2024 Diabetes mellitus, type 2 ([facility] [place], [facility] V28) 03/20/2024 Rhinitis 03/20/2024 Hyperlipidemia 03/20/2024 Chest pain 03/20/2024 COPD (chronic obstructive pu lmonary disease) [place] [place] [facility] [place] 03/20/2024 Encounters Date Type Department Care Team Description 11/19/2024 10:30 AM EDT Evaluation [facility] [address] [address] Mitul Jacobs M, PT Cervical spondylosis with radiculopathy; Chronic midline low back pain with left-sided sciatica 11/06/2024 Lab Requisition [facility] - Main Lab [address] [place] [address] Loco Andres, PA Testicular hypofunction from Last 3 Months Immunizations Immunization Administration Dates Next Due Influenza Quadravalent, MDCK [...] subun it RSVpreF, 0.5mL, Preservative Free (ABRYSVO) 50yo and older or 32 through 36 wks of 02/21/2023 Tdap Tetanus diptheria acell ular pertussis (Boostrix; Adacel) 7yo and older 09/14/2020,09/03/2015 Surgical History Surgery Date Site/Laterality Comments CARPAL TUNNEL RELEASE left done about year ago(2022?), right 5-10 yrs ago(2014?) Medical History Medical History Date Comments Hypertension Diabetes ([facility] V24, [facility] V28) Social History Tobacco Use [...] Health Maintenance Due Date Last Done Comments Colorectal Cancer Screening: Colonoscopy 1951 Diabetes: Annual GFR (Glomerular Filtration Rate) 1951 Diabetes: Annual Foot Exam 1961 Diabetes: Annual Retina Eye Exam 1961 Zoster Vaccines (1 of 2) 2001 Pneumococcal Vaccine: 50+ Years (2 of 2 - PPSV23, PCV20, or PCV21) 01/08/2015 11/13/2014 Cholesterol Screening (Lipid Panel) 01/03/2024 Falls Risk Assessment 01/03/2024 Hepatitis C [...] Complete blood count (11/06/2024 9:27 AM EDT) [facility] Signature WBC 9.4 4.8 - 10.8 K/mcL LAB HEMETOLOGY METHOD 11/06/2024 12:45 PM EDT [facility] RBC 4.80 4.50 - 5.50 M/mcL LAB HEMETOLOGY METHOD 11/06/2024 12:45 PM EDT [facility] Hemoglobin 15.3 13.5 - 17.5 g/dL LAB HEMETOLOGY METHOD [facility] Hematocrit 47.4 42.0 - 54.0 % LAB HEMETOLOGY METHOD 11/06/2024 12[facility] MCV 98.5(H) 79.0 - 98.0 FL LAB HEMETOLOGY METHOD 11/06/2024 12:[facility] MCH 31.8 27.0 - 32.0 pcg LAB HEMETOLOGY METHOD 11/06/2024 12:[facility] MCHC 32.3 32.0 - 37.0 g/dL LAB HEMETOLOGY METHOD 11/06/2024 12:[facility] RDW 13.2 11.0 - 15.0 % LAB HEMETOLOGY METHOD 11/06/2024 12:[facility] Platelets 323 130 - 400 K/mcL LAB HEMETOLOGY METHOD 11/06/2024 12:[facility] MPV 9.0 7.0 - 11.0 FL LAB HEMETOLOGY METHOD 11/06/2024 12:[facility] NRBC 0.0 <1.0 % LAB HEMETOLOGY METHOD 11/06/2024 12:45 PM EDT [facility] NRBC Absolute 0.00 <0.10 K/mcL LAB HEMETOLOGY METHOD 11/06/2024 12:45 PM EDT [facility] Blood Venous blood specimen / Unknown 11/06/2024 9:27 AM EDT 11/06/2024 12:18 PM EDT us Loco RICHARDSON LAB BLOOD ORDERABLES Final Res ult [facility] [address] [place] [address], [place] [phone] * (ABNORMAL) Hepatic function panel (11/06/2024 9:27 AM EDT) Total Protein 7.2 6.0 - 8.0 g/dL LAB CHEMISTRY METHOD 11/06/2024 1:36 PM EDT [facility] Albumin 3.9 3.2 - 5.0 g/dL LAB CHEMISTRY METHOD 11/06/2024 1:36 PM EDT [facility] Total Bilirubin 0.6 0.0 - 1.4 mg/dL LAB CHEMISTRY METHOD 11/06/2024 1:36 PM T [facility] Bilirubin, Direct 0.2 0.0 - 0.3 mg/dL LAB CHEMISTRY METHOD 11/06/2024 1:36 PM EDT [facility] Bilirubin, Indirect 0.4 0.0 - 1.1 mg/dL LAB CHEMISTRY METHOD 11/06/2024 1:36 PM [facility] ALT (SGPT) 48 10 - 60 unit/L LAB CHEMISTRY METHOD 11/06/2024 1:36 PM EDT [facility] AST (SGOT) 26 10 - 42 unit/L LAB CHEMISTRY METHOD 11/06/2024 1:36 PM EDT [facility] Alkaline Phosphatase 127(H) 42 - 121 unit/L LAB CHEMISTRY METHOD 11/06/2024 1:36 PM EDT [facility] Blood Venous blood specimen / Unknown 11/06/2024 9:27 AM EDT 11/06/2024 12:18 PM EDT us Loco RICHARDSON LAB BLOOD ORDERABLES Final Res ult [facility] [address] [place] [address], from Last 3 Months Insurance MEDICARE [facility] Care Teams Strategic Marketing Leader Relationship Specialty Start Date End Date Doug Hummel MD [address] [place] [address] PCP - General Internal Medicine 11/18/16
--- OUTSIDE RECORDS SUMMARY | 2025-01-22 13:19 | XMS_ITS | Clinical Summary ---
Author Organization [employer] Address [address] [place] [id number] Care Team Providers Care Hoop Maker Helper Machine Name Role Phone Unavailable Primary Care Provider Unavailabl e Social History Tobacco Use Types Packs/Day Years Used Date Smoking Tobacco: Never Assessed Sex and Gender Information Value Date Recorded Sex Assigned at Not on file Legal Sex Male 10:50 AM EDT Gender Identity Not on file Sexual Orientation Not on file Plan of Treatment Upcoming Encounters Date Type Department Care Team ([facility] st Contact Info) Description 02/06/2025 2:00 PM EST Office Visit [facility] [address] [place] [address] Ca Owen NP [address] [place] [address] Health Maintenance Due Date Last Done Comments CT Colonography 1950 Colonoscopy 1950 Colorectal Cancer Screening 1951 Depression Screening 1950 FIT DNA/Cologuard 1951 FIT 1951 FOBT 1950 Lipid Panel 1950 SDOH Screening 1950 Sigmoidoscopy 1950 Alcohol/Substance Use Screening 1963 Tobacco Screening 1963 Hepatitis C Screening 1969 Zoster Vaccines (1 of 2) 2001 Pneumococcal Vaccine: 50+ Years (2 of 2 - PPSV23) 11/14/2015 11/13/2014 COVID-19 Vaccine ( season) 2024 12/01/2023, 04/19/2023, 09/04/2021, Additional history exists DTaP/Tdap/Td Vaccines (3 - Td or Tdap) 09/14/2030 09/14/2020, 09/03/2015 RSV Patients and Patients Aged 60 years or older Completed 02/21/2023 Influenza Vaccine Completed 12/18/2024, , 12/20/2022, Additional history exists HIB Vaccines Aged Out [...] patient's age to complete this topic Meningococcal Vaccine Aged Out No blayne ha eligible based on patient's age to complete this topic RSV under 20 months Aged Out No longe r eligible based on patient's age to complete this topic Rotavirus Vaccines Aged Out No longer eligible based on patient's age to complete this topic Insurance [facility] [employer] MEDICARE SUPPLEMENT
--- OUTSIDE RECORDS SUMMARY | 2025-01-22 13:19 | XMS_ITS | Patient Health Record ---
Author Organization [facility] elvira AyersJelm Address [address] [place] [address] Care Team Providers Care Used Car Salesperson Name Role Phone Dianne Hazel Unavailable [phone] Allergies Allergen (clinical drug ingredient) Drug/Non Drug [...] Problem Acquired hammer toe of right foot (7569776296628198 ) Other hammer toe(s) (acquired), right foot (M20.41) Active confirmed Problem Acquired hammer toe of left foot (6484766533970829 ) Other hammer toe(s) (acquired), left foot (M20.42) Active confirmed Problem Polyneuropathy due to type 2 diabetes mellitus (155216553) Type 2 diabetes mellitus with diabetic polyneuropathy (E11.42) Active confirmed Vital Signs Blood pressure diastolic 65 mm Hg 11/21/2024 Height 6gd87bb in 11/21/2024 Blood pressure systolic 128 mm Hg 11/21/2024 Weight 180 lbs 11/21/2024 BMI 25.1 kg/m2 11/21/2024 Procedures Procedure Date Ordered Date Performed Result Body Sit e 96494-IWBKASI NAIL, 6 OR MORE 08/09/2024 N/A 06588-RNVV SKIN LESIONS, 2 TO 4 08/09/2024 N/A Encounters Encounter Location Date [facility] [address] 08/09/2024 Dianne Hazel Other hammer toe(s) (acquired), right foot M20.41 ; Other hammer toe(s) (acquired), left foot M20.42 ; Type 2 diabetes mellitus with diabetic polyneuropathy E11.42 and Tinea unguium B35.[address] [address] 11/21/2024 Dianne Hazel Type 2 diabetes mellitus [...] Treatment Pending Test Test Name Order Date 86338-MNCIFWV NAIL, 6 OR MORE 08/09/2024 88180-DNRT SKIN LESIONS, 2 TO 4 08/10/19 25 Next Appt Details Provider Name:Dianne rosa, 02/27/2025 09:30:00 AM, [address] [place] [address], [phone], Insurance Providers Payer Name Payer Address Payer Phone Subscriber Number Group Number Insured Name Patient Relationship to Insured Coverage Start Date Coverage End Date Medicare National Govt [employer] [address] [place] [address] [id number] Chas Jack Self - patient is the insured [employer] [address] [place] [address] [id number] Chas Jack Self - patient is the [...]
== END 2025-01-22 11:00 | disposition home or self-care (01) ==
LOC: HO.HPS 10:36
PROVIDERS: PCP Internal Medicine; Visit Provider Internal Medicine Pulmonary Disease
DX: J44.9 Chronic obstructive pulmonary disease, unspecified (principal); R91.8 Other nonspecific abnormal finding of lung field
CPT/HCPCS: 99214

== ENCOUNTER → 2025-01-22 10:35 | Outpatient (BNVA) | payer MEDICARE, SELFPAY | PROVIDERS: PCP Internal Medicine; Visit Provider Internal Medicine Pulmonary Disease | DX: R91.8 Other nonspecific abnormal finding of lung field (principal); J44.9 Chronic obstructive pulmonary disease, unspecified; Z87.891 Personal history of nicotine dependence | CPT/HCPCS: 99212 ==

== ENCOUNTER 2025-01-24 09:53 | Outpatient (AMB) | payer MEDICARE, SELFPAY ==
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
[2025-01-24 10:12] VITALS: BP 118/66; PULSE 48; BMI 26.4
--- OUTSIDE RECORDS SUMMARY | 2025-01-24 11:39 | XMS_ITS | Encounter Summary ---
Author Organization [facility] Address [address] [place] [address] Care Team Providers Care Senior Net Web Developer Name Role Phone Doug Hummel MD Primary Care Provider Encounter Details Date Type Department Care Team (Late st Contact Info) Description 11/06/2024 Lab Requisition [facility] - Main Lab [address] [facility] [place] [address] Loco Andres, DYLAN [address] [facility] [address] [place] [phone] Testicular hypofunction Social History Tobacco Use Types [...] AM EDT) WBC 9.4 4.8 - 10.8 K/[facility] LAB HEMETOLOGY METHOD 11/06/2024 12:45 PM EDT [facility] LAB RBC 4.80 4.50 - 5.50 M/mcL LAB HEMETOLOGY METHOD 11/06/2024 12:45 PM EDT [facility] LAB Hemoglobin 15.3 13.5 - 17.5 g/dL LAB HEMETOLOGY METHOD 11/06/2024 12:45 PM [facility] LAB Hematocrit 47.4 42.0 - 54.0 % LAB HEMETOLOGY METHOD 11/06/2024 12:45 PM [facility] LAB MCV 98.5(H) 79.0 - 98.0 FL LAB HEMETOLOGY METHOD 11/06/2024 12:45 PM [facility] LAB MCH 31.8 27.0 - 32.0 pcg LAB HEMETOLOGY METHOD 11/06/2024 12:45 PM [facility] LAB MCHC 32.3 32.0 - 37.0 g/dL LAB HEMETOLOGY METHOD 11/06/2024 12:45 PM [facility] LAB RDW 13.2 11.0 - 15.0 % LAB HEMETOLOGY METHOD 11/06/2024 12:45 PM [facility] LAB Platelets 323 130 - 400 K/mcL LAB HEMETOLOGY METHOD 11/06/2024 12:45 PM [facility] LAB MPV 9.0 7.0 - 11.0 FL LAB HEMETOLOGY METHOD 11/06/2024 12:45 PM [facility] LAB NRBC 0.0 <1.0 % LAB HEMETOLOGY METHOD 11/06/2024 12:45 PM [facility] LAB NRBC Absolute 0.00 <0.10 K/mcL LAB HEMETOLOGY METHOD 11/06/2024 12:45 PM [facility] LAB Blood Venous blood specimen / Unknown 11/06/2024 9:27 AM EDT 11/06/2024 12:18 PM EDT us Loco RICHARDSON LAB BLOOD ORDERABLES Final Res ult Performing Organization Address City/[facility] [address]/ZIP Co de Phone Number [facility] LAB [address] [place] [address], [place] [phone] * (ABNORMAL) Hepatic function panel (11/06/2024 9:27 AM EDT) Total Protein 7.2 6.0 - 8.0 g/dL LAB CHEMISTRY METHOD 11/06/2024 1:36 PM EDT [facility] LAB Albumin 3.9 3.2 - 5.0 g/dL LAB CHEMISTRY METHOD 11/06/2024 1:36 PM EDT [facility] Total Bilirubin 0.6 0.0 - 1.4 mg/dL LAB CHEMISTRY METHOD 11/06/2024 1:36 PM EDT [facility] LAB Bilirubin, Direct 0.2 0.0 - 0.3 mg/dL LAB CHEMISTRY METHOD 11/06/2024 1:36 PM EDT [facility] LAB Bilirubin, Indirect 0.4 0.0 - 1.1 mg/dL LAB CHEMISTRY METHOD 11/06/2024 1:36 PM EDT [facility] ALT (SGPT) 48 10 - 60 unit/L LAB CHEMISTRY METHOD 11/06/2024 1:36 PM EDT [facility] AST (SGOT) 26 10 - 42 unit/L LAB CHEMISTRY METHOD 11/06/2024 1:36 PM EDT [facility] LAB Alkaline Phosphatase 127(H) 42 - 121 unit/L LAB CHEMISTRY METHOD 11/06/2024 1:36 PM EDT [facility] Blood Venous blood specimen / Unknown 11/06/2024 9:27 AM EDT 11/06/2024 12:18 PM EDT us Loco RICHARDSON LAB BLOOD ORDERABLES Final Res ult [facility] [address] [place] [address], documented in this encounter Visit Diagnoses Diagnosis Testicular hypofunction Other testicular hypofunction documented in this encounter Care Teams Senior Net Web Developer Relationship Specialty Start Date End Date Doug Hummel MD [address] [place] [address] PCP - General Internal Medicine 11/18/16 documented as of this encounter
--- OUTSIDE RECORDS SUMMARY | 2025-01-24 11:39 | XMS_ITS | Patient Health Record ---
Author Organization [facility] Address [address] [place] [address] Care Team Providers Care Shredding Floor Equipment Operator Name Role Phone RICO HILLMAN Primary Care Provider Reece Garner [phone] Allergies Allergen (clinical drug ingredient) Drug/Non Drug [...] needed Orally every 6 hrs/prn Active Ipratropium [place] 0.06 % USE 2 SPRAYS IN EACH [...] MG Oral; Duration: 90 Days Active Ipratropium [place] 0.06 % Nasal; Duration: 30 Days Active [...] Problem Screening for malignant neoplasm of colon (025854196) Encounter for screening for malignant neoplasm of colon (Z12.11) Active confirmed Problem History of adenomatous polyp of colon (747049783) History of adenomatous polyp of colon (Z86.010) Active confirmed Problem Long-term current use of antiplatelet drug (447187621944233 ) Long-term use of aspirin therapy (Z79.82) Active confirmed Vital Signs Temperature 98.4 degrees Fahrenheit 10/19/2024 Blood pressure diastolic 01 mm Hg 10/19/2024 Height 70 in 10/19/2024 Blood pressure systolic 001 mm Hg 10/19/2024 Weight 175 lbs 10/19/2024 BMI 25.11 kg/m2 10/19/2024 Encounters Encounter Location Date Provider Diagnosis [facility] [address] [place] [address] 10/19/2024 Reece Garzon Colon cancer screeni ng Z12.11 ; Diarrhea R19.7 and Preprocedural examination Z01.818 [facility] [address] [place] [phone] 01/17/2025 Reece Garzon Assessments Encounter Date Diagnosis [...] Date MEDICARE OF [place] [address] [place] [address] [id number] CHAS TORRES Self - patient is the insured [employer] CLAIMS [address] [place] [address] [id number] CHAS TORRES Self - patient is the insured Medical (General) History Medical History History ICD Code Colonoscopy 02/16/2008- 1.5cm and 8mm tu bular adenomas removed Denies CT,CVA,renal disease Asthma/COPD- Dr. Escobar Back pain- disc disease HTN NIDDM Sinus and respiratory problems- Denies CT,CVA,or renal disease Normal MRCP in August,- H [...]
--- OUTSIDE RECORDS SUMMARY | 2025-01-24 11:39 | XMS_ITS | Clinical Summary ---
Author Organization [facility] Address [address] [place] [address] Phone Care Team Providers Care Residential Collections Name Role Phone Doug Hummel MD Primary Care Provider [phone] Allergies Active Allergy Reactions Criticality Noted Date [...] (0.06 %) nasal spray 5 Active Hypodermic Canones 23 gauge x 1 needle USE TO [...] hand. MRI of the cervical spine from [facility] obtained on April 04, 2024 did reveal [...] His MRI of the lumbar spine from [facility] does show what appears to be a [...] left thumb 03/23/2024 CHF (congestive heart failure) ([facility] V24, [facility] V28) 03/20/2024 Diabetes mellitus, type 2 ([facility] V24, [facility] V28) 03/20/2024 Rhinitis 03/20/2024 Hyperlipidemia 03/20/2024 Chest pain 03/20/2024 COPD (chronic obstructive pu lmonary disease) ([facility] V24, [facility] V28) 03/20/2024 Encounters Date Type Department Care Team Description 11/19/2024 10:30 AM EDT Evaluation [facility] [address] [address] Mitul Jacobs M, PT Cervical spondylosis with radiculopathy; Chronic midline low back pain with left-sided sciatica 11/06/2024 Lab Requisition [facility] - Main Lab [address] [place] [address] Loco Andres, PA Testicular hypofunction [...] History Medical History Date Comments Hypertension Diabetes ([facility] V24, [facility] V28) Social History Tobacco Use Types Packs/Day [...] Complete blood count (11/06/2024 9:27 AM EDT) [employer] Signature WBC 9.4 4.8 - 10.8 K/mcL LAB HEMETOLOGY METHOD 11/06/2024 12:45 PM EDT [facility] LAB RBC 4.80 4.50 - 5.50 M/mcL LAB HEMETOLOGY METHOD 11/06/2024 12:45 PM EDT [facility] LAB Hemoglobin 15.3 13.5 - 17.5 g/dL LAB HEMETOLOGY METHOD [facility] Hematocrit 47.4 42.0 - 54.0 % LAB HEMETOLOGY METHOD 11/06[facility]24 [facility] MCV 98.5(H) 79.0 - 98.0 FL LAB HEMETOLOGY METHOD 11/06/2024 12:[facility] MCH 31.8 27.0 - 32.0 pcg LAB HEMETOLOGY METHOD 11/06/2024 12:[facility] MCHC 32.3 32.0 - 37.0 g/dL LAB HEMETOLOGY METHOD 11/06/2024 12:[facility] RDW 13.2 11.0 - 15.0 % LAB HEMETOLOGY METHOD 11/06/2024 12:[facility] Platelets 323 130 - 400 K/mcL LAB HEMETOLOGY METHOD 11/06/2024 12:[facility] MPV 9.0 7.0 - 11.0 FL LAB HEMETOLOGY METHOD 11/06/2024 12:[facility] NRBC 0.0 <1.0 % LAB HEMETOLOGY METHOD 11/06/2024 12:45 PM EDT [facility] LAB NRBC Absolute 0.00 <0.10 K/mcL LAB HEMETOLOGY METHOD 11/06/2024 12:45 PM EDT [facility] LAB Blood Venous blood specimen / Unknown 11/06/2024 9:27 AM EDT 11/06/2024 12:18 PM EDT us Loco RICHARDSON LAB BLOOD ORDERABLES Final Res ult [facility] [address] [place] [address], [place] [phone] * (ABNORMAL) Hepatic function panel (11/06/2024 9:27 AM EDT) Total Protein 7.2 6.0 - 8.0 g/dL LAB CHEMISTRY METHOD 11/06/2024 1:36 PM EDT [facility] LAB Albumin 3.9 3.2 - 5.0 g/dL LAB CHEMISTRY METHOD 11/06/2024 1:36 PM EDT [facility] Total Bilirubin 0.6 0.0 - 1.4 mg/dL LAB CHEMISTRY METHOD 11/06/2024 1:36 PM T [facility] LAB Bilirubin, Direct 0.2 0.0 - 0.3 mg/dL LAB CHEMISTRY METHOD 11/06/2024 1:36 PM EDT [facility] LAB Bilirubin, Indirect 0.4 0.0 - 1.1 mg/dL LAB CHEMISTRY METHOD 11/06/2024 1:36 PM [facility] LAB ALT (SGPT) 48 10 - 60 unit/L LAB CHEMISTRY METHOD 11/06/2024 1:36 PM EDT [facility] AST (SGOT) 26 10 - 42 unit/L LAB CHEMISTRY METHOD 11/06/2024 1:36 PM EDT [facility] LAB Alkaline Phosphatase 127(H) 42 - 121 unit/L LAB CHEMISTRY METHOD 11/06/2024 1:36 PM EDT [facility] ([facility] Blood Venous blood specimen / Unknown 11/06/2024 9:27 AM EDT 11/06/2024 12:18 PM EDT us Loco RICHARDSON LAB BLOOD ORDERABLES Final Res ult [facility] ([facility] [address] [place] [address], from Last 3 Months Insurance MEDICARE [facility] Care Teams Residential Collections Relationship Specialty Start Date End Date Doug Hummel MD [address] [place] [address] PCP - General Internal Medicine 11/18/16
--- OUTSIDE RECORDS SUMMARY | 2025-01-24 11:39 | XMS_ITS | Encounter Summary ---
Author Organization [facility] Address [address] [place] [address] Care Team Providers Care Workcell Operator Name Role Phone Doug Hummel MD Primary Care Provider [phone] Encounter Details Date Type Department Care Team (Late st Contact Info) Description 05/09/2024 Lab Requisition [facility] - Main Lab [address] [place] [address] Loco Andres, DYLAN [address] [facility] [address] [place] [phone] Testicular hypofunction Social History Tobacco Use Types [...] AM EST) WBC 11.6(H) 4.8 - 10.8 K/[facility] LAB HEMETOLOGY METHOD 05/09/2024 1:10 PM EST [facility] LAB RBC 5.50 4.50 - 5.50 M/[facility] LAB HEMETOLOGY METHOD 05/09/2024 1:10 PM EST [facility] LAB Hemoglobin 17.2 13.5 - 17.5 g/dL LAB HEMETOLOGY METHOD 05/09/2024 1:10 PM EST [facility] LAB Hematocrit 53.2 42.0 - 54.0 % LAB HEMETOLOGY METHOD 05/09/2024 1:10 PM [facility] LAB MCV 97.4 79.0 - 98.0 FL LAB HEMETOLOGY METHOD 05/09/2024 1:10 PM EST [facility] LAB MCH 31.5 27.0 - 32.0 pcg LAB HEMETOLOGY METHOD 05/09/2024 1:10 PM EST [facility] LAB MCHC 32.3 32.0 - 37.0 g/dL LAB HEMETOLOGY METHOD 05/09/2024 1:10 PM [facility] LAB RDW 12.8 11.0 - 15.0 % LAB HEMETOLOGY METHOD 05/09/2024 1:10 PM EST [facility] LAB Platelets 357 130 - 400 K/mcL LAB HEMETOLOGY METHOD 05/09/2024 1:10 PM EST [facility] LAB MPV 9.6 7.0 - 11.0 FL LAB HEMETOLOGY METHOD 05/09/2024 1:10 PM [facility] LAB NRBC 0.0 <1.0 % LAB HEMETOLOGY METHOD 05/09/2024 1:10 PM EST [facility] LAB NRBC Absolute 0.00 <0.10 K/mcL LAB HEMETOLOGY METHOD 05/09/2024 1:10 PM [facility] LAB Blood Venous blood specimen / Unknown 05/09/2024 10:17 AM EST 05/09/2024 12:43 PM EST us Loco RICHARDSON LAB BLOOD ORDERABLES Final Res ult [facility] [address] [place] [address], documented in this encounter Visit Diagnoses Diagnosis Testicular hypofunction Other testicular hypofunction documented in this encounter Care Teams Workcell Operator Relationship Specialty Start Date End Date Doug Hummel MD [address] [place] PCP - General Internal Medicine 11/18/16 documented as of this encounter
--- OUTSIDE RECORDS SUMMARY | 2025-01-24 11:40 | XMS_ITS | Patient Health Record ---
[facility] Organization [facility] Address [address] [place] [address] Care Team Providers Care Dairy Worker Name Role Phone Dianne Hazel Unavailable [phone] Allergies Allergen (clinical drug ingredient) Drug/Non Drug [...] Problem Acquired hammer toe of right foot (7489676166792400 ) Other hammer toe(s) (acquired), right foot (M20.41) Active confirmed Problem Acquired hammer toe of left foot (7860570896780623 ) Other hammer toe(s) (acquired), left foot (M20.42) Active confirmed Problem Polyneuropathy due to type 2 diabetes mellitus (464168724) Type 2 diabetes mellitus with diabetic polyneuropathy (E11.42) Active confirmed Vital Signs Blood pressure diastolic 65 mm Hg 11/21/2024 Height [id number] in 11/21/2024 Blood pressure systolic 128 mm Hg 11/21/2024 Weight 180 lbs 11/21/2024 BMI 25.1 kg/m2 11/21/2024 Procedures Procedure Date Ordered Date Performed Result Body Sit e 67040-PPKROBK NAIL, 6 OR MORE 08/09/2024 N/A 00047-DQMS SKIN LESIONS, 2 TO 4 08/09/2024 N/A Encounters Encounter Location Date Provider Diagnosis [facility] [address] 08/09/2024 Dianne Hazel Other hammer toe(s) (acquired), right foot M20.41 ; Other hammer toe(s) (acquired), left foot M20.42 ; Type 2 diabetes mellitus with diabetic polyneuropathy E11.42 and Tinea unguium B35.[address] [address] 11/21/2024 Dianne Hazel Type 2 diabetes mellitus [...] Treatment Pending Test Test Name Order Date 41586-OSYFTCJ NAIL, 6 OR MORE 08/09/2024 68120-YOMT SKIN LESIONS, 2 TO 4 08/10/19 25 Next Appt Details Provider Name:Dianne rosa, 02/27/2025 09:30:00 AM, [address] [place] [address], [phone], Insurance Providers Payer Name Payer Address Payer Phone Subscriber Number Group Number Insured Name Patient Relationship to Insured Coverage Start Date Coverage End Date Medicare National [employer] [address] [facility] [address] [id number] Chas Jack Self - patient is the insured [employer] [address] [place] [address] [phone] [id number] Chas Jack Self - patient is the [...]
--- OUTSIDE RECORDS SUMMARY | 2025-01-24 11:40 | XMS_ITS | Clinical Summary ---
Author Organization [facility] [employer] Address [address] [place] [id number] Care Team Providers Care Upholstery Department Supervisor Name Role Phone Unavailable Primary Care Provider Unavailabl e Social History Tobacco Use Types Packs/Day Years Used Date Smoking Tobacco: Never Assessed Sex and Gender Information Value Date Recorded Sex Assigned at Not on file Legal Sex Male 10:50 AM EDT Gender Identity Not on file Sexual Orientation Not on file Plan of Treatment Upcoming Encounters Date Type Department Care Team ([facility] st Contact Info) Description 02/06/2025 2:00 PM EST Office Visit [facility] [address] [place] [address] Ca Owen NP [address] [place] [address] Health Maintenance Due Date Last Done Comments [...] patient's age to complete this topic Insurance [facility] [employer] MEDICARE SUPPLEMENT
== END 2025-01-24 10:39 | disposition home or self-care (01) ==
LOC: HO.HCS 09:53
PROVIDERS: PCP Internal Medicine; Visit Provider Internal Medicine Cardiovascular Disease
DX: I50.30 Unspecified diastolic (congestive) heart failure (principal); I25.10 Atherosclerotic heart disease of native coronary artery without angina pectoris; I48.19 Other persistent atrial fibrillation
CPT/HCPCS: 93010; 99214; G2211

== ENCOUNTER 2025-01-24 09:53 | Outpatient (REF) | payer MEDICARE, SELFPAY ==
[2025-01-24 11:46] LABS: NT Pro B Type Natriuretic Pept 931.5 pg/mL (<300)
[2025-01-24 11:50] LABS: Anion Gap 12 (12-20); Blood Urea Nitrogen 17 mg/dL (9-16); Calcium 9.1 mg/dL (8.4-10.2); Carbon Dioxide 30 mmol/L (22-29); Chloride 105 mmol/L (96-108); Estimated Glomerular Filt Rate > 60; Potassium 4.5 mmol/L (3.3-5.1); Sodium 142 mmol/L (135-145)
== END 2025-01-24 09:54 | disposition home or self-care (01) ==
LOC: HO.LAB 09:53
PROVIDERS: Absent Provider Internal Medicine; PCP Internal Medicine; Visit Provider Internal Medicine Cardiovascular Disease
DX: I25.10 Atherosclerotic heart disease of native coronary artery without angina pectoris (principal); I50.30 Unspecified diastolic (congestive) heart failure; E11.9 Type 2 diabetes mellitus without complications; I48.19 Other persistent atrial fibrillation
CPT/HCPCS: 36415; 80048; 83036; 83880; 93005; 99212

== ENCOUNTER → 2025-03-01 12:42 | Outpatient (REF) | payer MEDICARE, SELFPAY ==
--- NOTE | 2025-03-01 12:45 | HM_ITS ---
Conclusion: 1. Patient was monitored for total period of 2 days and 23 hours 2. Baseline rhythm was atrial fibrillation with average heart of 65 beats per minute with overall adequate rate control 3. No clinically significant pauses noted 4. Frequent PVCs noted with total burden of 1.9% 5. No patient reported events MTDD
--- NOTE | 2025-03-01 12:45 | CA_ITS ---
Transthoracic Echocardiogram Patient (Last, First, Middle): Chas Jack S Gender: Male Date of : 1950 Age: 75 Procedure Date: 03/01/2025 Procedure Type: Transthoracic Echocardiogram Location: OP Height: 172.72 cm Weight: 80.74 kg BSA: 1.95 m2 Heart Rate: bpm BP: 118 / 66 mmHg [facility] Manager: [email or web address] Referring MD: Dany Morfin MD Symptoms: I50.30 - Unspecified diastolic (congestive) heart failure Study Quality: Adequate ECG Rhythm: Atrial Fibrillation Conclusions: - The left ventricular systolic function is normal. The calculated ejection fraction is 59% by biplane method. - The mid inferoseptal segment is akinetic. - No obvious valvular pathology seen on this study. - There is mild dilatation of the ascending aorta measuring 3.90 cm. Findings Left Ventricle Normal left ventricular cavity size. There is mildly increased left ventricular wall thickness. The left ventricular systolic function is normal. The calculated ejection fraction is 59% by biplane method. There is no evidence of regional wall motion abnormalities. Diastolic function is indeterminate on the basis of available data. Wall Motion Rest Echo Findings The mid inferoseptal segment is akinetic. Right Ventricle Normal right ventricular cavity size and systolic function. Atria Mild biatrial enlargement. Aortic Valve There is a normal trileaflet aortic valve. There is mild calcification of the aortic valve. There is no aortic valve stenosis. There is no aortic valve regurgitation. Mitral Valve There is mild mitral annular calcification. There is no mitral valve regurgitation. There is no mitral valve stenosis. Pulmonic Valve The pulmonic valve is likely normal. Tricuspid Valve There is trace tricuspid valve regurgitation. There is no evidence of pulmonary hypertension. Great Vessels There is mild dilatation of the ascending aorta measuring 3.90 cm. Venous The inferior vena cava is normal in size and collapses greater than 50% with inspiration. Pericardium/Pleural There is no evidence of pericardial effusion. Prior Study Comparison No significant change compared to prior study dated: 02/22/2024. Recommendations, Care & Conclusions No obvious valvular pathology seen on this study. Measurements 2D Linear Measurements IVSd: 1.22 0.6-0.9/0.6-1.0 cm LVIDd: 4.67 3.9-5.3/4.2-5.9 cm LVIDd Index: 2.39 2.4-3.2/2.2-3.1 cm/m2 LVIDs: 3.75 2.0-3.6 cm LVPWd: 1.16 0.7-1.1 cm LA Diam: 4.50 2.7-3.8/3.0-4.0 cm LAIDs Index: 2.31 1.5-2.3 cm/m2 LV Mass: 258.50 67-162/88-224 g LV Mass Index: 132.56 43-95/49-115 g/m2 LVOT Diam: 2.00 3.0+(-)1.3 cm 2D Systolic Function EF 4C: 61.90 >55% EF 2C: 56.20 >55% EF BiP: 59.40 >55% Mitral Valve MV Pk E: 0.67 MV Decel Time: 240.00 E'Lateral: 9.00 E'Medial: 6.20 E/E' Med: 10.80 E/E' Lat: 7.50 Aortic Valve AoV Pk Isaak: 1.64 AoV Mn Isaak: 1.13 AoV VTI: 0.32 AoV Pk Grad: 11.00 Aov Mn Grad: 6.00 VERNON Cont.VTI: 1.68 LVOT LVOT Pk Isaak: 0.88 LVOT Mn Isaak: 0.61 LVOT VTI: 0.17 LVOT Pk Grad: 3.00 LVOT Mn Grad: 2.00 LVOT Diam: 2.00 LVOT Area: 3.14 Diastolic Function MV Pk E: 0.67 E'Medial: 6.20 E/E' Med: 10.80 E' Laterial: 9.00 E/E' Lat: 7.50 Right Ventricle TAPSE (mm): 22.20 TVS' Isaak: 10.40 Tricuspid Valve TR Pk Isaak: 2.29 TR Pk Grad: 21.00 RA Press: 3.00 RVSP: 24.00 Great Vessels Aorta Sinus of Valsalva: 3.60 2.0-3.5 cm Ao Asc: 3.90 2.1-3.4 cm Pulmonary Valve PV Pk Isaak: 0.95 Peak PV Grad: 4.00 Updated in Other Vendor System with Status of Final Contreras Castle MD electronically signed on 03/02/2025 2:48:30 PM with status of Final
== END ==
LOC: HO.CARD 12:42
PROVIDERS: PCP Internal Medicine; Visit Provider Internal Medicine Cardiovascular Disease
DX: I48.19 Other persistent atrial fibrillation (principal); I50.30 Unspecified diastolic (congestive) heart failure
CPT/HCPCS: 93242; 93306

== ENCOUNTER → 2025-03-01 12:45 | Outpatient (BNV) | payer MEDICARE, SELFPAY | PROVIDERS: PCP Internal Medicine; Visit Provider Internal Medicine | DX: I51.89 Other ill-defined heart diseases (principal); I77.810 Thoracic aortic ectasia | CPT/HCPCS: 93306 ==

== ENCOUNTER 2025-03-14 08:34 | Outpatient (REF) | payer MEDICARE, SELFPAY ==
--- OUTSIDE RECORDS SUMMARY | 2025-03-13 09:00 | XMS_ITS | Encounter Summary ---
Author Organization [employer] Address [address] [facility] [address] [place] [address] Care Team Providers Care Answering Service Operator Name Role Phone Dior Martell Primary Care Provider Reason for Visit * Reason Comments Follow-up Meds Encounter Details Date Type Department Care Team (Late st Contact Info) Description 03/13/2025 9:00 AM EST Office Visit [facility] [address] [place] [address] Type 2 diabetes mellitus with hyperglycemia, without long-term current use of insulin (HCC) (Primary Dx); Chronic midline low back pain with left-sided sciatica; [facility]PC current use of opioid; Chronic atrial fibrillation (CMS/HCC) (HCC); Encounter for health-related screening; Chronic obstructive pulmonary disease, unspecified COPD type (CMS/HCC) (HCC); Congestive heart failure, unspecified HF chronicity, unspecified heart failure type (HCC); Vaccination declined Social History Tobacco Use Types Packs/Day Years Used Date Smoking Tobacco: Never Assessed Depression Answer Date Recorded Patient Health Questionnaire-9 Score 7 02/06/2025 Patient Health Questionnaire-9 Score 7 02/06/2025 Last PHQ-9: Questionnaire Data Not on file 1 04/08/2024 Housing Stability Answer Date Recorded What is your housing situation today? I have marcial mcleod 02/06/[address] you li ve. Do you have problems with any of the following? None of the above 02/06/2025 Food Insecurity Answer Date Recorded Within the past 12 months, y ou worried that your food would run out before you got money to buy more: Never True 02/06/2025 Within the past 12 months,th e food you bought just didn't last and you didn't have enough money to get more: Never True 02/2025 Transportation Answer Date Recorded In the past 12 months, has l ack of transportation kept you from medical appts, meetings, work or from getting things needed for daily living? No 02/06/2025 Utilities Answer Date Recorded In the past 12 months, has t he electric, gas, oil or water company threatened to shut off services in your home? No 02/06/2025 Depression Answer Date Recorded Patient Health Questionnaire-2 Score 1 02/06/2025 Internet Access Answer Date Recorded Internet Access Q1 Yes 02/06/2025 Internet Access Q2 Not on file 02/06/2025 Sex and Gender Information Value Date Recorded Sex Assigned at Male 02/06/2025 2:00 PM EST Legal Sex Male 10:50 AM EDT Gender Identity Male 02/06/2025 2:00 PM EST Sexual Orientation Straight 02/06/2025 2: 00 PM EST documented as of this encounter Last Filed Vital Signs Vital Sign Reading Time Taken Comments Blood Pressure 138/72 03/13/2025 9:18 AM EST Pulse 88 03/13/2025 9:18 AM EST Temperature 37 C (98.6 F) 03/13/2025 9:18 AM EST Respiratory Rate 20 03/13/2025 9:18 AM EST Oxygen Saturation - - Inhaled Oxygen Concentration - - Weight 86.5 kg (190 lb 12.8 oz) 03/13/2025 9:18 AM EST Height - - Body Mass Index 26.99 02/06/2025 2:32 PM EST documented in this encounter Miscellaneous Notes * Assessment & Plan Note - Ca Owen NP - 03/13/2025 9:00 AM EST Associated Problem(s): Diabetes mellitus (HCC) - Glycemic control is adequate with recent A1c improvement from 6.5 (January 14, 2025) to 6.2 (lastmonth). No current use of metformin due to adverse effects. Current regimen includes glipizide and Jardiance. - Continue glipizide 5 mg twice daily and Jardiance 10 mg daily. Check A1c every 6 months. Recommended fasting labs including cholesterol and thyroid panel; instructed to present fasting for lab draw. * Assessment & Plan Note - Ca Owen NP - 03/13/2025 9:00 AM EST Associated Problem(s): Chronic midline low back pain with left-sided sciatica - Persistent severe pain with history of spinal fusion and herniated discs. Pain refractory to current regimen; breakthrough pain remains significant. - Continue current pain management regimen: morphine 30 mg twice daily and oxycodone 15 mg twice daily. No increase in opioid dosage; future consideration for dose reduction discussed. Referral to chronic pain group previously provided; encouraged attendance. - Contact [facility] pharmacy, spoke with Reji, verbal approval for the controlled substance to be dispensed a day prior to the indicated date due to the weekend Orders: oxyCODONE (Roxicodone) 15 MG immediate release tablet; Take 1 tablet (15 mg) by mouth 2 times daily. Do not start before March 16, 2025. morphine CR (MS Contin) 30 MG 12 hr tablet; Take 1 tablet (30 mg) by mouth 2 times daily. Do not crush, chew, or split. Do not start before March 16, 2025. * Assessment & Plan Note - Ca Owen NP - 03/13/2025 9:00 AM EST Associated Problem(s): Encounter for current [facility] use of antiplatelet drug - Chronic opioid therapy for pain management; current morphine milliequivalent calculated at 105, above recommended threshold (<90). - Continue current opioid regimen. No increase in dosage; future visits to consider dose reduction.Refill provided. Ongoing monitoring for opioid-related adverse effects. - The following options for pain management offered and Chas declined: PT services-- offered in-home PT services, referral to chronic pain group (this referral was initiated during the previous visit), trial of other pharmacological agents for pain. - Informed the literature does not support the increase of opioids for pain management and the nex visit we will discus reduction of current dosage. - Will also strongly consider the continuation of the current pain regimen if Chas is in agreement to this as an alternative to tapering--- Shared decision making with Chas during the next visit * Assessment & Plan Note - Ca Owen NP - 03/13/2025 9:00 AM EST Associated Problem(s): COPD (chronic obstructive pulmonary disease) (HCC) - COPD managed with Trelegy Ellipta and albuterol inhaler as needed. No significant dyspnea; occasional mild symptoms. - Continue Trelegy Ellipta once daily. Use albuterol inhaler as needed. Continue follow-up with building maintenance custodian. documented in this encounter Plan of Treatment Upcoming Encounters Date Type Department Care Team (Late st Contact Info) Description 03/27/2025 9:00 AM EST Clinical Support [facility] [address] [place] [id number] Ayala Bhat RN 04/16/2025 11:15 AM EST Office Visit [facility] [address] [place] [id number] Dior Martell ANP [address] [place] [id number] Scheduled Orders Name Type Priority Associated Diagnoses Orde r Schedule Hepatitis C Antibody with Reflex to HCV, RNA, Quantitative, Real-Time PCR Lab Routine Encounter for health-related screening Expected: 03/13/2025, Expires: 03/13/2026 documented as of this encounter Goals Goal Patient Goal Type Associated Problems Recent Progress Patient-Stated? Author Help patients manage their type 2 diabetes Care Plan Help patients manage their type 2 diabetes Ca Funez NP Patient has diabetic eye disease Care Plan Patient has diabetic eye disease Ca Funez NP Help patients manage their type 2 diabetes Care Plan Help patients manage their type 2 diabetes Ca Funez NP Patient has chronic kidney disease Care Plan Patient has chronic kidney disease Ca Funez NP Patient has chronic kidney disease Care Plan Patient has chronic kidney disease Ca Funez NP Patient has chronic kidney disease Care Plan Patient has chronic kidney disease No Candie Goetz RN Patient has chronic kidney disease Care Plan Patient has chronic kidney disease No Candie Goetz RN Weekly blood pressure task Care Plan Weekly blood pressure task No Ca Owen NP Weekly blood pressure task Care Plan Weekly blood pressure task No Ca Owen NP Patient has diabetic neuropathy Care Plan Patient has diabetic neuropathy No Dior Martell ANP Patient has diabetic neuropathy Care Plan Patient has diabetic neuropathy No Dior Martell ANP Weekly blood pressure task Care Plan Weekly blood pressure task No Ayala Bhat RN Weekly blood pressure task Care Plan Weekly blood pressure task No Ayala Bhat RN Patient has chronic kidney disease Care Plan Patient has chronic kidney disease No Ayala Bhat RN Patient has chronic kidney disease Care Plan Patient has chronic kidney disease No Ayala Bhat RN Patient has diabetic neuropathy Care Plan Patient has diabetic neuropathy No Ayala Bhat RN Patient has diabetic neuropathy Care Plan Patient has diabetic neuropathy No Ayala Bhat RN Weekly blood pressure task Care Plan Weekly blood pressure task No Ayala Bhat RN Weekly blood pressure task Care Plan Weekly blood pressure task No Ayala Bhat RN Patient has chronic kidney disease Care Plan Patient has chronic kidney disease No Ayala Bhat RN Patient has chronic kidney disease Care Plan Patient has chronic kidney disease No Ayala Bhat RN Patient has diabetic neuropathy Care Plan Patient has diabetic neuropathy No Ayala Bhat RN Patient has diabetic neuropathy Care Plan Patient has diabetic neuropathy No Ayala Bhat RN Weekly blood pressure task Care Plan Weekly blood pressure task No Tri Gary RN Weekly blood pressure task Care Plan Weekly blood pressure task No Tri Gary RN Patient has chronic kidney disease Care Plan Patient has chronic kidney disease No Tri Gary RN Patient has chronic kidney disease Care Plan Patient has chronic kidney disease No Tri Gary RN Patient has diabetic neuropathy Care Plan Patient has diabetic neuropathy No Tri Gary RN Patient has diabetic neuropathy Care Plan Patient has diabetic neuropathy No Tri Gary RN Weekly blood pressure task Care Plan Weekly blood pressure task No Ayala Bhat RN Weekly blood pressure task Care Plan Weekly blood pressure task No Ayala Bhat RN Patient has chronic kidney disease Care Plan Patient has chronic kidney disease No Ayala Bhat RN Patient has chronic kidney disease Care Plan Patient has chronic kidney disease No Ayala Bhat RN Patient has diabetic neuropathy Care Plan Patient has diabetic neuropathy No Ayala Bhat RN Patient has diabetic neuropathy Care Plan Patient has diabetic neuropathy No Ayala Bhat RN Weekly blood pressure task Care Plan Weekly blood pressure task No Ayala Bhat RN Weekly blood pressure task Care Plan Weekly blood pressure task No Ayala Bhat RN Patient has chronic kidney disease Care Plan Patient has chronic kidney disease No Ayala Bhat RN Patient has chronic kidney disease Care Plan Patient has chronic kidney disease No Ayala Bhat RN Patient has diabetic neuropathy Care Plan Patient has diabetic neuropathy No Ayala Bhat RN Patient has diabetic neuropathy Care Plan Patient has diabetic neuropathy No Ayala Bhat RN Weekly blood pressure task Care Plan Weekly blood pressure task No Dior Martell ANP Weekly blood pressure task Care Plan Weekly blood pressure task No Dior Martell ANP Patient has chronic kidney disease Care Plan Patient has chronic kidney disease No Dior Martell ANP Patient has chronic kidney disease Care Plan Patient has chronic kidney disease No Dior Martell ANP Patient has diabetic neuropathy Care Plan Patient has diabetic neuropathy No Dior Martell ANP Patient has diabetic neuropathy Care Plan Patient has diabetic neuropathy No Dior Martell ANP Weekly blood pressure task Care Plan Weekly blood pressure task No Erich Watson Weekly blood pressure task Care Plan Weekly blood pressure task No Walter Erich Patient has chronic kidney disease Care Plan Patient has chronic kidney disease No Walter Erich Patient has chronic kidney disease Care Plan Patient has chronic kidney disease No Walter Erich Patient has diabetic neuropathy Care Plan Patient has diabetic neuropathy No Walter Erich Patient has diabetic neuropathy Care Plan Patient has diabetic neuropathy No Erich Wtason Weekly blood pressure task Care Plan Weekly blood pressure task No Ca Owen NP Weekly blood pressure task Care Plan Weekly blood pressure task No Ca Owen NP Patient has chronic kidney disease Care Plan Patient has chronic kidney disease No Ca Owen NP Patient has chronic kidney disease Care Plan Patient has chronic kidney disease No Ca Owen NP Patient has diabetic neuropathy Care Plan Patient has diabetic neuropathy No Ca Oewn NP Patient has diabetic neuropathy Care Plan Patient has diabetic neuropathy No Ca Owen NP Weekly blood pressure task Care Plan Weekly blood pressure task No Ayala Bhat RN Weekly blood pressure task Care Plan Weekly blood pressure task No Ayala Bhat RN Patient has chronic kidney disease Care Plan Patient has chronic kidney disease Ayala Mayfield RN Patient has chronic kidney disease Care Plan Patient has chronic kidney disease No Ayala Bhat RN Patient has diabetic neuropathy Care Plan Patient has diabetic neuropathy No Ayala Bhat RN Patient has diabetic neuropathy Care Plan Patient has diabetic neuropathy Ayala Mayfield RN Weekly blood pressure task Care Plan Weekly blood pressure task No Emiliano Ryan MA Weekly blood pressure task Care Plan Weekly blood pressure task No Emiliano Ryan [place] Patient has chronic kidney disease Care Plan Patient has chronic kidney disease No Emiliano Ryan [place] Patient has chronic kidney disease Care Plan Patient has chronic kidney disease No Emiliano Ryan [place] Patient has diabetic neuropathy Care Plan Patient has diabetic neuropathy No Emiliano Ryan [place] Patient has diabetic neuropathy Care Plan Patient has diabetic neuropathy No Emiliano Ryan MA documented as of this encounter Visit Diagnoses Diagnosis Type 2 diabetes mellitus with hyperglycemia, without long-term current use of insulin ([facility])- Primary Chronic midline low back pain with left-sided sciatica [facility] current use of opioid Chronic atrial fibrillation ([facility]) ([facility]) Atrial fibrillation Encounter for health-related screening Chronic obstructive pulmonary disease, unspecified COPD type ([facility]) ([facility]) Congestive heart failure, unspecified HF chronicity, unspecified heart failure type ([facility]) Vaccination declined documented in this encounter Additional Health Concerns Active Problems Noted Date Diagnosed Date Help patients manage their type 2 diabetes 02/06 Patient has diabetic eye disease 02/06/2025 Help patients manage their type 2 diabetes 02/06 Patient has chronic kidney disease 02/06/2025 Patient has chronic kidney disease 02/06/2025 Patient has chronic kidney disease 02/06/2025 Patient has chronic kidney disease 02/06/2025 Weekly blood pressure task 02/06/2025 Weekly blood pressure task 02/06/2025 Patient has diabetic neuropathy 02/06/2025 Patient has diabetic neuropathy 02/06/2025 Weekly blood pressure task 02/07/2025 Weekly blood pressure task 02/07/2025 Patient has chronic kidney disease 02/07/2025 Patient has chronic kidney disease 02/07/2025 Patient has diabetic neuropathy 02/07/2025 Patient has diabetic neuropathy 02/07/2025 Weekly blood pressure task 02/07/2025 Weekly blood pressure task 02/07/2025 Patient has chronic kidney disease 02/07/2025 Patient has chronic kidney disease 02/07/2025 Patient has diabetic neuropathy 02/07/2025 Patient has diabetic neuropathy 02/07/2025 Weekly blood pressure task 02/11/2025 Weekly blood pressure task 02/11/2025 Patient has chronic kidney disease 02/11/2025 Patient has chronic kidney disease 02/11/2025 Patient has diabetic neuropathy 02/11/2025 Patient has diabetic neuropathy 02/11/2025 Weekly blood pressure task 02/14/2025 Weekly blood pressure task 02/14/2025 Patient has chronic kidney disease 02/14/2025 Patient has chronic kidney disease 02/14/2025 Patient has diabetic neuropathy 02/14/2025 Patient has diabetic neuropathy 02/14/2025 Weekly blood pressure task 02/14/2025 Weekly blood pressure task 02/14/2025 Patient has chronic kidney disease 02/14/2025 Patient has chronic kidney disease 02/14/2025 Patient has diabetic neuropathy 02/14/2025 Patient has diabetic neuropathy 02/14/2025 Weekly blood pressure task 02/14/2025 Weekly blood pressure task 02/14/2025 Patient has chronic kidney disease 02/14/2025 Patient has chronic kidney disease 02/14/2025 Patient has diabetic neuropathy 02/14/2025 Patient has diabetic neuropathy 02/14/2025 Weekly blood pressure task 2025 Weekly blood pressure task 2025 Patient has chronic kidney disease 2025 Patient has chronic kidney disease 2025 Patient has diabetic neuropathy 2025 Patient has diabetic neuropathy 2025 Weekly blood pressure task 03/08/2025 Weekly blood pressure task 03/08/2025 Patient has chronic kidney disease 03/08/2025 Patient has chronic kidney disease 03/08/2025 Patient has diabetic neuropathy 03/08/2025 Patient has diabetic neuropathy 03/08/2025 Weekly blood pressure task 03/12/2025 Weekly blood pressure task 03/12/2025 Patient has chronic kidney disease 03/12/2025 Patient has chronic kidney disease 03/12/2025 Patient has diabetic neuropathy 03/12/2025 Patient has diabetic neuropathy 03/12/2025 Weekly blood pressure task 03/12/2025 Weekly blood pressure task 03/12/2025 Patient has chronic kidney disease 03/12/2025 Patient has chronic kidney disease 03/12/2025 Patient has diabetic neuropathy 03/12/2025 Patient has diabetic neuropathy 03/12/2025 Assessment Noted Time PHQ-9 Depression Total Score: 7 02/07/20 3:38 PM EST documented as of this encounter Care Teams Answering Service Operator Relationship Specialty Start Date End Date Dior Martell ANP [address] [place] [id number] PCP - General Family Medicine 02/07/25 documented as of this encounter
--- OUTSIDE RECORDS SUMMARY | 2025-03-14 09:02 | XMS_ITS | Patient Health Record ---
Author Organization [facility] Address [address] [place] [address] Care Team Providers Care Skilled Labor Name Role Phone Pawelbello Jelly Lord Primary Care Provider Unavaila Dianne Harley Unavailable [phone] Allergies Allergen (clinical drug ingredient) Drug/Non Drug [...] Duration) Notes Start Date End Date Status Atorvastatin Calcium 40 MG 1 tablet Orally Once a day Active Metoprolol-HCTZ ER A ctive Extra Depth Orthopedic Shoes (1 Pair) with Customized Heat Molded Multidensity Innersoles (3 Pair) as directed Dx: NIDDM/Polyneuropathy (E11.42), Hammertoe Foot Deformity (M20.41,M20.42), Preulcerative Skin Lesion(s) (L85.1 08/09/2024 Active Gabapentin 100 MG 1 capsule at bedtime Orally Once a day Active Gabapentin 400 MG 1 capsule Orally Onc e a day Active metFORMIN HCl 1000 MG 1 tablet with a me al Orally Once a day Active glipiZIDE ER 5 MG 1 tablet with food Orally Once a day Active Isosorbide Mononitrate ER 30 MG 1 [...] MG as directed Orally Active Digoxin Active Morphine Sulfate Not -Taking Immunizations Vaccine Route Administration Date Status Comme nts Influenza Unknown 12/28/2023 Administered Influenza Unknown 01/03/2025 Administered Social History Tobacco Use: Social History [...] Problem Acquired hammer toe of right foot (278544021911556 5) Other hammer toe(s) (acquired), right foot (M20.41) Active confirmed Response to treatment, Improvement Problem Acquired hammer toe of left foot (534850670485318 3) Other hammer toe(s) (acquired), left foot (M20.42) Active confirmed Response to treatment, Improvement Problem Polyneuropathy due to type 2 diabetes mellitus (413357546) Type 2 diabetes mellitus with diabetic polyneuropathy (E11.42) Active confirmed Vital Signs Blood pressure diastolic 70 mm Hg 02/27/2025 Height 2cp10lv in 02/27/2025 Blood pressure systolic 126 mm Hg 02/27/2025 Weight 179 lbs 02/27/2025 BMI 24.96 kg/m2 02/27/2025 Procedures Procedure Date Ordered Date Performed Result Body Sit e 49035-TUUQOLU NAIL, 6 OR MORE 08/09/2024 N/A 38500-WHKN SKIN LESIONS, 2 TO 4 08/09/2024 N/A Encounters Encounter [facility] Date [facility] [address] [facility]/09/2024 Dianne Hazel Other hammer toe(s) (acquired), right foot M20.41 ; Other hammer toe(s) (acquired), left foot M20.42 ; Type 2 diabetes mellitus with diabetic polyneuropathy E11.42 and Tinea unguium B35.[address] [address] 11/21/2024 Dianne Hazel Type 2 diabetes mellitus with diabetic polyneuropathy E11.42 and Tinea unguium B35.[address] [address] 02/27/2025 Dianne Hazel Type 2 diabetes mellitus with diabetic polyneuropathy E11.42 ; Tinea unguium B35.1 ; Other hammer toe(s) (acquired), right foot M20.41 and Other hammer toe(s) (acquired), left foot M20.42 Assessments Encounter Date Diagnosis (ICD Code) Assessment [...] E11.42) 11/21/2024 Tinea unguium (ICD-10 - B35.1) 02/27/2025 Type 2 diabetes mellitus with diabetic polyneuropathy (ICD-10 - E11.42) 02/27/2025 Tinea unguium (ICD-10 - B35.1) 08/09/2024 Type 2 diabetes mellitus with diabetic polyneuropathy (ICD-10 - E11.42) 08/09/2024 Tinea unguium (ICD-10 - B35.1) 02/27/2025 Other hammer toe(s) (acquired), right foot (ICD-10 - M20.41) Response to treatment, Improvement 02/27/2025 Other hammer toe(s) (acquired), left foot (ICD-10 - M20.42) Response to treatment, Improvement Plan Of Treatment Pending Test Test Name Order Date 14888-IOQUKNZ NAIL, 6 OR MORE 08/09/2024 33734-SJRD SKIN LESIONS, 2 TO 4 08/10/19 25 Next Appt Details Provider Name:Dianne Meza shelley, 05/30/2025 09:30:00 AM, [address] [place], [address], Insurance Providers Payer Name Payer Address Payer Phone Subscriber Number Group Number Insured Name Patient Relationship to Insured Coverage Start Date Coverage End Date Medicare National [employer] [address] [place] [address] [id number] Chas Jack Self - patient is the insured [employer] [facility] [address] [place] [address] [id number] Chas Jack Self - patient is the [...]
--- OUTSIDE RECORDS SUMMARY | 2025-03-14 09:02 | XMS_ITS | Clinical Summary ---
Author Organization [address] [facility] Address [address] [place] [address] Phone Care Team Providers Care Tanbark Peeler Name Role Phone Doug Hummel MD Primary Care Provider [phone] Allergies Active Allergy Reactions Criticality Noted Date [...] (0.06 %) nasal spray 5 Active Hypodermic Sandpoint 23 gauge x 1 needle USE TO [...] hand. MRI of the cervical spine from [facility] obtained on April 04, 2024 did [...] His MRI of the lumbar spine from [facility] does show what appears to be [...] pain 03/20/2024 COPD (chronic obstructive pulmonary disease) Immunizations Immunization Administration Dates Next Due Influenza [...] History Medical History Date Comments Hypertension Diabetes ([facility] V24, [facility] V28) Social History Tobacco Use Types Packs/Day Years Used Date Smoking Tobacco: Never Smokeless Tobacco: Never Tobacco Cessation:Counseling Given: Not Answered Sex and Gender Information Value Date Recorded Sex Assigned at Not on file Legal Sex Male 8:31 AM EST Gender Identity Not on file Sexual Orientation Not on file Last Filed Vital Signs Vital Sign Reading [...] Diabetes: Annual GFR (Glomerular Filtration Rate) 1950 Drug Screen 1950 Non-Opioid Controlled Substance Agreement 1950 Diabetes: Annual Foot Exam 1961 Diabetes: [...] patient's age to complete this topic Insurance MEDICARE [facility] Care Teams Tanbark Peeler Relationship Specialty Start Date End Date [facility] Hummel [facility] [address] [facility] - General Internal Medicine 11/18/16
--- OUTSIDE RECORDS SUMMARY | 2025-03-14 09:02 | XMS_ITS | Encounter Summary ---
Author Organization [facility] Address [address] [place] [address] Care Team Providers Care Supervisor [employer] Name Role Phone Doug Hummel MD Primary Care Provider [phone] Encounter Details Date Type Department Care Team (Late st Contact Info) Description 11/06/2024 Lab Requisition [facility] - Main Lab [address] [place] [address] Loco Andres, DYLAN [address] [facility] [address] [place] [phone] Testicular hypofunction Social History Tobacco Use Types [...] AM EDT) WBC 9.4 4.8 - 10.8 K/[facility] LAB HEMETOLOGY METHOD 11/06/2024 12:45 PM EDT [facility] RBC 4.80 4.50 - 5.50 M/mcL LAB HEMETOLOGY METHOD 11/06/2024 12:45 PM EDT [facility] Hemoglobin 15.3 13.5 - 17.5 [...] ORDERABLES Final Res ult Performing Organization Address City/[facility]/ZIP Co de Phone Number [facility] [address] [place] [address], [place] [phone] * (ABNORMAL) Hepatic function panel (11/06/2024 9:27 AM EDT) Total Protein 7.2 6.0 - 8.0 g/dL LAB CHEMISTRY METHOD 11/06/2024 1:36 PM EDT [facility] Albumin 3.9 3.2 - 5.0 g/dL LAB CHEMISTRY METHOD 11/06/2024 1:36 PM EDT [facility] Total Bilirubin 0.6 0.0 - 1.4 mg/dL LAB CHEMISTRY METHOD 11/06/2024 1:36 PM EDT [facility] Bilirubin, Direct 0.2 0.0 - 0.3 mg/dL LAB CHEMISTRY METHOD 11/06/2024 1:36 PM EDT [facility] Bilirubin, Indirect 0.4 0.0 - 1.1 mg/dL LAB CHEMISTRY METHOD 11/06/2024 1:36 PM EDT [facility] ALT (SGPT) 48 10 - 60 unit/L LAB CHEMISTRY METHOD 11/06/2024 1:36 PM EDT [facility] AST (SGOT) 26 10 - 42 unit/L LAB CHEMISTRY METHOD 11/06/2024 1:36 PM EDT [facility] Alkaline Phosphatase 127(H) 42 - 121 unit/L LAB CHEMISTRY METHOD 11/06/2024 1:36 PM EDT [facility] Blood Venous blood specimen / Unknown 11/06/2024 9:27 AM EDT 11/06/2024 12:18 PM EDT us Loco RICHARDSON LAB BLOOD ORDERABLES Final Res ult [facility] [address] [place] [address], documented in this encounter Visit Diagnoses Diagnosis Testicular hypofunction Other testicular hypofunction documented in this encounter Care Teams Supervisor [employer] Relationship Specialty Start Date End Date Doug Hummel MD [address] [place] [address] PCP - General Internal Medicine 11/18/16 documented as of this encounter
--- OUTSIDE RECORDS SUMMARY | 2025-03-14 09:02 | XMS_ITS | Encounter Summary ---
Author Organization [facility] Address [address] [place] [id number] Care Team Providers Care Maxillofacial Surgeon Name Role Phone Doug Hummel MD Primary Care Provider [phone] Encounter Details Date Type Department Care Team (Late st Contact Info) Description 05/09/[address] [facility] - Main Lab [address] [place] [address] Loco Andres, DYLAN [address] [facility] [address] [place] [phone] Testicular hypofunction Social History Tobacco Use Types [...] AM EST) WBC 11.6(H) 4.8 - 10.8 K/[facility] LAB HEMETOLOGY METHOD 05/09/2024 1:10 PM EST [facility] RBC 5.50 4.50 - 5.50 M/[facility] LAB HEMETOLOGY METHOD 05/09/2024 1:10 PM EST [facility] Hemoglobin 17.2 13.5 - 17.5 g/dL LAB HEMETOLOGY METHOD 05/09/2024 1:10 PM EST [facility] Hematocrit 53.2 42.0 - 54.0 % LAB HEMETOLOGY METHOD 05/09/2024 1:10 PM [facility] MCV 97.4 79.0 - 98.0 FL LAB HEMETOLOGY METHOD 05/09/2024 1:10 PM EST [facility] MCH 31.5 27.0 - 32.0 pcg LAB HEMETOLOGY METHOD 05/09/2024 1:10 PM EST [facility] MCHC 32.3 32.0 - 37.0 g/dL LAB HEMETOLOGY METHOD 05/09/2024 1:10 PM [facility] RDW 12.8 11.0 - 15.0 % LAB HEMETOLOGY METHOD 05/09/2024 1:10 PM EST [facility] Platelets 357 130 - 400 K/mcL LAB HEMETOLOGY METHOD 05/09/2024 1:10 PM EST [facility] MPV 9.6 7.0 - 11.0 FL LAB HEMETOLOGY METHOD 05/09/2024 1:10 PM [facility] NRBC 0.0 <1.0 % LAB HEMETOLOGY METHOD 05/09/2024 1:10 PM EST [facility] NRBC Absolute 0.00 <0.10 K/mcL LAB HEMETOLOGY METHOD 05/09/2024 1:10 PM [facility] Blood Venous blood specimen / Unknown 05/09/2024 10:17 AM EST 05/09/2024 12:43 PM EST us Loco RICHARDSON LAB BLOOD ORDERABLES Final Res ult [facility] [address] [place] [address], documented in this encounter Visit Diagnoses Diagnosis Testicular hypofunction Other testicular hypofunction documented in this encounter Care Teams Maxillofacial Surgeon Relationship Specialty Start Date End Date Doug Hummel MD [address] [place] PCP - General Internal Medicine 11/18/16 documented as of this encounter
--- OUTSIDE RECORDS SUMMARY | 2025-03-14 09:02 | XMS_ITS | Clinical Summary ---
Author Organization [employer] Address [address] [place] [address] Care Team Providers Care Coin Wrapping Machine Operator Name Role Phone Dior Martell Primary Care Provider [phone] Allergies Active Allergy Reactions Criticality Noted Date Comments Fentanyl Low 08/29/2024 Other Reaction(s): TOPICAL RASH FROM ADHESIVE, Unknown Losartan Other,Unknown 03/20/2024 Other Reaction(s): hyperkalemic Methadone Unknown Low 03/20/2024 Other Reaction(s): vomiting and sweating Other Reaction(s): NAUSEA & VOMITING Penicillins Unknown 02/06/2025 Sulfa Antibiotics Unknown 02/06/2025 Sulfamethoxazole-Trimeth oprim Other 03/13/2025 Medications Eliquis 5 MG tablet Take 5 mg by mouth 2 times daily. 03/19/20 22 Active atorvastatin (Lipitor) 40 MG tablet Take 40 mg by mouth in the morning. Active dilTIAZem CD (Cardizem CD) 240 MG 24 hr capsule Take 240 mg by mouth Once per day. 11/28/19 25 Active fluticasone (Flonase) 50 MCG/ACT nasal spray Administer 2 sprays into each nostril Once per day. 01/07/20 24 Active Fluticasone-Um eclidin-Vilant (Trelegy Ellipta) 200-62.5-25 MCG/ACT aerosol powder Inhale 1 puff in the morning. Active furosemide (Lasix) 20 MG tablet 20 mg Once per day. Active glipiZIDE XL (Glucotrol XL) 5 MG 24 hr tablet 5 mg 2 times daily. Active isosorbide mononitrate ER (Imdur) 30 MG 24 hr tablet 30 mg Once per day. Active metoprolol succinate XL (Toprol-XL) 100 MG 24 hr tablet 100 mg 2 times daily. 03/14/20 Active ipratropium (Atrovent) 0.06 % nasal spray Administer 2 sprays into each nostril 4 times daily. 07/25/19 Active Blood Glucose Monitoring Suppl (Blood Glucose Monitor System) w/Device kitIndications :Type 2 diabetes mellitus with hyperglycemia, without long-term current use of insulin (HCC) 1 kit 2 times daily. 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 May repeat every 2-3 minutes if needed, alternating nostrils, until medical assistance becomes available. 2 each 02/07/20 25 026 Active oxyCODONE (Roxicodone) 15 MG immediate release tabletIndicati ons:Chronic midline low back pain with left-sided sciatica Take 1 tablet (15 mg) by mouth 2 times daily. Do not start before March 16, 2025. 60 tablet 03/16/20 25 026 Active morphine CR (MS Contin) 30 MG 12 hr tabletIndicati ons:Chronic midline low back pain with left-sided sciatica Take 1 tablet (30 mg) by mouth 2 times daily. Do not crush, chew, or split. Do not start before March 16, 2025. 60 tablet 03/16/20 25 026 Active albuterol 108 (90 Base) MCG/ACT inhaler Inhale 2 puffs every 6 (six) hours if needed for wheezing. Active Trelegy Ellipta 200-62.5-25 MCG/ACT aerosol powder Inhale 200 mcg Once per day. 02/29/20 24 025 Discontinued(D uplicate order (will not trigger notification to Pharmacy)) gabapentin (Neurontin) 400 MG capsule 400 mg 3 times daily. 12/04/20 24 Discontinued(N on-compliance) oxyCODONE (Roxicodone) 15 MG immediate release tabletIndicati ons:Chronic midline low back pain with left-sided sciatica Take 1 tablet (15 mg) by mouth 2 times daily. Do not start before February 15, 2025. 60 tablet 02/16/20 25 025 Discontinued(R eorder (will not trigger notification to Pharmacy)) morphine CR (MS Contin) 30 MG 12 hr tabletIndicati ons:Chronic midline low back pain with left-sided sciatica Take 1 tablet (30 mg) by mouth 2 times daily. Do not crush, chew, or split. Do not start before February 15, 2025. 60 tablet 02/16/20 25 025 Discontinued(R eorder (will not trigger notification to Pharmacy)) carbamide peroxide (Debrox) 6.5 % otic solutionIndica tions:Left ear impacted cerumen Administer 5-10 drops into affected ear(s) 2 times daily for 4 days. 30 mL 02/12/20 25 morphine CR (MS Contin) 30 MG 12 hr tabletIndicati ons:Chronic midline low back pain with left-sided sciatica Take 1 tablet (30 mg) by mouth 2 times daily. Do not crush, chew, or split. Do not start before February 15, 2025. 60 tablet 02/16/20 25 025 Discontinued(R eorder (will not trigger notification to Pharmacy)) oxyCODONE (Roxicodone) 15 MG immediate release tabletIndicati ons:Chronic midline low back pain with left-sided sciatica Take 1 tablet (15 mg) by mouth 2 times daily. Do not start before February 15, 2025. 60 tablet 02/16/20 25 025 Discontinued(R eorder (will not trigger notification to Pharmacy)) oxyCODONE (Roxicodone) 15 MG immediate release tabletIndicati ons:Chronic midline low back pain with left-sided sciatica Take 1 tablet (15 mg) by mouth 2 times daily. Do not start before March 17, 2025. 60 tablet 03/17/20 25 025 Discontinued(R eorder (will not trigger notification to Pharmacy)) morphine CR (MS Contin) 30 MG 12 hr tabletIndicati ons:Chronic midline low back pain with left-sided sciatica Take 1 tablet (30 mg) by mouth 2 times daily. Do not crush, chew, or split. Do not start before March 17, 2025. 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 - Continue current opioid regimen. No increase in dosage; future visits to consider dose reduction. Refill provided. Ongoing monitoring for opioid-related adverse effects. [...] making with Chas during the next visit Assessment & Plan (02/06/2025 5:00 PM EST): - Chronic pain management complicated by opioid dose reduction. Patient experiencing increased pain and withdrawal symptoms due to rapid tapering. - Controlled substance contract to be signed. Schedule appointment with controlled substance nurse for urine drug testing and medication count. Consider referral to pain mgmt for further recommendations. Prescribe 30-day supply of pain medication as per current protocol. Orders: [facility] to [facility]; Future naloxone (Narcan) 4 mg/0.1 mL nasal spray; Administer 1 spray (4 mg) into affected nostril(s) if needed for opioid reversal. May repeat every 2-3 minutes if needed, alternating nostrils, until medical assistance becomes available. HTN (hypertension) 02/06/2025 Assessment & Plan (02/06/2025 5:00 PM EST): - Hypertension managed with diltiazem and possibly metoprolol (pt not clear if metoprolol or metformin stopped, then says it was metformin, referred for MT visit for assistance w/ clarifying) - Continue antihypertensive regimen. Monitor blood pressure at home. - Elevated BP during the visit. He will return in 1 month for BP check Acquired hammer toe of left foot 02/06/2025 Acquired hammer toe of right foot 02/06/2025 Diabetic polyneuropathy asso ciated with type 2 diabetes mellitus 02/06/2025 Assessment & Plan (02/06/2025 5:00 PM EST): As above, follows w/ podiatry Chronic midline low back pain with left-sided sc iatica 07/25/2024 Assessment & Plan (03/13/2025 11:48 AM EST): - Persistent severe pain with history of spinal fusion and herniated discs. Pain refractory to current regimen; breakthrough pain remains significant. - Continue current pain management regimen: morphine 30 mg twice daily and oxycodone 15 mg twice daily. No increase in opioid dosage; future consideration for dose reduction discussed. Referral to chronic pain group previously provided; encouraged attendance. - Contact [facility] pharmacy, spoke with Reji, verbal approval for [...] Do not start before March 16, 2025. Assessment & Plan (02/06/2025 5:00 PM EST): - Chronic low back pain with left-sided sciatica, exacerbated after recent fall. Pain described as twisting and persistent. - Continue physical therapy as able. Consider referral to pain clinic for further management. Controlled substance contract to be signed for ongoing opioid therapy. Urine drug testing and medication count to be scheduled with controlled substance nurse. Orders: Referral to [facility]; Future morphine (MSIR) 30 MG tablet; Take 1 tablet (30 mg) by mouth every 12 (twelve) hours. Do not start before February 15, 2025. oxyCODONE (Roxicodone) 15 MG immediate release tablet; Take 1 tablet (15 mg) by mouth 2 times daily. Do not start before February 15, 2025. Cervical spondylosis with radiculopathy 07/26/19 Assessment & Plan (02/06/2025 5:00 PM EST): - Cervical pain with radiculopathy, persistent and severe. - Continue physical therapy as able. Follow-up with neurology and orthopedic specialists as needed. Chronic left shoulder pain 06/08/2024 Assessment & Plan (02/06/2025 5:00 PM EST): As below Orders: [facility] to [facility]; Future Carpal tunnel syndrome of right wrist 03/23/2024 Assessment & Plan (02/06/2025 5:00 PM EST): Status post carpal tunnel release. Persistent pain and paresthesia in left hand and index finger. - Continue follow-up with mental health specialist. Reassess in 6 months for further intervention if symptoms persist. Arthritis of carpometacarpal (CMC) joint of left thumb 03/23/2024 Assessment & Plan (02/06/2025 5:00 PM EST): - Persistent thumb pain attributed to arthritis. - Continue orthopedic follow-up. Monitor for changes in pain or function. (HFpEF) heart failure with preserved ejection fr action 03/20/2024 Assessment & Plan (02/06/2025 5:00 PM EST): Congestive heart failure managed by licensed surveyor. Upcoming echocardiogram and Holter monitor scheduled for March 01, 2025. No current chest pain or significant dyspnea. - Continue follow-up with licensed surveyor. Undergo echocardiogram and Holter monitor as scheduled. Will request notes from the specialist Continue on the following regimen Diltiazem 240mg daily Lasix 20mg daily Isosorbide 30mg daily Nitroglycerin 0.4 mg Jardiance 10mg Orders: Referral to Pharmacy MTM Albumin, Random Urine W/Creatinine; Future Hyperlipidemia 03/20/2024 Assessment & Plan (02/06/2025 5:00 PM EST): Hyperlipidemia managed with atorvastatin 40 mg daily. - Continue atorvastatin as prescribed. Maintain diet low in fried foods. Orders: Lipid Panel, Standard; Future COPD (chronic obstructive pulmonary disease) Assessment & Plan (03/13/2025 11:48 AM EST): - COPD managed with Trelegy Ellipta and albuterol inhaler as needed. No significant dyspnea; occasional mild symptoms. - Continue Trelegy Ellipta once daily. Use albuterol inhaler as needed. Continue follow-up with multimedia editor. Assessment & Plan (02/06/2025 5:00 PM EST): COPD managed with Trelegy Ellipta daily and DuoNeb bromide nasal spray as needed. Breathing stable with current regimen. - Continue Trelegy Ellipta daily and DuoNeb as needed. Maintain follow-up with multimedia editor every 6 months or as needed. Diabetes mellitus 03/20/2024 Assessment & Plan (03/13/2025 11:48 AM EST): - Glycemic control is adequate with recent A1c improvement from 6.5 (January 14, 2025) to 6.2 (last month). No current use of metformin due to adverse effects. Current regimen includes glipizide and Jardiance. - Continue glipizide 5 mg twice daily and Jardiance 10 mg daily. Check A1c every 6 months. Recommended fasting labs including cholesterol and thyroid panel; instructed to present fasting for lab draw. Assessment & Plan (02/06/2025 5:00 PM EST): Complications incl hypertension/HLD and polyneuropathy per chart review Continue with Glipizide 5mg twice a day Jardiance 10mg daily Sent testing supplies Orders: POCT Glucose POCT Hgb A1c Blood Glucose Monitoring Suppl (Blood Glucose Monitor System) w/Device kit; 1 kit 2 times daily. 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; Chronic atrial fibrillation (CMS/HCC) (HCC); Encounter for health-related screening; Chronic obstructive pulmonary disease, unspecified COPD type (CMS/HCC) (HCC); Congestive heart failure, unspecified HF chronicity, unspecified heart failure type (HCC); Vaccination declined 03/13/2025 Travel 03/12/2025 Telephone [facility] [place] [address] Dior Martell ANP Chart Prep [address] [address] Dior Martell ANP Call Back Request 02/14/2025 9:30 AM EST Clinical Support [facility] [place] [address] Ayala Bhat, ERNIE half-way current use of opioid (Primary Dx) 02/14/2025 Orders Only [facility] [place] [address] Dior Martell ANP Chronic midline low back pain with left-sided sciatica 02/14/[address] [address] Ayala Bhat, ERNIE BISCUIT PACKER Agreement signed today; Med Refill 02/14/2025 Travel 02/11/2025 Telephone [facility] [place] [place] [address] Ca Owen NP Status Check 02/07/2025 Refill [facility] [place] [address] Ayala Bhat, manager of project management midline low back pain with left-sided sciatica (Primary Dx) 02/07/[address] [address] Ayala Bhat, RN Schedule BISCUIT PACKER Initial appt 02/06/2025 2:00 PM EST Office Visit [facility] [address] [place] [phone] Dior Martell ANP Routine general medical examination at a health care facility (Primary Dx); Congestive heart failure, unspecified HF chronicity, unspecified heart failure type (HCC); Other hyperlipidemia; Chronic obstructive pulmonary disease, unspecified COPD type (CMS/HCC) (HCC); Carpal tunnel syndrome of left wrist; Arthritis of carpometacarpal (CMC) joint of left thumb; Chronic left shoulder pain; Chronic midline low back pain with left-sided sciatica; Secondary hypertension; Cervical spondylosis with radiculopathy; Dietary counseling; Exercise counseling; Overweight; 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; Left ear impacted cerumen; Type 2 diabetes mellitus with hyperglycemia, without long-term current use of insulin (HCC); Diabetic polyneuropathy associated with type 2 diabetes mellitus (HCC) 02/06/[address] [address] Candie Goetz RN 02/06/2025 Travel 02/05/2025 Telephone [facility] [address] [place] [phone] Ca Owen NP Chart Prep from Last 3 Months Immunizations Immunization Administration Dates Next Due INFLUENZA INJECTABLE QUADRIV ALANT CCIIV4 MDCK Multi-dose vial 12/06/2019,12/11/2018 Influenza injectable quadriv alent IIV4 with preservative 12/20/2022,12/04/2021,12/30/2020,2017 Influenza injectable quadriv alent preservative free 10/26/2016 Influenza, IIV3, injectable 01/17/2024,,12/14/2017 Influenza, Injectable, MDCK, preservative free 11/13/2014 Influenza, seasonal, injecta ble, preservative free 01/03/2025,12/18/2024,12/28/2023,2015 Pneumococcal Conjugate PCV 13 11/13/2014 RSV Bivalent 02/21/2023 Tdap 09/14/2020,09/03/2015 Social History Tobacco Use Types Packs/Day Years [...] Orientation Straight 02/06/2025 2: 00 PM EST Last Filed Vital Signs Vital Sign Reading Time Taken Comments Blood Pressure 138/72 03/13/2025 9:18 AM EST Pulse 88 03/13/2025 9:18 AM EST Temperature 37 C (98.6 F) 03/13/2025 9:18 AM EST Respiratory Rate 20 03/13/2025 9:18 AM EST Oxygen Saturation 98% 02/06/2025 2:32 PM EST Inhaled Oxygen Concentration - - Weight 86.5 kg (190 lb 12.8 oz) 03/13/2025 9:18 AM EST Height 179.1 cm (5' 10.5 ) 02/06/2025 2:32 PM ES T Body Mass Index 26.99 02/06/2025 2:32 PM EST Plan of Treatment Upcoming Encounters Date Type Department Care Team (Late st Contact Info) Description 03/27/2025 9:00 AM EST Clinical Support [facility] [address] [place] [phone] Ayala Bhat RN 04/16/2025 11:15 AM EST Office Visit [facility] [address] [place] [phone] Dior Martell, ANP [address] [place] [address] Health Maintenance Due Date Last Done Comments CT Colonography 1951 Colonoscopy 1951 Colorectal Cancer Screening 1951 FIT DNA/Cologuard 1951 FIT 1951 FOBT 1951 Lipid Panel 1951 Sigmoidoscopy 1951 Diabetes: Foot Exam 1961 Eye Exam 1961 Tobacco Screening 1963 Hepatitis C Screening 1969 Diabetes: Urine Protein Screening 1970 Zoster Vaccines (1 of 2) 2001 Pneumococcal Vaccine: 50+ Years (2 of 2 - PPSV23, PCV20, or PCV21) 01/08/2015 11/13/2014 Diabetes: Hemoglobin A1C 08/06/2025 02/06/2025 Alcohol/Substance Use Screening 02/06/2026 02/06/2025 Depression Screening 02/06/2026 02/06/2025, 02/07/20 25 SDOH Screening 02/06/2026 02/06/2025 COVID-19 Vaccine ( season) 2026 12/01/2023, 04/19/2023, 09/04/2021, Additional history exists Postponed from 11/26/2024 (Patient Refused) DTaP/Tdap/Td Vaccines (3 - Td or Tdap) 09/14/2030 09/14/2020, 09/03/2015 RSV Patients and Patients Aged 60 years or older Completed 02/21/2023 Influenza Vaccine Completed 01/03/2025, , 01/17/2024, Additional history exists HIB Vaccines Aged Out [...] on patient's age to complete this topic Goals Goal Patient Goal Type Associated Problems Recent Progress Patient-Stated? Author Help patients manage their type 2 diabetes Care Plan Help patients manage their type 2 diabetes No Ca Owen NP Patient has diabetic eye disease Care Plan Patient has diabetic eye disease No Ca Owen NP Help patients manage their type 2 diabetes Care Plan Help patients manage their type 2 diabetes No Ca Owen NP Patient has chronic [...] Plan Weekly blood pressure task No Ayala Bhat, RN Patient has chronic kidney disease Care [...] Care Plan Patient has diabetic neuropathy No Aylaa Bhat RN Patient has diabetic neuropathy Care [...] Plan Patient has chronic kidney disease No Watson, Erich Patient has chronic kidney disease Care Plan Patient has chronic kidney disease No Erich Watson Patient has diabetic neuropathy Care Plan Patient has diabetic neuropathy No Walter, Erich Patient has diabetic neuropathy Care Plan Patient has diabetic neuropathy No Erich Watson Weekly blood pressure task [...] has diabetic neuropathy No Ca Owen NP Patient has diabetic [...] has diabetic neuropathy No Emiliano Ryan MA Procedures Procedure Name Priority Date/Time Associated Diagnosis Comments POCT ASA-14 URINE DRUG SCREEN Routine 02/14/2025 11:17 AM EST 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 POCT GLYCATED HEMOGLOBIN, TOTAL Routine 02/06/2025 4:16 PM EST Type 2 diabetes mellitus with hyperglycemia, without long-term current use of insulin (HCC) POCT GLUCOSE Routine 02/06/2025 4:15 PM EST Type 2 diabetes mellitus with hyperglycemia, without long-term current use of insulin (HCC) from Last 3 Months Results * (ABNORMAL) POCT ASA-14 Urine Drug Screen (02/14/2025 11:17 AM EST) THC Negative Negative Cocaine Screen, Urine Negative Negative Opiate Screen, Urine Positive(A) Negative Comment:BISCUIT PACKER pt on MS Contin Methamphetamine Screen Urine Negative Negative Amphetamine Screen, Urine Negative Negative Benzodiazepines Screen, Urine Negative Negative Barbiturate Screen, Urine Negative Negative Methadone Screen, Urine Negative Negative Buprenophine Screen, Urine Negative Negative TCA, Urine Negative Negative MDMA Urine Negative Negative ng/mL Oxycodone Screen, Urine Positive(A) Negative Comment:BISCUIT PACKER pt on Oxycodone Phencyclidine (PCP), Urine Negative Negative Propoxyphene, Urine Negative Negative Fentanyl, Urine Negative Negative Urine Urine specimen obtained by clean catch procedure / Unknown 02/14/2025 11:17 AM EST Ayala Ibarra RN - 02/14/2025 11:17 AM EST UTOX cup Lot#[id number] Exp. 02/25/26 Internal Pass Control Count includes the [facility] POINT OF CARE TEST ENTER/EDIT OR DERABLES Final Result * (ABNORMAL) POCT Hgb A1c (02/06/2025 4:16 PM EST) Hemoglobin A1C 6.2(A) 4.0 - 5.7 % QC Media Lot # [id number] Lot# Expiration Date ,368,497 Blood 02/06/2025 4:16 PM EST us Dior Martell ANP POINT OF CARE TEST ENTER/EDIT OR DERABLES Final Result * (ABNORMAL) POCT Glucose (02/06/2025 4:15 PM EST) Glucose Blood, POC 204(A) 60 - 200 mg/dL QC Media Lot # [id number] Lot# Expiration Date ,302,[id number] Blood Capillary blood specimen / Unknown 02/06/2025 4:15 PM EST us Dior Martell ANP POINT OF CARE TEST ENTER/EDIT OR DERABLES Final Result from Last 3 Months Additional Health Concerns Active Problems Noted Date [...] neuropathy 03/12/2025 Patient has diabetic neuropathy 03/12/2025 Insurance [facility] [employer] MEDICARE SUPPLEMENT MEDICARE Care Teams Coin Wrapping Machine Operator Relationship Specialty Start Date End Date Dior Martell ANP [address] [place] [phone] PCP - General Family Medicine 02/07/25
--- OUTSIDE RECORDS SUMMARY | 2025-03-14 09:02 | XMS_ITS | Encounter Summary ---
Author Organization [employer] Address [address] [place] [address] Care Team Providers Care Billet Cutter Name Role Phone Dior Martell Primary Care Provider [phone] Encounter Details Date Type Department Care Team (Latest Contact Info) Description 03/13/2025 Travel Social History Tobacco Use Types Packs/Day Years [...] PM EST documented as of this encounter Plan of Treatment Upcoming Encounters Date Type Department Care Team (Late st Contact Info) Description 03/27/2025 9:00 AM EST Clinical Support [address] [address] Ayala Bhat RN 04/16/2025 11:15 AM EST Office Visit [facility] [address] [place] [phone] Dior Martell ANP [address] [place] [phone] documented as of this encounter Goals Goal [...] Plan Weekly blood pressure task No Dior Matrell ANP Patient has chronic kidney disease Care [...] Weekly blood pressure task No Erich Watson Patient has chronic kidney disease Care Plan Patient has chronic kidney disease No Erich Watson Patient has chronic kidney disease Care Plan Patient has chronic kidney disease No Erich Watson Patient has diabetic neuropathy Care Plan Patient has diabetic neuropathy No Erich Watson Patient has diabetic neuropathy [...] Patient has chronic kidney disease No Emiliano Ryan, [place] Patient has diabetic neuropathy Care Plan Patient has diabetic neuropathy Emiliano Adams MA Patient has diabetic neuropathy Care Plan Patient has diabetic neuropathy Emiliano Adams MA documented as of this encounter Visit Diagnoses Not on filedocumented in this encounter Additional Health Concerns Active [...] documented as of this encounter Care Teams Billet Cutter Relationship Specialty Start Date End Date Dior Martell ANP [address] [place] [phone] PCP - General Family Medicine 02/07/25 documented as of this encounter
--- OUTSIDE RECORDS SUMMARY | 2025-03-14 09:02 | XMS_ITS | Encounter Summary ---
Author Organization [employer] Address [address] [place] [address] Care Team Providers Care Clinical Staff Pharmacist Name Role Phone Dior Martell Primary Care Provider [phone] Reason for Visit * Reason Onset Date Comments Chart Prep 03/12/2025 Encounter Details Date Type Department Care Team ([facility] st Contact Info) Description 03/12/2025 Telephone [facility] MEDICINE [address] [place] [address] Dior Martell ANP [address] [place] [address] Chart Prep Social History Tobacco Use Types Packs/Day Years [...] PM EST documented as of this encounter Miscellaneous Notes * Telephone Encounter - Emiliano Ryan MA - 03/12/2025 2:03 PM EST Chart Prep Labs: not done Images: done Referrals: appointment pending Vaccines due: Covid, PCV20, and Zoster Screenings: colonoscopy, eye exam, and foot examDiabetes: Urine Protein Screening Overdue care gaps: Oral health screening and Tobacco documented in this encounter Plan of Treatment Upcoming Encounters Date Type Department Care Team (Late st Contact Info) Description 03/27/2025 9:00 AM EST Clinical Support [facility] MEDICINE [address] [place] [id number] Ayala Bhat RN 04/16/2025 11:15 AM EST Office Visit [facility] MEDICINE [address] [place] [phone] Dior Martell ANP [address] [place] [address] documented as of this encounter Goals Goal [...] Plan Weekly blood pressure task No Tri Gray RN Patient has chronic kidney disease Care [...] Care Plan Weekly blood pressure task No Perlita, Ayala, RN Patient has chronic kidney disease Care [...] documented as of this encounter Care Teams Clinical Staff Pharmacist Relationship Specialty Start Date End Date Dior Martell ANP [address] [place] [address] PCP - General Family Medicine 02/07/25 documented as of this encounter
--- OUTSIDE RECORDS SUMMARY | 2025-03-14 09:02 | XMS_ITS | Patient Health Record ---
Author Organization 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 Machine Tender Name Role Phone RICO HILLMAN Primary Care Provider Reece Garner Unavailable [phone] Allergies Allergen (clinical drug ingredient) Drug/Non Drug Allergy documented on EMR Reaction Allergy Type Onset Date Status fentanyl Fentanyl Unknown Drug Allergy Active methadone Methadone HCl Unknown Drug Allergy Act margo Substance with sulfonamide structure and antibacterial mechanism of action (substance) Sulfa Antibiotics Unknown Drug Allergy Active sulfamethoxazole Sulfamethoxazole Unknown Drug Allergy Active losartan Losartan Unknown Drug Allergy Active trimethoprim Trimethoprim Unknown Drug Allergy A ctive Reason For Referral No Information Medications Medication SIG (Take, Route, Frequency, Duration) Notes Start Date End Date Status Meloxicam 15 MG Tablet Oral; Duration: 3 0 Days Unknown Ipratropium [place] 0.06 % Solution Nasal; Duration: 30 Days Unknown Atorvastatin Calcium 40 MG Tablet Oral; Duration: 90 Days Unknown predniSONE 5 MG Tablet Oral; Duration: 3 0 Days Unknown Eliquis 5 MG Tablet Oral; Duration: 90 Days Unknown Dulcolax (colon prep) 5 MG Tablet Delayed Release take at 3:00 p.m and 7:00p.m. Orally two tablets twice a day for one day; Duration: 1 day 09/07/2018 Unknown Trelegy Ellipta 200-62.5-25 MCG/ACT Aerosol Powder Breath Activated Inhalation; Duration: 30 Days Unknown MiraLax (colon prep) 8.3 ounce ((238) grams mixed with Gatorade or Crystal Light orally begin at 5:00 p.m. the day before the procedure; Duration: 1 day 09/07/2018 Unknown Nitroglycerin 0.4 MG Tablet Sublingual Sublingual; Duration: 30 Days Unknown Ibuprofen 800 MG Tablet 1 tablet with food or milk as needed Orally Three times a day PRN Unknown Gabapentin 100 MG Capsule Oral; Duration: 90 Days Unknown Advair Diskus 100-50 MCG/DOSE Aerosol Powder Breath Activated 1 puff Inhalation Twice a day Unknown glipiZIDE ER 5 MG Tablet Extended Release 24 Hour Oral; Duration: 90 Days Unknown Testopel 75 MG Pellet as directed Implan t every three months Unknown Aspir-81 81 MG Tablet Delayed Release 1 tablet Orally Once a day Unknown metFORMIN HCl 1000 MG Tablet 1 tablet with a meal Orally twice a day Caused diarrhea Unknown Losartan Potassium 25 MG Tablet 1 tablet Orally Once a day Unknown Atorvastatin Calcium 40 MG Tablet TAKE 1 TABLET BY MOUTH DAILY Oral; Duration: 90 Days Unknown Testosterone Cypionate 200 MG/ML Solution INJECT 2 ML EVERY 3 WEEKS Intramuscular; Duration: 21 Days Unknown Furosemide 20 MG Tablet TAKE 1 TABLET BY MOUTH DAILY Oral; Duration: 90 Days Unknown amLODIPine Besylate 10 MG Tablet 1 tablet Orally Once a day Unknown Fluticasone Furoate 200 MCG/ACT Aerosol Powder Breath Activated 2 puffs Nasally Once a day Unknown Morphine Sulfate 30 MG Tablet 2 tablet as needed Orally TID Unknown Digoxin 125 MCG Tablet TAKE 1 TABLET BY MOUTH DAILY AT 12 AM Oral; Duration: 90 Days Unknown oxyCODONE HCl 15 MG Tablet 1 tablet as needed Orally every 6 hrs/prn Unknown Jardiance 10 MG Tablet Oral; Duration: 9 0 Days Unknown Fluticasone Propionate 50 MCG/ACT Suspension Nasal; Duration: 30 Days Unknown oxyCODONE HCl 15 MG Tablet TAKE 2 TABLETS BY MOUTH THREE TIMES DAILY Oral; Duration: 30 Days Unknown dilTIAZem HCl ER Coated Beads 240 MG Capsule Extended Release 24 Hour TAKE 1 CAPSULE BY MOUTH DAILY Oral; Duration: 90 Days Unknown Morphine Sulfate ER 60 MG Tablet Extended Release TAKE 1 TABLET BY MOUTH THREE TIMES DAILY Oral; Duration: 30 Days Unknown Metoprolol Succinate ER 100 MG Tablet Extended Release 24 Hour TAKE 1 TABLET BY MOUTH TWICE DAILY Oral; Duration: 90 Days Unknown Gabapentin 100 MG Capsule TAKE 1 CAPSULE BY MOUTH THREE TIMES DAILY WITH 400 MG TO EQUAL 500 MG THREE TIMES DAILY Oral; Duration: 30 Days Unknown Ipratropium [place] 0.06 % Solution USE 2 SPRAYS IN EACH NOSTRIL 3 TO 4 TIMES A DAY NEEDED FOR RHINITIS Nasal; Duration: 10 Days Unknown Ketoconazole 2 % Cream APPLY EVERY THIN LAYER TO AFFECTED AND SURROUNDING SKIN EVERY DAY UNTIL RESOLVED External; Duration: 30 Days Unknown Immunizations Vaccine Route Administration Date Status Comme nts Influenza Unknown 12/14/2017 Administered Influenza Unknown 01/17/2024 Administered Social History Tobacco Use: Social History Observation Description Date Details (start date - stop date) Former Smoker NA - NA Social History Drug/Alcohol: Social Info Question Answer Notes AUDIT-C (Standard) Did you have a drink containing alcohol in the past year? Yes How often did you have a drink containing alcohol in the past year? 2 to 4 times a month (2 points) How many drinks did you have on a typical day when you were drinking in the past year? 1 or 2 drinks (0 point) How often did you have six or more drinks on one occasion in the past year? Never (0 point) Points 2 Interpretation Negative Tobacco Use: Social Info Question Answer Notes Tobacco Use/Smoking Patient is a former smoker How long has it been since you last smoked? > 10 years Additional Details Category Social Info Options Details Miscellaneous: Marital status: single Occupation: unemployed Section Notes: Nonsmoker x 7 yrs; 2-3 [...] Problem Screening for malignant neoplasm of colon (484625294) Encounter for screening for malignant neoplasm of colon (Z12.11) Active confirmed Problem History of adenomatous polyp of colon (796245453) History of adenomatous polyp of colon (Z86.010) Active confirmed Problem Long-term current use of antiplatelet drug (308267608649503 ) Long-term use of aspirin therapy (Z79.82) Active confirmed Vital Signs Temperature 98.4 degrees Fahrenheit 10/19/2024 Blood pressure diastolic 01 mm Hg 10/19/2024 Height 70 in 10/19/2024 Blood pressure systolic 001 mm Hg 10/19/2024 Weight 175 lbs 10/19/2024 BMI 25.11 kg/m2 10/19/2024 Encounters Encounter Location Date Provider Diagnosis [facility] [address] [place] [address] 10/19/2024 Reece Garzon Colon cancer screeni ng Z12.11 ; Diarrhea R19.7 and Preprocedural examination Z01.818 [facility] [address] [place] [address] 01/17/2025 Reece Garzon [facility] [address] [place] [address] 10/19/2024 Reece Garzon Assessments Encounter Date Diagnosis (ICD [...] he has not had a colonoscopy since 2013 I think would be important that he [...] Date MEDICARE OF [place] [address] [place] [address] [id number] CHAS TORRES Self - patient is the insured [employer] CLAIMS [address] [place] [address] [id number] CHAS TORRES Self - patient is the insured Medical (General) History Medical History History ICD Code Colonoscopy 02/16/2008- 1.5cm and 8mm tu bular adenomas removed Denies AL,CVA,renal disease Asthma/COPD- Dr. Escobar Back pain- disc disease HTN NIDDM Sinus and respiratory problems- Denies AL,CVA,or renal disease Normal MRCP in August,- H [...] Dr. Morfin CHF Surgical History Surgery Date(Month/Year) Three back operations Surgery for left hip fracture Right Wrist surgery Right Carpal tunnel release
[2025-03-14 11:05] LABS: MANUAL DIFF FLAG NO
[2025-03-14 11:18] LABS: Appearance Urine Cloudy; Glucose Urine UA >=1000 mg/dL (Negative); PH 6.5 (5.0-9.0); Specific Gravity - Urine 1.015 (1.005-1.025); UMIC TRIGGER UA YES
[2025-03-14 11:33] LABS: Hematocrit 48.4 % (42.0-52.0); Hemoglobin 15.8 g/dl (14.0-18.0); Imm Gran Abs Auto 0.05 X10*3/uL (0.00-0.03); Imm Gran Pct Auto 0.4 % (0.0-0.4); Lymphocytes Absolute Auto 2.6 X10*3/uL (1.2-4.9); Mean Corpuscular HGB Conc 32.6 g/dl (31.0-36.0); Mean Corpuscular Hemoglobin 32.4 pg (27.0-33.0); Mean Corpuscular Volume 99.2 fL (80.0-98.0); NRBC Abs Auto 0.000 X10*3/uL (0.0-0.012); NRBC Pct Auto 0.0 /100WBC (0.0-0.2); Platelet Count 301 X10*3/uL (160-400); Red Blood Count 4.88 X10*6/uL (4.60-5.80); White Blood Count 12.6 X10*3/uL (4.8-10.8)
[2025-03-14 13:39] LABS: ~HepC Num1 0.48 S/CO (0.00-0.79); ~Hepatitis C Antibody Nonreactive (Nonreactive)
[2025-03-14 13:57] LABS: Alanine Aminotransferase 95 U/L (0-40); Albumin Level 4.4 g/dL (3.5-5.0); Alkaline Phosphatase 91 U/L (39-117); Anion Gap 13 (12-20); Aspartate Amino Transferase 59 U/L (5-37); Blood Urea Nitrogen 13 mg/dL (9-16); Calcium 9.3 mg/dL (8.4-10.2); Carbon Dioxide 29 mmol/L (22-29); Chloride 102 mmol/L (96-108); Cholesterol 130 mg/dL (<200); Estimated Glomerular Filt Rate > 60; HDL Cholesterol 68 mg/dL (>40); Potassium 3.9 mmol/L (3.3-5.1); Sodium 140 mmol/L (135-145); Total Protein 6.9 g/dL (6.5-8.0); Triglycerides 74 mg/dL (<150)
== END 2025-03-14 08:35 ==
LOC: HO.HHCL 08:34
PROVIDERS: Internal Medicine; PCP Nurse Practitioner Primary Care; Referring Provider Family Medicine; Visit Provider Nurse Practitioner Primary Care
DX: Z00.00 Encounter for general adult medical examination without abnormal findings (principal); Z13.89 Encounter for screening for other disorder; I11.0 Hypertensive heart disease with heart failure; I50.9 Heart failure, unspecified; E78.49 Other hyperlipidemia; Z11.59 Encounter for screening for other viral diseases
CPT/HCPCS: 36415; 80053; 80061; 81001; 82043; 82570; 84443; 85025; 86803